=== PATIENT | male | born 1965 | race Caucasian/White ===

== ENCOUNTER 2019-12-24 02:52 | Inpatient (IN) | payer OTHER, SELFPAY ==
[2019-12-24 21:40] VITALS: BMI 33.0
--- NOTE | 2019-12-25 15:29 | HO.PSYADMNOT ---
HPI Chief Complaint: ETOH AND SECTION 12 Sources of Information: patient interviewed, chart reviewed and crisis/core team assessment reviewed HPI Narrative: the patient is a 54-year-old male who last had psychiatric treatments sometime ago in [place]. The patient has a history of alcohol use history of bipolar disorder and history of multiple significant suicide attempts. The patient was transported to the emergency room on a Section 12 issued by the [facility] [employer] after he called 911 reporting suicidal ideation and became agitated when found by the police. He had a BAL of [phone] in the emergency room. The patient reports he has had ongoing intrusive thoughts of self-harm that he had tied new cyst to a tree and that he began drinking alcohol in order to kill himself. Is the anniversary of his mother's and also around his birthday. Patient had been part of a dual diagnosis treatment program in [place]. In [place] he had seen a number of people by overdose and suicide. Patient currently has no psychiatric providers he is not on any psychiatric medication he has been on Seroquel in the past or but or became problematic with his blood sugars. He denied being on lithium Depakote Tegretol Lamictal but stated he had been on mood stabilizers. Past Psychiatric History: The patient is somewhat disorganized historian he states he id had psychiatric treatment in the 1980s in this area perhaps at [facility] history of multiple suicide attempts history of clara and agitation history of depressive episode Medical Evaluation Reviewed: Yes no acute physical issues noted [facility] Medical History Bipolar disorder Depression Diabetes mellitus, type 2 Narrative: on metformin for type 2 diabetes Family History: Family history of suicide in substance abuse Social History: the patient was born and raised in [facility] he has a brother and a sister his parents are . He is not does not have any children. In the past he lived in [place] and in [place]. He moved back to to [facility] from [place] has been living with his sister. He is on security disability. Substance History: drug of choice is alcohol history of multiple past detox admissions. He was in a residential program in the past in [place] Trauma History: NA Diagnostics Vital Signs (24Hr): Body Mass Index 9.6 Meds/Allergies Meds Home Medications Medication Instructions Recorded Confirmed Type metformin 1,500 mg PO BID 12/24/19 12/25/19 History Allergies Allergies Allergy/AdvReac Type Severity Reaction Status Date / Time No Known Allergies* Allergy Uncoded 12/24/19 03:00 Mental Status Exam Mental Status Exam Patient Appearance: Disheveled Patient Orientation: Person, Place and Situation Level of Consciousness: Awake Patient Behavior: Talkative, Cooperative, Restless, Anxious and Impulsive Mood Description: Depressed, Anxious and Labile Affect Description: Constricted, Depressed, Anxious, Blunted and Sad Ability to Follow Directions: Good Speech Pattern: Clear Memory Description: Episodic Impaired Delusions: Not Present Thought Process: Distracted and Goal Oriented Thought Content: Obsessional Thoughts and Circumstantial Depressive Symptoms: Increased Anxiety, Insomnia, Increased Irritability, Hopelessness, Feelings of Guilt and Thoughts of /Suicide Abnormal Motor Activity Signs and Symptoms: Agitation Judgement: Fair Judgement and Insight: IMPAIRED IMPULSE CONTROL AND JUDGMENT STATES SAFE IN THIS SETTING HE IS ACCEPTING HELP Assessment & Plan Assessment & Plan (1) Bipolar disorder: Status: Acute Code(s): F31.9 - Bipolar disorder, unspecified (2) Suicidal ideation: Status: Acute Code(s): R45.851 - Suicidal ideations (3) Alcohol abuse with alcohol-induced mood disorder: Status: Acute Code(s): F10.14 - Alcohol abuse with alcohol-induced mood disorder Assessment and Plan: PATIENT ADMITTED WITH BIPOLAR DISC DISORDER QUESTION OF BIPOLAR TYPE 1 DEPRESSED SUBTYPE ALCOHOL USE DISORDER QUESTION OF ALCOHOL INDUCED MOOD DISORDER CONTRIBUTING TO DEPRESSION AND SUICIDAL PRESENTATION. PATIENT APPEARS SAFE IN THIS SETTING NO OBVIOUS WITHDRAWAL SYMPTOMS WILL START DEPAKOTE AND LATUDA WILL NEED MUCH PSYCHOEDUCATION ADDITIONAL HISTORY FROM FAMILY WILL NEED REFERRALS TO OUTPATIENT PROVIDERS MONITOR SAFETY WHILE INPATIENT Patient educated on: diagnosis and medication risk/benefits Informed Consent: further education needed Reason for continued inpatient stay Substantial Risk for: harm to self, rapid decompensation and med/psych decompensation
[2019-12-25 16:31] VITALS: BP 156/97; PULSE 69; TEMP 36.6
[2019-12-25 20:51] VITALS: BP 140/91; PULSE 71
[2019-12-25] MEDS: Divalproex Sodium ER 500 MG TAB.ER.24H PO (20:58)
[2019-12-25] MEDS: LORazepam 1 MG TABLET PO (20:58)
[2019-12-26 04:30] VITALS: BP 141/85; PULSE 74; RESP 16; TEMP 36.2; O2SAT 96
[2019-12-26 09:00] VITALS: BP 127/78; PULSE 62; RESP 16; TEMP 36.4
[2019-12-26 09:00] LABS: Glucose, Whole Blood 121 mg/dL (60-115)
--- NOTE | 2019-12-26 09:01 | HO.PSYCHPN ---
Assessment & Plan Assessment & Plan (1) Diabetes mellitus, type 2: Status: Acute Code(s): E11.9 - Type 2 diabetes mellitus without complications (2) Alcohol abuse with alcohol-induced mood disorder: Status: Acute Code(s): F10.14 - Alcohol abuse with alcohol-induced mood disorder (3) Suicidal ideation: Status: Acute Code(s): R45.851 - Suicidal ideations (4) Bipolar disorder: Status: Acute Code(s): F31.9 - Bipolar disorder, unspecified Assessment and Plan: continue to assess and clarify bipolar disorder versus recurrent depression. Patient a somewhat problematic historian states multiple head injuries. He is alert poor historian regarding treatment and medication. Started on Depakote Latuda for depression Greater than 50% of the session was spent on counseling and/or coordination of care Subjective Subjective Reason For Visit: ETOH AND SECTION 12 Interim History: patient remains somewhat withdrawn depressed isolated Medication Compliance: Yes Side effects from medications: No Attending Groups: No Mental Status Exam Mental Status Exam Patient Appearance: Disheveled Patient Orientation: Person and Place Level of Consciousness: Awake Patient Behavior: Guarded and Passive Mood Description: Depressed and Nervous Affect Description: Constricted and Depressed Memory Description: Episodic Impaired Hallucinations: None Delusions: Not Present Thought Process: Rumination Thought Content: positive for Slowed Thinking and positive for Suicidal Ideation (passive ) Depressive Symptoms: Sleeping More Than Usual, Feelings of Worthlessness, Hopelessness, Feelings of Guilt, Increased Fatigue, Thoughts of /Suicide and Difficulty Concentrating Judgement: Fair Judgement and Insight: improved impulse control Diagnostics Vital Signs (24Hr): Vital Signs - 24 hr 12/25/19 16:31 12/25/19 20:51 12/26/19 04:30 Temperature 97.9 F 97.1 F Pulse Rate 69 71 74 Respiratory Rate 16 Blood Pressure 156/97 H 140/91 H 141/85 H Pulse Oximetry 96 Body Mass Index 9.6 Medications Medications Current Medications Generic Name Dose Route Start Last Admin Trade Name Freq PRN Reason Stop Dose Admin Acetaminophen 650 mg 12/25/19 12:45 Acetaminophen 325 Mg Tablet PO Q6H PRN Headache/Pain Mild Scale (1-3) Al Hydroxide/Mg Hydroxide 30 ml 12/25/19 12:45 Magnesium Hydrox/Alum Hydrox 30 Ml Oral.Susp PO Q6H PRN Heartburn/Nausea Divalproex Sodium 500 mg 12/25/19 21:00 12/25/19 20:58 Divalproex Sodium Er 500 Mg Tab.Er.24h PO 500 mg BEDTIME ABDULKADIR Administration Hydroxyzine HCl 25 mg 12/25/19 12:45 Hydroxyzine Hcl 25 Mg Tablet PO BEDTIME PRN Anxiety Lorazepam 1 mg 12/25/19 12:49 12/25/19 20:58 Lorazepam 1 Mg Tablet PO 12/29/19 12:48 1 mg Q4H PRN Administration Breakthrough alcohol withdrawa Lurasidone HCl 20 mg 12/26/19 09:00 Lurasidone Hcl 20 Mg Tablet PO DAILY ABDULKADIR Magnesium Hydroxide 30 ml 12/25/19 12:45 Milk Of Magnesia 30 Ml Oral.Susp PO DAILY PRN Constipation Nicotine 21 mg 12/25/19 13:00 12/25/19 15:34 Nicotine 21 Mg Patch.Td24 TRANSDERMA Not Given DAILY ABDULKADIR Nicotine Polacrilex 2 mg 12/25/19 12:45 Nicotine Polacrilex 2 Mg Gum BUCCAL Q2H PRN Nicotine Cravings Trazodone HCl 50 mg 12/25/19 12:45 Trazodone Hcl 50 Mg Tablet PO BEDTIME PRN Insomnia Allergies Allergies Allergy/AdvReac Type Severity Reaction Status Date / Time No Known Allergies* Allergy Uncoded 12/24/19 03:00
[2019-12-26 09:05] LABS: Glucose, Whole Blood 175 mg/dL (60-115)
[2019-12-26] MEDS: Lurasidone HCl 20 MG TABLET PO (10:20)
--- NOTE | 2019-12-26 13:20 | PC.NURSE ---
Pt expressed he wanted a flu shot-MD aware
[2019-12-26 14:00] VITALS: BP 137/89; PULSE 72; TEMP 36.4
[2019-12-26] MEDS: Flu Vacc QS2020-21(6mos up)/PF 0.5 ML SYRINGE IM (14:37)
[2019-12-26 16:00] VITALS: BP 161/90; PULSE 70; TEMP 36.6
[2019-12-26 17:14] LABS: Glucose, Whole Blood 153 mg/dL (60-115)
[2019-12-26 20:00] VITALS: BP 136/88; PULSE 75
[2019-12-26] MEDS: Divalproex Sodium ER 500 MG TAB.ER.24H PO (22:52)
[2019-12-26] MEDS: LORazepam 1 MG TABLET PO (22:52)
[2019-12-26 23:58] VITALS: BP 140/93; PULSE 70; TEMP 36.5
[2019-12-27] MEDS: traZODone HCL 50 MG TABLET PO ×2 (01:53→22:28)
[2019-12-27] MEDS: hydrOXYzine HCL 25 MG TABLET PO ×2 (01:53→22:28)
[2019-12-27 06:20] VITALS: BP 138/87; PULSE 75; RESP 18; TEMP 36.5
[2019-12-27 06:41] LABS: Glucose, Whole Blood 165 mg/dL (60-115)
[2019-12-27] MEDS: Lurasidone HCl 20 MG TABLET PO (08:30)
[2019-12-27 09:12] VITALS: BP 115/57; PULSE 65; O2SAT 97
[2019-12-27] MEDS: Milk of Magnesia 30 ML ORAL.SUSP PO (10:51)
--- NOTE | 2019-12-27 12:07 | HO.PSYCHPN ---
Assessment & Plan Assessment & Plan (1) Bipolar disorder: Status: Acute Code(s): F31.9 - Bipolar disorder, unspecified Assessment and Plan: on trial of depakote, 500mg inc to 750mg qhs tonight also on latuda 20mg inc to 40mg today not pariticpating in mileu or groups much (2) Suicidal ideation: Status: Acute Code(s): R45.851 - Suicidal ideations Assessment and Plan: ongoing hopeless/helplessness (3) Alcohol abuse with alcohol-induced mood disorder: Status: Acute Code(s): F10.14 - Alcohol abuse with alcohol-induced mood disorder Assessment and Plan: denies sys of withdrawl or craving Greater than 50% of the session was spent on counseling and/or coordination of care Subjective Subjective Date of Service: 12/27/19 Reason For Visit: ETOH AND SECTION 12 Subjective Notes: Conditional Voluntary Interim History: Wanted me to review prior med trials list : incuding hx sertrline numerous times, remeron, zolpidem, clonazepam, hx ablify up to 20mg, reports trazodone didn't work, hx keppra and hx of gabapentin Medication Compliance: Yes Side effects from medications: No Attending Groups: Intermittent Review of Systems Acute medical concerns: No Medical Review of Systems: unchanged Review of Systems: not taking metform due to not eating pt reports Mental Status Exam Mental Status Exam Patient Appearance: Disheveled and Unkempt Patient Orientation: Person, Place, Time and Situation Level of Consciousness: Awake and Alert Patient Behavior: Appropriate and Cooperative Mood Description: Constricted and Anxious Affect Description: Appropriate and Flat Patient Cognition Impaired: No Ability to Follow Directions: Fair Speech Pattern: Clear Hallucinations: None Delusions: Not Present Thought Process: Intact and Goal Oriented Thought Content: positive for Racing and positive for Goal Oriented Depressive Symptoms: Increased Anxiety, Muscle Tension, Increased Irritability, Difficulty Sleeping, Hopelessness and Difficulty Concentrating Judgement: Fair Diagnostics Vital Signs (24Hr): Vital Signs - 24 hr 12/26/19 14:00 12/26/19 16:00 12/26/19 20:00 Temperature 97.6 F 97.8 F Pulse Rate 72 70 75 Respiratory Rate Blood Pressure 137/89 161/90 H 136/88 Pulse Oximetry 12/26/19 23:58 12/27/19 06:20 12/27/19 09:12 Temperature 97.7 F 97.7 F Pulse Rate 70 75 65 Respiratory Rate 18 Blood Pressure 140/93 H 138/87 115/57 L Pulse Oximetry 97 Body Mass Index Labs Labs: Laboratory Results - last 48 hr 12/26/19 12/27/19 17:07 06:26 POC Glucose 153 H 165 H Medications Medications Current Medications Generic Name Dose Route Start Last Admin Trade Name Freq PRN Reason Stop Dose Admin Acetaminophen 650 mg 12/25/19 12:45 Acetaminophen 325 Mg Tablet PO Q6H PRN Headache/Pain Mild Scale (1-3) Al Hydroxide/Mg Hydroxide 30 ml 12/25/19 12:45 Magnesium Hydrox/Alum Hydrox 30 Ml Oral.Susp PO Q6H PRN Heartburn/Nausea Divalproex Sodium 500 mg 12/25/19 21:00 12/26/19 22:52 Divalproex Sodium Er 500 Mg Tab.Er.24h PO 500 mg BEDTIME ABDULKADIR Administration Hydroxyzine HCl 25 mg 12/25/19 12:45 12/27/19 01:53 Hydroxyzine Hcl 25 Mg Tablet PO 25 mg BEDTIME PRN Administration Anxiety Lorazepam 1 mg 12/25/19 12:49 12/26/19 22:52 Lorazepam 1 Mg Tablet PO 12/29/19 12:48 1 mg Q4H PRN Administration Breakthrough alcohol withdrawa Lurasidone HCl 20 mg 12/26/19 09:00 12/27/19 08:30 Lurasidone Hcl 20 Mg Tablet PO 20 mg DAILY ABDULKADIR Administration Magnesium Hydroxide 30 ml 12/25/19 12:45 12/27/19 10:51 Milk Of Magnesia 30 Ml Oral.Susp PO 30 ml DAILY PRN Administration Constipation Nicotine 21 mg 12/25/19 13:00 12/27/19 08:32 Nicotine 21 Mg Patch.Td24 TRANSDERMA Not Given DAILY ABDULKADIR Nicotine Polacrilex 2 mg 12/25/19 12:45 Nicotine Polacrilex 2 Mg Gum BUCCAL Q2H PRN Nicotine Cravings Trazodone HCl 50 mg 12/25/19 12:45 12/27/19 01:53 Trazodone Hcl 50 Mg Tablet PO 50 mg BEDTIME PRN Administration Insomnia Allergies Allergies Allergy/AdvReac Type Severity Reaction Status Date / Time No Known Allergies* Allergy Uncoded 12/24/19 03:00
[2019-12-27 16:01] VITALS: BP 139/77; TEMP 36.4
[2019-12-27 17:14] LABS: Glucose, Whole Blood 217 mg/dL (60-115)
[2019-12-27] MEDS: Divalproex Sodium ER 250 MG TAB.ER.24H 750 MG PO (22:24)
[2019-12-28 05:32] VITALS: BP 140/84; PULSE 76; RESP 16; TEMP 36.2
[2019-12-28 06:32] LABS: Glucose, Whole Blood 153 mg/dL (60-115)
[2019-12-28] MEDS: Lurasidone HCl 40 MG TABLET PO (08:27)
--- NOTE | 2019-12-28 10:11 | HO.PSYCHPN ---
Assessment & Plan Assessment & Plan (1) Diabetes mellitus, type 2: Status: Acute Code(s): E11.9 - Type 2 diabetes mellitus without complications Assessment and Plan: contiue to encourage resuming metformin now that eating (2) Alcohol abuse with alcohol-induced mood disorder: Status: Acute Code(s): F10.14 - Alcohol abuse with alcohol-induced mood disorder Assessment and Plan: denies withdrawl or cravings started depakote and latuda for presumed ? bipolar depression increased dose still didn't sleep will inc depakote further- dc trazodone check labs 12/28 (3) Suicidal ideation: Status: Acute Code(s): R45.851 - Suicidal ideations Assessment and Plan: ongoing Greater than 50% of the session was spent on counseling and/or coordination of care Subjective Subjective Date of Service: 12/28/19 Reason For Visit: ETOH AND SECTION 12 Subjective Notes: Conditional Voluntary Interim History: didnt' sleep all night telling nureses you think one medication will help continues to endorse si if dced but safe on unit very negative about any help offered Medication Compliance: Yes Side effects from medications: No Attending Groups: No Review of Systems Acute medical concerns: Yes has diabetes not taking metformin, as he hadn't been eating- bs up today- Medical Review of Systems: unchanged Mental Status Exam Mental Status Exam Narrative: showered and groomed today Patient Appearance: Appropriate Patient Orientation: Person, Place, Time and Situation Level of Consciousness: Awake and Alert Patient Behavior: Passive, Resistive to Care and Isolative Mood Description: Withdrawn and Depressed Affect Description: Angry (irritable) Hallucinations: None Thought Process: Intact and Goal Oriented Thought Content: positive for Intact, positive for Goal Oriented and positive for Suicidal Ideation (if dced, ) Depressive Symptoms: Difficulty Sleeping, Significant Weight Loss, Hopelessness and Thoughts of /Suicide Judgement: Fair Diagnostics Vital Signs (24Hr): Vital Signs - 24 hr 12/27/19 16:01 12/28/19 05:32 Temperature 97.6 F 97.2 F Pulse Rate 76 Respiratory Rate 16 Blood Pressure 139/77 140/84 H Body Mass Index Labs Labs: Laboratory Results - last 48 hr 12/26/19 12/27/19 12/27/19 17:07 06:26 17:10 POC Glucose 153 H 165 H 217 H 12/28/19 05:22 POC Glucose 153 H Medications Medications Current Medications Generic Name Dose Route Start Last Admin Trade Name Freq PRN Reason Stop Dose Admin Acetaminophen 650 mg 12/25/19 12:45 Acetaminophen 325 Mg Tablet PO Q6H PRN Headache/Pain Mild Scale (1-3) Al Hydroxide/Mg Hydroxide 30 ml 12/25/19 12:45 Magnesium Hydrox/Alum Hydrox 30 Ml Oral.Susp PO Q6H PRN Heartburn/Nausea Divalproex Sodium 750 mg 12/27/19 21:00 12/27/19 22:24 Divalproex Sodium Er 250 Mg Tab.Er.24h PO 750 mg BEDTIME ABDULKADIR Administration Hydroxyzine HCl 25 mg 12/25/19 12:45 12/27/19 22:28 Hydroxyzine Hcl 25 Mg Tablet PO 25 mg BEDTIME PRN Administration Anxiety Lorazepam 1 mg 12/25/19 12:49 12/26/19 22:52 Lorazepam 1 Mg Tablet PO 12/29/19 12:48 1 mg Q4H PRN Administration Breakthrough alcohol withdrawa Lurasidone HCl 40 mg 12/28/19 09:00 12/28/19 08:27 Lurasidone Hcl 40 Mg Tablet PO 40 mg DAILY ABDULKADIR Administration Magnesium Hydroxide 30 ml 12/25/19 12:45 12/27/19 10:51 Milk Of Magnesia 30 Ml Oral.Susp PO 30 ml DAILY PRN Administration Constipation Nicotine 21 mg 12/25/19 13:00 12/28/19 09:04 Nicotine 21 Mg Patch.Td24 TRANSDERMA Not Given DAILY ABDULKADIR Nicotine Polacrilex 2 mg 12/25/19 12:45 Nicotine Polacrilex 2 Mg Gum BUCCAL Q2H PRN Nicotine Cravings Trazodone HCl 50 mg 12/25/19 12:45 12/27/19 22:28 Trazodone Hcl 50 Mg Tablet PO 50 mg BEDTIME PRN Administration Insomnia increasing latuda to 60mg; inc depakote to 1000mg qhs dc trazodone inc hydroxyzine to 50mg mr x1 Allergies Allergies Allergy/AdvReac Type Severity Reaction Status Date / Time No Known Allergies* Allergy Uncoded 12/24/19 03:00
[2019-12-28 17:03] VITALS: BP 148/84; PULSE 72; TEMP 36.4
[2019-12-28 17:23] LABS: Glucose, Whole Blood 205 mg/dL (60-115)
[2019-12-28] MEDS: Divalproex Sodium ER 500 MG TAB.ER.24H 1000 MG PO (22:58)
[2019-12-28] MEDS: hydrOXYzine HCL 25 MG TABLET 50 MG PO (23:00)
[2019-12-29] MEDS: hydrOXYzine HCL 25 MG TABLET 50 MG PO (01:53)
[2019-12-29 05:50] VITALS: BP 138/85; PULSE 69; RESP 16; TEMP 36.1
[2019-12-29 05:52] LABS: Glucose, Whole Blood 179 mg/dL (60-115)
[2019-12-29] MEDS: Lurasidone HCl 20 MG TABLET 60 MG PO (09:17)
[2019-12-29 09:20] LABS: MANUAL DIFF FLAG NO
[2019-12-29 09:26] LABS: Basophils Percent Auto 0.4 % (0-2); Eosinophils Absolute Auto 0.1 X10*3/uL (0.0-0.4); Eosinophils Percent Auto 2.1 % (0-4); Hematocrit 46.5 % (42-52); Imm Gran Abs Auto 0.01 X10*3/uL (0.00-0.03); Imm Gran Pct Auto 0.2 % (0.0-0.4); Lymphocytes Percent Auto 37.8 % (20-40); Mean Corpuscular HGB Conc 34.4 g/dl (31.0-36.0); Mean Corpuscular Hemoglobin 30.7 pg (27.0-33.0); Mean Corpuscular Volume 89.3 fL (80-98); Monocytes Absolute Auto 0.6 X10*3/uL (0.1-1.2); Monocytes Percent Auto 12.2 % (2-11); Neutrophils Absolute Auto 2.5 X10*3/uL (2.0-8.3); Neutrophils Percent Auto 47.3 % (45-73); Platelet Count 153 X10*3/uL (160-400); Red Blood Count 5.21 X10*6/uL (4.60-5.80); Red Cell Distribution Width 13.3 % (11.0-16.0); White Blood Count 5.2 X10*3/uL (4.8-10.8)
[2019-12-29 09:49] LABS: Estimated Average Glucose 128 mg/dL; Hemoglobin A1c % 6.1 %
[2019-12-29 09:55] LABS: Alanine Aminotransferase 44 U/L (0-40); Aspartate Amino Transferase 31 U/L (5-37); Cholesterol 159 mg/dL; HDL Cholesterol 52 mg/dL; LDL Cholesterol Calculated 58 mg/dl
[2019-12-29 09:59] LABS: Valproate 32.1 mcg/mL (50.0-100.0)
[2019-12-29 10:26] LABS: Triglycerides 249 mg/dL
--- NOTE | 2019-12-29 16:46 | HO.PSYCHPN ---
Assessment & Plan Assessment & Plan (1) Suicidal ideation: Status: Acute Code(s): R45.851 - Suicidal ideations (2) Bipolar disorder: Status: Acute Code(s): F31.9 - Bipolar disorder, unspecified Assessment and Plan: continue Latuda Depakote patient has some records from [place] to review Greater than 50% of the session was spent on counseling and/or coordination of care Subjective Subjective Reason For Visit: ETOH AND SECTION 12 depression si Interim History: Pt more related isolative for past 6 months pt was severely depressed was helping fix up the house things did nt go well with his sister Patient has been depressed withdrawn has started leaving his room Medication Compliance: Yes Attending Groups: Intermittent Mental Status Exam Mental Status Exam Narrative: showered and groomed today Patient Appearance: Appropriate Patient Orientation: Person, Place, Time and Situation Level of Consciousness: Awake and Alert Patient Behavior: Passive, Resistive to Care and Isolative Mood Description: Withdrawn and Depressed Affect Description: Angry (irritable) Hallucinations: None Thought Process: Intact and Goal Oriented Thought Content: positive for Intact, positive for Goal Oriented and positive for Suicidal Ideation (if dced, ) Depressive Symptoms: Difficulty Sleeping, Significant Weight Loss, Hopelessness and Thoughts of /Suicide Judgement: Fair Diagnostics Vital Signs (24Hr): Vital Signs - 24 hr 12/28/19 17:03 12/29/19 05:50 Temperature 97.6 F 96.9 F Pulse Rate 72 69 Respiratory Rate 16 Blood Pressure 148/84 H 138/85 Body Mass Index 9.6 Labs Results: 12/29/19 08:51 Labs: Laboratory Results - last 48 hr 12/25/19 12/26/19 12/27/19 17:46 04:20 17:10 WBC RBC Hgb Hct MCV MCH MCHC RDW Plt Count MPV Immature Gran % (Auto) Neut % (Auto) Lymph % (Auto) [place] % (Auto) Eos % (Auto) Baso % (Auto) Neut # (Auto) Lymph # (Auto) [place] # (Auto) Eos # (Auto) Baso # (Auto) Abs Immat Gran (auto) Absolute Nucleated RBC Nucleated RBC % (auto) POC Glucose 175 H 121 H 217 H Estimat Average Glucose Hemoglobin A1c % AST ALT Triglycerides Cholesterol LDL Cholesterol, Calc HDL Cholesterol Valproic Acid 12/28/19 12/28/19 12/29/19 05:22 16:59 05:48 WBC RBC Hgb Hct MCV MCH MCHC RDW Plt Count MPV Immature Gran % (Auto) Neut % (Auto) Lymph % (Auto) [place] % (Auto) Eos % (Auto) Baso % (Auto) Neut # (Auto) Lymph # (Auto) [place] # (Auto) Eos # (Auto) Baso # (Auto) Abs Immat Gran (auto) Absolute Nucleated RBC Nucleated RBC % (auto) POC Glucose 153 H 205 H 179 H Estimat Average Glucose Hemoglobin A1c % AST ALT Triglycerides Cholesterol LDL Cholesterol, Calc HDL Cholesterol Valproic Acid 12/29/19 12/29/19 12/29/19 08:51 08:51 08:51 WBC 5.2 RBC 5.21 Hgb 16.0 Hct 46.5 MCV 89.3 MCH 30.7 MCHC 34.4 RDW 13.3 Plt Count 153 L MPV 11.0 Immature Gran % (Auto) 0.2 Neut % (Auto) 47.3 Lymph % (Auto) 37.8 [place] % (Auto) 12.2 H Eos % (Auto) 2.1 Baso % (Auto) 0.4 Neut # (Auto) 2.5 Lymph # (Auto) 2.0 [place] # (Auto) 0.6 Eos # (Auto) 0.1 Baso # (Auto) 0.0 Abs Immat Gran (auto) 0.01 Absolute Nucleated RBC 0.000 Nucleated RBC % (auto) 0.0 POC Glucose Estimat Average Glucose 128 Hemoglobin A1c % 6.1 AST 31 ALT 44 H Triglycerides 249 Cholesterol 159 LDL Cholesterol, Calc 58 HDL Cholesterol 52 Valproic Acid 32.1 L Medications Medications Current Medications Generic Name Dose Route Start Last Admin Trade Name Freq PRN Reason Stop Dose Admin Acetaminophen 650 mg 12/25/19 12:45 Acetaminophen 325 Mg Tablet PO Q6H PRN Headache/Pain Mild Scale (1-3) Al Hydroxide/Mg Hydroxide 30 ml 12/25/19 12:45 Magnesium Hydrox/Alum Hydrox 30 Ml Oral.Susp PO Q6H PRN Heartburn/Nausea Divalproex Sodium 1,000 mg 12/28/19 21:00 12/28/19 22:58 Divalproex Sodium Er 500 Mg Tab.Er.24h PO 1,000 mg BEDTIME ABDULKADIR Administration Hydroxyzine HCl 50 mg 12/28/19 19:11 12/29/19 01:53 Hydroxyzine Hcl 25 Mg Tablet PO 50 mg BEDTIME MRX1 PRN Administration Insomnia Lurasidone HCl 60 mg 12/29/19 09:00 12/29/19 09:17 Lurasidone Hcl 20 Mg Tablet PO 60 mg DAILY ABDULKADIR Administration Magnesium Hydroxide 30 ml 12/25/19 12:45 12/27/19 10:51 Milk Of Magnesia 30 Ml Oral.Susp PO 30 ml DAILY PRN Administration Constipation Nicotine 21 mg 12/25/19 13:00 12/29/19 09:17 Nicotine 21 Mg Patch.Td24 TRANSDERMA Not Given DAILY ABDULKADIR Nicotine Polacrilex 2 mg 12/25/19 12:45 Nicotine Polacrilex 2 Mg Gum BUCCAL Q2H PRN Nicotine Cravings Allergies Allergies Allergy/AdvReac Type Severity Reaction Status Date / Time No Known Allergies* Allergy Uncoded 12/24/19 03:00
[2019-12-29 17:10] LABS: Glucose, Whole Blood 230 mg/dL (60-115)
[2019-12-29 18:00] VITALS: BP 148/64; PULSE 77; TEMP 36.2
[2019-12-29] MEDS: Divalproex Sodium ER 500 MG TAB.ER.24H 1000 MG PO (22:30)
[2019-12-29] MEDS: hydrOXYzine HCL 25 MG TABLET 100 MG PO (22:31)
[2019-12-29] MEDS: clonazePAM 0.5 MG TABLET PO (22:33)
[2019-12-30 04:52] LABS: Glucose, Whole Blood 260 mg/dL (60-115)
[2019-12-30 05:20] VITALS: BP 129/69; PULSE 72; RESP 18; TEMP 36.3
[2019-12-30 08:06] LABS: Glucose, Whole Blood 260 mg/dL (60-115)
[2019-12-30] MEDS: Lurasidone HCl 20 MG TABLET 60 MG PO (09:29)
[2019-12-30] MEDS: Thiamine HCL 100 MG TABLET PO (10:37)
[2019-12-30] MEDS: DULoxetine HCl 30 MG CAPSULE.DR PO (10:37)
[2019-12-30 12:34] LABS: Alanine Aminotransferase 63 U/L (0-40); Albumin Level 3.8 g/dL (3.5-5.0); Alkaline Phosphatase 70 U/L (39-117); Anion Gap 15 (12-20); Aspartate Amino Transferase 43 U/L (5-37); Bilirubin Total 0.3 mg/dL (0.0-1.0); Blood Urea Nitrogen 17 mg/dL (9-16); Carbon Dioxide 24 mmol/L (22-29); Chloride 103 mmol/L (96-108); Creatinine Clr Calc Pharmacy 41.8; Estimated Glomerular Filt Rate > 60; Glucose Random 267 mg/dL (60-115); Potassium 4.5 mmol/l (3.3-5.1); Sodium 137 mmol/L (135-145); Total Protein 6.7 g/dL (6.5-8.0)
[2019-12-30 12:56] LABS: Thyroid Stimulating Hormone 1.05 mIU/mL (0.32-4.0)
[2019-12-30] MEDS: Nicotine 21 MG PATCH.TD24 TRANSDERMA (13:04)
[2019-12-30 13:49] LABS: Folate 8.6 ng/mL (> or = 4.0); Vitamin B12 264 pg/mL (200-900)
[2019-12-30 17:24] LABS: Glucose, Whole Blood 245 mg/dL (60-115)
--- NOTE | 2019-12-30 21:05 | P.PNPSI_ITS ---
Assessment & Plan Assessment & Plan (1) Diabetes mellitus, type 2: Status: Acute Code(s): E11.9 - Type 2 diabetes mellitus without complications (2) Alcohol abuse with alcohol-induced mood disorder: Status: Acute Code(s): F10.14 - Alcohol abuse with alcohol-induced mood disorder (3) Suicidal ideation: Status: Acute Code(s): R45.851 - Suicidal ideations (4) Bipolar disorder: Status: Acute Code(s): F31.9 - Bipolar disorder, unspecified Assessment and Plan: continue Latuda start sertraline continue Depakote clonazepam at bedtime with patient more stable consider partial hospital Greater than 50% of the session was spent on counseling and/or coordination of care Subjective Subjective Reason For Visit: ETOH AND SECTION 12 depression si Interim History: patient remains severely depressed withdrawn room intermittent thoughts he might be better off . Started on sertraline Medication Compliance: Yes Side effects from medications: No Attending Groups: Intermittent Mental Status Exam Mental Status Exam Patient Appearance: Disheveled Patient Orientation: Person, Place and Situation Level of Consciousness: Awake Mood Description: Withdrawn Thought Content: positive for Goal Oriented Depressive Symptoms: Increased Anxiety, Diff. Making Decisions, Increased Irritability, Difficulty Sleeping, Feelings of Worthlessness, Feelings of Guilt and Difficulty Concentrating Judgement and Insight: improving improved impulse control Diagnostics Vital Signs (24Hr): Vital Signs - 24 hr 12/30/19 05:20 Temperature 97.3 F Pulse Rate 72 Respiratory Rate 18 Blood Pressure 129/69 Body Mass Index 9.6 Labs Results: 12/29/19 08:51 12/30/19 11:42 Labs: Laboratory Results - last 48 hr 12/25/19 12/26/19 12/29/19 17:46 04:20 05:48 WBC RBC Hgb Hct MCV MCH MCHC RDW Plt Count MPV Immature Gran % (Auto) Neut % (Auto) Lymph % (Auto) [place] % (Auto) Eos % (Auto) Baso % (Auto) Neut # (Auto) Lymph # (Auto) [place] # (Auto) Eos # (Auto) Baso # (Auto) Abs Immat Gran (auto) Absolute Nucleated RBC Nucleated RBC % (auto) Sodium Potassium Chloride Carbon Dioxide Anion Gap BUN Creatinine Estim Creat Clear Calc Estimated GFR POC Glucose 175 H 121 H 179 H Random Glucose Estimat Average Glucose Hemoglobin A1c % Calcium Total Bilirubin AST ALT Alkaline Phosphatase Total Protein Albumin Triglycerides Cholesterol LDL Cholesterol, Calc HDL Cholesterol Vitamin B12 Folate TSH Valproic Acid 12/29/19 12/29/19 12/29/19 08:51 08:51 08:51 WBC 5.2 RBC 5.21 Hgb 16.0 Hct 46.5 MCV 89.3 MCH 30.7 MCHC 34.4 RDW 13.3 Plt Count 153 L MPV 11.0 Immature Gran % (Auto) 0.2 Neut % (Auto) 47.3 Lymph % (Auto) 37.8 [place] % (Auto) 12.2 H Eos % (Auto) 2.1 Baso % (Auto) 0.4 Neut # (Auto) 2.5 Lymph # (Auto) 2.0 [place] # (Auto) 0.6 Eos # (Auto) 0.1 Baso # (Auto) 0.0 Abs Immat Gran (auto) 0.01 Absolute Nucleated RBC 0.000 Nucleated RBC % (auto) 0.0 Sodium Potassium Chloride Carbon Dioxide Anion Gap BUN Creatinine Estim Creat Clear Calc Estimated GFR POC Glucose Random Glucose Estimat Average Glucose 128 Hemoglobin A1c % 6.1 Calcium Total Bilirubin AST 31 ALT 44 H Alkaline Phosphatase Total Protein Albumin Triglycerides 249 Cholesterol 159 LDL Cholesterol, Calc 58 HDL Cholesterol 52 Vitamin B12 Folate TSH Valproic Acid 32.1 L 12/29/19 12/30/19 12/30/19 17:06 04:47 04:47 WBC RBC Hgb Hct MCV MCH MCHC RDW Plt Count MPV Immature Gran % (Auto) Neut % (Auto) Lymph % (Auto) [place] % (Auto) Eos % (Auto) Baso % (Auto) Neut # (Auto) Lymph # (Auto) [place] # (Auto) Eos # (Auto) Baso # (Auto) Abs Immat Gran (auto) Absolute Nucleated RBC Nucleated RBC % (auto) Sodium Potassium Chloride Carbon Dioxide Anion Gap BUN Creatinine Estim Creat Clear Calc Estimated GFR POC Glucose 230 H 260 H 260 H Random Glucose Estimat Average Glucose Hemoglobin A1c % Calcium Total Bilirubin AST ALT Alkaline Phosphatase Total Protein Albumin Triglycerides Cholesterol LDL Cholesterol, Calc HDL Cholesterol Vitamin B12 Folate TSH Valproic Acid 12/30/19 12/30/19 12/30/19 11:42 11:42 17:19 WBC RBC Hgb Hct MCV MCH MCHC RDW Plt Count MPV Immature Gran % (Auto) Neut % (Auto) Lymph % (Auto) [place] % (Auto) Eos % (Auto) Baso % (Auto) Neut # (Auto) Lymph # (Auto) [place] # (Auto) Eos # (Auto) Baso # (Auto) Abs Immat Gran (auto) Absolute Nucleated RBC Nucleated RBC % (auto) Sodium 137 Potassium 4.5 Chloride 103 Carbon Dioxide 24 Anion Gap 15 BUN 17 H Creatinine 0.92 Estim Creat Clear Calc 41.8 Estimated GFR > 60 POC Glucose 245 H Random Glucose 267 H Estimat Average Glucose Hemoglobin A1c % Calcium 9.0 Total Bilirubin 0.3 AST 43 H ALT 63 H Alkaline Phosphatase 70 Total Protein 6.7 Albumin 3.8 Triglycerides Cholesterol LDL Cholesterol, Calc HDL Cholesterol Vitamin B12 264 Folate 8.6 TSH 1.05 Valproic Acid Medications Medications Current Medications Generic Name Dose Route Start Last Admin Trade Name Freq PRN Reason Stop Dose Admin Acetaminophen 650 mg 12/25/19 12:45 Acetaminophen 325 Mg Tablet PO Q6H PRN Headache/Pain Mild Scale (1-3) Al Hydroxide/Mg Hydroxide 30 ml 12/25/19 12:45 Magnesium Hydrox/Alum Hydrox 30 Ml Oral.Susp PO Q6H PRN Heartburn/Nausea Clonazepam 0.5 mg 12/29/19 21:00 12/29/19 22:33 Clonazepam 0.5 Mg Tablet PO 0.5 mg BEDTIME ABDULKADIR Administration Divalproex Sodium 1,000 mg 12/28/19 21:00 12/29/19 22:30 Divalproex Sodium Er 500 Mg Tab.Er.24h PO 1,000 mg BEDTIME ABDULKADIR Administration Duloxetine HCl 30 mg 12/30/19 10:05 12/30/19 10:37 Duloxetine Hcl 30 Mg Capsule.Dr PO 30 mg DAILY ABDULKADIR Administration Hydroxyzine HCl 100 mg 12/29/19 21:00 12/29/19 22:31 Hydroxyzine Hcl 25 Mg Tablet PO 100 mg BEDTIME ABDULKADIR Administration Lurasidone HCl 60 mg 12/29/19 09:00 12/30/19 09:29 Lurasidone Hcl 20 Mg Tablet PO 60 mg DAILY ABDULKADIR Administration Magnesium Hydroxide 30 ml 12/25/19 12:45 12/27/19 10:51 Milk Of Magnesia 30 Ml Oral.Susp PO 30 ml DAILY PRN Administration Constipation Nicotine 21 mg 12/25/19 13:00 12/30/19 13:04 Nicotine 21 Mg Patch.Td24 TRANSDERMA 21 mg DAILY ABDULKADIR Administration Nicotine Polacrilex 2 mg 12/25/19 12:45 Nicotine Polacrilex 2 Mg Gum BUCCAL Q2H PRN Nicotine Cravings Thiamine HCl 100 mg 12/30/19 10:00 12/30/19 10:37 Thiamine Hcl 100 Mg Tablet PO 100 mg DAILY ABDULKADIR Administration Allergies Allergies Allergy/AdvReac Type Severity Reaction Status Date / Time No Known Allergies* Allergy Uncoded 12/24/19 03:00
[2019-12-30] MEDS: Divalproex Sodium ER 500 MG TAB.ER.24H 1000 MG PO (22:50)
[2019-12-30] MEDS: clonazePAM 0.5 MG TABLET PO (22:50)
[2019-12-30] MEDS: hydrOXYzine HCL 25 MG TABLET 100 MG PO (22:51)
[2019-12-31 05:06] LABS: Glucose, Whole Blood 192 mg/dL (60-115)
[2019-12-31 05:35] VITALS: BP 139/81; PULSE 75; RESP 18; TEMP 36.4
[2019-12-31] MEDS: DULoxetine HCl 30 MG CAPSULE.DR PO (10:10)
[2019-12-31] MEDS: Lurasidone HCl 20 MG TABLET 60 MG PO (10:10)
[2019-12-31] MEDS: Thiamine HCL 100 MG TABLET PO (10:10)
[2019-12-31 18:00] VITALS: BP 132/75; PULSE 77; TEMP 36.4
[2019-12-31] MEDS: hydrOXYzine HCL 25 MG TABLET 100 MG PO (22:20)
[2019-12-31] MEDS: clonazePAM 0.5 MG TABLET PO (22:23)
[2019-12-31] MEDS: Divalproex Sodium ER 500 MG TAB.ER.24H 1000 MG PO (22:23)
--- NOTE | 2019-12-31 22:45 | HO.PSYCHPN ---
Assessment & Plan Assessment & Plan (1) Diabetes mellitus, type 2: Status: Acute Code(s): E11.9 - Type 2 diabetes mellitus without complications (2) Alcohol abuse with alcohol-induced mood disorder: Status: Acute Code(s): F10.14 - Alcohol abuse with alcohol-induced mood disorder (3) Suicidal ideation: Status: Acute Code(s): R45.851 - Suicidal ideations (4) Bipolar disorder: Status: Acute Code(s): F31.9 - Bipolar disorder, unspecified Assessment and Plan: continue Latuda cymbalta continue Depakote clonazepam at bedtime with patient more stable consider partial hospital Greater than 50% of the session was spent on counseling and/or coordination of care Subjective Subjective Reason For Visit: ETOH AND SECTION 12 depression si Interim History: patient remains depressed withdrawn room intermittent thoughts he might be better off . tolerating addition of Cymbalta 30 mg daily Mental Status Exam Mental Status Exam Narrative: improved range of affect Patient Appearance: Appropriate Patient Orientation: Person, Place and Situation Level of Consciousness: Awake Patient Behavior: Appropriate, Cooperative and Isolative Behavior Comments: avoids crowds becomes nervous Mood Description: Withdrawn Affect Description: Depressed Patient Cognition Impaired: No Ability to Follow Directions: Good Speech Pattern: Clear Memory Description: Episodic Impaired Diagnostics Vital Signs (24Hr): Vital Signs - 24 hr 12/31/19 05:35 12/31/19 18:00 Temperature 97.6 F 97.5 F Pulse Rate 75 77 Respiratory Rate 18 Blood Pressure 139/81 132/75 Body Mass Index 9.6 Labs Results: 12/29/19 08:51 12/30/19 11:42 Labs: Laboratory Results - last 48 hr 12/30/19 12/30/19 12/30/19 04:47 04:47 11:42 Sodium 137 Potassium 4.5 Chloride 103 Carbon Dioxide 24 Anion Gap 15 BUN 17 H Creatinine 0.92 Estim Creat Clear Calc 41.8 Estimated GFR > 60 POC Glucose 260 H 260 H Random Glucose 267 H Calcium 9.0 Total Bilirubin 0.3 AST 43 H ALT 63 H Alkaline Phosphatase 70 Total Protein 6.7 Albumin 3.8 Vitamin B12 Folate TSH 1.05 12/30/19 12/30/19 12/31/19 11:42 17:19 05:02 Sodium Potassium Chloride Carbon Dioxide Anion Gap BUN Creatinine Estim Creat Clear Calc Estimated GFR POC Glucose 245 H 192 H Random Glucose Calcium Total Bilirubin AST ALT Alkaline Phosphatase Total Protein Albumin Vitamin B12 264 Folate 8.6 TSH Medications Medications Current Medications Generic Name Dose Route Start Last Admin Trade Name Freq PRN Reason Stop Dose Admin Acetaminophen 650 mg 12/25/19 12:45 Acetaminophen 325 Mg Tablet PO Q6H PRN Headache/Pain Mild Scale (1-3) Al Hydroxide/Mg Hydroxide 30 ml 12/25/19 12:45 Magnesium Hydrox/Alum Hydrox 30 Ml Oral.Susp PO Q6H PRN Heartburn/Nausea Clonazepam 0.5 mg 12/29/19 21:00 12/31/19 22:23 Clonazepam 0.5 Mg Tablet PO 0.5 mg BEDTIME ABDULKADIR Administration Divalproex Sodium 1,000 mg 12/28/19 21:00 12/31/19 22:23 Divalproex Sodium Er 500 Mg Tab.Er.24h PO 1,000 mg BEDTIME ABDULKADIR Administration Duloxetine HCl 30 mg 12/30/19 10:05 12/31/19 10:10 Duloxetine Hcl 30 Mg Capsule.Dr PO 30 mg DAILY ABDULKADIR Administration Hydroxyzine HCl 100 mg 12/29/19 21:00 12/31/19 22:20 Hydroxyzine Hcl 25 Mg Tablet PO 100 mg BEDTIME ABDULKADIR Administration Lurasidone HCl 60 mg 12/29/19 09:00 12/31/19 10:10 Lurasidone Hcl 20 Mg Tablet PO 60 mg DAILY ABDULKADIR Administration Magnesium Hydroxide 30 ml 12/25/19 12:45 12/27/19 10:51 Milk Of Magnesia 30 Ml Oral.Susp PO 30 ml DAILY PRN Administration Constipation Nicotine 21 mg 12/25/19 13:00 12/31/19 10:10 Nicotine 21 Mg Patch.Td24 TRANSDERMA Not Given DAILY ABDULKADIR Nicotine Polacrilex 2 mg 12/25/19 12:45 Nicotine Polacrilex 2 Mg Gum BUCCAL Q2H PRN Nicotine Cravings Thiamine HCl 100 mg 12/30/19 10:00 12/31/19 10:10 Thiamine Hcl 100 Mg Tablet PO 100 mg DAILY ABDULKADIR Administration Allergies Allergies Allergy/AdvReac Type Severity Reaction Status Date / Time No Known Allergies* Allergy Uncoded 12/24/19 03:00
[2020-01-01 05:15] VITALS: BP 120/66; PULSE 90; RESP 16; TEMP 36.3; O2SAT 95
[2020-01-01 07:00] VITALS: BMI 35.1
[2020-01-01] MEDS: Lurasidone HCl 20 MG TABLET 60 MG PO (09:15)
[2020-01-01] MEDS: DULoxetine HCl 30 MG CAPSULE.DR PO (09:16)
[2020-01-01] MEDS: Thiamine HCL 100 MG TABLET PO (09:16)
[2020-01-01] MEDS: Nicotine 21 MG PATCH.TD24 TRANSDERMA (09:16)
--- NOTE | 2020-01-01 10:51 | HO.PSYCHPN ---
Subjective Subjective Reason For Visit: ETOH AND SECTION 12 depression si Interim History: patient shows some biswas range of affect complains of insomnia agreeable to sobriety regarding alcohol tolerating Gideon Huntley Mental Status Exam Mental Status Exam Narrative: improved range of affect less hopeless and despondent still feels quite fragile Patient Appearance: Appropriate Patient Orientation: Person, Place and Situation Level of Consciousness: Awake Patient Behavior: Appropriate, Cooperative and Isolative Behavior Comments: avoids crowds becomes nervous Mood Description: Withdrawn Affect Description: Depressed Patient Cognition Impaired: No Ability to Follow Directions: Good Speech Pattern: Clear Memory Description: Episodic Impaired Diagnostics Vital Signs (24Hr): Vital Signs - 24 hr 12/31/19 18:00 01/01/20 05:15 Temperature 97.5 F 97.3 F Pulse Rate 77 90 Respiratory Rate 16 Blood Pressure 132/75 120/66 Pulse Oximetry 95 Body Mass Index 35.1 Labs Results: 12/29/19 08:51 12/30/19 11:42 Labs: Laboratory Results - last 48 hr 12/30/19 12/30/19 12/30/19 11:42 11:42 17:19 Sodium 137 Potassium 4.5 Chloride 103 Carbon Dioxide 24 Anion Gap 15 BUN 17 H Creatinine 0.92 Estim Creat Clear Calc 41.8 Estimated GFR > 60 POC Glucose 245 H Random Glucose 267 H Calcium 9.0 Total Bilirubin 0.3 AST 43 H ALT 63 H Alkaline Phosphatase 70 Total Protein 6.7 Albumin 3.8 Vitamin B12 264 Folate 8.6 TSH 1.05 12/31/19 05:02 Sodium Potassium Chloride Carbon Dioxide Anion Gap BUN Creatinine Estim Creat Clear Calc Estimated GFR POC Glucose 192 H Random Glucose Calcium Total Bilirubin AST ALT Alkaline Phosphatase Total Protein Albumin Vitamin B12 Folate TSH Medications Medications Current Medications Generic Name Dose Route Start Last Admin Trade Name Freq PRN Reason Stop Dose Admin Acetaminophen 650 mg 12/25/19 12:45 Acetaminophen 325 Mg Tablet PO Q6H PRN Headache/Pain Mild Scale (1-3) Al Hydroxide/Mg Hydroxide 30 ml 12/25/19 12:45 Magnesium Hydrox/Alum Hydrox 30 Ml Oral.Susp PO Q6H PRN Heartburn/Nausea Clonazepam 0.5 mg 12/29/19 21:00 12/31/19 22:23 Clonazepam 0.5 Mg Tablet PO 0.5 mg BEDTIME ABDULKADIR Administration Divalproex Sodium 1,000 mg 12/28/19 21:00 12/31/19 22:23 Divalproex Sodium Er 500 Mg Tab.Er.24h PO 1,000 mg BEDTIME ABDULKADIR Administration Duloxetine HCl 30 mg 12/30/19 10:05 01/01/20 09:16 Duloxetine Hcl 30 Mg Capsule.Dr PO 30 mg DAILY ABDULKADIR Administration Hydroxyzine HCl 100 mg 12/29/19 21:00 12/31/19 22:20 Hydroxyzine Hcl 25 Mg Tablet PO 100 mg BEDTIME ABDULKADIR Administration Lurasidone HCl 60 mg 12/29/19 09:00 01/01/20 09:15 Lurasidone Hcl 20 Mg Tablet PO 60 mg DAILY ABDULKADIR Administration Magnesium Hydroxide 30 ml 12/25/19 12:45 12/27/19 10:51 Milk Of Magnesia 30 Ml Oral.Susp PO 30 ml DAILY PRN Administration Constipation Nicotine 21 mg 12/25/19 13:00 01/01/20 09:16 Nicotine 21 Mg Patch.Td24 TRANSDERMA 21 mg DAILY ABDULKADIR Administration Nicotine Polacrilex 2 mg 12/25/19 12:45 Nicotine Polacrilex 2 Mg Gum BUCCAL Q2H PRN Nicotine Cravings Thiamine HCl 100 mg 12/30/19 10:00 01/01/20 09:16 Thiamine Hcl 100 Mg Tablet PO 100 mg DAILY ABDULKADIR Administration Allergies Allergies Allergy/AdvReac Type Severity Reaction Status Date / Time No Known Allergies* Allergy Uncoded 12/24/19 03:00 Assessment & Plan Assessment & Plan (1) Diabetes mellitus, type 2: Status: Acute Code(s): E11.9 - Type 2 diabetes mellitus without complications (2) Alcohol abuse with alcohol-induced mood disorder: Status: Acute Code(s): F10.14 - Alcohol abuse with alcohol-induced mood disorder (3) Suicidal ideation: Status: Acute Code(s): R45.851 - Suicidal ideations (4) Bipolar disorder: Status: Acute Code(s): F31.9 - Bipolar disorder, unspecified Assessment and Plan: continue Latuda cymbalta increase continue Depakote clonazepam at bedtime Ambien when patient more stable consider partial hospital increase Cymbalta to 40 mg restart metformin Greater than 50% of the session was spent on counseling and/or coordination of care
[2020-01-01 16:51] LABS: Glucose, Whole Blood 230 mg/dL (60-115)
[2020-01-01] MEDS: metFORMIN HCl 500 MG TABLET PO (17:07)
[2020-01-01 18:00] VITALS: BP 137/80; PULSE 72; RESP 18; TEMP 36.7
[2020-01-01] MEDS: clonazePAM 0.5 MG TABLET PO (21:01)
[2020-01-01] MEDS: hydrOXYzine HCL 25 MG TABLET 100 MG PO (21:01)
[2020-01-01] MEDS: Docusate Sodium 100 MG CAPSULE PO (21:01)
[2020-01-01] MEDS: Zolpidem Tartrate 5 MG TABLET PO (21:02)
[2020-01-01] MEDS: Divalproex Sodium ER 500 MG TAB.ER.24H 1000 MG PO (21:02)
[2020-01-02] MEDS: Zolpidem Tartrate 5 MG TABLET PO ×2 (00:11→22:29)
[2020-01-02 05:20] VITALS: BP 136/87; PULSE 76; RESP 16; TEMP 36.7; O2SAT 96
[2020-01-02 05:21] LABS: Glucose, Whole Blood 234 mg/dL (60-115)
[2020-01-02] MEDS: Docusate Sodium 100 MG CAPSULE PO ×2 (09:04→22:29)
[2020-01-02] MEDS: Thiamine HCL 100 MG TABLET PO (09:05)
[2020-01-02] MEDS: metFORMIN HCl 500 MG TABLET PO ×2 (09:05→16:52)
[2020-01-02] MEDS: Lurasidone HCl 20 MG TABLET 60 MG PO (09:05)
[2020-01-02] MEDS: DULoxetine HCl 30 MG CAPSULE.DR PO (09:06)
[2020-01-02] MEDS: Nicotine 21 MG PATCH.TD24 TRANSDERMA (09:07)
--- NOTE | 2020-01-02 14:23 | HO.PSYCHPN ---
Subjective Subjective Reason For Visit: ETOH AND SECTION 12 depression si Interim History: Patient shows some biswas range of affect. He slept better last night with the higher dose of ambien. His mood was better and he felt more comfortable with a DC next week. Mental Status Exam Mental Status Exam Narrative: improved range of affect less hopeless and despondent still feels quite fragile Patient Appearance: Appropriate Patient Orientation: Person, Place and Situation Level of Consciousness: Awake Patient Behavior: Appropriate, Cooperative and Isolative Behavior Comments: avoids crowds becomes nervous Mood Description: Withdrawn, Depressed and Blunted Affect Description: Depressed Patient Cognition Impaired: No Ability to Follow Directions: Good Speech Pattern: Clear Memory Description: Episodic Impaired Diagnostics Vital Signs (24Hr): Vital Signs - 24 hr 01/01/20 18:00 01/02/20 05:20 Temperature 98.1 F 98.1 F Pulse Rate 72 76 Respiratory Rate 18 16 Blood Pressure 137/80 136/87 Pulse Oximetry 96 Body Mass Index 35.1 Labs Results: 12/29/19 08:51 12/30/19 11:42 Labs: Laboratory Results - last 48 hr 01/01/20 01/02/20 16:42 05:15 POC Glucose 230 H 234 H Medications Medications Current Medications Generic Name Dose Route Start Last Admin Trade Name Freq PRN Reason Stop Dose Admin Acetaminophen 650 mg 12/25/19 12:45 Acetaminophen 325 Mg Tablet PO Q6H PRN Headache/Pain Mild Scale (1-3) Al Hydroxide/Mg Hydroxide 30 ml 12/25/19 12:45 Magnesium Hydrox/Alum Hydrox 30 Ml Oral.Susp PO Q6H PRN Heartburn/Nausea Clonazepam 0.5 mg 12/29/19 21:00 01/01/20 21:01 Clonazepam 0.5 Mg Tablet PO 0.5 mg BEDTIME ABDULKADIR Administration Divalproex Sodium 1,000 mg 12/28/19 21:00 01/01/20 21:02 Divalproex Sodium Er 500 Mg Tab.Er.24h PO 1,000 mg BEDTIME ABDULKADIR Administration Docusate Sodium 100 mg 01/01/20 21:00 01/02/20 09:04 Docusate Sodium 100 Mg Capsule PO 100 mg BID ABDULKADIR Administration Duloxetine HCl 30 mg 12/30/19 10:05 01/02/20 09:06 Duloxetine Hcl 30 Mg Capsule.Dr PO 30 mg DAILY ABDULKADIR Administration Hydroxyzine HCl 100 mg 12/29/19 21:00 01/01/20 21:01 Hydroxyzine Hcl 25 Mg Tablet PO 100 mg BEDTIME ABDULKADIR Administration Lurasidone HCl 60 mg 12/29/19 09:00 01/02/20 09:05 Lurasidone Hcl 20 Mg Tablet PO 60 mg DAILY ABDULKADIR Administration Magnesium Hydroxide 30 ml 12/25/19 12:45 12/27/19 10:51 Milk Of Magnesia 30 Ml Oral.Susp PO 30 ml DAILY PRN Administration Constipation Metformin HCl 500 mg 01/01/20 17:00 01/02/20 09:05 Metformin Hcl 500 Mg Tablet PO 500 mg BIDWM ABDULKADIR Administration Nicotine 21 mg 12/25/19 13:00 01/02/20 09:07 Nicotine 21 Mg Patch.Td24 TRANSDERMA 21 mg DAILY ABDULKADIR Administration Nicotine Polacrilex 2 mg 12/25/19 12:45 Nicotine Polacrilex 2 Mg Gum BUCCAL Q2H PRN Nicotine Cravings Thiamine HCl 100 mg 12/30/19 10:00 01/02/20 09:05 Thiamine Hcl 100 Mg Tablet PO 100 mg DAILY ABDULKADIR Administration Zolpidem Tartrate 5 mg 01/01/20 21:00 01/02/20 00:11 Zolpidem Tartrate 5 Mg Tablet PO 5 mg BEDTIME MRX1 ABDULKADIR Administration Allergies Allergies Allergy/AdvReac Type Severity Reaction Status Date / Time No Known Allergies* Allergy Uncoded 12/24/19 03:00 Assessment & Plan Assessment & Plan (1) Alcohol abuse with alcohol-induced mood disorder: Status: Acute Code(s): F10.14 - Alcohol abuse with alcohol-induced mood disorder Assessment and Plan: Remains committed to sobriety (2) Bipolar disorder: Status: Acute Code(s): F31.9 - Bipolar disorder, unspecified Assessment and Plan: CT medications without change Greater than 50% of the session was spent on counseling and/or coordination of care
[2020-01-02 16:49] LABS: Glucose, Whole Blood 303 mg/dL (60-115)
[2020-01-02 18:00] VITALS: BP 119/72; PULSE 73; TEMP 36.7
[2020-01-02] MEDS: hydrOXYzine HCL 25 MG TABLET 100 MG PO (22:29)
[2020-01-02] MEDS: Divalproex Sodium ER 500 MG TAB.ER.24H 1000 MG PO (22:29)
[2020-01-02] MEDS: clonazePAM 0.5 MG TABLET PO (22:29)
[2020-01-03] MEDS: Zolpidem Tartrate 5 MG TABLET PO (01:08)
--- NOTE | 2020-01-03 01:10 | PC.NURSE ---
Repeat dose of Ambien 5 mg administered to pt, ok'ed by Dr. Donovan due to time of morning (after 2300).
[2020-01-03 06:00] VITALS: BP 135/75; PULSE 72; TEMP 36.4
[2020-01-03 06:12] LABS: Glucose, Whole Blood 268 mg/dL (60-115)
[2020-01-03] MEDS: Docusate Sodium 100 MG CAPSULE PO ×2 (08:53→22:10)
[2020-01-03] MEDS: metFORMIN HCl 500 MG TABLET PO ×2 (08:53→16:53)
[2020-01-03] MEDS: Nicotine 21 MG PATCH.TD24 TRANSDERMA (08:53)
[2020-01-03] MEDS: DULoxetine HCl 30 MG CAPSULE.DR PO (08:54)
[2020-01-03] MEDS: Lurasidone HCl 20 MG TABLET 60 MG PO (08:54)
[2020-01-03] MEDS: Thiamine HCL 100 MG TABLET PO (08:54)
[2020-01-03 16:49] LABS: Glucose, Whole Blood 235 mg/dL (60-115)
[2020-01-03 18:00] VITALS: BP 135/65; PULSE 69; TEMP 36.7
--- NOTE | 2020-01-03 18:47 | P.PNPSI_ITS ---
Subjective Subjective Reason For Visit: ETOH AND SECTION 12 depression si Interim History: Patient shows some biswas range of affect. His main complaint is of insomnia. He does not find that ambien 5mg works and as ks for an increase. He is anxious that if he is not able to get sleep he wonn't be able to leave on 01/06/20 as is planned. He continues to agree to sobriety regarding alcohol Review of Systems Acute medical concerns: No Medical Review of Systems: unchanged Review of Systems Review of Systems Yes all other systems are reviewed and are negative Mental Status Exam Mental Status Exam Narrative: improved range of affect less hopeless and despondent still feels quite fragile Patient Appearance: Appropriate Patient Orientation: Person, Place and Situation Level of Consciousness: Awake Patient Behavior: Appropriate, Cooperative and Isolative Behavior Comments: avoids crowds becomes nervous Mood Description: Withdrawn Affect Description: Depressed Patient Cognition Impaired: No Ability to Follow Directions: Good Speech Pattern: Clear Memory Description: Episodic Impaired Thought Content: positive for Circumstantial, negative for Suicidal Ideation and negative for Homicidal Ideation Depressive Symptoms: Increased Anxiety and Insomnia Judgement: Fair Diagnostics Vital Signs (24Hr): Vital Signs - 24 hr 01/03/20 06:00 Temperature 97.5 F Pulse Rate 72 Blood Pressure 135/75 Body Mass Index 35.1 Labs Results: 12/29/19 08:51 12/30/19 11:42 Labs: Laboratory Results - last 48 hr 01/02/20 01/02/20 01/03/20 05:15 16:45 06:07 POC Glucose 234 H 303 H 268 H 01/03/20 16:46 POC Glucose 235 H Medications Medications Current Medications Generic Name Dose Route Start Last Admin Trade Name Maximino PRN Reason Stop Dose Admin Acetaminophen 650 mg 12/25/19 12:45 Acetaminophen 325 Mg Tablet PO Q6H PRN Headache/Pain Mild Scale (1-3) Al Hydroxide/Mg Hydroxide 30 ml 12/25/19 12:45 Magnesium Hydrox/Alum Hydrox 30 Ml Oral.Susp PO Q6H PRN Heartburn/Nausea Clonazepam 0.5 mg 12/29/19 21:00 01/02/20 22:29 Clonazepam 0.5 Mg Tablet PO 0.5 mg BEDTIME ABDULKADIR Administration Divalproex Sodium 1,000 mg 12/28/19 21:00 01/02/20 22:29 Divalproex Sodium Er 500 Mg Tab.Er.24h PO 1,000 mg BEDTIME ABDULKADIR Administration Docusate Sodium 100 mg 01/01/20 21:00 01/03/20 08:53 Docusate Sodium 100 Mg Capsule PO 100 mg BID ABDULKADIR Administration Duloxetine HCl 30 mg 12/30/19 10:05 01/03/20 08:54 Duloxetine Hcl 30 Mg Capsule.Dr PO 30 mg DAILY ABDULKADIR Administration Hydroxyzine HCl 100 mg 12/29/19 21:00 01/02/20 22:29 Hydroxyzine Hcl 25 Mg Tablet PO 100 mg BEDTIME ABDULKADIR Administration Lurasidone HCl 60 mg 12/29/19 09:00 01/03/20 08:54 Lurasidone Hcl 20 Mg Tablet PO 60 mg DAILY ABDULKADIR Administration Magnesium Hydroxide 30 ml 12/25/19 12:45 12/27/19 10:51 Milk Of Magnesia 30 Ml Oral.Susp PO 30 ml DAILY PRN Administration Constipation Metformin HCl 500 mg 01/01/20 17:00 01/03/20 16:53 Metformin Hcl 500 Mg Tablet PO 500 mg BIDWM ABDULKADIR Administration Nicotine 21 mg 12/25/19 13:00 01/03/20 08:53 Nicotine 21 Mg Patch.Td24 TRANSDERMA 21 mg DAILY ABDULKADIR Administration Nicotine Polacrilex 2 mg 12/25/19 12:45 Nicotine Polacrilex 2 Mg Gum BUCCAL Q2H PRN Nicotine Cravings Thiamine HCl 100 mg 12/30/19 10:00 01/03/20 08:54 Thiamine Hcl 100 Mg Tablet PO 100 mg DAILY ABDULKADIR Administration Zolpidem Tartrate 10 mg 01/03/20 21:00 Zolpidem Tartrate 5 Mg Tablet PO BEDTIME MRX1 ABDULKADIR Allergies Allergies Allergy/AdvReac Type Severity Reaction Status Date / Time No Known Allergies* Allergy Uncoded 12/24/19 03:00 Assessment & Plan Assessment & Plan (1) Bipolar disorder: Status: Acute Code(s): F31.9 - Bipolar disorder, unspecified Assessment and Plan: Increase ambien CT other medications without change Greater than 50% of the session was spent on counseling and/or coordination of care Patient educated on: diagnosis and medication risk/benefits Informed Consent: further education needed Reason for contiued inpatient stay Substantial Risk for: rapid decompensation
[2020-01-03] MEDS: Zolpidem Tartrate 5 MG TABLET 10 MG PO (22:09)
[2020-01-03] MEDS: clonazePAM 0.5 MG TABLET PO (22:09)
[2020-01-03] MEDS: hydrOXYzine HCL 25 MG TABLET 100 MG PO (22:10)
[2020-01-03] MEDS: Divalproex Sodium ER 500 MG TAB.ER.24H 1000 MG PO (22:10)
[2020-01-04 05:07] LABS: Glucose, Whole Blood 208 mg/dL (60-115)
[2020-01-04 07:13] VITALS: BP 121/75; PULSE 68; TEMP 36.2
[2020-01-04] MEDS: Thiamine HCL 100 MG TABLET PO (08:38)
[2020-01-04] MEDS: DULoxetine HCl 30 MG CAPSULE.DR PO (08:38)
[2020-01-04] MEDS: Nicotine 21 MG PATCH.TD24 TRANSDERMA (08:38)
[2020-01-04] MEDS: Docusate Sodium 100 MG CAPSULE PO ×2 (08:38→21:33)
[2020-01-04] MEDS: metFORMIN HCl 500 MG TABLET PO ×2 (08:38→17:15)
[2020-01-04] MEDS: Lurasidone HCl 20 MG TABLET 60 MG PO (08:38)
[2020-01-04 17:07] LABS: Glucose, Whole Blood 219 mg/dL (60-115)
[2020-01-04 18:00] VITALS: BP 123/60; PULSE 64; TEMP 36.6
--- NOTE | 2020-01-04 18:40 | HO.PSYCHPN ---
Subjective Subjective Date of Service: 01/04/20 Reason For Visit: ETOH AND SECTION 12 depression si Subjective Notes: Conditional Voluntary Interim History: Patient shows some biswas range of affect. He slept better last night with the higher dose of ambien. His mood was better and he felt more comfortable with a DC next week. Medication Compliance: Yes Side effects from medications: No Attending Groups: Yes Review of Systems Acute medical concerns: No Medical Review of Systems: unchanged Review of Systems Review of Systems Yes all other systems are reviewed and are negative Mental Status Exam Mental Status Exam Narrative: improved range of affect less hopeless and despondent still feels quite fragile Patient Appearance: Appropriate Patient Orientation: Person, Place and Situation Level of Consciousness: Awake Patient Behavior: Appropriate, Cooperative and Isolative Behavior Comments: avoids crowds becomes nervous Mood Description: Withdrawn Affect Description: Depressed Patient Cognition Impaired: No Ability to Follow Directions: Good Speech Pattern: Clear Memory Description: Episodic Impaired Thought Content: positive for Circumstantial, negative for Suicidal Ideation and negative for Homicidal Ideation Depressive Symptoms: Increased Anxiety and Insomnia Judgement: Fair Diagnostics Vital Signs (24Hr): Vital Signs - 24 hr 01/04/20 07:13 Temperature 97.2 F Pulse Rate 68 Blood Pressure 121/75 Body Mass Index 35.1 Labs Results: 12/29/19 08:51 12/30/19 11:42 Labs: Laboratory Results - last 48 hr 01/03/20 01/03/20 01/04/20 06:07 16:46 05:02 POC Glucose 268 H 235 H 208 H 01/04/20 17:02 POC Glucose 219 H Medications Medications Current Medications Generic Name Dose Route Start Last Admin Trade Name Maximino PRN Reason Stop Dose Admin Acetaminophen 650 mg 12/25/19 12:45 Acetaminophen 325 Mg Tablet PO Q6H PRN Headache/Pain Mild Scale (1-3) Al Hydroxide/Mg Hydroxide 30 ml 12/25/19 12:45 Magnesium Hydrox/Alum Hydrox 30 Ml Oral.Susp PO Q6H PRN Heartburn/Nausea Clonazepam 0.5 mg 12/29/19 21:00 01/03/20 22:09 Clonazepam 0.5 Mg Tablet PO 0.5 mg BEDTIME ABDULKADIR Administration Divalproex Sodium 1,000 mg 12/28/19 21:00 01/03/20 22:10 Divalproex Sodium Er 500 Mg Tab.Er.24h PO 1,000 mg BEDTIME ABDULKADIR Administration Docusate Sodium 100 mg 01/01/20 21:00 01/04/20 08:38 Docusate Sodium 100 Mg Capsule PO 100 mg BID ABDULKADIR Administration Duloxetine HCl 30 mg 12/30/19 10:05 01/04/20 08:38 Duloxetine Hcl 30 Mg Capsule.Dr PO 30 mg DAILY ABDULKADIR Administration Hydroxyzine HCl 100 mg 12/29/19 21:00 01/03/20 22:10 Hydroxyzine Hcl 25 Mg Tablet PO 100 mg BEDTIME ABDULKADIR Administration Lurasidone HCl 60 mg 12/29/19 09:00 01/04/20 08:38 Lurasidone Hcl 20 Mg Tablet PO 60 mg DAILY ABDULKADIR Administration Magnesium Hydroxide 30 ml 12/25/19 12:45 12/27/19 10:51 Milk Of Magnesia 30 Ml Oral.Susp PO 30 ml DAILY PRN Administration Constipation Metformin HCl 500 mg 01/01/20 17:00 01/04/20 17:15 Metformin Hcl 500 Mg Tablet PO 500 mg BIDWM ABDULKADIR Administration Nicotine 21 mg 12/25/19 13:00 01/04/20 08:38 Nicotine 21 Mg Patch.Td24 TRANSDERMA 21 mg DAILY ABDULKADIR Administration Nicotine Polacrilex 2 mg 12/25/19 12:45 Nicotine Polacrilex 2 Mg Gum BUCCAL Q2H PRN Nicotine Cravings Thiamine HCl 100 mg 12/30/19 10:00 01/04/20 08:38 Thiamine Hcl 100 Mg Tablet PO 100 mg DAILY ABDULKADIR Administration Zolpidem Tartrate 10 mg 01/03/20 21:00 01/04/20 01:27 Zolpidem Tartrate 5 Mg Tablet PO Not Given BEDTIME MRX1 ABDULKADIR Allergies Allergies Allergy/AdvReac Type Severity Reaction Status Date / Time No Known Allergies* Allergy Uncoded 12/24/19 03:00 Assessment & Plan Assessment & Plan (1) Alcohol abuse with alcohol-induced mood disorder: Status: Acute Code(s): F10.14 - Alcohol abuse with alcohol-induced mood disorder Assessment and Plan: Remains committed to sobriety (2) Bipolar disorder: Status: Acute Code(s): F31.9 - Bipolar disorder, unspecified Assessment and Plan: CT medications without change Greater than 50% of the session was spent on counseling and/or coordination of care
[2020-01-04] MEDS: clonazePAM 0.5 MG TABLET PO (21:32)
[2020-01-04] MEDS: Zolpidem Tartrate 5 MG TABLET 10 MG PO ×2 (21:32→22:30)
[2020-01-04] MEDS: Divalproex Sodium ER 500 MG TAB.ER.24H 1000 MG PO (21:32)
[2020-01-04] MEDS: hydrOXYzine HCL 25 MG TABLET 100 MG PO (21:33)
[2020-01-05 05:25] VITALS: BP 120/76; PULSE 75; RESP 16; TEMP 36.6
[2020-01-05 05:35] LABS: Glucose, Whole Blood 291 mg/dL (60-115)
[2020-01-05] MEDS: Lurasidone HCl 20 MG TABLET 60 MG PO (08:51)
[2020-01-05] MEDS: DULoxetine HCl 30 MG CAPSULE.DR PO (08:52)
[2020-01-05] MEDS: metFORMIN HCl 500 MG TABLET PO ×2 (08:52→10:23)
[2020-01-05] MEDS: Thiamine HCL 100 MG TABLET PO (08:52)
[2020-01-05] MEDS: Docusate Sodium 100 MG CAPSULE PO ×2 (08:52→22:04)
--- NOTE | 2020-01-05 10:02 | P.PNPSI_ITS ---
Subjective Subjective Reason For Visit: ETOH AND SECTION 12 depression si Subjective Notes: Legal Status Interim History: patient has been more withdrawn lethargic more a motivational unclear if depression or sedation no longer looking to go to [facility] Medication Compliance: Yes Side effects from medications: Yes ( question sedation) Attending Groups: No Mental Status Exam Mental Status Exam Narrative: improved range of affect less hopeless and despondent still feels quite fragile Patient Appearance: Appropriate Patient Orientation: Person, Place and Situation Level of Consciousness: Awake Patient Behavior: Appropriate, Cooperative and Isolative Behavior Comments: avoids crowds becomes nervous Mood Description: Withdrawn Affect Description: Depressed Patient Cognition Impaired: No Ability to Follow Directions: Good Speech Pattern: Clear Memory Description: Episodic Impaired Thought Content: positive for Circumstantial, negative for Suicidal Ideation and negative for Homicidal Ideation Depressive Symptoms: Increased Anxiety and Insomnia Judgement: Fair Diagnostics Vital Signs (24Hr): Vital Signs - 24 hr 01/04/20 18:00 01/05/20 05:25 Temperature 97.8 F 97.8 F Pulse Rate 64 75 Respiratory Rate 16 Blood Pressure 123/60 120/76 Body Mass Index 35.1 Labs Results: 12/29/19 08:51 12/30/19 11:42 Labs: Laboratory Results - last 48 hr 01/03/20 01/04/20 01/04/20 16:46 05:02 17:02 POC Glucose 235 H 208 H 219 H 01/05/20 05:31 POC Glucose 291 H Medications Medications Current Medications Generic Name Dose Route Start Last Admin Trade Name Freq PRN Reason Stop Dose Admin Acetaminophen 650 mg 12/25/19 12:45 Acetaminophen 325 Mg Tablet PO Q6H PRN Headache/Pain Mild Scale (1-3) Al Hydroxide/Mg Hydroxide 30 ml 12/25/19 12:45 Magnesium Hydrox/Alum Hydrox 30 Ml Oral.Susp PO Q6H PRN Heartburn/Nausea Clonazepam 0.5 mg 12/29/19 21:00 01/04/20 21:32 Clonazepam 0.5 Mg Tablet PO 0.5 mg BEDTIME ABDULKADIR Administration Divalproex Sodium 1,000 mg 12/28/19 21:00 01/04/20 21:32 Divalproex Sodium Er 500 Mg Tab.Er.24h PO 1,000 mg BEDTIME ABDULKADIR Administration Docusate Sodium 100 mg 01/01/20 21:00 01/05/20 08:52 Docusate Sodium 100 Mg Capsule PO 100 mg BID ABDULKADIR Administration Duloxetine HCl 30 mg 12/30/19 10:05 01/05/20 08:52 Duloxetine Hcl 30 Mg Capsule.Dr PO 30 mg DAILY ABDULKADIR Administration Hydroxyzine HCl 100 mg 12/29/19 21:00 01/04/20 21:33 Hydroxyzine Hcl 25 Mg Tablet PO 100 mg BEDTIME ABDULKADIR Administration Lurasidone HCl 60 mg 12/29/19 09:00 01/05/20 08:51 Lurasidone Hcl 20 Mg Tablet PO 60 mg DAILY ABDULKADIR Administration Magnesium Hydroxide 30 ml 12/25/19 12:45 12/27/19 10:51 Milk Of Magnesia 30 Ml Oral.Susp PO 30 ml DAILY PRN Administration Constipation Metformin HCl 1,000 mg 01/05/20 17:00 Metformin Hcl 1,000 Mg Tablet PO BIDWM ABDULKADIR Nicotine 21 mg 12/25/19 13:00 01/04/20 08:38 Nicotine 21 Mg Patch.Td24 TRANSDERMA 21 mg DAILY ABDULKADIR Administration Nicotine Polacrilex 2 mg 12/25/19 12:45 Nicotine Polacrilex 2 Mg Gum BUCCAL Q2H PRN Nicotine Cravings Thiamine HCl 100 mg 12/30/19 10:00 01/05/20 08:52 Thiamine Hcl 100 Mg Tablet PO 100 mg DAILY ABDULKADIR Administration Zolpidem Tartrate 10 mg 01/03/20 21:00 01/04/20 22:30 Zolpidem Tartrate 5 Mg Tablet PO 10 mg BEDTIME MRX1 ABDULKADIR Administration Allergies Allergies Allergy/AdvReac Type Severity Reaction Status Date / Time No Known Allergies* Allergy Uncoded 12/24/19 03:00 Assessment & Plan Assessment & Plan (1) Alcohol abuse with alcohol-induced mood disorder: Status: Acute Code(s): F10.14 - Alcohol abuse with alcohol-induced mood disorder (2) Bipolar disorder: Qualifiers: Active/Remission status: currently active Current bipolar episode type: depressed Current episode severity: severe Psychotic features: without psychotic features Qualified Code(s): F31.4 - Bipolar disorder, current episode depressed, severe, without psychotic features Status: Acute Code(s): F31.9 - Bipolar disorder, unspecified Assessment and Plan: Remains committed to sobriety more withdrawn question depression no longer looking to go partial hospital re- evaluate discharge for tomorrow naltrexone started for alcohol cravings change Cymbalta to evening lowered Latuda 40 mg Greater than 50% of the session was spent on counseling and/or coordination of care Patient educated on: diagnosis and medication risk/benefits Informed Consent: further education needed Reason for contiued inpatient stay Substantial Risk for: rapid decompensation
[2020-01-05] MEDS: Nicotine 21 MG PATCH.TD24 TRANSDERMA (10:32)
[2020-01-05 16:05] VITALS: BP 116/57; PULSE 59; TEMP 36.4
[2020-01-05 17:05] LABS: Glucose, Whole Blood 201 mg/dL (60-115)
[2020-01-05] MEDS: metFORMIN HCl 1,000 MG TABLET 1000 MG PO (17:40)
[2020-01-05] MEDS: Zolpidem Tartrate 5 MG TABLET 10 MG PO ×2 (22:04→23:02)
[2020-01-05] MEDS: clonazePAM 0.5 MG TABLET PO (22:04)
[2020-01-05] MEDS: Divalproex Sodium ER 500 MG TAB.ER.24H 1000 MG PO (22:04)
[2020-01-05] MEDS: hydrOXYzine HCL 25 MG TABLET 100 MG PO (22:04)
[2020-01-06 06:11] LABS: Glucose, Whole Blood 242 mg/dL (60-115)
[2020-01-06 06:30] VITALS: BP 106/57; PULSE 59; RESP 16; TEMP 36.4; O2SAT 98
[2020-01-06] MEDS: metFORMIN HCl 1,000 MG TABLET 1000 MG PO ×2 (08:37→17:09)
[2020-01-06] MEDS: Nicotine 21 MG PATCH.TD24 TRANSDERMA (08:37)
[2020-01-06] MEDS: Docusate Sodium 100 MG CAPSULE PO ×2 (08:37→21:17)
[2020-01-06] MEDS: Thiamine HCL 100 MG TABLET PO (08:37)
[2020-01-06] MEDS: Lurasidone HCl 40 MG TABLET PO (08:37)
[2020-01-06 11:21] LABS: Anion Gap 12 (12-20); Blood Urea Nitrogen 13 mg/dL (9-16); Calcium 8.4 mg/dL (8.4-10.2); Carbon Dioxide 27 mmol/L (22-29); Chloride 101 mmol/L (96-108); Creatinine Clr Calc Pharmacy 116.9; Estimated Glomerular Filt Rate > 60; Glucose Random 343 mg/dL (60-115); Potassium 4.4 mmol/l (3.3-5.1); Sodium 136 mmol/L (135-145)
--- NOTE | 2020-01-06 12:22 | HO.PSYCHPN ---
Subjective Subjective Reason For Visit: ETOH AND SECTION 12 depression si Interim History: pt remains depressed pos si hopeless helpless ruminating Medication Compliance: Yes Side effects from medications: Yes Attending Groups: Intermittent Mental Status Exam Mental Status Exam Narrative: improved range of affect less hopeless and despondent still feels quite fragile Patient Appearance: Appropriate Patient Orientation: Person, Place and Situation Level of Consciousness: Awake Patient Behavior: Appropriate, Guarded, Cooperative, Passive, Avoidant and Isolative Behavior Comments: avoids crowds becomes nervous Mood Description: Withdrawn Affect Description: Depressed and Anxious Patient Cognition Impaired: No Ability to Follow Directions: Good Speech Pattern: Clear Memory Description: Episodic Impaired Thought Content: positive for Circumstantial, positive for Suicidal Ideation (intermittant denies active ) and negative for Homicidal Ideation Depressive Symptoms: Increased Anxiety, Insomnia, Feelings of Guilt, Increased Fatigue, Thoughts of /Suicide, Loss of Energy and Difficulty Concentrating Judgement: Fair Diagnostics Vital Signs (24Hr): Vital Signs - 24 hr 01/05/20 16:05 01/06/20 06:30 Temperature 97.5 F 97.6 F Pulse Rate 59 59 Respiratory Rate 16 Blood Pressure 116/57 L 106/57 L Pulse Oximetry 98 Body Mass Index 35.1 Labs Results: 12/29/19 08:51 01/06/20 10:20 Labs: Laboratory Results - last 48 hr 01/04/20 01/05/20 01/05/20 17:02 05:31 17:00 Sodium Potassium Chloride Carbon Dioxide Anion Gap BUN Creatinine Estim Creat Clear Calc Estimated GFR POC Glucose 219 H 291 H 201 H Random Glucose Calcium 01/06/20 01/06/20 04:54 10:20 Sodium 136 Potassium 4.4 Chloride 101 Carbon Dioxide 27 Anion Gap 12 BUN 13 Creatinine 0.96 Estim Creat Clear Calc 116.9 Estimated GFR > 60 POC Glucose 242 H Random Glucose 343 H Calcium 8.4 Medications Medications Current Medications Generic Name Dose Route Start Last Admin Trade Name Freq PRN Reason Stop Dose Admin Acetaminophen 650 mg 12/25/19 12:45 Acetaminophen 325 Mg Tablet PO Q6H PRN Headache/Pain Mild Scale (1-3) Al Hydroxide/Mg Hydroxide 30 ml 12/25/19 12:45 Magnesium Hydrox/Alum Hydrox 30 Ml Oral.Susp PO Q6H PRN Heartburn/Nausea Clonazepam 0.5 mg 12/29/19 21:00 01/05/20 22:04 Clonazepam 0.5 Mg Tablet PO 0.5 mg BEDTIME ABDULKADIR Administration Divalproex Sodium 1,000 mg 01/06/20 17:00 Divalproex Sodium 500 Mg Tablet. PO DAILY@1700 ABDULKADIR Docusate Sodium 100 mg 01/01/20 21:00 01/06/20 08:37 Docusate Sodium 100 Mg Capsule PO 100 mg BID ABDULKADIR Administration Duloxetine HCl 60 mg 01/06/20 21:00 Duloxetine Hcl 30 Mg Capsule. PO BEDTIME ABDULKADIR Hydroxyzine HCl 100 mg 12/29/19 21:00 01/05/20 22:04 Hydroxyzine Hcl 25 Mg Tablet PO 100 mg BEDTIME ABDULKADIR Administration Lurasidone HCl 40 mg 01/06/20 09:00 01/06/20 08:37 Lurasidone Hcl 40 Mg Tablet PO 40 mg DAILY ABDULKADIR Administration Magnesium Hydroxide 30 ml 12/25/19 12:45 12/27/19 10:51 Milk Of Magnesia 30 Ml Oral.Susp PO 30 ml DAILY PRN Administration Constipation Metformin HCl 1,000 mg 01/05/20 17:00 01/06/20 08:37 Metformin Hcl 1,000 Mg Tablet PO 1,000 mg BIDWM ABDULKADIR Administration Nicotine 21 mg 12/25/19 13:00 01/06/20 08:37 Nicotine 21 Mg Patch.Td24 TRANSDERMA 21 mg DAILY ABDULKADIR Administration Nicotine Polacrilex 2 mg 12/25/19 12:45 Nicotine Polacrilex 2 Mg Gum BUCCAL Q2H PRN Nicotine Cravings Thiamine HCl 100 mg 12/30/19 10:00 01/06/20 08:37 Thiamine Hcl 100 Mg Tablet PO 100 mg DAILY ABDULKADIR Administration Zolpidem Tartrate 10 mg 01/03/20 21:00 01/05/20 23:02 Zolpidem Tartrate 5 Mg Tablet PO 10 mg BEDTIME MRX1 ABDULKADIR Administration Allergies Allergies Allergy/AdvReac Type Severity Reaction Status Date / Time No Known Allergies* Allergy Uncoded 12/24/19 03:00 Assessment & Plan Assessment & Plan (1) Diabetes mellitus, type 2: Status: Acute Code(s): E11.9 - Type 2 diabetes mellitus without complications (2) Alcohol abuse with alcohol-induced mood disorder: Status: Acute Code(s): F10.14 - Alcohol abuse with alcohol-induced mood disorder (3) Bipolar disorder: Qualifiers: Active/Remission status: currently active Current bipolar episode type: depressed Current episode severity: severe Psychotic features: without psychotic features Qualified Code(s): F31.4 - Bipolar disorder, current episode depressed, severe, without psychotic features Status: Acute Code(s): F31.9 - Bipolar disorder, unspecified Assessment and Plan: depressed withdrawn passive lethargic Greater than 50% of the session was spent on counseling and/or coordination of care
[2020-01-06 16:53] LABS: Glucose, Whole Blood 184 mg/dL (60-115)
[2020-01-06] MEDS: Divalproex Sodium 500 MG TABLET.DR 1000 MG PO (17:09)
[2020-01-06] MEDS: hydrOXYzine HCL 25 MG TABLET 100 MG PO (21:15)
[2020-01-06] MEDS: Zolpidem Tartrate 5 MG TABLET 10 MG PO ×2 (21:16→22:33)
[2020-01-06] MEDS: clonazePAM 0.5 MG TABLET PO (21:16)
[2020-01-06] MEDS: DULoxetine HCl 30 MG CAPSULE.DR 60 MG PO (21:17)
[2020-01-07 05:00] VITALS: BP 124/80; PULSE 74; RESP 16; TEMP 36.3; O2SAT 96
[2020-01-07 05:08] LABS: Glucose, Whole Blood 322 mg/dL (60-115)
[2020-01-07] MEDS: Docusate Sodium 100 MG CAPSULE PO ×2 (08:13→20:47)
[2020-01-07] MEDS: Thiamine HCL 100 MG TABLET PO (08:13)
[2020-01-07] MEDS: metFORMIN HCl 1,000 MG TABLET 1000 MG PO ×2 (08:13→17:27)
[2020-01-07] MEDS: Lurasidone HCl 40 MG TABLET PO (08:13)
[2020-01-07] MEDS: Nicotine 21 MG PATCH.TD24 TRANSDERMA (08:14)
[2020-01-07 17:23] LABS: Glucose, Whole Blood 263 mg/dL (60-115)
[2020-01-07] MEDS: Divalproex Sodium 500 MG TABLET.DR 1000 MG PO (17:26)
[2020-01-07 18:00] VITALS: BP 140/77; PULSE 80; TEMP 36.5
[2020-01-07] MEDS: DULoxetine HCl 30 MG CAPSULE.DR 60 MG PO (20:47)
[2020-01-07] MEDS: clonazePAM 0.5 MG TABLET PO (20:48)
[2020-01-07] MEDS: Zolpidem Tartrate 5 MG TABLET 10 MG PO ×2 (20:48→22:20)
[2020-01-07] MEDS: hydrOXYzine HCL 25 MG TABLET 100 MG PO (20:48)
--- NOTE | 2020-01-07 22:15 | P.PNPSI_ITS ---
Subjective Subjective Reason For Visit: ETOH AND SECTION 12 depression si Subjective Notes: Conditional Voluntary Interim History: pt with depressed mood denies active si OOB more Medication Compliance: Yes Side effects from medications: Yes Attending Groups: Intermittent Mental Status Exam Mental Status Exam Narrative: improved range of affect less hopeless and despondent still feels quite fragile denies active si Patient Appearance: Appropriate Patient Orientation: Person, Place and Situation Level of Consciousness: Awake Patient Behavior: Appropriate, Guarded, Cooperative, Passive, Avoidant and Is olative Behavior Comments: avoids crowds becomes nervous Mood Description: Withdrawn and Flat Affect Description: Depressed and Anxious Patient Cognition Impaired: No Ability to Follow Directions: Good Speech Pattern: Clear Memory Description: Episodic Impaired Thought Content: positive for Circumstantial, positive for Suicidal Ideation (denies ) and negative for Homicidal Ideation Depressive Symptoms: Increased Anxiety, Insomnia, Feelings of Guilt, Increased Fatigue, Thoughts of /Suicide, Loss of Energy and Difficulty Concentrating Judgement: Fair Diagnostics Vital Signs (24Hr): Vital Signs - 24 hr 01/07/20 05:00 01/07/20 18:00 Temperature 97.4 F 97.7 F Pulse Rate 74 80 Respiratory Rate 16 Blood Pressure 124/80 140/77 H Pulse Oximetry 96 Body Mass Index 35.1 Labs Results: 12/29/19 08:51 01/06/20 10:20 Labs: Laboratory Results - last 48 hr 01/06/20 01/06/20 01/06/20 04:54 10:20 16:43 Sodium 136 Potassium 4.4 Chloride 101 Carbon Dioxide 27 Anion Gap 12 BUN 13 Creatinine 0.96 Estim Creat Clear Calc 116.9 Estimated GFR > 60 POC Glucose 242 H 184 H Random Glucose 343 H Calcium 8.4 01/07/20 01/07/20 05:05 17:05 Sodium Potassium Chloride Carbon Dioxide Anion Gap BUN Creatinine Estim Creat Clear Calc Estimated GFR POC Glucose 322 H 263 H Random Glucose Calcium Medications Medications Current Medications Generic Name Dose Route Start Last Admin Trade Name Freq PRN Reason Stop Dose Admin Acetaminophen 650 mg 12/25/19 12:45 Acetaminophen 325 Mg Tablet PO Q6H PRN Headache/Pain Mild Scale (1-3) Al Hydroxide/Mg Hydroxide 30 ml 12/25/19 12:45 Magnesium Hydrox/Alum Hydrox 30 Ml Oral.Susp PO Q6H PRN Heartburn/Nausea Clonazepam 0.5 mg 12/29/19 21:00 01/07/20 20:48 Clonazepam 0.5 Mg Tablet PO 0.5 mg BEDTIME ABDULKADIR Administration Divalproex Sodium 1,000 mg 01/06/20 17:00 01/07/20 17:26 Divalproex Sodium 500 Mg Tablet. PO 1,000 mg DAILY@1700 ABDULKADIR Administration Docusate Sodium 100 mg 01/01/20 21:00 01/07/20 20:47 Docusate Sodium 100 Mg Capsule PO 100 mg BID ABDULKADIR Administration Duloxetine HCl 60 mg 01/06/20 21:00 01/07/20 20:47 Duloxetine Hcl 30 Mg Capsule. PO 60 mg BEDTIME ABDULKADIR Administration Hydroxyzine HCl 100 mg 12/29/19 21:00 01/07/20 20:48 Hydroxyzine Hcl 25 Mg Tablet PO 100 mg BEDTIME ABDULKADIR Administration Lurasidone HCl 40 mg 01/08/20 17:00 Lurasidone Hcl 40 Mg Tablet PO DAILY@1700 ABDULKADIR Magnesium Hydroxide 30 ml 12/25/19 12:45 12/27/19 10:51 Milk Of Magnesia 30 Ml Oral.Susp PO 30 ml DAILY PRN Administration Constipation Metformin HCl 1,000 mg 01/05/20 17:00 01/07/20 17:27 Metformin Hcl 1,000 Mg Tablet PO 1,000 mg BIDWM ABDULKADIR Administration Nicotine 21 mg 12/25/19 13:00 01/07/20 08:14 Nicotine 21 Mg Patch.Td24 TRANSDERMA 21 mg DAILY ABDULKADIR Administration Nicotine Polacrilex 2 mg 12/25/19 12:45 Nicotine Polacrilex 2 Mg Gum BUCCAL Q2H PRN Nicotine Cravings Thiamine HCl 100 mg 12/30/19 10:00 01/07/20 08:13 Thiamine Hcl 100 Mg Tablet PO 100 mg DAILY ABDULKADIR Administration Zolpidem Tartrate 10 mg 01/03/20 21:00 01/07/20 20:48 Zolpidem Tartrate 5 Mg Tablet PO 10 mg BEDTIME MRX1 ABDULKADIR Administration Allergies Allergies Allergy/AdvReac Type Severity Reaction Status Date / Time No Known Allergies* Allergy Uncoded 12/24/19 03:00 Assessment & Plan Assessment & Plan (1) Diabetes mellitus, type 2: Status: Acute Code(s): E11.9 - Type 2 diabetes mellitus without complications (2) Alcohol abuse with alcohol-induced mood disorder: Status: Acute Code(s): F10.14 - Alcohol abuse with alcohol-induced mood disorder (3) Suicidal ideation: Status: Acute Code(s): R45.851 - Suicidal ideations (4) Bipolar disorder: Qualifiers: Active/Remission status: currently active Current bipolar episode type: depressed Current episode severity: severe Psychotic features: without psychotic features Qualified Code(s): F31.4 - Bipolar disorder, current episode depressed, severe, without psychotic features Status: Acute Code(s): F31.9 - Bipolar disorder, unspecified Assessment and Plan: cont metformin change psych meds to evening he denies current plan to harm himself on [birth year] Greater than 50% of the session was spent on counseling and/or coordination of care
[2020-01-08 05:18] LABS: Glucose, Whole Blood 415 mg/dL (60-115)
[2020-01-08 06:00] VITALS: BP 124/74; PULSE 71; TEMP 36.2
--- NOTE | 2020-01-08 06:21 | PC.NURSE ---
PT REFUSED INSULIN ORDERED BY DR HARRIS FOR FBS POC OF 415. PT STATED NO NEEDLES .
[2020-01-08 07:00] VITALS: BMI 35.6
[2020-01-08] MEDS: Nicotine 21 MG PATCH.TD24 TRANSDERMA (08:32)
[2020-01-08] MEDS: Docusate Sodium 100 MG CAPSULE PO ×2 (08:33→20:45)
[2020-01-08] MEDS: metFORMIN HCl 1,000 MG TABLET 1000 MG PO ×2 (08:33→16:43)
[2020-01-08] MEDS: Thiamine HCL 100 MG TABLET PO (08:33)
[2020-01-08 11:22] VITALS: BMI 23.5
[2020-01-08 11:23] VITALS: BMI 35.6
[2020-01-08 12:05] LABS: Glucose, Whole Blood 307 mg/dL (60-115)
[2020-01-08] MEDS: Divalproex Sodium 500 MG TABLET.DR 1000 MG PO (16:43)
[2020-01-08] MEDS: Lurasidone HCl 40 MG TABLET PO (16:43)
[2020-01-08 18:00] VITALS: BP 106/53; PULSE 67; TEMP 36.6
[2020-01-08] MEDS: DULoxetine HCl 30 MG CAPSULE.DR 60 MG PO (20:44)
[2020-01-08] MEDS: Zolpidem Tartrate 5 MG TABLET 10 MG PO ×2 (20:44→22:10)
[2020-01-08] MEDS: hydrOXYzine HCL 25 MG TABLET 100 MG PO (20:45)
--- NOTE | 2020-01-08 21:32 | HO.PSYCHPN ---
Subjective Subjective Reason For Visit: ETOH AND SECTION 12 depression si Subjective Notes: Conditional Voluntary Interim History: pt more alert using light box future oriented denies si Medication Compliance: Yes Side effects from medications: Yes Attending Groups: Intermittent Mental Status Exam Mental Status Exam Narrative: improved range of affect less hopeless and despondent still feels quite fragile denies active si Patient Appearance: Appropriate Patient Orientation: Person, Place and Situation Level of Consciousness: Awake Patient Behavior: Appropriate, Cooperative, Isolative and Good Eye Contact Behavior Comments: avoids crowds becomes nervous Mood Description: Calm and Apprehensive Patient Cognition Impaired: No Ability to Follow Directions: Good Speech Pattern: Clear Memory Description: Intact Thought Content: positive for Goal Oriented, positive for Suicidal Ideation (denies ) and negative for Homicidal Ideation Depressive Symptoms: Increased Fatigue and Loss of Energy Judgement: Good Judgement and Insight: improved mood biswas affect better judgement Diagnostics Vital Signs (24Hr): Vital Signs - 24 hr 01/08/20 06:00 01/08/20 18:00 Temperature 97.2 F 97.9 F Pulse Rate 71 67 Blood Pressure 124/74 106/53 L Body Mass Index 35.6 Labs Results: 12/29/19 08:51 01/06/20 10:20 Labs: Laboratory Results - last 48 hr 01/07/20 01/07/20 01/08/20 05:05 17:05 05:11 POC Glucose 322 H 263 H 415 H* 01/08/20 12:00 POC Glucose 307 H Medications Medications Current Medications Generic Name Dose Route Start Last Admin Trade Name Freq PRN Reason Stop Dose Admin Acetaminophen 650 mg 12/25/19 12:45 Acetaminophen 325 Mg Tablet PO Q6H PRN Headache/Pain Mild Scale (1-3) Al Hydroxide/Mg Hydroxide 30 ml 12/25/19 12:45 Magnesium Hydrox/Alum Hydrox 30 Ml Oral.Susp PO Q6H PRN Heartburn/Nausea Divalproex Sodium 1,000 mg 01/06/20 17:00 01/08/20 16:43 Divalproex Sodium 500 Mg Tablet.Dr PO 1,000 mg DAILY@1700 ABDULKADIR Administration Docusate Sodium 100 mg 01/01/20 21:00 01/08/20 20:45 Docusate Sodium 100 Mg Capsule PO 100 mg BID ABDULKADIR Administration Duloxetine HCl 60 mg 01/06/20 21:00 01/08/20 20:44 Duloxetine Hcl 30 Mg Capsule.Dr PO 60 mg BEDTIME ABDULKADIR Administration Hydroxyzine HCl 100 mg 12/29/19 21:00 01/08/20 20:45 Hydroxyzine Hcl 25 Mg Tablet PO 100 mg BEDTIME ABDULKADIR Administration Insulin Human Lispro 0 unit 01/08/20 07:30 01/08/20 20:41 Insulin Lispro 100 Unit/Ml 3 Ml Vial SUBCUT Not Given QIDACHS [facility] Protocol Lurasidone HCl 40 mg 01/08/20 17:00 01/08/20 16:43 Lurasidone Hcl 40 Mg Tablet PO 40 mg DAILY@1700 ABDULKADIR Administration Magnesium Hydroxide 30 ml 12/25/19 12:45 12/27/19 10:51 Milk Of Magnesia 30 Ml Oral.Susp PO 30 ml DAILY PRN Administration Constipation Metformin HCl 1,000 mg 01/05/20 17:00 01/08/20 16:43 Metformin Hcl 1,000 Mg Tablet PO 1,000 mg BIDWM ABDULKADIR Administration Nicotine 21 mg 12/25/19 13:00 01/08/20 08:32 Nicotine 21 Mg Patch.Td24 TRANSDERMA 21 mg DAILY ABDULKADIR Administration Nicotine Polacrilex 2 mg 12/25/19 12:45 Nicotine Polacrilex 2 Mg Gum BUCCAL Q2H PRN Nicotine Cravings Thiamine HCl 100 mg 12/30/19 10:00 01/08/20 08:33 Thiamine Hcl 100 Mg Tablet PO 100 mg DAILY ABDULKADIR Administration Zolpidem Tartrate 10 mg 01/03/20 21:00 01/08/20 20:44 Zolpidem Tartrate 5 Mg Tablet PO 10 mg BEDTIME MRX1 ABDULKADIR Administration Allergies Allergies Allergy/AdvReac Type Severity Reaction Status Date / Time No Known Allergies* Allergy Uncoded 12/24/19 03:00 Assessment & Plan Assessment & Plan (1) Alcohol abuse with alcohol-induced mood disorder: Status: Acute Code(s): F10.14 - Alcohol abuse with alcohol-induced mood disorder (2) Bipolar disorder: Qualifiers: Active/Remission status: currently active Current bipolar episode type: depressed Current episode severity: severe Psychotic features: without psychotic features Qualified Code(s): F31.4 - Bipolar disorder, current episode depressed, severe, without psychotic features Status: Acute Code(s): F31.9 - Bipolar disorder, unspecified (3) Diabetes mellitus, type 2: Status: Acute Code(s): E11.9 - Type 2 diabetes mellitus without complications Assessment and Plan: cont metformin pt refuses insulin discussed exercise diet cont cymbalta depakote latuda Greater than 50% of the session was spent on counseling and/or coordination of care
[2020-01-09 00:52] LABS: Glucose, Whole Blood 219 mg/dL (60-115)
[2020-01-09 06:00] VITALS: BP 120/67; PULSE 78; RESP 16; TEMP 36.4; O2SAT 96
--- NOTE | 2020-01-09 06:21 | PC.NURSE ---
FBS POC = 397. PT ADMITS TO SNACKING DURING THE NIGHT.
[2020-01-09 06:24] LABS: Glucose, Whole Blood 397 mg/dL (60-115)
[2020-01-09] MEDS: Docusate Sodium 100 MG CAPSULE PO (08:16)
[2020-01-09] MEDS: metFORMIN HCl 1,000 MG TABLET 1000 MG PO (08:16)
[2020-01-09] MEDS: Nicotine 21 MG PATCH.TD24 TRANSDERMA (08:16)
[2020-01-09] MEDS: Thiamine HCL 100 MG TABLET PO (08:16)
[2020-01-09 13:35] LABS: Alanine Aminotransferase 28 U/L (0-40); Albumin Level 4.1 g/dL (3.5-5.0); Alkaline Phosphatase 97 U/L (39-117); Anion Gap 14 (12-20); Aspartate Amino Transferase 12 U/L (5-37); Bilirubin Total 0.5 mg/dL (0.0-1.0); Blood Urea Nitrogen 16 mg/dL (9-16); Calcium 9.3 mg/dL (8.4-10.2); Carbon Dioxide 27 mmol/L (22-29); Chloride 100 mmol/L (96-108); Cholesterol 205 mg/dL; Creatinine Clr Calc Pharmacy 114.2; Estimated Glomerular Filt Rate > 60; Glucose Fasting 356 mg/dL (60-99); HDL Cholesterol 47 mg/dL; LDL Cholesterol Calculated 97 mg/dl; Potassium 4.5 mmol/l (3.3-5.1); Sodium 136 mmol/L (135-145); Total Protein 7.3 g/dL (6.5-8.0); Triglycerides 307 mg/dL
--- NOTE | 2020-01-09 14:13 | P.DS_ITS ---
DS: Providers Provider Date of admission: 12/25/19 15:24 date of discharge 01/09/2020 Primary care physician: Tim Erazo MD Admitting clinician: Jeb Rai Attending physician on admission: Jeb Rai Attending physician on discharge: Jeb Rai Anticipated date of discharge: 01/09/20 DS: Diagnosis Discharge Diagnosis (1) Alcohol abuse with alcohol-induced mood disorder: Status: Resolved (2) Bipolar disorder: Status: Acute (3) Diabetes mellitus, type 2: Status: Acute Discharge Plan Discharge Patient Disposition: Home, Self-Care Referrals: [facility] [Other] - 02/02/20 8:00 am ([facility]) Kevin Bai Psychiatry [Other] - 03/01/20 8:00 am Nano Forde (therapist) [Other] - 01/17/20 11:00 am (Telehealth appointment) Tim Erazo MD [Primary Care Provider] - 01/13/20 2:30 pm (TELEPHONE VISIT) Discharge Medications: New nicotine (polacrilex) 2 mg Gum 2 mg buccal Q2H PRN (Reason: Nicotine Cravings) Qty: 90 RF: 0 nicotine 21 mg/24 hr Patch 24 Hour 21 mg transdermal DAILY 15 Days RF: 0 divalproex 500 mg Tablet,Delayed Release (Dr/Ec) 1,000 mg PO DAILY@1700 30 Days Qty: 60 RF: 0 hydroxyzine HCl 25 mg Tablet 50 mg PO BEDTIME PRN (Reason: Insomnia) 30 Days Qty: 60 RF: 0 duloxetine 30 mg Capsule,Delayed Release(Dr/Ec) 60 mg PO BEDTIME 30 Days Qty: 60 RF: 0 Latuda 40 mg Tablet 40 mg PO DAILY@1700 Qty: 30 RF: 0 docusate sodium 100 mg Capsule 100 mg PO BID 30 Days Qty: 60 RF: 0 thiamine HCl (vitamin B1) 100 mg Tablet 100 mg PO DAILY Qty: 30 RF: 0 naltrexone 50 mg tablet 50 mg PO DAILY Qty: 30 RF: 0 zolpidem [Ambien] 10 mg tablet 10 mg PO BEDTIME PRN (Reason: insomnia) 30 Days Qty: 30 RF: 0 Continued metformin 1,000 mg tablet 1,500 mg PO BID RF: 0 Discharge Orders: Discharge Order (Routine); Ordered 01/09/20 Ordered By: Jeb Rai Diet: diabetic diet Activity on Discharge: As tolerated Patient Instructions: Naltrexone (By mouth), Divalproex (By mouth), Duloxetine (By mouth), Lurasidone (By mouth), Diabetic Peripheral Neuropathy (DC), Abuse of Alcohol (DC), Alcohol Dependence (DC), Alcohol Use Disorder (DC), Diabetes and Nutrition (DC), Diabetes and Exercise (DC) Stand Alone Forms: Community Support Discharge Date/Time: 01/09/20 13:35 Activity Restrictions/Additional Instructions: suggest AA Visit Report Forms: Patient Portal Discharge page Care Plan Goals: stabilize mood no self-harming thoughts stabilize blood sugar sobriety from use of alcohol Health Concerns: bipolar 2 with severe depression alcohol use disorder diabetes mellitus type 2 Plan of Treatment: therapy medication C Depakote and Latuda for bipolar depression cymbalta for depression and neuropathy naltrexone for alcohol cravings you will be going to [facility] please follow-up with your primary care physician for treatment of your diabetes we discussed diabetic diet you might benefit from referral to a dietitian the sides metformin there are other oral agents that might be helpful for you Mental Status Exam Mental Status Exam Patient Appearance: Well Grooomed Patient Orientation: Person, Place, Time and Situation Level of Consciousness: Awake Patient Behavior: Appropriate and Passive Mood Description: Calm, Appropriate and Flat Affect Description: Calm and Flat Memory Description: Episodic Impaired Hallucinations: None Delusions: Not Present Thought Process: Intact and Rumination Thought Content: positive for Intact and positive for Goal Oriented Depressive Symptoms: Increased Anxiety, Diff. Making Decisions and Low Self Esteem Judgement and Insight: much improved impulse control and judgment at the time of discharge patient accepted his diagnosis need for treatment and for sobriety DS: Summary Hospital Course Hospital Course: HPI Chief Complaint: ETOH AND SECTION 12 Sources of Information: patient interviewed, chart reviewed and crisis/core team assessment reviewed HPI Narrative: the patient is a 54-year-old male who last had psychiatric treatments sometime ago in [place]. The patient has a history of alcohol use history of bipolar disorder and history of multiple significant suicide attempts. The patient was transported to the emergency room on a Section 12 issued by the [facility] after he called 911 reporting suicidal ideation and became agitated when found by the police. He had a BAL of 306 in the emergency room. The patient reports he has had ongoing intrusive thoughts of self-harm that he had tied new cyst to a tree and that he began drinking alcohol in order to kill himself. Is the anniversary of his mother's and also around his birthday. Patient had been part of a dual diagnosis treatment program in [place]. In [place] he had seen a number of people by overdose and suicide. Patient currently has no psychiatric providers he is not on any psychiatric medication he has been on Seroquel in the past or but or became problematic with his blood sugars. He denied being on lithium Depakote Tegretol Lamictal but stated he had been on mood stabilizers. Past Psychiatric History: The patient is somewhat disorganized historian he states he id had psychiatric treatment in the in this area perhaps at [facility] history of multiple suicide attempts history of clara and agitation history of depressive episode Hospital course [facility]. He was severely depressed despondent with thoughts of self-harm. In the past he had had a diagnosis of bipolar disorder but had not been in treatment for an extended period of time. The patient had relapsed with significant alcohol use for an extended period of time. His last treatment had been in [place] including in an outpatient addiction and Integrative Medicine program and while there he had been on thiamine 100 mg Abilify 15 mg metformin a 1000 b.i.d. gabapentin 400 t.i.d. for neuropathy. The patient had a difficult time clarifying his manic symptoms from the past he did tend toward negative thinking patterns catastrophic thinking. The patient was supposed to follow up with the psychiatrist and therapist when he moved back to [place] but this did not happen. He had had past trials of sertraline mirtazapine and Keppra. The patient did accept treatment for alcohol dependence and bipolar disorder. because the patient had done well in the past on hand with the addition of antidepressants he was started on Cymbalta. 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 The patient had a full affect at [facility] was future oriented at time of discharge he was going to return to live with his sister he adamantly denied that he had any plan to kill himself. He was hoping to move to [place] in the spring. He did accept referrals for outpatient treatment but did refuse consideration of the dual diagnosis partial hospital program which I did strongly recommend. The patient was also given naltrexone to help with alcohol related cravings and would recommend consideration of Vivitrol. Patient has followup with Kevin Bai APRN at [facility] and with his primary care physician strongly urged consideration of additional agents to metformin such as true [place] and recommended he see a dietitian Medical Evaluation Reviewed: Yes [facility] Medical History Bipolar disorder Depression Diabetes mellitus, type 2 Narrative: on metformin for type 2 diabetes Family History: Family history of suicide in substance abuse Social History: the patient was born and raised in [place] he has a brother and a sister his parents are . He is not does not have any children. In the past he lived in [place] and in [place]. He moved back to to [facility] from [place] has been living with his sister. He is on security disability. Substance History: drug of choice is alcohol history of multiple past detox admissions. He was in a residential program in the past in [place] Trauma History: NA Time Spent with Patient Time attestation: Total time spent providing and/or coordinating discharge services:
[2020-01-09 14:24] LABS: Reflex LDLD? No
[2020-01-09 14:29] LABS: Estimated Average Glucose 157 mg/dL; Hemoglobin A1c % 7.1 %
[2020-01-09 15:39] LABS: Glucose, Whole Blood 305 mg/dL (60-115)
== END 2020-01-09 13:35 | disposition home or self-care (01) | DRG 753 ==
LOC: HO.ED 22:34 → HO.PM5 12-25 15:27
PROVIDERS: Psychiatry & Neurology Psychiatry; Admitting Provider Psychiatry & Neurology Psychiatry; Emergency Provider Emergency Medicine; PCP Internal Medicine; Visit Provider Psychiatry & Neurology Psychiatry
DX: F31.9 Bipolar disorder, unspecified (principal); R45.851 Suicidal ideations; F10.14 Alcohol abuse with alcohol-induced mood disorder; E11.9 Type 2 diabetes mellitus without complications; Z91.5 Personal history of self-harm; Z23 Encounter for immunization; Z79.84 Long term (current) use of oral hypoglycemic drugs; Z79.899 Other long term (current) drug therapy
CPT/HCPCS: 36415; 80048; 80051; 80053; 80061; 80076; 80164; 80320; 82565; 82607; 82746; 82947; 83036; 84443; 84450; 84460; 84520; 85025; 85027; 90686; 99222; 99232; 99239; 99285; U0003

== ENCOUNTER 2020-03-10 18:05 | Inpatient (IN) | payer OTHER, SELFPAY ==
--- NOTE | 2020-03-10 18:18 | ECG_ITS ---
Test Reason : OVERDOSE Blood Pressure : / mmHG Vent. Rate : 092 BPM Atrial Rate : 092 BPM P-R Int : 156 ms QRS Dur : 088 ms QT Int : 366 ms P-R-T Axes : 044 -66 040 degrees QTc Int : 452 ms Normal sinus rhythm Left axis deviation Low voltage QRS Cannot rule out Anteroseptal infarct , age undetermined Abnormal ECG When compared with ECG of 24-DEC-2019 23:13, Minimal criteria for Anteroseptal infarct are now Present Referred By: Sharan Tejeda Electronically Signed By:Raza Waggoner
[2020-03-10 18:19] VITALS: BP 146/92; PULSE 92; RESP 18; TEMP 37; O2SAT 94; BMI 35.2
[2020-03-10 19:18] LABS: MANUAL DIFF FLAG NO
[2020-03-10 19:22] LABS: Basophils Percent Auto 0.4 % (0-2); Eosinophils Percent Auto 0.4 % (0-4); Hematocrit 48.7 % (42-52); Hemoglobin 16.9 g/dl (14.0-18.0); Imm Gran Abs Auto 0.01 X10*3/uL (0.00-0.03); Imm Gran Pct Auto 0.1 % (0.0-0.4); Lymphocytes Absolute Auto 3.6 X10*3/uL (1.2-4.9); Lymphocytes Percent Auto 38.6 % (20-40); Mean Corpuscular HGB Conc 34.7 g/dl (31.0-36.0); Mean Corpuscular Hemoglobin 30.5 pg (27.0-33.0); Mean Corpuscular Volume 87.7 fL (80-98); Mean Platelet Volume 9.7 fL (9.4-12.4); Monocytes Absolute Auto 0.8 X10*3/uL (0.1-1.2); Neutrophils Absolute Auto 4.8 X10*3/uL (2.0-8.3); Neutrophils Percent Auto 51.5 % (45-73); Platelet Count 246 X10*3/uL (160-400); Red Blood Count 5.55 X10*6/uL (4.60-5.80); Red Cell Distribution Width 13.7 % (11.0-16.0); White Blood Count 9.3 X10*3/uL (4.8-10.8)
[2020-03-10 19:23] LABS: INTERNATIONAL NORM RATIO 1.1 (0.9-1.1); Prothrombin Time 12.6 SEC (10.8-13.0)
[2020-03-10] MEDS: LORazepam 2 MG/ML VIAL IM (19:27)
[2020-03-10 19:37] LABS: Ethanol 204 mg/dL
--- NOTE | 2020-03-10 19:37 | PC.NURSE ---
Patient quite agitated and only wants 1 person in the room . Patient pacing and will not sit down. Patient refusing to have ekg or xray done. Patient medicated with 2 mg of ativan for agitation. Poison control contacted because patient stated that he has taken handful of metformin, Baclofen and Ambien. Per poison control patient should have EKG. Metformin will cause acute kidney injury as well as metabolic acidosis. Ambien will make patient drowsy. Baclofen causes agitation and can cause hypotension. Patient if he took enough could go into a coma and look clinically as it affects the brain stem but in fact patient is not and body has to process the medication. Labs should be repeated in 4 hours. Sharan, SUCCESS COACH informed of information from poison control
[2020-03-10 19:41] LABS: Acetaminophen LAB < 1 mcg/mL (<30); Alanine Aminotransferase 42 U/L (0-40); Albumin Level 4.4 g/dL (3.5-5.0); Alkaline Phosphatase 73 U/L (39-117); Anion Gap 17 (12-20); Aspartate Amino Transferase 35 U/L (5-37); Bilirubin Total 0.6 mg/dL (0.0-1.0); Blood Urea Nitrogen 11 mg/dL (9-16); Calcium 8.8 mg/dL (8.4-10.2); Carbon Dioxide 24 mmol/L (22-29); Chloride 104 mmol/L (96-108); Creatinine Clr Calc Pharmacy 91.5; Estimated Glomerular Filt Rate > 60; Glucose Random 128 mg/dL (60-115); Potassium 4.4 mmol/l (3.3-5.1); Salicylate < 5.0 mg/dL (15-30); Sodium 141 mmol/L (135-145); Total Protein 7.7 g/dL (6.5-8.0)
[2020-03-10 20:00] VITALS: BP 142/86; PULSE 101; RESP 15; O2SAT 98
--- NOTE | 2020-03-10 20:42 | ED.OVERDOSE ---
HPI - Overdose General Chief Complaint: Overdose Stated Complaint: SI,SECTION 12, ?OVERDOSE Time Seen by Provider: 03/10/20 18:15 Source: EMS Mode of arrival: ambulatory Limitations: no limitations History of Present Illness HPI Narrative: This is a 55-year-old male with past medical history according to the HPI done on 12/25/[address] Rai he has a history of alcohol abuse bipolar disorder with multiple suicidal attempts in the past who presents via EMS from home with complaint of alcohol intoxication and intentional overdose with thoughts of suicidal ideations. States he has a hard time around this time of the year and has been having increased depression and thoughts of wanting to harm himself so this evening while he was drinking alcohol he took about 10 tablets of metformin 500 mg tablets and several? baclofen tablets with plan to harm himself. This occurred several hours prior to arrival. He according to the EMR has had multiple significant suicide attempts in the past and he is being brought in today by EMS with Section 12 by the Skip BERRY MD complaint: intentional overdose Intent: suicide attempt How Overdose Was Discovered: called 911 Context: Intentional Overdose: drug/ETOH problems Associated symptoms: depression Treatments Prior to Arrival: none Related Data Home Medications Medication Instructions Recorded Confirmed metformin 1,500 mg PO BID 12/24/19 03/10/20 diclofenac potassium 1 tab PO TID 03/10/20 03/10/20 Previous Rx's Medication Instructions Recorded divalproex 1,000 mg PO DAILY@1700 30 Days #60 01/09/20 tab duloxetine 60 mg PO BEDTIME 30 Days #60 cap 01/09/20 hydroxyzine HCl 50 mg PO BEDTIME PRN 30 Days #60 01/09/20 tab naltrexone 50 mg PO DAILY #30 tab 01/09/20 nicotine (polacrilex) 2 mg BUCCAL Q2H PRN #90 ea 01/09/20 zolpidem [Ambien] 10 mg PO BEDTIME PRN 30 Days #30 01/09/20 tab Allergies Allergy/AdvReac Type Severity Reaction Status Date / Time No Known Allergies Allergy Verified 03/10/20 19:00 Review of Systems Review of Systems: Constitutional: No Weight loss, No Fever, No Chills, No Night Sweats, No Fatigue, No Malaise ENT/Mouth: No Hearing loss, No Ear Pain, No Nasal Congestion, No Sinus Pain, No Hoarseness, No sore throat, No Rhinorrhea, No Swallowing Difficulty Eyes: No Eye Pain, No Swelling, No Redness, No Foreign Body, No Discharge, No Vision Changes Cardiovascular: No Chest Pain, No SOB, No Dyspnea on Exertion, No Orthopnea, No Edema, No Palpitations Respiratory: No Cough, No Sputum, No Wheezing, No Smoke Exposure, No Dyspnea Gastrointestinal: No Nausea, No Vomiting, No Diarrhea, No Constipation, No abdominal Pain, No Hematochezia, No Melena Musculoskeletal: No joint pain, No Myalgias, No Joint Swelling Skin: No Skin Lesions, No rash Neuro: No Weakness, No Numbness, No Paresthesias, No Loss of Consciousness, No Dizziness, No Headache Psych: No Anxiety/Panic, No Depression, No SI/HI/AH/VH, No Social Issues Heme/Lymph: No Bruising, No Bleeding,No Lymphadenopathy Endocrine: No Polyuria, No Polydipsia, No Temperature Intolerance Yes all other systems are reviewed and are negative [facility] Past Medical History Attestation statement: The following information was validated with the patient. Medical History Bipolar disorder Depression Diabetes mellitus, type 2 Suicidal ideation Social History Social History Household Members: Other Housing: House Alcohol intake: current Alcohol intake frequency: 3 or more drinks per day Smoking Status: Unknown if ever smoked Tobacco Type: Smokeless Tobacco Years Smoked: 25 Second Hand Smoke Exposure: No Use of substances other than those prescribed or required for medical reasons: Yes Substance Use Type: Marijuana Substance Use Frequency: Chronic Longstanding Advance Directives: No Advance Directives Information Provided: Yes service: No Sexual orientation: Straight/Heterosexual Physical Exam Vital Signs: Vital Signs: Last Vital Signs Temp 98.6 F 03/10/20 18:19 Pulse 101 H 03/10/20 20:00 Resp 15 03/10/20 20:00 BP 142/86 H 03/10/20 20:00 Pulse Ox 98 03/10/20 20:00 Body Mass Index 35.2 Reviewed Const: Other: Tearful General: comfortable and intoxicated appearing; No acute distress Nutritional Appearance: average body habitus Orientation/consciousness: patient oriented x3 HENMT: Head: Yes normal to inspection Ears: hearing grossly normal bilaterally Eyes: General: appearance normal, both eyes and all related structures Visual Varela: normal visual varela by confrontation Neck: Neck: Yes normal visual inspection and No tender Thyroid: Thyroid normal Chest: Chest palpation & inspection: normal inspection of the chest Breast/axilla inspection: normal inspection of the breasts Resp: Effort & Inspection: normal respiratory effort Auscultation: clear to auscultation bilaterally Cardio: Jugular venous distension: no JVD Rhythm: regular rhythm GI: Inspection: Yes normal to inspection Percussion: Yes normal to percussion Auscultation: normal bowel sounds : General: Yes no CVA tenderness Back/Spine/Pelvis: Back: no CVA tenderness Skin: General skin exam: no rashes or lesions noted Neuro: General: patient oriented x3 Extrem: General: Yes normal to inspection Course Course Course Narrative: Interview 55-year-old male with psychiatric history in the setting of chronic alcohol abuse presenting with intentional overdose on baclofen and metformin. Prior psychiatric admissions most recently beginning of December for similar type presentation. Will check labs including toxicology screen, public relations counselor POC acute 30 minutes for 4 hours and consult poison Control. Reevaluation(s) Reevaluation #1: Initial lab works overall stable. Tylenol/salicylate level within normal limits. POC 128. Renal function intact. Patient has been actually quite restless has been walking on the room requiring multiple redirections able to redirect. Appear intoxicated and tearful at times. Did require medication to help his agitation per his request. 204. Plan for repeat labs at 22:00 If repeat labs are stable and p.o. sees remained stable patient can be medically cleared at that time. Poison control recommendation as noted in nursing notes with metformin renal function, metabolic acidosis, hypoglycemia and baclofen can cause agitation/hypertension. Reevaluation #2: 2100 Sign-out to Rony SPRINGER pending repeat labs at 22:00/re-evaluation/crisis evaluation. MDM - Overdose Differential Diagnosis Differential diagnosis: Likely suicide attempt by multiple drug overdose and drug overdose Medical Records Attestation: I reviewed the patient's medical records. Medical records narrative: 12/25/2019 psychiatric admission note reviewed Lab Data Attestation: I reviewed the patient's lab results. Result diagrams: 03/10/20 19:11 03/10/20 19:11 Labs: Lab Results 03/10/20 03/10/20 03/10/20 Range/Units 19:11 19:11 19:11 WBC 9.3 (4.8-10.8) X10*3/uL RBC 5.55 (4.60-5.80) X10*6/uL Hgb 16.9 (14.0-18.0) g/dl Hct 48.7 (42-52) % MCV 87.7 (80-98) fL MCH 30.5 (27.0-33.0) pg MCHC 34.7 (31.0-36.0) g/dl RDW 13.7 (11.0-16.0) % Plt Count 246 D (160-400) X10*3/uL MPV 9.7 (9.4-12.4) fL Immature Gran % (Auto) 0.1 (0.0-0.4) % Neut % (Auto) 51.5 (45-73) % Lymph % (Auto) 38.6 (20-40) % [place] % (Auto) 9.0 (2-11) % Eos % (Auto) 0.4 (0-4) % Baso % (Auto) 0.4 (0-2) % Lymph # (Auto) 3.6 (1.2-4.9) X10*3/uL [place] # (Auto) 0.8 (0.1-1.2) X10*3/uL Eos # (Auto) 0.0 (0.0-0.4) X10*3/uL Baso # (Auto) 0.0 (0.0-0.2) X10*3/uL Abs Immat Gran (auto) 0.01 (0.00-0.03) X10*3/uL Absolute Neuts (auto) 4.8 (2.0-8.3) X10*3/uL Absolute Nucleated RBC 0.000 (0.0-0.012) X10*3/uL Nucleated RBC % (auto) 0.0 (0.0-0.2) /100WBC PT 12.6 (10.8-13.0) SEC INR 1.1 (0.9-1.1) APTT 33.0 (24.1-38.0) SEC Sodium 141 (135-145) mmol/L Potassium 4.4 (3.3-5.1) mmol/l Chloride 104 (96-108) mmol/L Carbon Dioxide 24 (22-29) mmol/L Anion Gap 17 (12-20) BUN 11 (9-16) mg/dL Creatinine 1.18 (0.5-1.4) mg/dL Estim Creat Clear Calc 91.5 Estimated GFR > 60 Random Glucose 128 H D (60-115) mg/dL Calcium 8.8 (8.4-10.2) mg/dL Total Bilirubin 0.6 (0.0-1.0) mg/dL AST 35 D (5-37) U/L ALT 42 H (0-40) U/L Alkaline Phosphatase 73 D (39-117) U/L Total Protein 7.7 (6.5-8.0) g/dL Albumin 4.4 (3.5-5.0) g/dL Salicylates < 5.0 L (15-30) mg/dL Acetaminophen < 1 (<30) mcg/mL Ethyl Alcohol mg/dL 12/16/20 Range/Units 19:11 WBC (4.8-10.8) X10*3/uL RBC (4.60-5.80) X10*6/uL Hgb (14.0-18.0) g/dl Hct (42-52) % MCV (80-98) fL MCH (27.0-33.0) pg MCHC (31.0-36.0) g/dl RDW (11.0-16.0) % Plt Count (160-400) X10*3/uL MPV (9.4-12.4) fL Immature Gran % (Auto) (0.0-0.4) % Neut % (Auto) (45-73) % Lymph % (Auto) (20-40) % [place] % (Auto) (2-11) % Eos % (Auto) (0-4) % Baso % (Auto) (0-2) % Lymph # (Auto) (1.2-4.9) X10*3/uL [place] # (Auto) (0.1-1.2) X10*3/uL Eos # (Auto) (0.0-0.4) X10*3/uL Baso # (Auto) (0.0-0.2) X10*3/uL Abs Immat Gran (auto) (0.00-0.03) X10*3/uL Absolute Neuts (auto) (2.0-8.3) X10*3/uL Absolute Nucleated RBC (0.0-0.012) X10*3/uL Nucleated RBC % (auto) (0.0-0.2) /100WBC PT (10.8-13.0) SEC INR (0.9-1.1) APTT (24.1-38.0) SEC Sodium (135-145) mmol/L Potassium (3.3-5.1) mmol/l Chloride (96-108) mmol/L Carbon Dioxide (22-29) mmol/L Anion Gap (12-20) BUN (9-16) mg/dL Creatinine (0.5-1.4) mg/dL Estim Creat Clear Calc Estimated GFR Random Glucose (60-115) mg/dL Calcium (8.4-10.2) mg/dL Total Bilirubin (0.0-1.0) mg/dL AST (5-37) U/L ALT (0-40) U/L Alkaline Phosphatase (39-117) U/L Total Protein (6.5-8.0) g/dL Albumin (3.5-5.0) g/dL Salicylates (15-30) mg/dL Acetaminophen (<30) mcg/mL Ethyl Alcohol 204 mg/dL ECG Data Interpretation: Normal sinus rhythm Heart rate [address] segment changes Discharge Plan Discharge Clinical Impression: Bipolar disorder, Suicide attempt by multiple drug overdose, Drug overdose Patient Disposition: Admitted As Inpatient
--- NOTE | 2020-03-10 21:46 | PC.NURSE ---
fOLLOW UP CALL FROM POISON CONTROL TO CHECK LABS. lAB RESULTS READ OFF TO MARIUM AT POISON CONTROL WHO SEEMED SATISFIED WITH LAB RESULTS THUS FAR. HE WILL CALL BACK WHEN NEXT SET OF LABS DRAWN.
[2020-03-10 22:13] VITALS: BP 107/66; PULSE 85; RESP 18; TEMP 36.8; O2SAT 93
[2020-03-10 22:15] LABS: Lipase 34 U/L (8-78)
[2020-03-10 22:16] LABS: Acetaminophen LAB < 1 mcg/mL (<30); Alanine Aminotransferase 38 U/L (0-40); Albumin Level 4.1 g/dL (3.5-5.0); Alkaline Phosphatase 67 U/L (39-117); Anion Gap 21 (12-20); Aspartate Amino Transferase 34 U/L (5-37); Bilirubin Total 0.6 mg/dL (0.0-1.0); Blood Urea Nitrogen 12 mg/dL (9-16); Calcium 8.3 mg/dL (8.4-10.2); Carbon Dioxide 18 mmol/L (22-29); Chloride 103 mmol/L (96-108); Creatinine Clr Calc Pharmacy 70.6; Estimated Glomerular Filt Rate 47; Glucose Random 123 mg/dL (60-115); Potassium 4.3 mmol/l (3.3-5.1); Salicylate < 5.0 mg/dL (15-30); Sodium 138 mmol/L (135-145); Total Protein 7.1 g/dL (6.5-8.0)
[2020-03-10 22:19] LABS: Lactic Acid 5.2 mmol/L (0.5-2.0)
[2020-03-10] MEDS: 0.9 % Sodium Chloride 1,000 ML 999 ML IVCONT (23:00)
[2020-03-10 23:47] LABS: Reflex Lactate? Lactic Acid Added
[2020-03-11] VITALS (9 sets, daily range): BP systolic 98–132; BP diastolic 40–78; PULSE 63–74; RESP 15–20; TEMP 36.4–36.6; O2SAT 94–99
[2020-03-11] MEDS: 0.9 % Sodium Chloride 1,000 ML 999 ML IVCONT (00:01)
[2020-03-11 00:57] LABS: Lactic Acid 6.1 mmol/L (0.5-2.0)
[2020-03-11 01:11] LABS: Alanine Aminotransferase 32 U/L (0-40); Albumin Level 3.5 g/dL (3.5-5.0); Alkaline Phosphatase 62 U/L (39-117); Anion Gap 22 (12-20); Aspartate Amino Transferase 28 U/L (5-37); Bilirubin Total 0.6 mg/dL (0.0-1.0); Blood Urea Nitrogen 14 mg/dL (9-16); Calcium 7.6 mg/dL (8.4-10.2); Carbon Dioxide 16 mmol/L (22-29); Chloride 108 mmol/L (96-108); Creatinine Clr Calc Pharmacy 62.8; Estimated Glomerular Filt Rate 41; Glucose Random 129 mg/dL (60-115); Potassium 4.8 mmol/l (3.3-5.1); Sodium 141 mmol/L (135-145); Total Protein 6.2 g/dL (6.5-8.0)
[2020-03-11 02:36] LABS: Reflex Lactate? Lactic Acid Added
[2020-03-11] MEDS: ondansetron HCL 4 MG/2 ML VIAL IVPUSH (03:03)
[2020-03-11 03:29] LABS: ~Lactic Acid-LAB USE ONLY 6.4 mmol/L (0.5-2.0)
--- NOTE | 2020-03-11 03:31 | PC.NURSE ---
PATIENT HAS CALMED DOWN AND HAS BEEN COOPERATIVE ALL EVENING WITH LAB DRAWS, ETC. HE HAS NOT PROVIDED A URINE SAMPLE. PATIENT RECENTLY COMPLAINED ON NAUSEA AND WAS MEDICATED PER EMAR NOTED.
[2020-03-11 04:05] LABS: Base Excess VBG -7.6 mmol/L; HCO3 VBG 18 mmol/L; Oxygen Saturation VBG 98.9 %; PCO2 VBG 36 mmhg; PO2 VBG 147 mmhg; pH VBG 7.31 (7.32-7.43)
--- NOTE | 2020-03-11 04:12 | PC.NURSE ---
Lactic acid continue to rise and is now 6.4
[2020-03-11 04:17] LABS: COVID-19 Test Negative (Negative); IDNOW Serial# 9DD0AD1C
[2020-03-11] MEDS: 0.9 % Sodium Chloride 1,000 ML 125 ML IVCONT ×4 (04:50→22:56)
[2020-03-11 04:58] LABS: Lactic Acid 4.5 mmol/L (0.5-2.0)
[2020-03-11 05:18] LABS: Anion Gap 19 (12-20); Blood Urea Nitrogen 15 mg/dL (9-16); Calcium 7.8 mg/dL (8.4-10.2); Carbon Dioxide 19 mmol/L (22-29); Chloride 106 mmol/L (96-108); Creatinine Clr Calc Pharmacy 69.7; Estimated Glomerular Filt Rate 46; Glucose Random 141 mg/dL (60-115); Sodium 139 mmol/L (135-145)
[2020-03-11 06:41] LABS: Reflex Lactate? Lactic Acid Added
[2020-03-11 07:40] LABS: ~Lactic Acid-LAB USE ONLY 2.1 mmol/L (0.5-2.0)
[2020-03-11 09:15] LABS: Reflex Lactate? 2 Y
--- NOTE | 2020-03-11 09:28 | PC.NURSE ---
hosp [facility]) at bedside, pt aware of plan of care fore admission to hosp.
[2020-03-11 09:48] LABS: Glucose, Whole Blood 99 mg/dL (60-115)
--- NOTE | 2020-03-11 09:57 | PM.IMHP ---
History of Present Illness Date of Service: 03/11/20 <RACHEAL Campbell - Last Filed: 03/11/20 10:18> Chief Complaint: Drug overdose <RACHEAL Campbell - Last Filed: 03/11/20 10:18> This is a 55-year-old male with a history of bipolar disorder and suicide attempts in the past was brought in on [address] after intentional drug overdose. Patient reports taking metformin 6 or 7 tablets as well as a sleep medication for which he cannot remember the name. The emergency room documentation indicates they took baclofen. Poison control and Nephrology were involved and recommended following renal function and lactic acid. His creatinine increased from 1.18 to 1.72 and is now trending down to 1.55. His lactic acid peaked at 6.4 and is now down to 2.1. His alcohol level was elevated on arrival at 204. <RACHEAL Campbell - Last Filed: 03/11/20 10:18> Review of Systems Review of Systems: Yes all other systems are reviewed and are negative <RACHEAL Campbell - Last Filed: 03/11/20 10:18> Constitutional: Constitutional: Denies chills and Denies fever(s) <RACHEAL Campbell - Last Filed: 03/11/20 10:18> Cardiovascular: Cardiovascular: Denies chest pain <RACHEAL Campbell - Last Filed: 03/11/20 10:18> Respiratory: Respiratory: Denies cough <RACHEAL Campbell - Last Filed: 03/11/20 10:18> Gastrointestinal: Gastrointestinal: Denies abdominal pain <RACHEAL Campbell Last Filed: 03/11/20 10:18> [facility] Medical History: Medical History Bipolar disorder Depression Diabetes mellitus, type 2 Suicidal ideation <RACHEAL Campbell Last Filed: 03/11/20 10:18> Pertinent family history: Substance abuse <RACHEAL Campbell Last Filed: 03/11/20 10:18> Social History: Social History (Updated 03/11/20 @ 10:03 by RACHEAL Campbell) Household Members: Other Housing: House Alcohol intake: current Alcohol intake frequency: a few times a week Alcohol type: hard liquor Smoking Status: Unknown if ever smoked Tobacco Type: Smokeless Tobacco Years Smoked: 25 Second Hand Smoke Exposure: No Use of substances other than those prescribed or required for medical reasons: Yes Substance Use Type: Marijuana Substance Use Frequency: Chronic Longstanding Advance Directives: No Advance Directives Information Provided: Yes service: No Sexual orientation: Straight/Heterosexual <RACHEAL Campbell - Last Filed: 03/11/20 10:18> Meds Allergies/Adverse reactions: Allergies Allergy/AdvReac Type Severity Reaction Status Date / Time No Known Allergies Allergy Verified 03/10/20 19:00 <RACHEAL Campbell - Last Filed: 03/11/20 10:18> Home medications: Home Medications Medication Instructions Recorded Confirmed Type metformin 1,000 mg PO BID 12/24/19 03/11/20 History diclofenac potassium 1 tab PO TID 03/10/20 03/10/20 History cyclobenzaprine 10 mg PO BID PRN 03/11/20 03/11/20 History divalproex 1,000 mg PO DAILY@1700 03/11/20 03/11/20 History docusate sodium 100 mg PO BID 03/11/20 03/11/20 History naltrexone 50 mg PO BEDTIME 03/11/20 03/11/20 History zolpidem 5 mg PO BEDTIME 03/11/20 03/11/20 History <RACHEAL Campbell - Last Filed: 03/11/20 10:18> Physical Exam Vital Signs and Narrative: Vital Signs: Last Vital Signs Temp 97.7 F 03/11/20 07:26 Pulse 70 03/11/20 07:26 Resp 15 03/11/20 07:26 BP 100/40 L 03/11/20 07:26 Pulse Ox 96 03/11/20 07:26 Body Mass Index 35.2 <RACHEAL Campbell - Last Filed: 03/11/20 10:18> Const: Nutritional Appearance: well nourished <RACHEAL Campbell - Last Filed: 03/11/20 10:18> Orientation/consciousness: patient oriented x3 <RACHEAL Campbell - Last Filed: 03/11/20 10:18> HENMT: Head: Yes normocephalic and Yes atraumatic <RACHEAL Campbell - Last Filed: 03/11/20 10:18> Eyes: Sclerae: sclerae normal <RACHEAL Campbell - Last Filed: 03/11/20 10:18> Chest: Chest palpation & inspection: normal inspection of the chest <RACHEAL Campbell - Last Filed: 03/11/20 10:18> Resp: Effort & Inspection: normal respiratory effort and no respiratory distress <RACHEAL Campbell - Last Filed: 03/11/20 10:18> Auscultation: clear to auscultation bilaterally <RACHEAL Campbell - Last Filed: 03/11/20 10:18> Cardio: Rate: regular rate <RACHEAL Campbell - Last Filed: 03/11/20 10:18> Rhythm: regular rhythm <RACHEAL Campbell - Last Filed: 03/11/20 10:18> GI: Palpation (GI): Soft to palpation and nontender <RACHEAL Campbell - Last Filed: 03/11/20 10:18> Skin: General skin exam: no rashes or lesions noted <RACHEAL Campbell - Last Filed: 03/11/20 10:18> Neuro: General: patient oriented x3 <RACHEAL Campbell - Last Filed: 03/11/20 10:18> Cranial nerves: Yes CN's II-XII intact bilaterally and Yes Bilaterally intact EOM present <RACHEAL Campbell - Last Filed: 03/11/20 10:18> Extrem: General: Yes normal to inspection <RACHEAL Campbell - Last Filed: 03/11/20 10:18> Results Labs CBC and Chem 7: : 03/10/20 19:11 03/11/20 04:28 <RACHEAL Campbell - Last Filed: 03/11/20 10:18> Labs: Laboratory Results - last 24 hr 03/10/20 03/10/20 03/10/20 19:11 19:11 19:11 MCV 87.7 MCH 30.5 MCHC 34.7 RDW 13.7 Plt Count 246 D MPV 9.7 Immature Gran % (Auto) 0.1 Neut % (Auto) 51.5 Lymph % (Auto) 38.6 [place] % (Auto) 9.0 Eos % (Auto) 0.4 Baso % (Auto) 0.4 Lymph # (Auto) 3.6 [place] # (Auto) 0.8 Eos # (Auto) 0.0 Baso # (Auto) 0.0 Abs Immat Gran (auto) 0.01 Absolute Neuts (auto) 4.8 Absolute Nucleated RBC 0.000 Nucleated RBC % (auto) 0.0 PT 12.6 INR 1.1 APTT 33.0 VBG pH VBG pCO2 VBG pO2 VBG HCO3 VBG O2 Saturation VBG Base Excess Anion Gap 17 Estim Creat Clear Calc 91.5 Estimated GFR > 60 POC Glucose Random Glucose 128 H D Lactic Acid Lactic Acid Fup @ 2Hr Calcium 8.8 Total Bilirubin 0.6 AST 35 D ALT 42 H Alkaline Phosphatase 73 D Total Protein 7.7 Albumin 4.4 Lipase Salicylates < 5.0 L Acetaminophen < 1 Ethyl Alcohol COVID-19 ([facility]) COVID-[employer] 03/10/20 03/10/20 03/10/20 19:11 21:43 21:43 MCV MCH MCHC RDW Plt Count MPV Immature Gran % (Auto) Neut % (Auto) Lymph % (Auto) [place] % (Auto) Eos % (Auto) Baso % (Auto) Lymph # (Auto) [place] # (Auto) Eos # (Auto) Baso # (Auto) Abs Immat Gran (auto) Absolute Neuts (auto) Absolute Nucleated RBC Nucleated RBC % (auto) PT INR APTT VBG pH VBG pCO2 VBG pO2 VBG HCO3 VBG O2 Saturation VBG Base Excess Anion Gap 21 H Estim Creat Clear Calc 70.6 Estimated GFR 47 POC Glucose Random Glucose 123 H Lactic Acid 5.2 H* Lactic Acid Fup @ 2Hr Calcium 8.3 L Total Bilirubin 0.6 AST 34 ALT 38 Alkaline Phosphatase 67 Total Protein 7.1 Albumin 4.1 Lipase Salicylates < 5.0 L Acetaminophen < 1 Ethyl Alcohol 204 COVID-19 ([facility]) COVID-19 [employer] 12/16/20 12/17/20 12/17/20 21:43 00:24 00:24 MCV MCH MCHC RDW Plt Count MPV Immature Gran % (Auto) Neut % (Auto) Lymph % (Auto) [place] % (Auto) Eos % (Auto) Baso % (Auto) Lymph # (Auto) [place] # (Auto) Eos # (Auto) Baso # (Auto) Abs Immat Gran (auto) Absolute Neuts (auto) Absolute Nucleated RBC Nucleated RBC % (auto) PT INR APTT VBG pH VBG pCO2 VBG pO2 VBG HCO3 VBG O2 Saturation VBG Base Excess Anion Gap 22 H Estim Creat Clear Calc 62.8 Estimated GFR 41 POC Glucose Random Glucose 129 H Lactic Acid 6.1 H* Lactic Acid Fup @ 2Hr Calcium 7.6 L D Total Bilirubin 0.6 AST 28 ALT 32 Alkaline Phosphatase 62 Total Protein 6.2 L Albumin 3.5 Lipase 34 Salicylates Acetaminophen Ethyl Alcohol COVID-19 ([facility]) COVID-[employer] 03/11/20 03/11/20 03/11/20 02:53 03:56 03:56 MCV MCH MCHC RDW Plt Count MPV Immature Gran % (Auto) Neut % (Auto) Lymph % (Auto) [place] % (Auto) Eos % (Auto) Baso % (Auto) Lymph # (Auto) [place] # (Auto) Eos # (Auto) Baso # (Auto) Abs Immat Gran (auto) Absolute Neuts (auto) Absolute Nucleated RBC Nucleated RBC % (auto) PT INR APTT VBG pH 7.31 L VBG pCO2 36 VBG pO2 147 VBG HCO3 18 VBG O2 Saturation 98.9 VBG Base Excess -7.6 Anion Gap Estim Creat Clear Calc Estimated GFR POC Glucose Random Glucose Lactic Acid Lactic Acid Fup @ 2Hr 6.4 H* Calcium Total Bilirubin AST ALT Alkaline Phosphatase Total Protein Albumin Lipase Salicylates Acetaminophen Ethyl Alcohol COVID-19 ([facility]) Negative COVID-[employer] See Note 03/11/20 03/11/20 03/11/20 04:28 04:28 07:12 MCV MCH MCHC RDW Plt Count MPV Immature Gran % (Auto) Neut % (Auto) Lymph % (Auto) [place] % (Auto) Eos % (Auto) Baso % (Auto) Lymph # (Auto) [place] # (Auto) Eos # (Auto) Baso # (Auto) Abs Immat Gran (auto) Absolute Neuts (auto) Absolute Nucleated RBC Nucleated RBC % (auto) PT INR APTT VBG pH VBG pCO2 VBG pO2 VBG HCO3 VBG O2 Saturation VBG Base Excess Anion Gap 19 Estim Creat Clear Calc 69.7 Estimated GFR 46 POC Glucose Random Glucose 141 H Lactic Acid 4.5 H* Lactic Acid Fup @ 2Hr 2.1 H* Calcium 7.8 L Total Bilirubin AST ALT Alkaline Phosphatase Total Protein Albumin Lipase Salicylates Acetaminophen Ethyl Alcohol COVID-19 ([facility]) COVID-19 Clin Com 03/11/20 09:39 MCV MCH MCHC RDW Plt Count MPV Immature Gran % (Auto) Neut % (Auto) Lymph % (Auto) [place] % (Auto) Eos % (Auto) Baso % (Auto) Lymph # (Auto) [place] # (Auto) Eos # (Auto) Baso # (Auto) Abs Immat Gran (auto) Absolute Neuts (auto) Absolute Nucleated RBC Nucleated RBC % (auto) PT INR APTT VBG pH VBG pCO2 VBG pO2 VBG HCO3 VBG O2 Saturation VBG Base Excess Anion Gap Estim Creat Clear Calc Estimated GFR POC Glucose 99 Random Glucose Lactic Acid Lactic Acid Fup @ 2Hr Calcium Total Bilirubin AST ALT Alkaline Phosphatase Total Protein Albumin Lipase Salicylates Acetaminophen Ethyl Alcohol COVID-19 ([facility]) COVID-19 [employer] [facility] <RACHEAL Campbell - Last Filed: 03/11/20 10:18> Assessment and Plan (1) Suicide attempt by multiple drug overdose: Status: Acute <RACHEAL Campbell - Last Filed: 03/11/20 10:18> (2) Diabetes mellitus, type 2: Status: Acute <RACHEAL Campbell - Last Filed: 03/11/20 10:18> This is a 55-year-old male with a history of bipolar disorder who presents to the emergency department after intentional drug overdose with metformin and baclofen versus sleep medicine Intentional drug overdose Renal function and lactic acid improving -IV fluid -nephrology consult -follow-up basic metabolic profile Suicide attempt -will Need sitter -on [address] -BHN evaluation when medically cleared KO in setting of overdose. Scr peaked at 1.72,now 1.55 -IVF -Nephro consult pending DM -hold metformin -follow POCs, can add sliding scale coverage if elevated Tobacco dependence Uses chewing tobacco Cessation advised -NRT Alcohol abuse Denies daily alcohol intake Does not appear to be withdrawing at this time -CIWA Mood -continue Depakote, duloxetine -hydroxyzine on hold Chronic back pain -cyclobenzaprine, diclofenac on hold DVT prophylaxis-Lovenox Code status-full code This case was discussed with <RACHEAL Campbell - Last Filed: 03/11/20 10:18>
--- NOTE | 2020-03-11 11:15 | MHC.CARE ---
From chart review CARE Team recommends Behavioral Health Intervention when medically stable
--- NOTE | 2020-03-11 11:20 | PC.NURSE ---
raquel (poison control) called [facility] and an updated status was given on pt. pt is sleeping resp even and unlabored.
[2020-03-11 11:45] LABS: ~Lactic Acid-LAB USE ONLY 1.7 mmol/L (0.5-2.0)
[2020-03-11] MEDS: Nicotine 14 MG PATCH.TD24 TRANSDERMA (12:12)
--- NOTE | 2020-03-11 13:10 | PC.NURSE ---
nurse to nurse give to maggie (rn), pt aware of plan of care for admission to hosp.
[2020-03-11 15:18] LABS: Anion Gap 12 (12-20); Blood Urea Nitrogen 19 mg/dL (9-16); Calcium 7.5 mg/dL (8.4-10.2); Carbon Dioxide 25 mmol/L (22-29); Chloride 106 mmol/L (96-108); Estimated Glomerular Filt Rate 49; Glucose Random 99 mg/dL (60-115); Potassium 4.6 mmol/l (3.3-5.1); Sodium 138 mmol/L (135-145)
[2020-03-11] MEDS: Divalproex Sodium ER 500 MG TAB.ER.24H 1000 MG PO (17:10)
[2020-03-11 17:26] LABS: Glucose, Whole Blood 96 mg/dL (60-115)
[2020-03-11 18:25] LABS: Glucose Urine UA 100 MG/DL (NEG); Leukocyte Esterase Urine NEG (NEG); Nitrite Urine NEG (NEG); PH 5.5 (5.0-8.0); Specific Gravity - Urine >= 1.030 (1.005-1.025); Urine Blood NEG (NEG); Urine Ketones 5 MG/DL (NEG); Urine Protein 2+ MG/DL (NEG-TRACE)
[2020-03-11 18:26] LABS: Appearance Urine HAZY; Color Urine YELLOW
[2020-03-11 18:48] LABS: RBC Urine 0 /HPF (0); WBC Urine 0-2 /HPF (0-4)
--- NOTE | 2020-03-11 21:00 | CONS_ITS ---
DATE OF SERVICE: REASON FOR CONSULTATION: I was called to see this patient to assist in the management of acute renal failure. HISTORY OF PRESENT ILLNESS: To summarize, Jey is a 55-year-old man with a history of bipolar disorder, diabetes mellitus, normal renal function. He tried to overdose on medications. He took about 6 to 7 tablets of metformin along with medications. When he came to the ER last night, he had a serum creatinine of 1.72, which is elevated from his baseline of 1.18. His lactic acid was also elevated at 6.4. He had mild acidosis. He has vomited since his admission. He has been resume IV fluids and the serum creatinine is trending down to 1.55. The lactic acid has also trended down to 2.1. He is nonoliguric. PAST MEDICAL HISTORY: Ongoing medical problems include history of bipolar disorder, diabetes mellitus. SOCIAL HISTORY: History of alcohol intake. He also smokes smokeless tobacco. He has been using marijuana on and off. MEDICATIONS: At time of admission include metformin 1 g b.i.d., diclofenac 1 tablet t.i.d., cyclobenzaprine, divalproex, naltrexone, zolpidem. ALLERGIES: NO KNOWN DRUG ALLERGIES. REVIEW OF SYSTEMS: He had nausea and vomiting, which has improved. No shortness of breath. No diarrhea or constipation. No polyuria or polydipsia. No edema. No rash. All other systems were reviewed. PHYSICAL EXAMINATION: GENERAL: Jey is a 55-year-old man, who is comfortable, not in any distress. NECK: Supple. No JVD. He is sleepy, but arousable. LUNGS: Air entry equal. No rales. HEART: S1, S2 heard. No gallop or rub. ABDOMEN: Soft, nontender. EXTREMITIES: No edema. No rash. No clubbing. VITAL SIGNS: Blood pressure today was 125/72, pulse 60, temperature 98.0. LABORATORY DATA: All the lab results were reviewed. IMPRESSION: A 55-year-old man with history of diabetes mellitus, bipolar disorder with over dosage with metformin, who currently has acute kidney injury and mild acidosis. The acute kidney injury is most likely due to hypoperfusion from the NSAIDs, which he has been taking. He also has a component of volume depletion. Jey has lactic acidosis due to metformin. The acidosis is resolving. At this point, our recommendation will be to continue to hydrate him and follow the renal function and the bicarb levels. There is no absolute indication for dialysis. Renal function should return to baseline. We will watch his urine output closely as well. Cory Alvarado MD BPA/MODL / [phone]
[2020-03-11 21:10] LABS: Glucose, Whole Blood 99 mg/dL (60-115)
[2020-03-11] MEDS: DULoxetine HCl 30 MG CAPSULE.DR 60 MG PO (21:19)
[2020-03-11] MEDS: Docusate Sodium 100 MG CAPSULE PO (21:19)
[2020-03-11] MEDS: diphenhydrAMINE HCL 50 MG/ML VIAL 25 MG IVPUSH (22:56)
[2020-03-12] VITALS (11 sets, daily range): BP systolic 117–157; BP diastolic 61–90; PULSE 51–71; RESP 17–20; TEMP 36–36.9; O2SAT 95–98; BMI 35.2
[2020-03-12] MEDS: 0.9 % Sodium Chloride 1,000 ML 125 ML IVCONT ×3 (06:14→23:17)
[2020-03-12 06:20] LABS: MANUAL DIFF FLAG NO
[2020-03-12 06:27] LABS: Basophils Percent Auto 0.2 % (0-2); Eosinophils Absolute Auto 0.1 X10*3/uL (0.0-0.4); Eosinophils Percent Auto 1.9 % (0-4); Hemoglobin 13.8 g/dl (14.0-18.0); Lymphocytes Absolute Auto 2.4 X10*3/uL (1.2-4.9); Lymphocytes Percent Auto 45.3 % (20-40); Mean Corpuscular HGB Conc 33.7 g/dl (31.0-36.0); Mean Corpuscular Hemoglobin 30.1 pg (27.0-33.0); Mean Corpuscular Volume 89.3 fL (80-98); Mean Platelet Volume 10.5 fL (9.4-12.4); Monocytes Absolute Auto 0.5 X10*3/uL (0.1-1.2); Monocytes Percent Auto 9.3 % (2-11); Neutrophils Absolute Auto 2.3 X10*3/uL (2.0-8.3); Neutrophils Percent Auto 43.3 % (45-73); Platelet Count 131 X10*3/uL (160-400); Red Blood Count 4.59 X10*6/uL (4.60-5.80); Red Cell Distribution Width 13.2 % (11.0-16.0); White Blood Count 5.4 X10*3/uL (4.8-10.8)
[2020-03-12 06:55] LABS: Anion Gap 13 (12-20); Blood Urea Nitrogen 17 mg/dL (9-16); Calcium 7.5 mg/dL (8.4-10.2); Carbon Dioxide 24 mmol/L (22-29); Chloride 104 mmol/L (96-108); Creatinine Clr Calc Pharmacy 102.9; Estimated Glomerular Filt Rate > 60; Glucose Random 93 mg/dL (60-115); Potassium 4.1 mmol/l (3.3-5.1); Sodium 137 mmol/L (135-145)
[2020-03-12 08:19] LABS: Glucose, Whole Blood 98 mg/dL (60-115)
[2020-03-12] MEDS: Docusate Sodium 100 MG CAPSULE PO ×2 (09:40→21:45)
[2020-03-12] MEDS: Nicotine 14 MG PATCH.TD24 TRANSDERMA (09:40)
--- NOTE | 2020-03-12 10:14 | MHC.CM.PN ---
CM met with patient who reports he is independent and lives with his sister, patient refusing to give sister's info for emergency contact. Patient does not have a HCP and declines filling one out today after education. Discussed discharge plan, patient would like to return home and sister can provide transport. D/C plan is pending [facility] when medically stable. CM will continue to follow patient for discharge needs.
--- NOTE | 2020-03-12 10:16 | PM.PNNEP ---
Subjective Subjective Date of Service: 03/26/20 Interval history: Events noted Feeling better Physical Exam Vital Signs: Vital Signs: Last Vital Signs Temp 97.8 F 03/12/20 08:00 Pulse 51 03/12/20 08:00 Resp 18 03/12/20 08:00 BP 126/79 03/12/20 08:00 Pulse Ox 97 03/12/20 08:00 Body Mass Index 35.2 Const: General: cooperative Orientation/consciousness: oriented to person Neck: Neck: Yes supple Cardio: Heart sounds: no murmurs and no rubs GI: Palpation (GI): Soft to palpation Auscultation: normal bowel sounds Neuro: General: oriented to person Motor exam (neuro): No Asterixis during motor activity present Objective Data Labs CBC & Chem 7: 03/12/20 05:13 03/13/20 11:06 Labs: Laboratory Results - last 24 hr 03/11/20 03/11/20 03/11/20 11:17 14:10 17:17 WBC RBC Hgb Hct MCV MCH MCHC RDW Plt Count MPV Immature Gran % (Auto) Neut % (Auto) Lymph % (Auto) [place] % (Auto) Eos % (Auto) Baso % (Auto) Lymph # (Auto) [place] # (Auto) Eos # (Auto) Baso # (Auto) Abs Immat Gran (auto) Absolute Neuts (auto) Absolute Nucleated RBC Nucleated RBC % (auto) Sodium 138 Potassium 4.6 Chloride 106 Carbon Dioxide 25 Anion Gap 12 BUN 19 H Creatinine 1.48 H Estim Creat Clear Calc 73.0 Estimated GFR 49 POC Glucose 96 Random Glucose 99 Lactic Acid Fup @ 4Hr 1.7 Calcium 7.5 L Urine Color Urine Appearance Urine pH Ur Specific [place] Urine Protein Urine Glucose (UA) Urine Ketones Urine Blood Urine Nitrite Ur Leukocyte Esterase Urine RBC Urine WBC Ur Squamous Epith Cells Urine Bacteria 03/11/20 03/11/20 03/12/20 18:18 20:39 05:13 WBC 5.4 RBC 4.59 L Hgb 13.8 L Hct 41.0 L MCV 89.3 MCH 30.1 MCHC 33.7 RDW 13.2 Plt Count 131 L D MPV 10.5 Immature Gran % (Auto) 0.0 Neut % (Auto) 43.3 L Lymph % (Auto) 45.3 H [place] % (Auto) 9.3 Eos % (Auto) 1.9 Baso % (Auto) 0.2 Lymph # (Auto) 2.4 [place] # (Auto) 0.5 Eos # (Auto) 0.1 Baso # (Auto) 0.0 Abs Immat Gran (auto) 0.00 Absolute Neuts (auto) 2.3 Absolute Nucleated RBC 0.000 Nucleated RBC % (auto) 0.0 Sodium Potassium Chloride Carbon Dioxide Anion Gap BUN Creatinine Estim Creat Clear Calc Estimated GFR POC Glucose 99 Random Glucose Lactic Acid Fup @ 4Hr Calcium Urine Color YELLOW Urine Appearance HAZY Urine pH 5.5 Ur Specific [place] >= 1.030 H Urine Protein 2+ H Urine Glucose (UA) 100 H Urine Ketones 5 Urine Blood NEG Urine Nitrite NEG Ur Leukocyte Esterase NEG Urine RBC 0 Urine WBC 0-2 Ur Squamous Epith Cells NONE Urine Bacteria NONE 03/12/20 03/12/20 05:13 08:09 WBC RBC Hgb Hct MCV MCH MCHC RDW Plt Count MPV Immature Gran % (Auto) Neut % (Auto) Lymph % (Auto) [place] % (Auto) Eos % (Auto) Baso % (Auto) Lymph # (Auto) [place] # (Auto) Eos # (Auto) Baso # (Auto) Abs Immat Gran (auto) Absolute Neuts (auto) Absolute Nucleated RBC Nucleated RBC % (auto) Sodium 137 Potassium 4.1 Chloride 104 Carbon Dioxide 24 Anion Gap 13 BUN 17 H Creatinine 1.05 Estim Creat Clear Calc 102.9 Estimated GFR > 60 POC Glucose 98 Random Glucose 93 Lactic Acid Fup @ 4Hr Calcium 7.5 L Urine Color Urine Appearance Urine pH Ur Specific [place] Urine Protein Urine Glucose (UA) Urine Ketones Urine Blood Urine Nitrite Ur Leukocyte Esterase Urine RBC Urine WBC Ur Squamous Epith Cells Urine Bacteria Assessment & Plan Assessment and plan (1) KO (acute kidney injury): Status: Resolved Time Spent With Patient Time: Total time spent is greater than 50% in coordination of care (as documented) at patient's floor/unit and/or counseling patient:
[2020-03-12 11:08] LABS: Glucose, Whole Blood 124 mg/dL (60-115)
--- NOTE | 2020-03-12 11:31 | HO.PM.IMPN ---
Subjective Subjective Date of Service: 03/12/20 Interval History: Seen in f/u from suicide attempt with metformin overdose and KO Review of Systems No SI no fever. no chest pain Physical Exam Vital Signs: Vital Signs: Last Vital Signs Temp 97.8 F 03/12/20 08:00 Pulse 51 03/12/20 08:00 Resp 18 03/12/20 08:00 BP 126/79 03/12/20 08:00 Pulse Ox 97 03/12/20 08:00 Body Mass Index 35.2 General: AO X 3, no acute distress Resp: CTA bilateral CVS: S1,S2,RRR GI: +BS, NT, no distention Skin: No rash Neuro: motor grossly intact Psych: appropriate affect, no si Objective Data Current Medications Generic Name Dose Route Start Last Admin Trade Name Freq PRN Reason Stop Dose Admin Acetaminophen 650 mg 03/11/20 13:52 Acetaminophen 325 Mg Tablet PO Q6H PRN Pain, Mild (Pain Scale 1-3) Divalproex Sodium 1,000 mg 03/11/20 17:00 03/11/20 17:10 Divalproex Sodium Er 500 Mg Tab.Er.24h PO 1,000 mg DAILY@1700 ABDULKADIR Administration Docusate Sodium 100 mg 03/11/20 21:00 03/12/20 09:40 Docusate Sodium 100 Mg Capsule PO 100 mg BID ABDULKADIR Administration Duloxetine HCl 60 mg 03/11/20 21:00 03/11/20 21:19 Duloxetine Hcl 30 Mg Capsule.Dr PO 60 mg BEDTIME ABDULKADIR Administration Enoxaparin Sodium 40 mg 03/11/20 14:00 03/11/20 16:36 Enoxaparin Sodium 40 Mg/0.4 Ml Syringe SUBCUT Not Given Q24H ABDULKADIR Sodium Chloride 1,000 mls @ 125 mls/hr 03/11/20 13:52 03/12/20 06:14 Ns IVCONT 125 mls/hr .Q8H ABDULKADIR Administration Nicotine 14 mg 03/11/20 10:10 03/12/20 09:40 Nicotine 14 Mg Patch.Td24 TRANSDERMA 14 mg DAILY ABDULKADIR Administration Nicotine Polacrilex 2 mg 03/11/20 09:53 Nicotine Polacrilex 2 Mg Gum BUCCAL Q2H PRN Nicotine Cravings Sodium Chloride 3 ml 03/11/20 16:00 03/12/20 09:40 0.9 % Sodium Chloride Flush 3 Ml Syringe IVFLUSH Not Given QSHIFT ABDULKADIR Labs CBC & Chem 7: 03/12/20 05:13 03/12/20 05:13 Assessment and Plan (1) KO (acute kidney injury): Problem details: KO in a setting of MEtformin iverdose Probably had hypoperfusion from NSAIDS Status: Acute Assessment and Plan: 55-year-old male with a history of bipolar disorder who presents to the emergency department after intentional drug overdose with metformin and baclofen versus sleep medicine Intentional drug overdose with Metfomin Suicide attempt -Continue sitter -N consult for inpatient Psych palcement KO--pre renal and NSAID, resolved. DC IVF DM -Resume Metformin tomorrow -follow POCs, can add sliding scale coverage if elevated Tobacco dependence Uses chewing tobacco Cessation advised -NRT Alcohol abuse Denies daily alcohol intake Does not appear to be withdrawing at this time -CIWA Mood -continue Depakote, duloxetine -hydroxyzine on hold Chronic back pain -cyclobenzaprine, diclofenac on hold DVT prophylaxis-Lovenox Code status-full code
[2020-03-12 15:55] LABS: Glucose, Whole Blood 108 mg/dL (60-115)
[2020-03-12] MEDS: Divalproex Sodium ER 500 MG TAB.ER.24H 1000 MG PO (16:19)
[2020-03-12 21:26] LABS: Glucose, Whole Blood 104 mg/dL (60-115)
[2020-03-12] MEDS: DULoxetine HCl 30 MG CAPSULE.DR 60 MG PO (21:44)
[2020-03-12] MEDS: 0.9 % Sodium Chloride Flush 3 ML SYRINGE IVFLUSH (21:45)
[2020-03-12] MEDS: Zolpidem Tartrate 5 MG TABLET PO (23:16)
[2020-03-13 03:54] VITALS: BP 146/78; PULSE 54; RESP 18; TEMP 36.6; O2SAT 97
[2020-03-13 07:04] VITALS: BP 142/70; PULSE 58; RESP 20; TEMP 36.6; O2SAT 96
[2020-03-13 07:26] LABS: Glucose, Whole Blood 118 mg/dL (60-115)
[2020-03-13] MEDS: Nicotine 14 MG PATCH.TD24 TRANSDERMA (07:43)
[2020-03-13] MEDS: Docusate Sodium 100 MG CAPSULE PO ×2 (07:43→21:24)
[2020-03-13] MEDS: 0.9 % Sodium Chloride 1,000 ML 125 ML IVCONT (07:43)
--- NOTE | 2020-03-13 10:36 | HO.PM.IMPN ---
Subjective Subjective Date of Service: 03/13/20 Interval History: Seen in f/u from suicide attempt with metformin overdose and KO. No new issues, awaiting crisis eval Review of Systems No SI no fever. no chest pain Physical Exam Vital Signs: Vital Signs: Last Vital Signs Temp 98 F 03/13/20 07:04 Pulse 58 03/13/20 07:04 Resp 20 03/13/20 07:04 BP 142/70 H 03/13/20 07:04 Pulse Ox 96 03/13/20 07:04 Body Mass Index 35.2 General: AO X 3, no acute distress Resp: CTA bilateral CVS: S1,S2,RRR GI: +BS, NT, no distention Skin: No rash Neuro: motor grossly intact Psych: appropriate affect, no SI at this time Objective Data Current Medications Generic Name Dose Route Start Last Admin Trade Name Freq PRN Reason Stop Dose Admin Acetaminophen 650 mg 03/11/20 13:52 Acetaminophen 325 Mg Tablet PO Q6H PRN Pain, Mild (Pain Scale 1-3) Divalproex Sodium 1,000 mg 03/11/20 17:00 03/12/20 16:19 Divalproex Sodium Er 500 Mg Tab.Er.24h PO 1,000 mg DAILY@1700 ABDULKADIR Administration Docusate Sodium 100 mg 03/11/20 21:00 03/13/20 07:43 Docusate Sodium 100 Mg Capsule PO 100 mg BID ABDULKADIR Administration Duloxetine HCl 60 mg 03/11/20 21:00 03/12/20 21:44 Duloxetine Hcl 30 Mg Capsule.Dr PO 60 mg BEDTIME ABDULKADIR Administration Enoxaparin Sodium 40 mg 03/11/20 14:00 03/12/20 13:45 Enoxaparin Sodium 40 Mg/0.4 Ml Syringe SUBCUT Not Given Q24H ABDULKADIR Sodium Chloride 1,000 mls @ 125 mls/hr 03/11/20 13:52 03/13/20 07:43 Ns IVCONT 125 mls/hr .Q8H ABDULKADIR Administration Nicotine 14 mg 03/11/20 10:10 03/13/20 07:43 Nicotine 14 Mg Patch.Td24 TRANSDERMA 14 mg DAILY ABDULKADIR Administration Nicotine Polacrilex 2 mg 03/11/20 09:53 Nicotine Polacrilex 2 Mg Gum BUCCAL Q2H PRN Nicotine Cravings Sodium Chloride 3 ml 03/11/20 16:00 03/13/20 07:43 0.9 % Sodium Chloride Flush 3 Ml Syringe IVFLUSH Not Given QSHIFT ABDULKADIR Labs CBC & Chem 7: 03/12/20 05:13 03/12/20 05:13 Assessment and Plan (1) KO (acute kidney injury): Status: Acute Assessment and Plan: 55-year-old male with a history of bipolar disorder who presents to the emergency department after intentional drug overdose with metformin and baclofen versus sleep medicine Intentional drug overdose with Metfomin Suicide attempt -Continue sitter -Crisis consult for inpatient Psych palcement KO--pre renal and NSAID, resolved. DC IVF DM -Resume Metformin nilo -follow POCs, can add sliding scale coverage if elevated Tobacco dependence Uses chewing tobacco Cessation advised -NRT Alcohol abuse Denies daily alcohol intake Does not appear to be withdrawing at this time -CIWA Mood -continue Depakote, duloxetine -hydroxyzine on hold Chronic back pain -cyclobenzaprine, diclofenac on hold DVT prophylaxis-Lovenox Code status-full code
[2020-03-13 11:01] VITALS: BP 138/74; PULSE 60; RESP 18; TEMP 36.6; O2SAT 98
[2020-03-13 11:50] LABS: Lactic Acid 0.8 mmol/L (0.5-2.0)
[2020-03-13 12:00] LABS: Anion Gap 10 (12-20); Blood Urea Nitrogen 7 mg/dL (9-16); Carbon Dioxide 26 mmol/L (22-29); Chloride 105 mmol/L (96-108); Creatinine Clr Calc Pharmacy 142.1; Estimated Glomerular Filt Rate > 60; Glucose Random 116 mg/dL (60-115); Potassium 4.2 mmol/l (3.3-5.1); Sodium 137 mmol/L (135-145)
[2020-03-13 12:32] LABS: Glucose, Whole Blood 114 mg/dL (60-115)
[2020-03-13] MEDS: Enoxaparin Sodium 40 MG/0.4 ML SYRINGE SUBCUT (13:37)
--- NOTE | 2020-03-13 15:10 | MHC.CARE ---
CARE team rec call to see pt for crisis assessment due to N consult placed and not completed. T/w met w pt who was pleasant and cooperative. Pt was willing to seek admission. T/w attempted to verify pts insurance as listed and this was not accurate and therefore caused t/w to seek out prior insurance info. T/w inquired with pt who thought he had [employer] as he is unemployed and on disability. Pt also recalls speaking to some man earlier . T/w called [facility] to inquire and it was determined that [facility] had in fact already evaluated pt the day prior as requested but the dispo/plan was not relayed which prompted t/w to see. T/w had left a VM on afcter hours number for [email or web address] [place] in an effort to establish insurance certification which is now not needed as pt does not carry this insurance. Per [facility] pt is a IPLOC bedsearch and t/w asked for this eval to be faxed. T/w gave this eval to charge nurse for review. T/w alerted relevant parties of this info as suggested that pt be referred to for admission. An auth from [facility] will be needed.
[2020-03-13] MEDS: 0.9 % Sodium Chloride Flush 3 ML SYRINGE IVFLUSH ×2 (15:21→21:24)
[2020-03-13 15:45] VITALS: BP 135/83; PULSE 55; RESP 18; TEMP 36.6; O2SAT 96
[2020-03-13] MEDS: Divalproex Sodium ER 500 MG TAB.ER.24H 1000 MG PO (15:54)
[2020-03-13] MEDS: metFORMIN HCl 1,000 MG TABLET 1000 MG PO (15:54)
[2020-03-13 16:45] LABS: Glucose, Whole Blood 108 mg/dL (60-115)
[2020-03-13 20:00] VITALS: BP 145/83; PULSE 62; RESP 18; TEMP 36.9; O2SAT 97
[2020-03-13 20:21] LABS: Glucose, Whole Blood 101 mg/dL (60-115)
[2020-03-13] MEDS: DULoxetine HCl 30 MG CAPSULE.DR 60 MG PO (21:24)
--- NOTE | 2020-03-13 22:08 | PM.PNNEP ---
Subjective Subjective Date of Service: 03/13/20 Interval history: Seen in f/u from suicide attempt with metformin overdose and KO. No new issues, awaiting crisis eval Physical Exam Vital Signs: Vital Signs: Last Vital Signs Temp 98.5 F 03/13/20 20:00 Pulse 62 03/13/20 20:00 Resp 18 03/13/20 20:00 BP 145/83 H 03/13/20 20:00 Pulse Ox 97 03/13/20 20:00 Body Mass Index 35.2 Const: Other: Tearful General: cooperative, comfortable and intoxicated appearing; No acute distress Nutritional Appearance: average body habitus and well nourished Orientation/consciousness: oriented to person and patient oriented x3 HENMT: Head: Yes normal to inspection, Yes normocephalic and Yes atraumatic Ears: hearing grossly normal bilaterally Eyes: General: appearance normal, both eyes and all related structures Visual Gaffney: normal visual gaffney by confrontation Sclerae: sclerae normal Neck: Neck: Yes normal visual inspection, Yes supple and No tender Thyroid: Thyroid normal Chest: Chest palpation & inspection: normal inspection of the chest Breast/axilla inspection: normal inspection of the breasts Resp: Effort & Inspection: normal respiratory effort and no respiratory distress Auscultation: clear to auscultation bilaterally Cardio: Other: Tearful Jugular venous distension: no JVD Rate: regular rate Rhythm: regular rhythm Heart sounds: no murmurs and no rubs GI: Inspection: Yes normal to inspection Palpation (GI): Soft to palpation and nontender Percussion: Yes normal to percussion Auscultation: normal bowel sounds : General: Yes no CVA tenderness Back/Spine/Pelvis: Back: no CVA tenderness Skin: General skin exam: no rashes or lesions noted Neuro: General: oriented to person and patient oriented x3 Cranial nerves: Yes CN's II-XII intact bilaterally and Yes Bilaterally intact EOM present Motor exam (neuro): No Asterixis during motor activity present Extrem: General: Yes normal to inspection Objective Data Labs CBC & Chem 7: 03/12/20 05:13 03/13/20 11:06 Labs: Laboratory Results - last 24 hr 03/13/20 03/13/20 03/13/20 07:22 11:06 11:06 Sodium 137 Potassium 4.2 Chloride 105 Carbon Dioxide 26 Anion Gap 10 L BUN 7 L D Creatinine 0.76 Estim Creat Clear Calc 142.1 Estimated GFR > 60 POC Glucose 118 H Random Glucose 116 H Lactic Acid 0.8 Calcium 8.0 L D 03/13/20 03/13/20 03/13/20 12:28 16:41 20:18 Sodium Potassium Chloride Carbon Dioxide Anion Gap BUN Creatinine Estim Creat Clear Calc Estimated GFR POC Glucose 114 108 101 Random Glucose Lactic Acid Calcium Assessment & Plan Assessment and plan (1) KO (acute kidney injury): Status: Acute Assessment and Plan: 55-year-old male with a history of bipolar disorder who presents to the emergency department after intentional drug overdose with metformin and baclofen versus sleep medicine Intentional drug overdose with Metfomin Suicide attempt -Continue sitter -Crisis consult for inpatient Psych palcement KO--pre renal and NSAID, resolved. DC IVF DM -Resume Metformin nilo -follow POCs, can add sliding scale coverage if elevated Tobacco dependence Uses chewing tobacco Cessation advised -NRT Alcohol abuse Denies daily alcohol intake Does not appear to be withdrawing at this time -CIWA Mood -continue Depakote, duloxetine -hydroxyzine on hold Chronic back pain -cyclobenzaprine, diclofenac on hold DVT prophylaxis-Lovenox Code status-full code 12-19 stable labs creat normal Time Spent With Patient Time: Total time spent is greater than 50% in coordination of care (as documented) at patient's floor/unit and/or counseling patient:
[2020-03-13] MEDS: Zolpidem Tartrate 5 MG TABLET PO (22:17)
[2020-03-14] VITALS: BP 140/76; PULSE 54; RESP 18; TEMP 36.2; O2SAT 96
[2020-03-14 07:08] LABS: Glucose, Whole Blood 99 mg/dL (60-115)
[2020-03-14 07:24] VITALS: BP 125/68; PULSE 51; RESP 18; TEMP 36.6; O2SAT 96
[2020-03-14] MEDS: Docusate Sodium 100 MG CAPSULE PO (08:58)
[2020-03-14] MEDS: 0.9 % Sodium Chloride Flush 3 ML SYRINGE IVFLUSH (08:58)
[2020-03-14] MEDS: metFORMIN HCl 1,000 MG TABLET 1000 MG PO (08:58)
[2020-03-14] MEDS: Nicotine 14 MG PATCH.TD24 TRANSDERMA (08:58)
--- NOTE | 2020-03-14 09:09 | HO.PM.IMPN ---
Subjective Subjective Date of Service: 03/14/20 Interval History: Seen in f/u from suicide attempt with metformin overdose and KO. No new issues, awaiting inpatient Psych placement Review of Systems No SI no fever. no chest pain Physical Exam Vital Signs: Vital Signs: Last Vital Signs Temp 97.9 F 03/14/20 07:24 Pulse 51 03/14/20 07:24 Resp 18 03/14/20 07:24 BP 125/68 03/14/20 07:24 Pulse Ox 96 03/14/20 07:24 Body Mass Index 35.2 General: AO X 3, no acute distress Resp: CTA bilateral CVS: S1,S2,RRR GI: +BS, NT, no distention Skin: No rash Neuro: motor grossly intact Psych: appropriate affect, no SI at this time Objective Data Current Medications Generic Name Dose Route Start Last Admin Trade Name Freq PRN Reason Stop Dose Admin Acetaminophen 650 mg 03/11/20 13:52 Acetaminophen 325 Mg Tablet PO Q6H PRN Pain, Mild (Pain Scale 1-3) Divalproex Sodium 1,000 mg 03/11/20 17:00 03/13/20 15:54 Divalproex Sodium Er 500 Mg Tab.Er.24h PO 1,000 mg DAILY@1700 ABDULKADIR Administration Docusate Sodium 100 mg 03/11/20 21:00 03/14/20 08:58 Docusate Sodium 100 Mg Capsule PO 100 mg BID ABDULKADIR Administration Duloxetine HCl 60 mg 03/11/20 21:00 03/13/20 21:24 Duloxetine Hcl 30 Mg Capsule.Dr PO 60 mg BEDTIME ABDULKADIR Administration Enoxaparin Sodium 40 mg 03/11/20 14:00 03/13/20 13:37 Enoxaparin Sodium 40 Mg/0.4 Ml Syringe SUBCUT 40 mg Q24H ABDULKADIR Administration Sodium Chloride 1,000 mls @ 125 mls/hr 03/11/20 13:52 03/13/20 22:37 Ns IVCONT Not Given .Q8H ABDULKADIR Metformin HCl 1,000 mg 03/13/20 17:00 03/14/20 08:58 Metformin Hcl 1,000 Mg Tablet PO 1,000 mg BIDWM ABDULKADIR Administration Nicotine 14 mg 03/11/20 10:10 03/14/20 08:58 Nicotine 14 Mg Patch.Td24 TRANSDERMA 14 mg DAILY ABDULKADIR Administration Nicotine Polacrilex 2 mg 03/11/20 09:53 Nicotine Polacrilex 2 Mg Gum BUCCAL Q2H PRN Nicotine Cravings Sodium Chloride 3 ml 03/11/20 16:00 03/14/20 08:58 0.9 % Sodium Chloride Flush 3 Ml Syringe IVFLUSH 3 ml QSHIFT ABDULKADIR Administration Zolpidem Tartrate 5 mg 03/13/20 21:40 03/13/20 22:17 Zolpidem Tartrate 5 Mg Tablet PO 5 mg BEDTIME PRN Administration Insomnia Labs CBC & Chem 7: 03/12/20 05:13 03/13/20 11:06 Assessment and Plan (1) KO (acute kidney injury): Status: Acute Assessment and Plan: 55-year-old male with a history of bipolar disorder who presents to the emergency department after intentional drug overdose with metformin and baclofen versus sleep medicine Intentional drug overdose with Metfomin Suicide attempt -Continue sitter -Inpatient Psych treatment at discharge KO--pre renal and NSAID, resolved. DC IVF DM -continue metformin -follow POCs, can add sliding scale coverage if elevated Tobacco dependence Uses chewing tobacco Cessation advised -NRT Alcohol abuse Denies daily alcohol intake Does not appear to be withdrawing at this time -CIWA Mood -continue Depakote, duloxetine -hydroxyzine on hold Chronic back pain -cyclobenzaprine, diclofenac on hold Lactic acidosis from metformin--resolved Lovenox for DVT prophylaxis
[2020-03-14 11:03] LABS: Glucose, Whole Blood 115 mg/dL (60-115)
--- NOTE | 2020-03-14 11:09 | P.DS_ITS ---
DS: Providers Provider Date of admission: 03/11/20 09:53 Date of service and Date of discharge 03/14/2020 Primary care physician: Unknown Physician Consults: 03/11/20 03:58 Consult to Crisis Stat Reason for consultation: Suicidal ideation, intentional overdose 03/11/20 09:53 Consult to Nephrology Routine Consulting Provider: Cory Alvarado Reason for consultation: metformin overdose Has provider been notified: No 03/12/20 11:30 Consult to Crisis Stat Reason for consultation: Medically cleared to go to Psych DS: Diagnosis Discharge Diagnosis (1) KO (acute kidney injury): Status: Acute DS: Medications Discharge Medications Home Medications: Home Medications Medication Instructions Recorded Confirmed metformin 1,000 mg PO BID 12/24/19 03/11/20 diclofenac potassium 1 tab PO TID 03/10/20 03/10/20 cyclobenzaprine 10 mg PO BID PRN 03/11/20 03/11/20 divalproex 1,000 mg PO DAILY@1700 03/11/20 03/11/20 docusate sodium 100 mg PO BID 03/11/20 03/11/20 naltrexone 50 mg PO BEDTIME 03/11/20 03/11/20 zolpidem 5 mg PO BEDTIME 03/11/20 03/11/20 Previous Rx's Medication Instructions Recorded duloxetine 60 mg PO BEDTIME 30 Days #60 cap 01/09/20 hydroxyzine HCl 50 mg PO BEDTIME PRN 30 Days #60 01/09/20 tab nicotine (polacrilex) 2 mg BUCCAL Q2H PRN #90 ea 01/09/20 DS: Summary Hospital Course Hospital Course: 55-year-old male with a history of bipolar disorder and suicide attempts in the past was brought in on [address] after intentional drug overdose. Patient reports taking metformin 6 or 7 tablets as well as a sleep medication for which he cannot remember the name. The emergency room documentation indicates they took baclofen. Poison control and Nephrology were involved and recommended following renal function and lactic acid. His creatinine increased from 1.18 to 1.72 and is now trending down to 1.55. His lactic acid peaked at 6.4 and is now down to 2.1. His alcohol level was elevated on arrival at 204. Hospital course: 1. Suicide attempt--Crisis recommend inpatient Psych 2. KO--pre renal and NSAID use--has resolved with IVF 3. Metformin overdose--No sequela of Hypoglycemia 4. Diabetes--restart Metformin 5. Lactic acidosis--from metformin, resolved. Plan: Transfer to for inpatient Psych care Time Spent with Patient Time attestation: Total time spent providing and/or coordinating discharge services: Physical Exam Vital Signs: Vital Signs: Last Vital Signs See progress note of today DS: Data Data Completed and Pending Labs on day of discharge: 03/10/20 18:18 ECG 12 lead EKG Stat EKG Documentation DIRECTED 03/10/20 19:11 Acetaminophen LAB Stat Complete Blood Count Auto Diff Stat Comprehensive Met. Panel Stat Ethanol Stat Partial Thromboplastin Time Stat Prothrombin Time INR Stat Salicylate Stat 03/10/20 19:18 LORazepam [Ativan] 2 mg IM ONCE ONE 03/10/20 21:43 Acetaminophen LAB Routine Comprehensive Met. Panel Routine Lactic Acid Stat Lipase Stat Salicylate Routine 03/10/20 22:42 0.9 % Sodium Chloride [Ns] 1,000 ml IVCONT 999 mls/hr 0.9 % Sodium Chloride [Ns] 1,000 ml IVCONT 999 mls/hr 03/11/20 00:24 Comprehensive Met. Panel Stat Lactic Acid Stat 03/11/20 02:12 ondansetron HCL [Zofran] 4 mg IVPUSH ONCE STA 03/11/20 02:42 Consult Rx Perform Med Rec 1 each MISCELLANE ONCE STA 03/11/20 02:53 ~Lactic Acid-LAB USE ONLY Stat 03/11/20 03:56 COVID-19 ID NOW ([place]) Stat Venous Blood Gas Stat 03/11/20 04:28 Basic Metabolic Panel Stat Lactic Acid Routine 03/11/20 04:30 0.9 % Sodium Chloride [Ns] 1,000 ml IVCONT 125 mls/hr 03/11/20 07:12 ~Lactic Acid-LAB USE ONLY Stat 03/11/20 09:39 Glucose, Whole Blood Routine 03/11/20 09:44 Transfer Order Routine 03/11/20 11:17 ~Lactic Acid-LAB USE ONLY Stat 03/11/20 13:52 Vital Signs Q4HR 03/11/20 14:10 Basic Metabolic Panel Routine 03/11/20 17:17 Glucose, Whole Blood Routine 03/11/20 20:39 Glucose, Whole Blood Routine 03/11/20 22:48 diphenhydrAMINE HCL [Benadryl] 25 mg IVPUSH ONCE ONE 03/12/20 05:13 Basic Metabolic Panel DAILY@0600 Complete Blood Count Auto Diff DAILY@0600 03/12/20 08:09 Glucose, Whole Blood Routine 03/12/20 11:05 Glucose, Whole Blood Routine 03/12/20 15:45 Glucose, Whole Blood Routine 03/12/20 21:06 Glucose, Whole Blood Routine 03/12/20 22:02 Zolpidem Tartrate [Ambien] 5 mg PO ONCE ONE 03/13/20 07:22 Glucose, Whole Blood Routine Laboratory Last Values WBC 5.4 X10*3/uL (4.8-10.8) 03/12/20 05:13 RBC 4.59 X10*6/uL (4.60-5.80) L 03/12/20 05:13 Hgb 13.8 g/dl (14.0-18.0) L 03/12/20 05:13 Hct 41.0 % (42-52) L 03/12/20 05:13 MCV 89.3 fL (80-98) 03/12/20 05:13 MCH 30.1 pg (27.0-33.0) 03/12/20 05:13 MCHC 33.7 g/dl (31.0-36.0) 03/12/20 05:13 RDW 13.2 % (11.0-16.0) 03/12/20 05:13 Plt Count 131 X10*3/uL (160-400) L D 03/12/20 05:13 MPV 10.5 fL (9.4-12.4) 03/12/20 05:13 Immature Gran % (Auto) 0.0 % (0.0-0.4) 03/12/20 05:13 Neut % (Auto) 43.3 % (45-73) L 03/12/20 05:13 Lymph % (Auto) 45.3 % (20-40) H 03/12/20 05:13 Beckham % (Auto) 9.3 % (2-11) 03/12/20 05:13 Eos % (Auto) 1.9 % (0-4) 03/12/20 05:13 Baso % (Auto) 0.2 % (0-2) 03/12/20 05:13 Lymph # (Auto) 2.4 X10*3/uL (1.2-4.9) 03/12/20 05:13 Beckham # (Auto) 0.5 X10*3/uL (0.1-1.2) 03/12/20 05:13 Eos # (Auto) 0.1 X10*3/uL (0.0-0.4) 03/12/20 05:13 Baso # (Auto) 0.0 X10*3/uL (0.0-0.2) 03/12/20 05:13 Abs Immat Gran (auto) 0.00 X10*3/uL (0.00-0.03) 03/12/20 05:13 Absolute Neuts (auto) 2.3 X10*3/uL (2.0-8.3) 03/12/20 05:13 Absolute Nucleated RBC 0.000 X10*3/uL (0.0-0.012) 03/12/20 05:13 Nucleated RBC % (auto) 0.0 /100WBC (0.0-0.2) 03/12/20 05:13 PT 12.6 SEC (10.8-13.0) 03/10/20 19:11 INR 1.1 (0.9-1.1) 03/10/20 19:11 APTT 33.0 SEC (24.1-38.0) 03/10/20 19:11 VBG pH 7.31 (7.32-7.43) L 03/11/20 03:56 VBG pCO2 36 mmhg 03/11/20 03:56 VBG pO2 147 mmhg 03/11/20 03:56 VBG HCO3 18 mmol/L 03/11/20 03:56 VBG O2 Saturation 98.9 % 03/11/20 03:56 VBG Base Excess -7.6 mmol/L 03/11/20 03:56 Sodium 137 mmol/L (135-145) 03/12/20 05:13 Potassium 4.1 mmol/l (3.3-5.1) 03/12/20 05:13 Chloride 104 mmol/L (96-108) 03/12/20 05:13 Carbon Dioxide 24 mmol/L (22-29) 03/12/20 05:13 Anion Gap 13 (12-20) 03/12/20 05:13 BUN 17 mg/dL (9-16) H 03/12/20 05:13 Creatinine 1.05 mg/dL (0.5-1.4) 03/12/20 05:13 Estim Creat Clear Calc 102.9 03/12/20 05:13 Estimated GFR > 60 03/12/20 05:13 POC Glucose 118 mg/dL (60-115) H 03/13/20 07:22 Random Glucose 93 mg/dL (60-115) 03/12/20 05:13 Lactic Acid 4.5 mmol/L (0.5-2.0) H* 03/11/20 04:28 Lactic Acid Fup @ 2Hr 2.1 mmol/L (0.5-2.0) H* 03/11/20 07:12 Lactic Acid Fup @ 4Hr 1.7 mmol/L (0.5-2.0) 03/11/20 11:17 Calcium 7.5 mg/dL (8.4-10.2) L 03/12/20 05:13 Total Bilirubin 0.6 mg/dL (0.0-1.0) 03/11/20 00:24 AST 28 U/L (5-37) 03/11/20 00:24 ALT 32 U/L (0-40) 03/11/20 00:24 Alkaline Phosphatase 62 U/L (39-117) 03/11/20 00:24 Total Protein 6.2 g/dL (6.5-8.0) L 03/11/20 00:24 Albumin 3.5 g/dL (3.5-5.0) 03/11/20 00:24 Lipase 34 U/L (8-78) 03/10/20 21:43 Urine Color YELLOW 03/11/20 18:18 Urine Appearance HAZY 03/11/20 18:18 Urine pH 5.5 (5.0-8.0) 03/11/20 18:18 Ur Specific [place] >= 1.030 (1.005-1.025) H 03/11/20 18:18 Urine Protein 2+ MG/DL (NEG-TRACE) H 03/11/20 18:18 Urine Glucose (UA) 100 MG/DL (NEG) H 03/11/20 18:18 Urine Ketones 5 MG/DL (NEG) 03/11/20 18:18 Urine Blood NEG (NEG) 03/11/20 18:18 Urine Nitrite NEG (NEG) 03/11/20 18:18 Ur Leukocyte Esterase NEG (NEG) 03/11/20 18:18 Urine RBC 0 /HPF (0) 03/11/20 18:18 Urine WBC 0-2 /HPF (0-4) 03/11/20 18:18 Ur Squamous Epith Cells NONE /LPF 03/11/20 18:18 Urine Bacteria NONE /LPF 03/11/20 18:18 Salicylates < 5.0 mg/dL (15-30) L 03/10/20 21:43 Acetaminophen < 1 mcg/mL (<30) 03/10/20 21:43 Ethyl Alcohol 204 mg/dL 03/10/20 19:11 COVID-19 ([facility]) Negative (Negative) 03/11/20 03:56 COVID-19 Clin Com See Note 03/11/20 03:56 Discharge Plan Discharge Anticipated Discharge Date/Time: 03/14/20 11:01 Disposition: Xfer Psychiatric Hosp Referrals: Physician,Unknown [Primary Care Provider] - Discharge Medications: Continued metformin 1,000 mg tablet 1,000 mg PO BID RF: 0 nicotine (polacrilex) 2 mg Gum 2 mg buccal Q2H PRN (Reason: Nicotine Cravings) Qty: 90 RF: 0 hydroxyzine HCl 25 mg Tablet 50 mg PO BEDTIME PRN (Reason: Insomnia) 30 Days Qty: 60 RF: 0 duloxetine 30 mg Capsule,Delayed Release(Dr/Ec) 60 mg PO BEDTIME 30 Days Qty: 60 RF: 0 diclofenac potassium 50 mg tablet 1 tab PO TID RF: 0 cyclobenzaprine 10 mg Tablet 10 mg PO BID PRN (Reason: Spasms) RF: 0 divalproex 500 mg Tablet Extended Release 24 Hr 1,000 mg PO DAILY@1700 RF: 0 docusate sodium 100 mg Capsule 100 mg PO BID RF: 0 zolpidem 5 mg Tablet 5 mg PO BEDTIME RF: 0 naltrexone 50 mg tablet 50 mg PO BEDTIME RF: 0 Discharge Orders: Discharge Order (Routine); Ordered 03/14/20 Ordered By: Micha [facility] Visit Report Forms: Patient Portal Discharge page Care Plan Goals: prevent sucide Health Concerns: depression with sucide attempt Plan of Treatment: Inpatient Psych treatment
[2020-03-14 11:10] LABS: COVID-19 Test Negative (Negative)
[2020-03-14 11:36] VITALS: BP 138/78; PULSE 60; RESP 18; TEMP 37.1; O2SAT 95
== END 2020-03-14 12:03 | DRG 817 ==
LOC: HO.ED 03-11 03:08 → HO.IMC 03-11 12:23
PROVIDERS: Nurse Practitioner Primary Care; Physician Assistant; Physician Assistant Medical; Student in an Organized Health Care Education/Training Program; Admitting Provider Internal Medicine; Emergency Provider Emergency Medicine; Visit Provider Internal Medicine
DX: T38.3X2A Poisoning by insulin and oral hypoglycemic [antidiabetic] drugs, intentional self-harm, initial encounter (principal); E87.2 Acidosis; N17.9 Acute kidney failure, unspecified; R45.851 Suicidal ideations; T42.8X2A Poisoning by antiparkinsonism drugs and other central muscle-tone depressants, intentional self-harm, initial encounter; E11.9 Type 2 diabetes mellitus without complications; F10.129 Alcohol abuse with intoxication, unspecified; F17.220 Nicotine dependence, chewing tobacco, uncomplicated; Y92.9 Unspecified place or not applicable; G89.29 Other chronic pain; Z91.5 Personal history of self-harm; Z20.828 Contact with and (suspected) exposure to other viral communicable diseases; Z79.84 Long term (current) use of oral hypoglycemic drugs; Z79.899 Other long term (current) drug therapy
CPT/HCPCS: 36415; 80048; 80053; 80320; 81001; 82803; 82947; 83605; 83690; 85025; 85610; 85730; 87635; 93005; 96361; 96372; 96374; 99231; 99285; G0480; J1200; J1650; J2060; J2405

== ENCOUNTER 2020-03-14 12:03 | Inpatient (IN) | payer OTHER, SELFPAY ==
--- NOTE | 2020-03-14 12:58 | HO.PSYADMNOT ---
HPI Chief Complaint: intentional overdose Sources of Information: patient interviewed, chart reviewed and crisis/core team assessment reviewed Additional Sources of Information: doc to doc completed prior to transfer HPI Narrative: pt admitted to M5 on CV from [facility] medical unit where he was treated due to intentional overdose on 01/08 on metformin and alcohol. He had acute kidney injury post OD which has resolved; He reports he has been very depressed and isolating at home; He has been feeling lonely and impulsively took a handful of meds while intoxicated; He called 911 because he knew he needed help Past Psychiatric History: Patient was treated on M5 in December 2019. He is in outpt treatment with [facility]. He has histroy of inpatient detoxes and treatments although he was vague about when. He is somewhat disorganized and vague historian he states he had psychiatric treatment in the 1980s in this area perhaps at [facility] history of multiple suicide attempts history of clara and agitation history of depressive episode. Per record his sister reported several weeks of paranoid ideas and bizarre behaviors prior to admit. Medical Evaluation Reviewed: Yes also doc to doc completed verbally with Dr Soliman [facility] course: 1. Suicide attempt--Crisis recommend inpatient Psych 2. KO--pre renal and NSAID use--has resolved with IVF 3. Metformin overdose--No sequela of Hypoglycemia 4. Diabetes--restart Metformin 5. Lactic acidosis--from metformin, resolved. [facility] Medical History Bipolar disorder Depression Diabetes mellitus, type 2 Suicidal ideation Narrative: acute kidney injury s/p overdose-resolved BAL in ED 03/10 240 Family History: Family history of suicide and substance abuse Social History: the patient was born and raised in [facility] [facility] he has a brother and a sister his parents are . He is not does not have any children. In the past he lived in [place] and in [place]. He moved back to to [facility] from [place] has been living with his sister. He is on security disability. Substance History: long history of ETOH use, vague about opiate use Trauma History: NA Diagnostics Vital Signs (24Hr): BP 145/01 P 73 R 16 Temp 97.2 O2 sats 95 Labs Labs: Laboratory Last Values WBC 5.4 X10*3/uL (4.8-10.8) 03/12/20 05:13 RBC 4.59 X10*6/uL (4.60-5.80) L 03/12/20 05:13 Hgb 13.8 g/dl (14.0-18.0) L 03/12/20 05:13 Hct 41.0 % (42-52) L 03/12/20 05:13 MCV 89.3 fL (80-98) 03/12/20 05:13 MCH 30.1 pg (27.0-33.0) 03/12/20 05:13 MCHC 33.7 g/dl (31.0-36.0) 03/12/20 05:13 RDW 13.2 % (11.0-16.0) 03/12/20 05:13 Plt Count 131 X10*3/uL (160-400) L D 03/12/20 05:13 MPV 10.5 fL (9.4-12.4) 03/12/20 05:13 Immature Gran % (Auto) 0.0 % (0.0-0.4) 03/12/20 05:13 Neut % (Auto) 43.3 % (45-73) L 03/12/20 05:13 Lymph % (Auto) 45.3 % (20-40) H 03/12/20 05:13 [place] % (Auto) 9.3 % (2-11) 03/12/20 05:13 Eos % (Auto) 1.9 % (0-4) 03/12/20 05:13 Baso % (Auto) 0.2 % (0-2) 03/12/20 05:13 Lymph # (Auto) 2.4 X10*3/uL (1.2-4.9) 03/12/20 05:13 [place] # (Auto) 0.5 X10*3/uL (0.1-1.2) 03/12/20 05:13 Eos # (Auto) 0.1 X10*3/uL (0.0-0.4) 03/12/20 05:13 Baso # (Auto) 0.0 X10*3/uL (0.0-0.2) 03/12/20 05:13 Abs Immat Gran (auto) 0.00 X10*3/uL (0.00-0.03) 03/12/20 05:13 Absolute Neuts (auto) 2.3 X10*3/uL (2.0-8.3) 03/12/20 05:13 Absolute Nucleated RBC 0.000 X10*3/uL (0.0-0.012) 03/12/20 05:13 Nucleated RBC % (auto) 0.0 /100WBC (0.0-0.2) 03/12/20 05:13 PT 12.6 SEC (10.8-13.0) 03/10/20 19:11 INR 1.1 (0.9-1.1) 03/10/20 19:11 APTT 33.0 SEC (24.1-38.0) 03/10/20 19:11 VBG pH 7.31 (7.32-7.43) L 03/11/20 03:56 VBG pCO2 36 mmhg 03/11/20 03:56 VBG pO2 147 mmhg 03/11/20 03:56 VBG HCO3 18 mmol/L 03/11/20 03:56 VBG O2 Saturation 98.9 % 03/11/20 03:56 VBG Base Excess -7.6 mmol/L 03/11/20 03:56 Sodium 137 mmol/L (135-145) 03/12/20 05:13 Potassium 4.1 mmol/l (3.3-5.1) 03/12/20 05:13 Chloride 104 mmol/L (96-108) 03/12/20 05:13 Carbon Dioxide 24 mmol/L (22-29) 03/12/20 05:13 Anion Gap 13 (-20) 03/12/20 05:13 BUN 17 mg/dL (9-16) H 03/12/20 05:13 Creatinine 1.05 mg/dL (0.5-1.4) 03/12/20 05:13 Estim Creat Clear Calc 102.9 03/12/20 05:13 Estimated GFR > 60 03/12/20 05:13 POC Glucose 118 mg/dL (60-115) H 03/13/20 07:22 Random Glucose 93 mg/dL (60-115) 03/12/20 05:13 Lactic Acid 4.5 mmol/L (0.5-2.0) H* 03/11/20 04:28 Lactic Acid Fup @ 2Hr 2.1 mmol/L (0.5-2.0) H* 03/11/20 07:12 Lactic Acid Fup @ 4Hr 1.7 mmol/L (0.5-2.0) 03/11/20 11:17 Calcium 7.5 mg/dL (8.4-10.2) L 03/12/20 05:13 Total Bilirubin 0.6 mg/dL (0.0-1.0) 03/11/20 00:24 AST 28 U/L (5-37) 03/11/20 00:24 ALT 32 U/L (0-40) 03/11/20 00:24 Alkaline Phosphatase 62 U/L (39-117) 03/11/20 00:24 Total Protein 6.2 g/dL (6.5-8.0) L 03/11/20 00:24 Albumin 3.5 g/dL (3.5-5.0) 03/11/20 00:24 Lipase 34 U/L (8-78) 03/10/20 21:43 Urine Color YELLOW 03/11/20 18:18 Urine Appearance HAZY 03/11/20 18:18 Urine pH 5.5 (5.0-8.0) 03/11/20 18:18 Ur Specific [place] >= 1.030 (1.005-1.025) H 03/11/20 18:18 Urine Protein 2+ MG/DL (NEG-TRACE) H 03/11/20 18:18 Urine Glucose (UA) 100 MG/DL (NEG) H 03/11/20 18:18 Urine Ketones 5 MG/DL (NEG) 03/11/20 18:18 Urine Blood NEG (NEG) 03/11/20 18:18 Urine Nitrite NEG (NEG) 03/11/20 18:18 Ur Leukocyte Esterase NEG (NEG) 03/11/20 18:18 Urine RBC 0 /HPF (0) 03/11/20 18:18 Urine WBC 0-2 /HPF (0-4) 03/11/20 18:18 Ur Squamous Epith Cells NONE /LPF 03/11/20 18:18 Urine Bacteria NONE /LPF 03/11/20 18:18 Salicylates < 5.0 mg/dL (15-30) L 12/16/20 21:43 Acetaminophen < 1 mcg/mL (<30) 03/10/20 21:43 Ethyl Alcohol 204 mg/dL 03/10/20 19:11 COVID-19 ([facility]) Negative (Negative) 03/11/20 03:56 COVID-19 Clin Com See Note 03/11/20 03:56 EKG EKG: reviewed Meds/Allergies Meds Home Medications Acetaminophen (Acetaminophen 325 Mg Tablet) 650 mg PO Q6H PRN PRN Reason: Pain, Mild (Pain Scale 1-3) Al Hydroxide/Mg Hydroxide (Magnesium Hydrox/Alum Hydrox 30 Ml Oral.Susp) 30 ml PO Q6H PRN PRN Reason: Heartburn/Nausea Cyclobenzaprine HCl (Cyclobenzaprine Hcl 10 Mg Tablet) 10 mg PO BID PRN PRN Reason: Spasms Divalproex Sodium (Divalproex Sodium Er 500 Mg Tab.Er.24h) 1,000 mg PO DAILY@1700 [facility] Docusate Sodium (Docusate Sodium 100 Mg Capsule) 100 mg PO BID ABDULKADIR Duloxetine HCl (Duloxetine Hcl 30 Mg Capsule.Dr) 60 mg PO BEDTIME ABDULKADIR Hydroxyzine HCl (Hydroxyzine Hcl 25 Mg Tablet) 25 mg PO BEDTIME PRN PRN Reason: Anxiety Hydroxyzine HCl (Hydroxyzine Hcl 25 Mg Tablet) 50 mg PO BEDTIME PRN PRN Reason: Insomnia Lorazepam (Lorazepam 1 Mg Tablet) 1 mg PO Q4H PRN PRN Reason: anxiety/restlessness Last Admin: 03/14/20 15:59 Dose: 1 mg Documented by: Magnesium Hydroxide (Milk Of Magnesia 30 Ml Oral.Susp) 30 ml PO DAILY PRN PRN Reason: Constipation Metformin HCl (Metformin Hcl 1,000 Mg Tablet) 1,000 mg PO BIDWM ABDULKADIR Naltrexone HCl (Naltrexone Hcl 50 Mg Tablet) 50 mg PO BEDTIME [facility] Nicotine (Nicotine 14 Mg Patch.Td24) 21 mg TRANSDERMA DAILY [facility] Last Admin: 03/14/20 14:23 Dose: Not Given Documented by: Nicotine Polacrilex (Nicotine Polacrilex 2 Mg Gum) 2 mg BUCCAL Q2H PRN PRN Reason: Nicotine Cravings Non-Formulary Medication (Diclofenac Potassium) 1 tab PO TID [facility] Trazodone HCl (Trazodone Hcl 50 Mg Tablet) 50 mg PO BEDTIME PRN PRN Reason: Insomnia Zolpidem Tartrate (Zolpidem Tartrate 5 Mg Tablet) 5 mg PO BEDTIME ABDULKADIR Allergies Allergies Allergy/AdvReac Type Severity Reaction Status Date / Time No Known Allergies Allergy Verified 03/10/20 19:00 Mental Status Exam Mental Status Exam Patient Appearance: Disheveled and Unkempt Patient Orientation: Person, Place, Time and Situation Level of Consciousness: Awake Patient Behavior: Appropriate and Anxious Mood Description: Anxious and Sad Affect Description: Appropriate and Anxious Patient Cognition Impaired: No Ability to Follow Directions: Good Speech Pattern: Impoverished and Difficulty Finding Words Memory Description: Episodic Impaired Delusions: Paranoid Ideation Thought Process: Incoherent and Evasive Thought Content: positive for [place] and positive for Poverty of Content Depressive Symptoms: Increased Anxiety, Diff. Making Decisions, Difficulty Sleeping, Thoughts of /Suicide and Difficulty Concentrating Abnormal Motor Activity Signs and Symptoms: Restlessness Judgement: Fair Assessment & Plan Assessment & Plan (1) Bipolar disorder: Status: Acute Code(s): F31.9 - Bipolar disorder, unspecified (2) Suicide attempt by multiple drug overdose: Status: Acute Code(s): T50.912A - Poisoning by multiple unspecified drugs, medicaments and biological substances, intentional self-harm, initial encounter (3) Drug overdose: Status: Acute Code(s): T50.901A - Poisoning by unspecified drugs, medicaments and biological substances, accidental (unintentional), initial encounter (4) Diabetes mellitus, type 2: Status: Acute Code(s): E11.9 - Type 2 diabetes mellitus without complications (5) KO (acute kidney injury): Status: Acute Code(s): N17.9 - Acute kidney failure, unspecified Assessment and Plan: Continue cymbalta and Depakote ativan 1 mg q 4 hours prn anxiety/etoh withdrawal plan to taper ativan prior to d/c discharge planning Patient educated on: diagnosis, medication risk/benefits and substance abuse Informed Consent: further education needed Reason for continued inpatient stay Substantial Risk for: harm to self, inability to function, rapid decompensation and med/psych decompensation
[2020-03-14 13:20] VITALS: BP 145/91; PULSE 73; RESP 16; TEMP 36.2; O2SAT 95
[2020-03-14 13:38] VITALS: BMI 36.1
--- NOTE | 2020-03-14 14:33 | PC.ADMIT ---
PT. IS A 55 YEAR OLD WHITE [place] SPEAKING MALE WHO PRESENTS TO FROM THE [facility] ED AT APPROX. 1155 ON A CV STATUS. PT. IS COVID NEG.PT. REPORTS TO BE A DAILY [employer] USER. UTOX SCREEN UNKNOWN FOR SUBSTANCES. PT. HAS A HX OF MENTAL HEALTH ADMISSIONS, HE WAS ADMITTED TO IN DECEMBER. PT. WAS ASSESSED BY JONNY SOSA ON 03/12 20 AT [facility] ICU WHERE HE WAS TREATED FOR POST INTENTIONAL OVERDOSE. PT. WAS BROUGHT TO [facility] BY POLICE ON 03/12/20. PT. TOOK GABAPENTIN AND BACHOFEN AND WHILE HE DENIED SI DURING ASSESSMENT, HE DID REPORT HAVING RECURRING FLEETING SI THOUGHTS. PT. STATED A SWITCH WENT OFF . PT. REPORTS IMPULSIVELY, DURING ASSESSMENT HE APPEARED DISORGANIZED, ANXIOUS WITH FLAT AFFECT, HE REPORTED POOR APPETITE AND CONSEQUENTLY LOOSING ABOUT 12 LBS. WITHIN A WEEK. PT. DENIED CURRENT SI THOUGHTS, HE STATED HE WILL SEEK STAFF IF FEELING UNSAFE. JYOTI MCCABE [employer]ORATORY ASSISTANT. MET WITH PT AND PUT IN MEDICATION ORDERS. PT. IS ON 15 MIN SAFETY CHECKS, VS ARE BID. PT. HAS RECEIVED THE FLU VACCINE AT HIS LAST [facility] ADMISSION, HE WAS PUT ON NICOTINE REPLACEMENT HE REQUESTED. PT. CHEWS TOBACCO. PT. DID NOT NEED UNIT ORIENTATION, HE WAS SHOWN HIS ROOM AND HE FILLED OUT THE DINNER MENU. HE STATED TO FEEL SAFE.
[2020-03-14] MEDS: LORazepam 1 MG TABLET PO (15:59)
[2020-03-14 17:29] VITALS: BP 116/70; PULSE 63; TEMP 36.3
[2020-03-14] MEDS: Divalproex Sodium ER 500 MG TAB.ER.24H 1000 MG PO (17:36)
[2020-03-14] MEDS: metFORMIN HCl 1,000 MG TABLET 1000 MG PO (17:36)
[2020-03-14 17:44] LABS: Glucose, Whole Blood 91 mg/dL (60-115)
[2020-03-14] MEDS: DULoxetine HCl 30 MG CAPSULE.DR 60 MG PO (21:39)
[2020-03-14] MEDS: Docusate Sodium 100 MG CAPSULE PO (21:39)
[2020-03-14] MEDS: Naltrexone HCl 50 MG TABLET PO (21:40)
[2020-03-14] MEDS: Zolpidem Tartrate 5 MG TABLET PO (21:40)
[2020-03-14] MEDS: Milk of Magnesia 30 ML ORAL.SUSP PO (21:45)
[2020-03-14 22:37] LABS: Glucose, Whole Blood 152 mg/dL (60-115)
[2020-03-15 06:20] VITALS: BP 139/82; PULSE 58; RESP 16; TEMP 36.2; O2SAT 97
[2020-03-15 06:42] LABS: Glucose, Whole Blood 117 mg/dL (60-115)
[2020-03-15] MEDS: metFORMIN HCl 1,000 MG TABLET 1000 MG PO ×2 (08:50→17:28)
[2020-03-15] MEDS: Docusate Sodium 100 MG CAPSULE PO ×2 (08:50→21:48)
[2020-03-15] MEDS: LORazepam 1 MG TABLET PO ×4 (09:39→23:39)
[2020-03-15] MEDS: Nicotine 21 MG PATCH.TD24 TRANSDERMA (09:39)
[2020-03-15] MEDS: Diclofenac Sodium Delayed Rel 50 MG TABLET.DR PO ×2 (14:18→21:49)
[2020-03-15 16:58] LABS: Glucose, Whole Blood 115 mg/dL (60-115)
[2020-03-15] MEDS: Divalproex Sodium ER 500 MG TAB.ER.24H 1000 MG PO (17:27)
[2020-03-15 18:50] VITALS: BP 123/72; PULSE 71; TEMP 36.4
[2020-03-15] MEDS: Naltrexone HCl 50 MG TABLET PO (21:48)
[2020-03-15] MEDS: DULoxetine HCl 30 MG CAPSULE.DR 60 MG PO (21:48)
[2020-03-15] MEDS: Zolpidem Tartrate 5 MG TABLET PO (21:48)
[2020-03-15] MEDS: traZODone HCL 50 MG TABLET PO (21:53)
[2020-03-15] MEDS: hydrOXYzine HCL 25 MG TABLET 50 MG PO (21:54)
[2020-03-15] MEDS: hydrOXYzine HCL 25 MG TABLET PO (23:15)
--- NOTE | 2020-03-15 23:21 | HO.PSYCHPN ---
Subjective Subjective Date of Service: 03/15/20 Reason For Visit: intentional overdose Subjective Notes: Conditional Voluntary Interim History: the patient had a recent impulsive suicide attempt. Describes mood lability periods of elevated mood states irritability may be worsened by Cymbalta. has not stabilized on Depakote alone Medication Compliance: Yes Attending Groups: No Mental Status Exam Mental Status Exam Patient Appearance: Well Grooomed Patient Orientation: Person, Place, Time and Situation Level of Consciousness: Awake Patient Behavior: Appropriate and Anxious Mood Description: Anxious, Labile, Angry, Sad and Expansive Affect Description: Appropriate, Anxious, Labile and Angry Patient Cognition Impaired: No Ability to Follow Directions: Good Speech Pattern: Impoverished and Difficulty Finding Words Memory Description: Episodic Impaired Delusions: Paranoid Ideation Thought Process: Incoherent and Evasive Thought Content: positive for [place] and positive for Poverty of Content Depressive Symptoms: Increased Anxiety, Diff. Making Decisions, Difficulty Sleeping, Thoughts of /Suicide and Difficulty Concentrating Abnormal Motor Activity Signs and Symptoms: Restlessness Judgement: Fair Diagnostics Vital Signs (24Hr): Vital Signs - 24 hr 03/15/20 06:20 03/15/20 18:50 Temperature 97.1 F 97.6 F Pulse Rate 58 71 Respiratory Rate 16 Blood Pressure 139/82 123/72 Pulse Oximetry 97 Body Mass Index 36.1 Labs Labs: Laboratory Results - last 48 hr 03/14/20 03/14/20 03/15/20 17:32 22:32 06:37 POC Glucose 91 152 H 117 H 03/15/20 16:43 POC Glucose 115 Medications Medications Current Medications Generic Name Dose Route Start Last Admin Trade Name Freq PRN Reason Stop Dose Admin Acetaminophen 650 mg 03/14/20 12:48 Acetaminophen 325 Mg Tablet PO Q6H PRN Pain, Mild (Pain Scale 1-3) Al Hydroxide/Mg Hydroxide 30 ml 03/14/20 12:48 Magnesium Hydrox/Alum Hydrox 30 Ml Oral.Susp PO Q6H PRN Heartburn/Nausea Cyclobenzaprine HCl 10 mg 03/14/20 12:48 Cyclobenzaprine Hcl 10 Mg Tablet PO BID PRN Spasms Diclofenac Sodium 50 mg 03/15/20 15:00 03/15/20 21:49 Diclofenac Sodium Delayed Rel 50 Mg Tablet.Dr PO 50 mg BID ABDULKADIR Administration Divalproex Sodium 1,000 mg 03/14/20 17:00 03/15/20 17:27 Divalproex Sodium Er 500 Mg Tab.Er.24h PO 1,000 mg DAILY@1700 ABDULKADIR Administration Docusate Sodium 100 mg 03/14/20 21:00 03/15/20 21:48 Docusate Sodium 100 Mg Capsule PO 100 mg BID ABDULKADIR Administration Duloxetine HCl 60 mg 03/14/20 21:00 03/15/20 21:48 Duloxetine Hcl 30 Mg Capsule.Dr PO 60 mg BEDTIME ABDULKADIR Administration Hydroxyzine HCl 25 mg 03/14/20 12:48 03/15/20 23:15 Hydroxyzine Hcl 25 Mg Tablet PO 25 mg BEDTIME PRN Administration Anxiety Hydroxyzine HCl 50 mg 03/14/20 12:48 03/15/20 21:54 Hydroxyzine Hcl 25 Mg Tablet PO 50 mg BEDTIME PRN Administration Insomnia Lorazepam 1 mg 03/14/20 15:29 03/15/20 23:15 Lorazepam 1 Mg Tablet PO 1 mg Q4H PRN Administration anxiety/restlessness Magnesium Hydroxide 30 ml 03/14/20 12:48 03/14/20 21:45 Milk Of Magnesia 30 Ml Oral.Susp PO 30 ml DAILY PRN Administration Constipation Metformin HCl 1,000 mg 03/14/20 17:00 03/15/20 17:28 Metformin Hcl 1,000 Mg Tablet PO 1,000 mg BIDWM ABDULKADIR Administration Naltrexone HCl 50 mg 03/14/20 21:00 03/15/20 21:48 Naltrexone Hcl 50 Mg Tablet PO 50 mg BEDTIME ABDULKADIR Administration Nicotine 21 mg 03/15/20 09:00 03/15/20 09:39 Nicotine 21 Mg Patch.Td24 TRANSDERMA 21 mg DAILY ABDULKADIR Administration Nicotine Polacrilex 2 mg 03/14/20 12:48 Nicotine Polacrilex 2 Mg Gum BUCCAL Q2H PRN Nicotine Cravings Trazodone HCl 50 mg 03/14/20 12:48 03/15/20 21:53 Trazodone Hcl 50 Mg Tablet PO 50 mg BEDTIME PRN Administration Insomnia Zolpidem Tartrate 5 mg 03/14/20 21:00 03/15/20 21:48 Zolpidem Tartrate 5 Mg Tablet PO 5 mg BEDTIME ABDULKADIR Administration Allergies Allergies Allergy/AdvReac Type Severity Reaction Status Date / Time No Known Allergies Allergy Verified 03/10/20 19:00 Assessment & Plan Assessment & Plan (1) Suicide attempt by multiple drug overdose: Status: Acute Code(s): T50.912A - Poisoning by multiple unspecified drugs, medicaments and biological substances, intentional self-harm, initial encounter (2) Diabetes mellitus, type 2: Status: Acute Code(s): E11.9 - Type 2 diabetes mellitus without complications (3) Bipolar disorder: Status: Acute Code(s): F31.9 - Bipolar disorder, unspecified Assessment and Plan: patient appears to have rapid cycling history of head injuries recent suicide attempt impulsive not planned continued irritability agitation Seroquel ordered taper Cymbalta increase Depakote as tolerated Greater than 50% of the session was spent on counseling and/or coordination of care
[2020-03-15] MEDS: QUEtiapine Fumarate 100 MG TABLET PO (23:39)
[2020-03-16] MEDS: QUEtiapine Fumarate 50 MG TABLET PO ×2 (00:25→21:52)
[2020-03-16] MEDS: traZODone HCL 50 MG TABLET PO (00:25)
[2020-03-16 06:45] VITALS: BP 99/56; PULSE 69; RESP 16; TEMP 36.4; O2SAT 95
[2020-03-16 06:52] LABS: Glucose, Whole Blood 155 mg/dL (60-115)
[2020-03-16] MEDS: Diclofenac Sodium Delayed Rel 50 MG TABLET.DR PO ×2 (08:22→21:48)
[2020-03-16] MEDS: Nicotine 21 MG PATCH.TD24 TRANSDERMA (08:22)
[2020-03-16] MEDS: Docusate Sodium 100 MG CAPSULE PO ×2 (08:23→21:47)
[2020-03-16] MEDS: metFORMIN HCl 1,000 MG TABLET 1000 MG PO ×2 (08:23→17:04)
[2020-03-16] MEDS: DULoxetine HCl 30 MG CAPSULE.DR PO (08:23)
[2020-03-16 08:44] LABS: Alanine Aminotransferase 20 U/L (0-40); Albumin Level 3.5 g/dL (3.5-5.0); Alkaline Phosphatase 61 U/L (39-117); Anion Gap 13 (12-20); Aspartate Amino Transferase 14 U/L (5-37); Bilirubin Total 0.6 mg/dL (0.0-1.0); Blood Urea Nitrogen 18 mg/dL (9-16); Calcium 8.7 mg/dL (8.4-10.2); Carbon Dioxide 27 mmol/L (22-29); Chloride 103 mmol/L (96-108); Cholesterol 161 mg/dL; Creatinine Clr Calc Pharmacy 121.5; Estimated Glomerular Filt Rate > 60; Glucose Fasting 139 mg/dL (60-99); HDL Cholesterol 34 mg/dL; LDL Cholesterol Calculated 92 mg/dl; Sodium 139 mmol/L (135-145); Triglycerides 175 mg/dL
[2020-03-16 08:56] LABS: Valproate 45.6 mcg/mL (50.0-100.0)
[2020-03-16 09:05] LABS: TSH reflex Free T4 1.62 mIU/mL (0.32-4.0)
[2020-03-16 09:25] LABS: Folate 5.8 ng/mL (> or = 4.0); Vitamin B12 210 pg/mL (200-900)
[2020-03-16 10:34] LABS: Reflex LDLD? No
[2020-03-16] MEDS: Divalproex Sodium ER 500 MG TAB.ER.24H 1500 MG PO (17:04)
[2020-03-16 17:16] LABS: Glucose, Whole Blood 138 mg/dL (60-115)
[2020-03-16 18:40] VITALS: BP 123/74; PULSE 65; TEMP 36.7
--- NOTE | 2020-03-16 21:27 | HO.PSYCHPN ---
Subjective Subjective Date of Service: 03/16/20 Reason For Visit: intentional overdose Subjective Notes: Conditional Voluntary Interim History: patient with mood lability periods of irritability he cannot really explain his behavior has periods of impulsive suicidality discussed options of lithium Latuda patient has been on Seroquel in the past but did not like the weight gain Mental Status Exam Mental Status Exam Narrative: has difficult time remembering he details regarding the past particularly regarding medication Patient Appearance: Well Grooomed Patient Orientation: Person, Place, Time and Situation Level of Consciousness: Awake Patient Behavior: Appropriate and Anxious Mood Description: Anxious, Labile, Angry, Sad and Expansive Affect Description: Appropriate, Anxious, Labile and Angry Patient Cognition Impaired: No Ability to Follow Directions: Good Speech Pattern: Impoverished and Difficulty Finding Words Memory Description: Episodic Impaired Delusions: Paranoid Ideation Thought Process: Incoherent and Evasive Thought Content: positive for [place] and positive for Poverty of Content Depressive Symptoms: Increased Anxiety, Diff. Making Decisions, Difficulty Sleeping, Thoughts of /Suicide and Difficulty Concentrating Abnormal Motor Activity Signs and Symptoms: Restlessness Judgement: Fair Diagnostics Vital Signs (24Hr): Vital Signs - 24 hr 03/16/20 06:45 Temperature 97.6 F Pulse Rate 69 Respiratory Rate 16 Blood Pressure 99/56 L Pulse Oximetry 95 Body Mass Index 36.1 Labs Results: 03/16/20 07:49 03/16/20 07:49 Labs: Laboratory Results - last 48 hr 03/14/20 03/15/20 03/15/20 22:32 06:37 16:43 Sodium Potassium Chloride Carbon Dioxide Anion Gap BUN Creatinine Estim Creat Clear Calc Estimated GFR POC Glucose 152 H 117 H 115 Fasting Glucose Calcium Total Bilirubin AST ALT Alkaline Phosphatase Total Protein Albumin Triglycerides Cholesterol LDL Cholesterol, Calc HDL Cholesterol Vitamin B12 Folate TSH Valproic Acid 03/16/20 03/16/20 03/16/20 06:48 07:49 07:49 Sodium 139 Potassium 4.0 Chloride 103 Carbon Dioxide 27 Anion Gap 13 BUN 18 H D Creatinine 0.90 Estim Creat Clear Calc 121.5 Estimated GFR > 60 POC Glucose 155 H Fasting Glucose 139 H D Calcium 8.7 D Total Bilirubin 0.6 AST 14 D ALT 20 Alkaline Phosphatase 61 Total Protein 6.0 L Albumin 3.5 Triglycerides 175 Cholesterol 161 D LDL Cholesterol, Calc 92 HDL Cholesterol 34 D Vitamin B12 210 Folate 5.8 TSH 1.62 Valproic Acid 45.6 L 03/16/20 16:49 Sodium Potassium Chloride Carbon Dioxide Anion Gap BUN Creatinine Estim Creat Clear Calc Estimated GFR POC Glucose 138 H Fasting Glucose Calcium Total Bilirubin AST ALT Alkaline Phosphatase Total Protein Albumin Triglycerides Cholesterol LDL Cholesterol, Calc HDL Cholesterol Vitamin B12 Folate TSH Valproic Acid Medications Medications Current Medications Generic Name Dose Route Start Last Admin Trade Name Freq PRN Reason Stop Dose Admin Acetaminophen 650 mg 03/14/20 12:48 Acetaminophen 325 Mg Tablet PO Q6H PRN Pain, Mild (Pain Scale 1-3) Al Hydroxide/Mg Hydroxide 30 ml 03/14/20 12:48 Magnesium Hydrox/Alum Hydrox 30 Ml Oral.Susp PO Q6H PRN Heartburn/Nausea Cyclobenzaprine HCl 10 mg 03/14/20 12:48 Cyclobenzaprine Hcl 10 Mg Tablet PO BID PRN Spasms Diclofenac Sodium 50 mg 03/15/20 15:00 03/16/20 08:22 Diclofenac Sodium Delayed Rel 50 Mg Tablet. PO 50 mg BID ABDULKADIR Administration Divalproex Sodium 1,500 mg 03/16/20 17:00 03/16/20 17:04 Divalproex Sodium Er 500 Mg Tab.Er.24h PO 1,500 mg DAILY@1700 BADULKADIR Administration Docusate Sodium 100 mg 03/14/20 21:00 03/16/20 08:23 Docusate Sodium 100 Mg Capsule PO 100 mg BID ABDULKADIR Administration Duloxetine HCl 30 mg 03/16/20 09:00 03/16/20 08:23 Duloxetine Hcl 30 Mg Capsule. PO 30 mg DAILY ABDULKADIR Administration Hydroxyzine HCl 25 mg 03/14/20 12:48 03/15/20 23:15 Hydroxyzine Hcl 25 Mg Tablet PO 25 mg BEDTIME PRN Administration Anxiety Hydroxyzine HCl 50 mg 03/14/20 12:48 03/15/20 21:54 Hydroxyzine Hcl 25 Mg Tablet PO 50 mg BEDTIME PRN Administration Insomnia Lorazepam 1 mg 03/14/20 15:29 03/15/20 23:15 Lorazepam 1 Mg Tablet PO 1 mg Q4H PRN Administration anxiety/restlessness Magnesium Hydroxide 30 ml 03/14/20 12:48 03/14/20 21:45 Milk Of Magnesia 30 Ml Oral.Susp PO 30 ml DAILY PRN Administration Constipation Metformin HCl 1,000 mg 03/14/20 17:00 03/16/20 17:04 Metformin Hcl 1,000 Mg Tablet PO 1,000 mg BIDWM ABDULKADIR Administration Naltrexone HCl 50 mg 03/14/20 21:00 03/15/20 21:48 Naltrexone Hcl 50 Mg Tablet PO 50 mg BEDTIME ABDULKADIR Administration Nicotine 21 mg 03/15/20 09:00 03/16/20 08:22 Nicotine 21 Mg Patch.Td24 TRANSDERMA 21 mg DAILY ABDULKADIR Administration Nicotine Polacrilex 2 mg 03/14/20 12:48 Nicotine Polacrilex 2 Mg Gum BUCCAL Q2H PRN Nicotine Cravings Quetiapine Fumarate 50 mg 03/15/20 23:25 03/16/20 00:25 Quetiapine Fumarate 50 Mg Tablet PO 50 mg Q2H PRN Administration anxiety/restlessness Trazodone HCl 50 mg 03/14/20 12:48 03/16/20 00:25 Trazodone Hcl 50 Mg Tablet PO 50 mg BEDTIME PRN Administration Insomnia Zolpidem Tartrate 5 mg 03/14/20 21:00 03/15/20 21:48 Zolpidem Tartrate 5 Mg Tablet PO 5 mg BEDTIME ABDULKADIR Administration Allergies Allergies Allergy/AdvReac Type Severity Reaction Status Date / Time No Known Allergies Allergy Verified 03/10/20 19:00 Assessment & Plan Assessment & Plan (1) Suicide attempt by multiple drug overdose: Status: Acute Code(s): T50.912A - Poisoning by multiple unspecified drugs, medicaments and biological substances, intentional self-harm, initial encounter (2) Bipolar disorder: Status: Acute Code(s): F31.9 - Bipolar disorder, unspecified (3) Diabetes mellitus, type 2: Status: Acute Code(s): E11.9 - Type 2 diabetes mellitus without complications Assessment and Plan: increase Depakote to 1500 mg recheck level consider lithium consider Latuda Greater than 50% of the session was spent on counseling and/or coordination of care
[2020-03-16] MEDS: Naltrexone HCl 50 MG TABLET PO (21:47)
[2020-03-16] MEDS: Zolpidem Tartrate 5 MG TABLET PO (21:47)
[2020-03-16] MEDS: LORazepam 1 MG TABLET PO (21:51)
[2020-03-16] MEDS: hydrOXYzine HCL 25 MG TABLET 50 MG PO (21:52)
[2020-03-17 06:35] VITALS: BP 118/79; PULSE 71; RESP 18; TEMP 36.4; O2SAT 96
[2020-03-17 06:38] LABS: Glucose, Whole Blood 106 mg/dL (60-115)
[2020-03-17] MEDS: Lithium Carbonate ER 300 MG TABLET.ER PO ×2 (08:26→20:45)
[2020-03-17] MEDS: Diclofenac Sodium Delayed Rel 50 MG TABLET.DR PO ×2 (08:26→20:44)
[2020-03-17] MEDS: Docusate Sodium 100 MG CAPSULE PO ×2 (08:26→20:45)
[2020-03-17] MEDS: DULoxetine HCl 30 MG CAPSULE.DR PO (08:26)
[2020-03-17] MEDS: metFORMIN HCl 1,000 MG TABLET 1000 MG PO ×2 (08:26→16:27)
[2020-03-17] MEDS: Nicotine 21 MG PATCH.TD24 TRANSDERMA (08:27)
--- NOTE | 2020-03-17 10:26 | HO.PSYCHPN ---
Subjective Subjective Date of Service: 03/17/20 Reason For Visit: intentional overdose Subjective Notes: Conditional Voluntary Interim History: patient isolated and withdrawn Medication Compliance: Yes Attending Groups: No Mental Status Exam Mental Status Exam Narrative: has difficult time remembering he details regarding the past particularly regarding medication Patient Appearance: Well Grooomed Patient Orientation: Person, Place, Time and Situation Level of Consciousness: Awake Patient Behavior: Appropriate and Anxious Mood Description: Anxious, Labile, Angry, Sad and Expansive Affect Description: Appropriate, Anxious, Labile and Angry Patient Cognition Impaired: No Ability to Follow Directions: Good Speech Pattern: Impoverished and Difficulty Finding Words Memory Description: Episodic Impaired Delusions: Paranoid Ideation Thought Process: Incoherent and Evasive Thought Content: positive for [place] and positive for Poverty of Content Depressive Symptoms: Increased Anxiety, Diff. Making Decisions, Difficulty Sleeping, Thoughts of /Suicide and Difficulty Concentrating Abnormal Motor Activity Signs and Symptoms: Restlessness Judgement: Fair Diagnostics Vital Signs (24Hr): Vital Signs - 24 hr 03/16/20 18:40 03/17/20 06:35 Temperature 98.0 F 97.5 F Pulse Rate 65 71 Respiratory Rate 18 Blood Pressure 123/74 118/79 Pulse Oximetry 96 Body Mass Index 36.1 Labs Results: 03/16/20 07:49 03/16/20 07:49 Labs: Laboratory Results - last 48 hr 03/15/20 03/16/20 03/16/20 16:43 06:48 07:49 Sodium 139 Potassium 4.0 Chloride 103 Carbon Dioxide 27 Anion Gap 13 BUN 18 H D Creatinine 0.90 Estim Creat Clear Calc 121.5 Estimated GFR > 60 POC Glucose 115 155 H Fasting Glucose 139 H D Calcium 8.7 D Total Bilirubin 0.6 AST 14 D ALT 20 Alkaline Phosphatase 61 Total Protein 6.0 L Albumin 3.5 Triglycerides 175 Cholesterol 161 D LDL Cholesterol, Calc 92 HDL Cholesterol 34 D Vitamin B12 Folate TSH 1.62 Valproic Acid 45.6 L 03/16/20 03/16/20 03/17/20 07:49 16:49 06:34 Sodium Potassium Chloride Carbon Dioxide Anion Gap BUN Creatinine Estim Creat Clear Calc Estimated GFR POC Glucose 138 H 106 Fasting Glucose Calcium Total Bilirubin AST ALT Alkaline Phosphatase Total Protein Albumin Triglycerides Cholesterol LDL Cholesterol, Calc HDL Cholesterol Vitamin B12 210 Folate 5.8 TSH Valproic Acid Medications Medications Current Medications Generic Name Dose Route Start Last Admin Trade Name Freq PRN Reason Stop Dose Admin Acetaminophen 650 mg 03/14/20 12:48 Acetaminophen 325 Mg Tablet PO Q6H PRN Pain, Mild (Pain Scale 1-3) Al Hydroxide/Mg Hydroxide 30 ml 03/14/20 12:48 Magnesium Hydrox/Alum Hydrox 30 Ml Oral.Susp PO Q6H PRN Heartburn/Nausea Cyclobenzaprine HCl 10 mg 03/14/20 12:48 Cyclobenzaprine Hcl 10 Mg Tablet PO BID PRN Spasms Diclofenac Sodium 50 mg 03/15/20 15:00 03/17/20 08:26 Diclofenac Sodium Delayed Rel 50 Mg Tablet.Dr PO 50 mg BID ABDULKADIR Administration Divalproex Sodium 1,500 mg 03/16/20 17:00 03/16/20 17:04 Divalproex Sodium Er 500 Mg Tab.Er.24h PO 1,500 mg DAILY@1700 ABDULKADIR Administration Docusate Sodium 100 mg 03/14/20 21:00 03/17/20 08:26 Docusate Sodium 100 Mg Capsule PO 100 mg BID ABDULKADIR Administration Duloxetine HCl 30 mg 03/16/20 09:00 03/17/20 08:26 Duloxetine Hcl 30 Mg Capsule.Dr PO 30 mg DAILY ABDULKADIR Administration Hydroxyzine HCl 25 mg 03/14/20 12:48 03/15/20 23:15 Hydroxyzine Hcl 25 Mg Tablet PO 25 mg BEDTIME PRN Administration Anxiety Hydroxyzine HCl 50 mg 03/14/20 12:48 03/16/20 21:52 Hydroxyzine Hcl 25 Mg Tablet PO 50 mg BEDTIME PRN Administration Insomnia [place] Carbonate 300 mg 03/17/20 09:00 03/17/20 08:26 [place] Carbonate Er 300 Mg Tablet.Er PO 300 mg BID ABDUKLADIR Administration Lorazepam 1 mg 03/14/20 15:29 03/16/20 21:51 Lorazepam 1 Mg Tablet PO 1 mg Q4H PRN Administration anxiety/restlessness Magnesium Hydroxide 30 ml 03/14/20 12:48 03/14/20 21:45 Milk Of Magnesia 30 Ml Oral.Susp PO 30 ml DAILY PRN Administration Constipation Metformin HCl 1,000 mg 03/14/20 17:00 03/17/20 08:26 Metformin Hcl 1,000 Mg Tablet PO 1,000 mg BIDWM ABDULKADIR Administration Naltrexone HCl 50 mg 03/14/20 21:00 12/22/20 21:47 Naltrexone Hcl 50 Mg Tablet PO 50 mg BEDTIME ABDULKADIR Administration Nicotine 21 mg 03/15/20 09:00 03/17/20 08:27 Nicotine 21 Mg Patch.Td24 TRANSDERMA 21 mg DAILY ABDULKADIR Administration Nicotine Polacrilex 2 mg 03/14/20 12:48 Nicotine Polacrilex 2 Mg Gum BUCCAL Q2H PRN Nicotine Cravings Quetiapine Fumarate 50 mg 03/15/20 23:25 03/16/20 21:52 Quetiapine Fumarate 50 Mg Tablet PO 50 mg Q2H PRN Administration anxiety/restlessness Trazodone HCl 50 mg 03/14/20 12:48 03/16/20 00:25 Trazodone Hcl 50 Mg Tablet PO 50 mg BEDTIME PRN Administration Insomnia Zolpidem Tartrate 5 mg 03/14/20 21:00 03/16/20 21:47 Zolpidem Tartrate 5 Mg Tablet PO 5 mg BEDTIME ABDULKADIR Administration Allergies Allergies Allergy/AdvReac Type Severity Reaction Status Date / Time No Known Allergies Allergy Verified 03/10/20 19:00 Assessment & Plan Assessment & Plan (1) Suicide attempt by multiple drug overdose: Status: Acute Code(s): T50.912A - Poisoning by multiple unspecified drugs, medicaments and biological substances, intentional self-harm, initial encounter (2) Bipolar disorder: Status: Acute Code(s): F31.9 - Bipolar disorder, unspecified Assessment and Plan: lithium Depakote (3) Diabetes mellitus, type 2: Status: Acute Code(s): E11.9 - Type 2 diabetes mellitus without complications Greater than 50% of the session was spent on counseling and/or coordination of care
[2020-03-17] MEDS: Divalproex Sodium ER 500 MG TAB.ER.24H 1500 MG PO (16:27)
[2020-03-17 16:37] LABS: Glucose, Whole Blood 96 mg/dL (60-115)
[2020-03-17 18:00] VITALS: BP 137/68; PULSE 63; TEMP 37.1
[2020-03-17] MEDS: Naltrexone HCl 50 MG TABLET PO (20:45)
[2020-03-17] MEDS: Zolpidem Tartrate 5 MG TABLET PO ×2 (20:45→21:58)
[2020-03-17] MEDS: hydrOXYzine HCL 25 MG TABLET PO ×2 (20:45→21:58)
[2020-03-17] MEDS: QUEtiapine Fumarate 50 MG TABLET PO (21:59)
[2020-03-18 06:19] LABS: Glucose, Whole Blood 128 mg/dL (60-115)
[2020-03-18 06:26] VITALS: BP 130/82; PULSE 66; RESP 16; TEMP 37.2; O2SAT 98
[2020-03-18] MEDS: Nicotine 21 MG PATCH.TD24 TRANSDERMA (09:35)
[2020-03-18] MEDS: Diclofenac Sodium Delayed Rel 50 MG TABLET.DR PO ×2 (09:35→21:20)
[2020-03-18] MEDS: DULoxetine HCl 30 MG CAPSULE.DR PO (09:36)
[2020-03-18] MEDS: metFORMIN HCl 1,000 MG TABLET 1000 MG PO ×2 (09:36→17:01)
[2020-03-18] MEDS: Docusate Sodium 100 MG CAPSULE PO ×2 (09:36→21:20)
[2020-03-18] MEDS: Lithium Carbonate ER 300 MG TABLET.ER PO ×2 (09:36→21:20)
[2020-03-18] MEDS: Cyanocobalamin (Vitamin B-12) 1,000 MCG/ML VIAL 1000 MCG IM (10:02)
[2020-03-18 16:10] VITALS: BP 149/75; PULSE 59; TEMP 36.8
[2020-03-18 17:00] LABS: Glucose, Whole Blood 98 mg/dL (60-115)
[2020-03-18] MEDS: Divalproex Sodium ER 500 MG TAB.ER.24H 1500 MG PO (17:01)
[2020-03-18] MEDS: Zolpidem Tartrate 5 MG TABLET PO ×2 (21:20→22:45)
[2020-03-18] MEDS: Milk of Magnesia 30 ML ORAL.SUSP PO (21:21)
[2020-03-18] MEDS: Naltrexone HCl 50 MG TABLET PO (21:21)
[2020-03-18] MEDS: LORazepam 1 MG TABLET PO (22:50)
[2020-03-18] MEDS: Cyclobenzaprine HCl 10 MG TABLET PO (22:50)
--- NOTE | 2020-03-18 22:55 | HO.PSYCHPN ---
Subjective Subjective Date of Service: 03/18/20 Reason For Visit: intentional overdose Subjective Notes: Conditional Voluntary Interim History: patient withdrawn and flat agreeable to lithium Depakote Medication Compliance: Yes Mental Status Exam Mental Status Exam Narrative: patient come cooperative flat somewhat isolative. Mood flat dysphoric denies active SI and no hallucinations or delusional material patient cooperative with treatment isolative Patient Appearance: Fatigued and Disheveled Level of Consciousness: Awake Thought Content: positive for Intact Depressive Symptoms: Increased Anxiety, Insomnia, Diff. Making Decisions, Increased Irritability, Isolating-Friends/Family and Loss of Energy Diagnostics Vital Signs (24Hr): Vital Signs - 24 hr 03/18/20 06:26 03/18/20 16:10 Temperature 98.9 F 98.2 F Pulse Rate 66 59 Respiratory Rate 16 Blood Pressure 130/82 149/75 H Pulse Oximetry 98 Body Mass Index 0.1 Labs Results: 03/16/20 07:49 03/16/20 07:49 Labs: Laboratory Results - last 48 hr 03/17/20 03/17/20 03/18/20 06:34 16:25 06:08 POC Glucose 106 96 128 H 03/18/20 16:56 POC Glucose 98 Medications Medications Current Medications Generic Name Dose Route Start Last Admin Trade Name Freq PRN Reason Stop Dose Admin Acetaminophen 650 mg 03/14/20 12:48 Acetaminophen 325 Mg Tablet PO Q6H PRN Pain, Mild (Pain Scale 1-3) Al Hydroxide/Mg Hydroxide 30 ml 03/14/20 12:48 Magnesium Hydrox/Alum Hydrox 30 Ml Oral.Susp PO Q6H PRN Heartburn/Nausea Cyanocobalamin 1,000 mcg 03/18/20 09:00 03/18/20 10:02 Cyanocobalamin (Vitamin B-12) 1,000 Mcg/Ml Vial IM 04/08/20 09:01 1,000 mcg Q7D ABDULKADIR Administration Cyclobenzaprine HCl 10 mg 03/14/20 12:48 03/18/20 22:50 Cyclobenzaprine Hcl 10 Mg Tablet PO 10 mg BID PRN Administration Spasms Diclofenac Sodium 50 mg 03/15/20 15:00 03/18/20 21:20 Diclofenac Sodium Delayed Rel 50 Mg Tablet.Dr PO 50 mg BID ABDULKADIR Administration Divalproex Sodium 1,500 mg 03/16/20 17:00 03/18/20 17:01 Divalproex Sodium Er 500 Mg Tab.Er.24h PO 1,500 mg DAILY@1700 ABDULKADIR Administration Docusate Sodium 100 mg 03/14/20 21:00 03/18/20 21:20 Docusate Sodium 100 Mg Capsule PO 100 mg BID ABDULKADIR Administration Duloxetine HCl 30 mg 03/16/20 09:00 03/18/20 09:36 Duloxetine Hcl 30 Mg Capsule.Dr PO 30 mg DAILY ABDULKADIR Administration Hydroxyzine HCl 25 mg 03/14/20 12:48 03/17/20 21:58 Hydroxyzine Hcl 25 Mg Tablet PO 25 mg BEDTIME PRN Administration Anxiety Hydroxyzine HCl 50 mg 03/14/20 12:48 03/16/20 21:52 Hydroxyzine Hcl 25 Mg Tablet PO 50 mg BEDTIME PRN Administration Insomnia [place] Carbonate 300 mg 03/17/20 09:00 03/18/20 21:20 [place] Carbonate Er 300 Mg Tablet.Er PO 300 mg BID ABDULKADIR Administration Lorazepam 1 mg 03/14/20 15:29 03/18/20 22:50 Lorazepam 1 Mg Tablet PO 1 mg Q4H PRN Administration anxiety/restlessness Magnesium Hydroxide 30 ml 03/14/20 12:48 03/18/20 21:21 Milk Of Magnesia 30 Ml Oral.Susp PO 30 ml DAILY PRN Administration Constipation Metformin HCl 1,000 mg 03/14/20 17:00 03/18/20 17:01 Metformin Hcl 1,000 Mg Tablet PO 1,000 mg BIDWM ABDULKADIR Administration Naltrexone HCl 50 mg 03/14/20 21:00 03/18/20 21:21 Naltrexone Hcl 50 Mg Tablet PO 50 mg BEDTIME ABDULKADIR Administration Nicotine 21 mg 03/15/20 09:00 03/18/20 09:35 Nicotine 21 Mg Patch.Td24 TRANSDERMA 21 mg DAILY ABDULKADIR Administration Nicotine Polacrilex 2 mg 03/14/20 12:48 Nicotine Polacrilex 2 Mg Gum BUCCAL Q2H PRN Nicotine Cravings Quetiapine Fumarate 50 mg 03/15/20 23:25 03/17/20 21:59 Quetiapine Fumarate 50 Mg Tablet PO 50 mg Q2H PRN Administration anxiety/restlessness Trazodone HCl 50 mg 03/14/20 12:48 03/16/20 00:25 Trazodone Hcl 50 Mg Tablet PO 50 mg BEDTIME PRN Administration Insomnia Zolpidem Tartrate 5 mg 03/14/20 21:00 03/18/20 22:45 Zolpidem Tartrate 5 Mg Tablet PO 5 mg BEDTIME ABDULKADIR Administration Allergies Allergies Allergy/AdvReac Type Severity Reaction Status Date / Time No Known Allergies Allergy Verified 03/10/20 19:00 Assessment & Plan Assessment & Plan (1) Suicide attempt by multiple drug overdose: Status: Acute Code(s): T50.912A - Poisoning by multiple unspecified drugs, medicaments and biological substances, intentional self-harm, initial encounter (2) Bipolar disorder: Status: Acute Code(s): F31.9 - Bipolar disorder, unspecified (3) Diabetes mellitus, type 2: Status: Acute Code(s): E11.9 - Type 2 diabetes mellitus without complications Assessment and Plan: continue Depakote lithium started will hold off on antidepressant secondary to bipolar question mixed states denies active self-harm Greater than 50% of the session was spent on counseling and/or coordination of care
[2020-03-19 06:04] LABS: Glucose, Whole Blood 112 mg/dL (60-115)
[2020-03-19 06:29] VITALS: BP 121/67; PULSE 57; RESP 16; TEMP 36.8; O2SAT 96
[2020-03-19] MEDS: metFORMIN HCl 1,000 MG TABLET 1000 MG PO ×2 (08:24→21:01)
[2020-03-19] MEDS: Lithium Carbonate ER 300 MG TABLET.ER PO ×2 (10:44→21:02)
[2020-03-19] MEDS: Docusate Sodium 100 MG CAPSULE PO (10:44)
[2020-03-19] MEDS: DULoxetine HCl 30 MG CAPSULE.DR PO (10:44)
[2020-03-19] MEDS: Nicotine 21 MG PATCH.TD24 TRANSDERMA (10:45)
[2020-03-19] MEDS: Diclofenac Sodium Delayed Rel 50 MG TABLET.DR PO ×2 (10:45→21:02)
[2020-03-19 18:00] VITALS: BP 118/07; PULSE 61; TEMP 36.7
[2020-03-19] MEDS: Divalproex Sodium ER 500 MG TAB.ER.24H 1500 MG PO (21:01)
[2020-03-19] MEDS: Docusate Sodium 100 MG CAPSULE 200 MG PO (21:01)
[2020-03-19] MEDS: Naltrexone HCl 50 MG TABLET PO (21:02)
[2020-03-19] MEDS: Zolpidem Tartrate 5 MG TABLET PO ×2 (21:02→22:53)
--- NOTE | 2020-03-19 22:40 | P.PNPSI_ITS ---
Subjective Subjective Date of Service: 03/19/20 Reason For Visit: intentional overdose Subjective Notes: Conditional Voluntary Interim History: patient flat dysphoric feels somewhat better on lithium or Depakote Seroquel. Tends to be isolated/ Mental Status Exam Mental Status Exam Narrative: patient come cooperative flat somewhat isolative. Mood flat dysphoric denies active SI and no hallucinations or delusional material patient cooperative with treatment isolative Patient Appearance: Fatigued and Disheveled Level of Consciousness: Awake Thought Content: positive for Intact Depressive Symptoms: Increased Anxiety, Insomnia, Diff. Making Decisions, Increased Irritability, Isolating-Friends/Family and Loss of Energy Diagnostics Vital Signs (24Hr): Vital Signs - 24 hr 03/19/20 06:29 03/19/20 18:00 Temperature 98.2 F 98.1 F Pulse Rate 57 61 Respiratory Rate 16 Blood Pressure 121/67 118/07 L Pulse Oximetry 96 Body Mass Index 0.1 Labs Results: 03/16/20 07:49 03/16/20 07:49 Labs: Laboratory Results - last 48 hr 03/18/20 03/18/20 03/19/20 06:08 16:56 05:58 POC Glucose 128 H 98 112 Medications Medications Current Medications Generic Name Dose Route Start Last Admin Trade Name Freq PRN Reason Stop Dose Admin Acetaminophen 650 mg 03/14/20 12:48 Acetaminophen 325 Mg Tablet PO Q6H PRN Pain, Mild (Pain Scale 1-3) Al Hydroxide/Mg Hydroxide 30 ml 03/14/20 12:48 Magnesium Hydrox/Alum Hydrox 30 Ml Oral.Susp PO Q6H PRN Heartburn/Nausea Cyanocobalamin 1,000 mcg 03/18/20 09:00 03/18/20 10:02 Cyanocobalamin (Vitamin B-12) 1,000 Mcg/Ml Vial IM 04/08/20 09:01 1,000 mcg Q7D ABDULKADIR Administration Cyclobenzaprine HCl 10 mg 03/14/20 12:48 03/18/20 22:50 Cyclobenzaprine Hcl 10 Mg Tablet PO 10 mg BID PRN Administration Spasms Diclofenac Sodium 50 mg 03/15/20 15:00 03/19/20 21:02 Diclofenac Sodium Delayed Rel 50 Mg Tablet.Dr PO 50 mg BID ABDULKADIR Administration Divalproex Sodium 1,500 mg 03/16/20 17:00 03/19/20 21:01 Divalproex Sodium Er 500 Mg Tab.Er.24h PO 1,500 mg DAILY@1700 ABDULKADIR Administration Docusate Sodium 200 mg 03/19/20 21:00 03/19/20 21:01 Docusate Sodium 100 Mg Capsule PO 200 mg BID ABDULKADIR Administration Duloxetine HCl 30 mg 03/16/20 09:00 03/19/20 10:44 Duloxetine Hcl 30 Mg Capsule.Dr PO 30 mg DAILY ABDULKADIR Administration Hydroxyzine HCl 25 mg 03/14/20 12:48 03/17/20 21:58 Hydroxyzine Hcl 25 Mg Tablet PO 25 mg BEDTIME PRN Administration Anxiety Hydroxyzine HCl 50 mg 03/14/20 12:48 03/16/20 21:52 Hydroxyzine Hcl 25 Mg Tablet PO 50 mg BEDTIME PRN Administration Insomnia [place] Carbonate 300 mg 03/17/20 09:00 03/19/20 21:02 [place] Carbonate Er 300 Mg Tablet.Er PO 300 mg BID ABDULKADIR Administration Magnesium Hydroxide 30 ml 03/14/20 12:48 03/18/20 21:21 Milk Of Magnesia 30 Ml Oral.Susp PO 30 ml DAILY PRN Administration Constipation Metformin HCl 1,000 mg 03/14/20 17:00 03/19/20 21:01 Metformin Hcl 1,000 Mg Tablet PO 1,000 mg BIDWM ABDULKADIR Administration Naltrexone HCl 50 mg 03/14/20 21:00 03/19/20 21:02 Naltrexone Hcl 50 Mg Tablet PO 50 mg BEDTIME ABDLUKADIR Administration Nicotine 21 mg 03/15/20 09:00 03/19/20 10:45 Nicotine 21 Mg Patch.Td24 TRANSDERMA 21 mg DAILY ABDULKADIR Administration Nicotine Polacrilex 2 mg 03/14/20 12:48 Nicotine Polacrilex 2 Mg Gum BUCCAL Q2H PRN Nicotine Cravings Quetiapine Fumarate 50 mg 03/15/20 23:25 03/17/20 21:59 Quetiapine Fumarate 50 Mg Tablet PO 50 mg Q2H PRN Administration anxiety/restlessness Trazodone HCl 50 mg 03/14/20 12:48 03/16/20 00:25 Trazodone Hcl 50 Mg Tablet PO 50 mg BEDTIME PRN Administration Insomnia Zolpidem Tartrate 5 mg 03/19/20 22:30 Zolpidem Tartrate 5 Mg Tablet PO 03/19/20 22:31 ONCE ONE Allergies Allergies Allergy/AdvReac Type Severity Reaction Status Date / Time No Known Allergies Allergy Verified 03/10/20 19:00 Assessment & Plan Assessment & Plan (1) Bipolar disorder: Status: Acute Code(s): F31.9 - Bipolar disorder, unspecified Assessment and Plan: continue plan of care check lithium level continue Seroquel Greater than 50% of the session was spent on counseling and/or coordination of care
--- NOTE | 2020-03-20 07:03 | PC.NURSE ---
Patient signed a three day notice to leave on 03/20/20 and will be in effect on 03/24/20.
[2020-03-20] MEDS: Nicotine 21 MG PATCH.TD24 TRANSDERMA (08:36)
[2020-03-20] MEDS: Divalproex Sodium ER 500 MG TAB.ER.24H 1500 MG PO (17:19)
[2020-03-20] MEDS: metFORMIN HCl 1,000 MG TABLET 1000 MG PO (17:19)
[2020-03-20] MEDS: Zolpidem Tartrate 5 MG TABLET PO (21:05)
[2020-03-20] MEDS: Naltrexone HCl 50 MG TABLET PO (21:05)
[2020-03-20] MEDS: Docusate Sodium 100 MG CAPSULE 200 MG PO (21:06)
[2020-03-20] MEDS: Diclofenac Sodium Delayed Rel 50 MG TABLET.DR PO (21:07)
[2020-03-20] MEDS: Lithium Carbonate ER 300 MG TABLET.ER PO (21:07)
[2020-03-20] MEDS: QUEtiapine Fumarate 100 MG TABLET PO (21:08)
[2020-03-20] MEDS: LORazepam 1 MG TABLET PO (21:09)
[2020-03-20] MEDS: hydrOXYzine HCL 25 MG TABLET PO (21:10)
--- NOTE | 2020-03-20 22:35 | HO.PSYCHPN ---
Subjective Subjective Date of Service: 03/21/20 Reason For Visit: intentional overdose Interim History: patient having a difficult time with insomnia and irritability Medication Compliance: Yes Mental Status Exam Mental Status Exam Narrative: patient come cooperative flat somewhat isolative. Mood flat dysphoric denies active SI and no hallucinations or delusional material patient cooperative with treatment isolative Patient Appearance: Fatigued and Disheveled Level of Consciousness: Awake Thought Content: positive for Intact Depressive Symptoms: Increased Anxiety, Insomnia, Diff. Making Decisions, Increased Irritability, Isolating-Friends/Family and Loss of Energy Diagnostics Vital Signs (24Hr): Body Mass Index 0.1 Labs Results: 03/16/20 07:49 03/16/20 07:49 Labs: Laboratory Results - last 48 hr 03/19/20 05:58 POC Glucose 112 Medications Medications Current Medications Generic Name Dose Route Start Last Admin Trade Name Freq PRN Reason Stop Dose Admin Acetaminophen 650 mg 03/14/20 12:48 Acetaminophen 325 Mg Tablet PO Q6H PRN Pain, Mild (Pain Scale 1-3) Al Hydroxide/Mg Hydroxide 30 ml 03/14/20 12:48 Magnesium Hydrox/Alum Hydrox 30 Ml Oral.Susp PO Q6H PRN Heartburn/Nausea Cyanocobalamin 1,000 mcg 03/18/20 09:00 03/18/20 10:02 Cyanocobalamin (Vitamin B-12) 1,000 Mcg/Ml Vial IM 04/08/20 09:01 1,000 mcg Q7D ABDULKADIR Administration Cyclobenzaprine HCl 10 mg 03/14/20 12:48 03/18/20 22:50 Cyclobenzaprine Hcl 10 Mg Tablet PO 10 mg BID PRN Administration Spasms Diclofenac Sodium 50 mg 03/15/20 15:00 03/20/20 21:07 Diclofenac Sodium Delayed Rel 50 Mg Tablet.Dr PO 50 mg BID ABDULKADIR Administration Divalproex Sodium 1,500 mg 03/16/20 17:00 03/20/20 17:19 Divalproex Sodium Er 500 Mg Tab.Er.24h PO 1,500 mg DAILY@1700 ABDULKADIR Administration Docusate Sodium 200 mg 03/19/20 21:00 03/20/20 21:06 Docusate Sodium 100 Mg Capsule PO 200 mg BID ABDULKADIR Administration Hydroxyzine HCl 50 mg 03/14/20 12:48 03/16/20 21:52 Hydroxyzine Hcl 25 Mg Tablet PO 50 mg BEDTIME PRN Administration Insomnia Hydroxyzine HCl 25 mg 03/20/20 21:00 03/20/20 21:10 Hydroxyzine Hcl 25 Mg Tablet PO 25 mg BEDTIME ABDULKADIR Administration [place] Carbonate 300 mg 03/17/20 09:00 03/20/20 21:07 [place] Carbonate Er 300 Mg Tablet.Er PO 300 mg BID ABDULKADIR Administration Lorazepam 1 mg 03/20/20 21:00 03/20/20 21:09 Lorazepam 1 Mg Tablet PO 1 mg BEDTIME ABDULKADIR Administration Magnesium Hydroxide 30 ml 03/14/20 12:48 03/18/20 21:21 Milk Of Magnesia 30 Ml Oral.Susp PO 30 ml DAILY PRN Administration Constipation Metformin HCl 1,000 mg 03/14/20 17:00 03/20/20 17:19 Metformin Hcl 1,000 Mg Tablet PO 1,000 mg BIDWM ABDULKADIR Administration Naltrexone HCl 50 mg 03/14/20 21:00 03/20/20 21:05 Naltrexone Hcl 50 Mg Tablet PO 50 mg BEDTIME ABDULKADIR Administration Nicotine 21 mg 03/15/20 09:00 03/20/20 08:36 Nicotine 21 Mg Patch.Td24 TRANSDERMA 21 mg DAILY ABDULKADIR Administration Nicotine Polacrilex 2 mg 03/14/20 12:48 Nicotine Polacrilex 2 Mg Gum BUCCAL Q2H PRN Nicotine Cravings Quetiapine Fumarate 50 mg 03/15/20 23:25 03/17/20 21:59 Quetiapine Fumarate 50 Mg Tablet PO 50 mg Q2H PRN Administration anxiety/restlessness Quetiapine Fumarate 100 mg 03/20/20 21:00 03/20/20 21:08 Quetiapine Fumarate 100 Mg Tablet PO 100 mg BEDTIME ABDULKADIR Administration Zolpidem Tartrate 5 mg 03/20/20 21:00 03/20/20 21:05 Zolpidem Tartrate 5 Mg Tablet PO 5 mg BEDTIME ABDULKADIR Administration Allergies Allergies Allergy/AdvReac Type Severity Reaction Status Date / Time No Known Allergies Allergy Verified 03/10/20 19:00 Assessment & Plan Assessment & Plan (1) Bipolar disorder: Status: Acute Code(s): F31.9 - Bipolar disorder, unspecified Assessment and Plan: continue plan of care Greater than 50% of the session was spent on counseling and/or coordination of care
[2020-03-21] MEDS: QUEtiapine Fumarate 50 MG TABLET PO (02:52)
[2020-03-21 06:48] LABS: Glucose, Whole Blood 149 mg/dL (60-115)
[2020-03-21] MEDS: metFORMIN HCl 1,000 MG TABLET 1000 MG PO ×2 (08:28→16:35)
[2020-03-21] MEDS: Lithium Carbonate ER 300 MG TABLET.ER PO ×2 (08:29→21:51)
[2020-03-21] MEDS: Diclofenac Sodium Delayed Rel 50 MG TABLET.DR PO ×2 (08:29→21:51)
[2020-03-21] MEDS: Nicotine 21 MG PATCH.TD24 TRANSDERMA (08:29)
[2020-03-21] MEDS: Docusate Sodium 100 MG CAPSULE 200 MG PO ×2 (08:29→21:51)
[2020-03-21 08:35] LABS: Lithium 0.38 mmol/L (0.60-1.20)
[2020-03-21 08:43] VITALS: BP 96/53; PULSE 74; RESP 16; TEMP 36.4; O2SAT 95
[2020-03-21 08:47] LABS: Valproate 71.5 mcg/mL (50.0-100.0)
[2020-03-21 09:02] LABS: TSH reflex Free T4 4.62 mIU/mL (0.32-4.0)
[2020-03-21 09:44] LABS: Free T4 (Free Thyroxine) 0.82 ng/dL (0.71-1.85)
[2020-03-21] MEDS: Divalproex Sodium ER 500 MG TAB.ER.24H 1500 MG PO (16:35)
[2020-03-21 18:00] VITALS: RESP 16
[2020-03-21] MEDS: hydrOXYzine HCL 25 MG TABLET PO (21:51)
[2020-03-21] MEDS: Zolpidem Tartrate 5 MG TABLET PO (21:51)
[2020-03-21] MEDS: Naltrexone HCl 50 MG TABLET PO (21:51)
[2020-03-21] MEDS: LORazepam 1 MG TABLET PO (21:51)
[2020-03-21] MEDS: QUEtiapine Fumarate 100 MG TABLET PO (21:52)
--- NOTE | 2020-03-21 22:58 | P.PNPSI_ITS ---
Subjective Subjective Date of Service: 03/21/20 Reason For Visit: intentional overdose Diagnostics Vital Signs (24Hr): Vital Signs - 24 hr 03/21/20 08:43 03/21/20 18:00 Temperature 97.5 F Pulse Rate 74 Respiratory Rate 16 16 Blood Pressure 96/53 L Pulse Oximetry 95 Body Mass Index 0.1 Labs Results: 03/16/20 07:49 03/16/20 07:49 Labs: Laboratory Results - last 48 hr 03/21/20 03/21/20 03/21/20 06:45 07:49 07:50 POC Glucose 149 H TSH 4.62 H Free T4 0.82 Valproic Acid 71.5 [place] 0.38 L Medications Medications Current Medications Generic Name Dose Route Start Last Admin Trade Name Freq PRN Reason Stop Dose Admin Acetaminophen 650 mg 03/14/20 12:48 Acetaminophen 325 Mg Tablet PO Q6H PRN Pain, Mild (Pain Scale 1-3) Al Hydroxide/Mg Hydroxide 30 ml 03/14/20 12:48 Magnesium Hydrox/Alum Hydrox 30 Ml Oral.Susp PO Q6H PRN Heartburn/Nausea Cyanocobalamin 1,000 mcg 03/18/20 09:00 03/18/20 10:02 Cyanocobalamin (Vitamin B-12) 1,000 Mcg/Ml Vial IM 04/08/20 09:01 1,000 mcg Q7D ABDULKADIR Administration Cyclobenzaprine HCl 10 mg 03/14/20 12:48 03/18/20 22:50 Cyclobenzaprine Hcl 10 Mg Tablet PO 10 mg BID PRN Administration Spasms Diclofenac Sodium 50 mg 03/15/20 15:00 03/21/20 21:51 Diclofenac Sodium Delayed Rel 50 Mg Tablet.Dr PO 50 mg BID ABDULKADIR Administration Divalproex Sodium 1,500 mg 03/16/20 17:00 03/21/20 16:35 Divalproex Sodium Er 500 Mg Tab.Er.24h PO 1,500 mg DAILY@1700 ABDULKADIR Administration Docusate Sodium 200 mg 03/19/20 21:00 03/21/20 21:51 Docusate Sodium 100 Mg Capsule PO 200 mg BID ABDULKADIR Administration Hydroxyzine HCl 50 mg 03/14/20 12:48 03/16/20 21:52 Hydroxyzine Hcl 25 Mg Tablet PO 50 mg BEDTIME PRN Administration Insomnia Hydroxyzine HCl 25 mg 03/20/20 21:00 03/21/20 21:51 Hydroxyzine Hcl 25 Mg Tablet PO 25 mg BEDTIME ABDULKADIR Administration [place] Carbonate 300 mg 03/17/20 09:00 03/21/20 21:51 [place] Carbonate Er 300 Mg Tablet.Er PO 300 mg BID ABDULKADIR Administration Lorazepam 1 mg 03/20/20 21:00 03/21/20 21:51 Lorazepam 1 Mg Tablet PO 1 mg BEDTIME ABDULKADIR Administration Magnesium Hydroxide 30 ml 03/14/20 12:48 03/18/20 21:21 Milk Of Magnesia 30 Ml Oral.Susp PO 30 ml DAILY PRN Administration Constipation Metformin HCl 1,000 mg 03/14/20 17:00 03/21/20 16:35 Metformin Hcl 1,000 Mg Tablet PO 1,000 mg BIDWM ABDULKADIR Administration Naltrexone HCl 50 mg 03/14/20 21:00 03/21/20 21:51 Naltrexone Hcl 50 Mg Tablet PO 50 mg BEDTIME ABDULKADIR Administration Nicotine 21 mg 03/15/20 09:00 03/21/20 08:29 Nicotine 21 Mg Patch.Td24 TRANSDERMA 21 mg DAILY ABDULKADIR Administration Nicotine Polacrilex 2 mg 03/14/20 12:48 Nicotine Polacrilex 2 Mg Gum BUCCAL Q2H PRN Nicotine Cravings Quetiapine Fumarate 50 mg 03/15/20 23:25 03/21/20 02:52 Quetiapine Fumarate 50 Mg Tablet PO 50 mg Q2H PRN Administration anxiety/restlessness Quetiapine Fumarate 100 mg 03/20/20 21:00 03/21/20 21:52 Quetiapine Fumarate 100 Mg Tablet PO 100 mg BEDTIME ABDULKADIR Administration Zolpidem Tartrate 5 mg 03/20/20 21:00 03/21/20 21:51 Zolpidem Tartrate 5 Mg Tablet PO 5 mg BEDTIME ABDULKADIR Administration Allergies Allergies Allergy/AdvReac Type Severity Reaction Status Date / Time No Known Allergies Allergy Verified 03/10/20 19:00 Assessment & Plan Assessment & Plan (1) Bipolar disorder: Status: Acute Code(s): F31.9 - Bipolar disorder, unspecified Assessment and Plan: continue Seroquel and Depakote and lithium (2) Diabetes mellitus, type 2: Status: Acute Code(s): E11.9 - Type 2 diabetes mellitus without complications (3) Suicide attempt by multiple drug overdose: Status: Acute Code(s): T50.912A - Poisoning by multiple unspecified drugs, medicaments and biological substances, intentional self-harm, initial encounter Greater than 50% of the session was spent on counseling and/or coordination of care
[2020-03-21] MEDS: QUEtiapine Fumarate 50 MG TABLET 100 MG PO (23:01)
[2020-03-22] MEDS: hydrOXYzine HCL 25 MG TABLET 50 MG PO (02:30)
[2020-03-22] MEDS: QUEtiapine Fumarate 50 MG TABLET PO ×4 (02:30→22:37)
[2020-03-22 06:15] VITALS: BP 127/59; PULSE 67; RESP 16; TEMP 36.4; O2SAT 97
[2020-03-22 06:46] LABS: Glucose, Whole Blood 198 mg/dL (60-115)
[2020-03-22] MEDS: Diclofenac Sodium Delayed Rel 50 MG TABLET.DR PO ×2 (09:08→21:07)
[2020-03-22] MEDS: Docusate Sodium 100 MG CAPSULE 200 MG PO ×2 (09:08→21:06)
[2020-03-22] MEDS: metFORMIN HCl 1,000 MG TABLET 1000 MG PO ×2 (09:08→17:00)
[2020-03-22] MEDS: Lithium Carbonate ER 300 MG TABLET.ER PO ×2 (09:08→21:06)
[2020-03-22] MEDS: Nicotine 21 MG PATCH.TD24 TRANSDERMA (09:10)
--- NOTE | 2020-03-22 12:56 | HO.PSYCHPN ---
Subjective Subjective Date of Service: 03/23/20 Reason For Visit: intentional overdose Subjective Notes: Conditional Voluntary Interim History: Pt feeling somewhat better slept better more stable denies si Medication Compliance: Yes Side effects from medications: No Attending Groups: No Review of Systems Comments: dry mouth Cardiovascular: Reports no additional cardiovascular complaints Respiratory: Reports no additional respiratory complaints Musculoskeletal: Reports arthralgias, Reports limited range of motion, Reports muscle cramps and Reports stiffness Mental Status Exam Mental Status Exam Narrative: patient has chronic intermittent thoughts of self-harm he is at present future oriented feels safe for discharge tomorrow encourage lockbox Patient Orientation: Person, Place, Time and Situation Level of Consciousness: Awake Patient Behavior: Appropriate Mood Description: Anxious Affect Description: Anxious, Labile and Expansive Ability to Follow Directions: Good Thought Content: positive for Intact Depressive Symptoms: Increased Anxiety, Insomnia and Increased Irritability Diagnostics Vital Signs (24Hr): Vital Signs - 24 hr 03/21/20 18:00 03/22/20 06:15 Temperature 97.6 F Pulse Rate 67 Respiratory Rate 16 16 Blood Pressure 127/59 L Pulse Oximetry 97 Body Mass Index 0.1 Labs Results: 03/23/20 07:58 Labs: Laboratory Results - last 48 hr 03/21/20 03/21/20 03/21/20 06:45 07:49 07:50 POC Glucose 149 H TSH 4.62 H Free T4 0.82 Valproic Acid 71.5 [place] 0.38 L 03/22/20 06:34 POC Glucose 198 H TSH Free T4 Valproic Acid Noroton Medications Medications Current Medications Generic Name Dose Route Start Last Admin Trade Name Freq PRN Reason Stop Dose Admin Acetaminophen 650 mg 03/14/20 12:48 Acetaminophen 325 Mg Tablet PO Q6H PRN Pain, Mild (Pain Scale 1-3) Al Hydroxide/Mg Hydroxide 30 ml 03/14/20 12:48 Magnesium Hydrox/Alum Hydrox 30 Ml Oral.Susp PO Q6H PRN Heartburn/Nausea Cyanocobalamin 1,000 mcg 03/18/20 09:00 03/18/20 10:02 Cyanocobalamin (Vitamin B-12) 1,000 Mcg/Ml Vial IM 04/08/20 09:01 1,000 mcg Q7D ABDULKADIR Administration Cyclobenzaprine HCl 10 mg 03/14/20 12:48 03/18/20 22:50 Cyclobenzaprine Hcl 10 Mg Tablet PO 10 mg BID PRN Administration Spasms Diclofenac Sodium 50 mg 03/15/20 15:00 03/22/20 09:08 Diclofenac Sodium Delayed Rel 50 Mg Tablet.Dr PO 50 mg BID ABDULKADIR Administration Divalproex Sodium 1,500 mg 03/16/20 17:00 03/21/20 16:35 Divalproex Sodium Er 500 Mg Tab.Er.24h PO 1,500 mg DAILY@1700 ABDULKADIR Administration Docusate Sodium 200 mg 03/19/20 21:00 03/22/20 09:08 Docusate Sodium 100 Mg Capsule PO 200 mg BID ABDULKADIR Administration Hydroxyzine HCl 50 mg 03/14/20 12:48 03/22/20 02:30 Hydroxyzine Hcl 25 Mg Tablet PO 50 mg BEDTIME PRN Administration Insomnia Hydroxyzine HCl 25 mg 03/20/20 21:00 03/21/20 21:51 Hydroxyzine Hcl 25 Mg Tablet PO 25 mg BEDTIME ABDULKADIR Administration Noroton Carbonate 300 mg 03/17/20 09:00 03/22/20 09:08 Noroton Carbonate Er 300 Mg Tablet.Er PO 300 mg BID ABDULKADIR Administration Lorazepam 1 mg 03/20/20 21:00 03/21/20 21:51 Lorazepam 1 Mg Tablet PO 1 mg BEDTIME ABDULKADIR Administration Magnesium Hydroxide 30 ml 03/14/20 12:48 03/18/20 21:21 Milk Of Magnesia 30 Ml Oral.Susp PO 30 ml DAILY PRN Administration Constipation Metformin HCl 1,000 mg 03/14/20 17:00 03/22/20 09:08 Metformin Hcl 1,000 Mg Tablet PO 1,000 mg BIDWM ABDULKADIR Administration Naltrexone HCl 50 mg 03/14/20 21:00 03/21/20 21:51 Naltrexone Hcl 50 Mg Tablet PO 50 mg BEDTIME ABDULKADIR Administration Nicotine 21 mg 03/15/20 09:00 03/22/20 09:10 Nicotine 21 Mg Patch.Td24 TRANSDERMA 21 mg DAILY ABDULKADIR Administration Nicotine Polacrilex 2 mg 03/14/20 12:48 Nicotine Polacrilex 2 Mg Gum BUCCAL Q2H PRN Nicotine Cravings Quetiapine Fumarate 50 mg 03/15/20 23:25 03/22/20 10:00 Quetiapine Fumarate 50 Mg Tablet PO 50 mg Q2H PRN Administration anxiety/restlessness Quetiapine Fumarate 100 mg 03/20/20 21:00 03/21/20 21:52 Quetiapine Fumarate 100 Mg Tablet PO 100 mg BEDTIME ABDULKADIR Administration Zolpidem Tartrate 5 mg 03/20/20 21:00 03/21/20 21:51 Zolpidem Tartrate 5 Mg Tablet PO 5 mg BEDTIME ABDULKADIR Administration Allergies Allergies Allergy/AdvReac Type Severity Reaction Status Date / Time No Known Allergies Allergy Verified 03/10/20 19:00 Assessment & Plan Assessment & Plan (1) Suicide attempt by multiple drug overdose: Status: Acute Code(s): T50.912A - Poisoning by multiple unspecified drugs, medicaments and biological substances, intentional self-harm, initial encounter (2) Bipolar 2 disorder, major depressive episode: Status: Acute Code(s): F31.81 - Bipolar II disorder Assessment and Plan: patient state safe for discharge tomorrow feeling better on lithium Depakote Seroquel at bedtime antidepressants may have induced cycling Greater than 50% of the session was spent on counseling and/or coordination of care
[2020-03-22] MEDS: Divalproex Sodium ER 500 MG TAB.ER.24H 1500 MG PO (17:00)
[2020-03-22 18:00] VITALS: RESP 18
[2020-03-22] MEDS: Naltrexone HCl 50 MG TABLET PO (21:06)
[2020-03-22] MEDS: Zolpidem Tartrate 5 MG TABLET PO ×3 (21:06→22:37)
[2020-03-22] MEDS: QUEtiapine Fumarate 50 MG TABLET 200 MG PO (21:06)
[2020-03-22] MEDS: hydrOXYzine HCL 25 MG TABLET PO (21:06)
[2020-03-22] MEDS: LORazepam 1 MG TABLET PO (21:07)
[2020-03-23] MEDS: QUEtiapine Fumarate 50 MG TABLET PO (01:39)
[2020-03-23] MEDS: hydrOXYzine HCL 25 MG TABLET 50 MG PO (01:39)
[2020-03-23 05:35] VITALS: BP 113/67; PULSE 81; RESP 18; TEMP 36.3; O2SAT 96
[2020-03-23 05:37] LABS: Glucose, Whole Blood 194 mg/dL (60-115)
[2020-03-23 08:51] LABS: Creatinine Clr Calc Pharmacy 139.9; Estimated Glomerular Filt Rate > 60
[2020-03-23] MEDS: Diclofenac Sodium Delayed Rel 50 MG TABLET.DR PO (09:03)
[2020-03-23] MEDS: Nicotine 21 MG PATCH.TD24 TRANSDERMA (09:03)
[2020-03-23] MEDS: metFORMIN HCl 1,000 MG TABLET 1000 MG PO (09:03)
[2020-03-23] MEDS: Lithium Carbonate ER 300 MG TABLET.ER PO (09:03)
[2020-03-23] MEDS: Docusate Sodium 100 MG CAPSULE 200 MG PO (09:03)
--- NOTE | 2020-03-23 16:35 | PM.PSYDC ---
DS: Providers Provider Date of admission: 03/14/20 12:03 Primary care physician: Unknown Physician DS: Diagnosis Discharge Diagnosis (1) Suicide attempt by multiple drug overdose: Status: Acute (2) Bipolar 2 disorder, major depressive episode: Status: Acute DS: Medications Discharge Medications Home Medications: Home Medications Medication Instructions Recorded Confirmed metformin 1,000 mg PO BID 12/24/19 03/11/20 diclofenac potassium 1 tab PO TID 03/10/20 03/10/20 cyclobenzaprine 10 mg PO BID PRN 03/11/20 03/11/20 Previous Rx's Medication Instructions Recorded nicotine (polacrilex) 2 mg BUCCAL Q2H PRN #90 ea 01/09/20 divalproex 1,500 mg PO DAILY@1700 #0 tab 03/23/20 docusate sodium 200 mg PO BID #0 cap 03/23/20 hydroxyzine HCl 50 mg PO BEDTIME PRN 10 Days #20 03/23/20 tab lithium carbonate 300 mg PO BID #30 tab 03/23/20 lorazepam 1 mg PO BEDTIME #10 tab 03/23/20 naltrexone 50 mg PO DAILY #30 tab 03/23/20 quetiapine 200 mg PO BEDTIME #15 tab 03/23/20 zolpidem 12.5 mg PO BEDTIME #10 tab 03/23/20 Discharge Plan Discharge Patient Disposition: Home, Self-Care Referrals: KEVIN SINGH [Other] - 06/02/20 8:00 am (OFFICE VISIT) NERISSA DRIVER [Other] - 03/29/20 9:45 am (TELEHEALTH) Merline Roper MD [Physician] - 03/31/20 10:45 am (via tele-ealth via deneen) Kevin Singh APRN [Advanced Practice Nurse] - 03/30/20 9:45 am (telehealth) Discharge Medications: New lithium carbonate 300 mg Tablet Extended Release 300 mg PO BID Qty: 30 RF: 0 lorazepam 1 mg Tablet 1 mg PO BEDTIME Qty: 10 RF: 0 quetiapine 200 mg tablet 200 mg PO BEDTIME Qty: 15 RF: 0 zolpidem 12.5 mg tablet,ext release multiphase 12.5 mg PO BEDTIME Qty: 10 RF: 0 Continued metformin 1,000 mg tablet 1,000 mg PO BID RF: 0 nicotine (polacrilex) 2 mg Gum 2 mg buccal Q2H PRN (Reason: Nicotine Cravings) Qty: 90 RF: 0 hydroxyzine HCl 25 mg Tablet 50 mg PO BEDTIME PRN (Reason: Insomnia) 10 Days Qty: 20 RF: 0 diclofenac potassium 50 mg tablet 1 tab PO TID RF: 0 cyclobenzaprine 10 mg Tablet 10 mg PO BID PRN (Reason: Spasms) RF: 0 Changed naltrexone 50 mg tablet 50 mg PO DAILY Qty: 30 RF: 0 divalproex 500 mg Tablet Extended Release 24 Hr 1,500 mg PO DAILY@1700 Qty: 0 RF: 0 docusate sodium 100 mg Capsule 200 mg PO BID Qty: 0 RF: 0 Discontinued duloxetine 30 mg Capsule,Delayed Release(Dr/Ec) 60 mg PO BEDTIME 30 Days Qty: 60 RF: 0 zolpidem 5 mg Tablet 5 mg PO BEDTIME RF: 0 Discharge Orders: Discharge Order (Routine); Ordered 03/23/20 Ordered By: Jeb Rai Diet: diabetic diet Activity on Discharge: As tolerated Patient Instructions: [place] (By mouth), Quetiapine (By mouth), Bipolar Disorder (DC), Depression (DC), Help Prevent Suicide (DC) Stand Alone Forms: Community Support Discharge Date/Time: 03/23/20 14:27 Other Ambulatory Orders: MR head/brain wo con (Routine) Timeframe: 1 Week Facility: [facility] - Location: MRI Ordered By: Jeb Rai Comprehensive Scalf. Panel Fast (Routine) Timeframe: 1 Week Facility: [facility] - Location: Laboratory Ordered By: Jeb Rai Quinhagak (Routine) Timeframe: 1 Week Facility: [facility] - Location: Laboratory Ordered By: Jeb Rai Valproate (Routine) Timeframe: 1 Week Facility: [facility] - Location: Laboratory Ordered By: Jeb Rai Visit Report Forms: Patient Portal Discharge page Care Plan Goals: stable mood no self-harm improved coping strategies to deal with stress compliance with medication and therapy Health Concerns: bipolar 2 disorder marked by periods of elevated mood states impulsivity and periods of depression [id number] diabetes status post drug overdose chronic back pain history of head injury Plan of Treatment: please continue lithium Depakote Seroquel I have ordered blood levels to be done in 1 week when you get the blood levels do not take the lithium that morning until you get the blood work please be seen in therapy regularly you would benefit from learning and practicing coping strategies relaxation strategies. [place] has a strong affect on impulsivity and suicidality ple regularly a can affect the thyroid and kidney nonsteroidal anti-inflammatories can raise lithium levels this needs to be monitored. Mental Status Exam Mental Status Exam Narrative: the patient was come future oriented cooperative time of discharge. He was adamant about not having his sister manage his medication as thing that she have the over controlling. He stated he felt safe had been able to take in information regarding medication group including the use of lithium and naltrexone which was new. No psychotic symptoms mood mildly reactive generally come future oriented good one-to-one somewhat of with above is improved agreeable to aftercare. Also discussed possibility of aa patient with future oriented felt foolish about what he had done prior to hospitalization with she be noted that he was being taken to the hospital saying time that he make impulsive overdose Patient Appearance: Appropriate Patient Orientation: Person, Place, Time and Situation Level of Consciousness: Awake and Appropriate Patient Behavior: Appropriate Data Data Completed and Pending Completed studies during hospitalization [Text1]: 03/21/20 03/21/20 03/21/20 06:45 07:49 07:50 Creatinine Estim Creat Clear Calc Estimated GFR POC Glucose 149 H TSH 4.62 H Free T4 0.82 Valproic Acid 71.5 [place] 0.38 L 03/22/20 03/23/20 03/23/20 06:34 05:33 07:58 Creatinine 1.03 Estim Creat Clear Calc 139.9 Estimated GFR > 60 POC Glucose 198 H 194 H TSH Free T4 Valproic Acid [place] DS: Summary Hospital Course Hospital Course: Chief Complaint: intentional overdose Sources of Information: patient interviewed, chart reviewed and crisis/core team assessment reviewed Additional Sources of Information: doc to doc completed prior to transfer HPI Narrative: pt admitted to [facility] on CV from [facility] medical unit where he was treated due to intentional overdose on 01/08 on metformin and alcohol. He had acute kidney injury post OD which has resolved; He reports he has been very depressed and isolating at home; He has been feeling lonely and impulsively took a handful of meds while intoxicated; He called 911 because he knew he needed help Past Psychiatric History: Patient was treated on M5 in December 2019. He is in outpt treatment with [facility]. He has histroy of inpatient detoxes and treatments although he was vague about when. He is somewhat disorganized and vague historian he states he had psychiatric treatment in the 1980s in this area perhaps at [facility] history of multiple suicide attempts history of clara and agitation history of depressive episode. Per record his sister reported several weeks of paranoid ideas and bizarre behaviors prior to admit. Medical Evaluation Reviewed: Yes also doc to doc completed verbally with Dr Soliman [facility] course: 1. Suicide attempt--Crisis recommend inpatient Psych 2. KO--pre renal and NSAID use--has resolved with IVF 3. Metformin overdose--No sequela of Hypoglycemia 4. Diabetes--restart Metformin 5. Lactic acidosis--from metformin, resolved. [facility] Medical History Bipolar disorder Depression Diabetes mellitus, type 2 Suicidal ideation Narrative: acute kidney injury s/p overdose-resolved BAL in ED 03/10 240 Family History: Family history of suicide and substance abuse Social History: the patient was born and raised in [facility] he has a brother and a sister his parents are . He is not does not have any children. In the past he lived in [place] and in [place]. He moved back to to [facility] from [place] has been living with his sister. He is on security disability. Substance History: long history of ETOH use, vague about opiate use Trauma History: NA hospital course the patient was transferred from the medical floor the patient adamantly denied that he was feeling suicidal but described a low frustration tolerance and intermittent thoughts of impulsive suicide although contrary to his 1st admission a couple of months ago he denies feeling depressed an ongoing way prior to admission. Reportedly he had not been seeing his therapist or psychiatrist on a regular basis. The patient denies that he had been drinking. Described periods of agitation irritability racing thoughts and impulsivity. He does describe periods of hypomania with racing thoughts decreased need for sleep and impulsivity. It was unclear to him if he felt worse on antidepressants and his longer-term memory was impaired regarding this. The patient was taper down on Cymbalta and because this may have contributed to cycling and impulsivity was discontinued. The patient's kidney function normalized and he was started on lithium for bipolar disorder trying to target a lower dose of and targeting impulsivity and impulsive suicidality. Literature was reviewed with the patient. He was continued on Depakote. Had some periods of irritability but he did not seem depressed in ongoing way he did have a low frustration tolerance and was discussed with him that some of this could relate to prior head injuries that he had had when he was younger and also the patient does describe a history when he was younger consistent with ADD and perhaps ADD related impulsivity anxiety and reactivity. The patient was eventually stabilized on a combination Seroquel Depakote and lithium. We also agreed to naltrexone in relation to he his alcohol use the patient did limited contact with his sister which I did strongly urged him to allow to get collateral information. Also recommended he more intense outpatient treatment such as that [facility] she patient also refused consideration of saying he had had extensive treatment [place] but was agreeable to a therapist and psychiatrist. Strongly urged to focus on coping strategies to deal with his impulsivity reactivity. Current consideration could be given to [facility] as a outpatient. The patient was sleeping well mood generally stable he oriented no psychotic symptoms at the time of discharge March 23 it appointment scheduled for therapy and psychiatric follow-up with Kevin Singh nurse practitioner the patient tends not to reach out seek help and would strongly urge regular therapy and psychiatric follow-up he was stable future oriented not psychotic time discharge no self-harming thoughts Time Spent with Patient Time attestation: Total time spent providing and/or coordinating discharge services:
== END 2020-03-23 14:27 | disposition home or self-care (01) | DRG 753 ==
PROVIDERS: Admitting Provider Psychiatry & Neurology Psychiatry; Visit Provider Psychiatry & Neurology Psychiatry
DX: F31.81 Bipolar II disorder (principal); R45.851 Suicidal ideations; E11.9 Type 2 diabetes mellitus without complications; Z91.5 Personal history of self-harm; Z79.84 Long term (current) use of oral hypoglycemic drugs; Z87.891 Personal history of nicotine dependence; Z79.899 Other long term (current) drug therapy
CPT/HCPCS: 80053; 80061; 80164; 80178; 82565; 82607; 82746; 82947; 84439; 84443; 90792; 99232; 99239

== ENCOUNTER 2020-04-17 17:58 | Inpatient (IN) | payer OTHER, SELFPAY ==
[2020-04-17 18:41] VITALS: BP 134/79; PULSE 82; RESP 15; TEMP 36.8; O2SAT 94; BMI 35.6
--- NOTE | 2020-04-17 18:47 | ED.PSYCH ---
HPI - Psych General Chief Complaint: Psychiatric Symptoms Stated Complaint: PSYCH EVAL Source: patient Mode of arrival: ambulatory Limitations: no limitations History of Present Illness HPI Narrative: 55-year-old male past medical history of TBI, diabetes type 2, bipolar 2 disorder with major depressive disorder presents to the emergency department for clara, visual hallucinations, and anxiety. Has been living with his sister, he states that he has been moving furniture around and carrying around forks. He states that he got into an argument with his sister about his odd behavior. Patient does not report suicidal or homicidal ideations at this time. He denies chest pain or pressure, palpitations, shortness abdominal pain, abdominal distention, dysuria, hematuria, and edema. MD complaint: anxiety and hallucinations Onset (ago): unknown Duration: constant History of same: Yes Associated psychiatric symptoms: depression and visual hallucinations Associated symptoms: denies other symptoms Treatments prior to arrival: none Related Data Home Medications Medication Instructions Recorded Confirmed metformin 1,000 mg PO BID 12/24/19 03/11/20 diclofenac potassium 1 tab PO TID 03/10/20 03/10/20 cyclobenzaprine 10 mg PO BID PRN 03/11/20 03/11/20 Previous Rx's Medication Instructions Recorded nicotine (polacrilex) 2 mg BUCCAL Q2H PRN #90 ea 01/09/20 divalproex 1,500 mg PO DAILY@1700 #0 tab 03/23/20 docusate sodium 200 mg PO BID #0 cap 03/23/20 hydroxyzine HCl 50 mg PO BEDTIME PRN 10 Days #20 03/23/20 tab lithium carbonate 300 mg PO BID #30 tab 03/23/20 lorazepam 1 mg PO BEDTIME #10 tab 03/23/20 naltrexone 50 mg PO DAILY #30 tab 03/23/20 quetiapine 200 mg PO BEDTIME #15 tab 03/23/20 zolpidem 12.5 mg PO BEDTIME #10 tab 03/23/20 Allergies Allergy/AdvReac Type Severity Reaction Status Date / Time No Known Allergies Allergy Verified 03/10/20 19:00 Review of Systems Review of Systems: Constitutional: No Fever, No Chills ENT/Mouth: No Ear Pain, No Nasal Congestion, No sore throat Eyes: No Eye Pain, No Swelling, No Redness Cardiovascular: No Chest Pain, No SOB Respiratory: No Cough, No Sputum, No Dyspnea Gastrointestinal: No Nausea, No Vomiting, No Diarrhea, No Hematochezia, No Melena Genitourinary: No Dysuria, No Urinary Frequency, No Hematuria Musculoskeletal: No Myalgias Skin: No Skin Lesions, No rash Neuro: No Weakness, No Numbness, No Paresthesias, No Dizziness, No Headache Psych: positive Anxiety, positive Depression, positive manic behavior, positive visual hallucinations, no SI/HI Heme/Lymph: No Lymphadenopathy Endocrine: No Polyuria, No Polydipsia Yes all other systems are reviewed and are negative [facility], [facility] Past Medical History Attestation statement: The following information was validated with the patient. Medical History Bipolar 2 disorder, major depressive episode Bipolar disorder Depression Diabetes mellitus, type 2 Suicidal ideation Social History Social History Household Members: Other Housing: House Alcohol intake: unknown Smoking Status: Former smoker Tobacco Type: Cigarette Years Smoked: 25 Second Hand Smoke Exposure: No Use of substances other than those prescribed or required for medical reasons: Unknown Substance Use Type: Marijuana Advance Directives: No Advance Directives Information Provided: Yes service: No Current occupational status: unemployed Sexual orientation: Straight/Heterosexual Physical Exam Vital Signs: Vital Signs: Last Vital Signs Temp 97.9 F 04/18/20 00:00 Pulse 74 04/18/20 00:00 Resp 18 04/18/20 00:00 BP 158/89 H 04/18/20 00:00 Pulse Ox 97 04/18/20 00:00 Body Mass Index 35.6 Appearance: Alert. Oriented X3. No acute physical distress. Eyes: Pupils equal, round and reactive to light. ENT: Pharynx normal. Neck: Normal inspection. Neck supple. CVS: Normal heart rate and rhythm. Pulses normal. Respiratory: No respiratory distress. Breath sounds normal. Abdomen: Soft, obese and nontender to palpation. Skin: Skin warm and dry. Normal skin color. Normal skin turgor. Extremities: No lower extremity edema. Neuro: No motor deficit. No sensory deficit. Course Course Course Narrative: 55-year-old male presents to the emergency department for psychiatric evaluation. He has been living with his sister, sister packed his bags and told him that they were going away for the weekend and she presented him to the emergency department. He reports that he has been moving furniture around, has been walking around with multiple forks, and has been having visual hallucinations. At this time he is declining lab and urinalysis. States that he likes ?being an asshole?. Section [address], N consult pending. Care team assessment completed at 10:30 p.m.. Plan of care is to Section 12 and bed search. Patient agrees to lab values, order CBC, Chem 7, valproic acid and lithium level. Patient does not know if he takes lithium on a daily basis, pharmacy is able to complete med reconciliation until 1:30 a.m. due to system shutdown. RN will call however at this time we will replete with 1500 mg of Depakote, which is his daily dosage. He does not recall taking his medications today. Sign-out to Dr. Linn. MDM - Psych Differential Diagnosis Differential diagnosis: Likely acute psychosis, bipolar disorder, acute anxiety and mood disorder Restraints Face to Face Assessment: Face to Face Assessment: Current Situation: After assessment of the patient, a review of the pertinent medical record and a discussion with nursing staff, I feel the patient requires a restrain intervention. Reaction To: [] Medical Condition: [] Behavioral State: [] Continued Need: [] Medical Records Attestation: I reviewed the patient's medical records. Lab Data Attestation: I reviewed the patient's lab results. Result diagrams: 04/18/20 00:10 04/18/20 00:10 Labs: Lab Results 04/17/20 04/17/20 04/17/20 Range/Units 22:15 22:15 22:18 WBC (4.8-10.8) X10*3/uL RBC (4.60-5.80) X10*6/uL Hgb (14.0-18.0) g/dl Hct (42-52) % MCV (80-98) fL MCH (27.0-33.0) pg MCHC (31.0-36.0) g/dl RDW (11.0-16.0) % Plt Count (160-400) X10*3/uL MPV (9.4-12.4) fL Immature Gran % (Auto) (0.0-0.4) % Neut % (Auto) (45-73) % Lymph % (Auto) (20-40) % Tyrrell % (Auto) (2-11) % Eos % (Auto) (0-4) % Baso % (Auto) (0-2) % Lymph # (Auto) (1.2-4.9) X10*3/uL Tyrrell # (Auto) (0.1-1.2) X10*3/uL Eos # (Auto) (0.0-0.4) X10*3/uL Baso # (Auto) (0.0-0.2) X10*3/uL Abs Immat Gran (auto) (0.00-0.03) X10*3/uL Absolute Neuts (auto) (2.0-8.3) X10*3/uL Absolute Nucleated RBC (0.0-0.012) X10*3/uL Nucleated RBC % (auto) (0.0-0.2) /100WBC Smear Tech's Comments Sodium (135-145) mmol/L Potassium (3.3-5.1) mmol/l Chloride (96-108) mmol/L Carbon Dioxide (22-29) mmol/L Anion Gap (12-20) BUN (9-16) mg/dL Creatinine (0.5-1.4) mg/dL Estim Creat Clear Calc Estimated GFR Random Glucose (60-115) mg/dL Calcium (8.4-10.2) mg/dL Urine Color YELLOW Urine Appearance CLEAR Urine pH 5.5 (5.0-8.0) Ur Specific Sullivan >= 1.030 H (1.005-1.025) Urine Protein NEG (NEG-TRACE) MG/DL Urine Glucose (UA) >=1000 H (NEG) MG/DL Urine Ketones NEG (NEG) MG/DL Urine Blood NEG (NEG) Urine Nitrite NEG (NEG) Ur Leukocyte Esterase NEG (NEG) Urine RBC 0-2 (0) /HPF Urine WBC 0-2 (0-4) /HPF Ur Squamous Epith Cells TRACE /LPF Urine Bacteria TRACE /LPF Urine Opiates Screen Not Detected (Not Detect) Ur Barbiturates Screen Not Detected (Not Detect) Valproic Acid (50.0-100.0) mcg/mL Ur Phencyclidine Scrn Not Detected (Not Detect) Ur Amphetamines Screen Not Detected (Not Detect) U Benzodiazepines Scrn POSITIVE H (Not Detect) Jeffers (0.60-1.20) mmol/L Urine Cocaine Screen Not Detected (Not Detect) U Marijuana (THC) Screen Not Detected (Not Detect) COVID-19 (GIBSON) Negative (Negative) COVID-19 Clin Com See Note 04/18/20 04/18/20 04/18/20 Range/Units 00:10 00:10 00:11 WBC 5.0 (4.8-10.8) X10*3/uL RBC 4.33 L (4.60-5.80) X10*6/uL Hgb 13.3 L (14.0-18.0) g/dl Hct 37.8 L (42-52) % MCV 87.3 (80-98) fL MCH 30.7 (27.0-33.0) pg MCHC 35.2 (31.0-36.0) g/dl RDW 13.2 (11.0-16.0) % Plt Count 94 L D (160-400) X10*3/uL MPV 10.2 (9.4-12.4) fL Immature Gran % (Auto) 0.4 (0.0-0.4) % Neut % (Auto) 45.7 (45-73) % Lymph % (Auto) 39.2 (20-40) % Tyrrell % (Auto) 12.7 H (2-11) % Eos % (Auto) 1.6 (0-4) % Baso % (Auto) 0.4 (0-2) % Lymph # (Auto) 2.0 (1.2-4.9) X10*3/uL Tyrrell # (Auto) 0.6 (0.1-1.2) X10*3/uL Eos # (Auto) 0.1 (0.0-0.4) X10*3/uL Baso # (Auto) 0.0 (0.0-0.2) X10*3/uL Abs Immat Gran (auto) 0.02 (0.00-0.03) X10*3/uL Absolute Neuts (auto) 2.3 (2.0-8.3) X10*3/uL Absolute Nucleated RBC 0.000 (0.0-0.012) X10*3/uL Nucleated RBC % (auto) 0.0 (0.0-0.2) /100WBC Smear Tech's Comments VERIFIED Sodium 138 (135-145) mmol/L Potassium 3.9 (3.3-5.1) mmol/l Chloride 100 (96-108) mmol/L Carbon Dioxide 26 (22-29) mmol/L Anion Gap 16 (12-20) BUN 16 (9-16) mg/dL Creatinine 1.00 (0.5-1.4) mg/dL Estim Creat Clear Calc 111.7 Estimated GFR > 60 Random Glucose 259 H D (60-115) mg/dL Calcium 8.4 (8.4-10.2) mg/dL Urine Color Urine Appearance Urine pH (5.0-8.0) Ur Specific Sullivan (1.005-1.025) Urine Protein (NEG-TRACE) MG/DL Urine Glucose (UA) (NEG) MG/DL Urine Ketones (NEG) MG/DL Urine Blood (NEG) Urine Nitrite (NEG) Ur Leukocyte Esterase (NEG) Urine RBC (0) /HPF Urine WBC (0-4) /HPF Ur Squamous Epith Cells /LPF Urine Bacteria /LPF Urine Opiates Screen (Not Detect) Ur Barbiturates Screen (Not Detect) Valproic Acid 34.7 L (50.0-100.0) mcg/mL Ur Phencyclidine Scrn (Not Detect) Ur Amphetamines Screen (Not Detect) U Benzodiazepines Scrn (Not Detect) Jeffers < 0.10 L (0.60-1.20) mmol/L Urine Cocaine Screen (Not Detect) U Marijuana (THC) Screen (Not Detect) COVID-19 ([facility]ON) (Negative) COVID-19 Clin Com Discharge Plan Discharge Clinical Impression: Bipolar 2 disorder, major depressive episode, Acute psychosis Prescriptions: No Action metformin 1,000 mg tablet 1,000 mg PO BID RF: 0 nicotine (polacrilex) 2 mg Gum 2 mg buccal Q2H PRN (Reason: Nicotine Cravings) Qty: 90 RF: 0 lithium carbonate 300 mg Tablet Extended Release 300 mg PO BID Qty: 30 RF: 0 lorazepam 1 mg Tablet 1 mg PO BEDTIME Qty: 10 RF: 0 quetiapine 200 mg tablet 200 mg PO BEDTIME Qty: 15 RF: 0 zolpidem 12.5 mg tablet,ext release multiphase 12.5 mg PO BEDTIME Qty: 10 RF: 0 naltrexone 50 mg tablet 50 mg PO DAILY Qty: 30 RF: 0 divalproex 500 mg Tablet Extended Release 24 Hr 1,500 mg PO DAILY@1700 Qty: 0 RF: 0 docusate sodium 100 mg Capsule 200 mg PO BID Qty: 0 RF: 0 hydroxyzine HCl 25 mg Tablet 50 mg PO BEDTIME PRN (Reason: Insomnia) 10 Days Qty: 20 RF: 0 diclofenac potassium 50 mg tablet 1 tab PO TID RF: 0 cyclobenzaprine 10 mg Tablet 10 mg PO BID PRN (Reason: Spasms) RF: 0
[2020-04-17 18:50] VITALS: BP 134/79; PULSE 82; RESP 15; TEMP 36.8; O2SAT 94
--- NOTE | 2020-04-17 19:15 | PC.NURSE ---
Report received. PT is eating his dinner in his room. Calm and cooperative. PT stated that he is angry with his sister for bringing him here without telling him.
--- NOTE | 2020-04-17 19:19 | PC.NURSE ---
[facility] faxed and called. [facility] did not indicate when the PT would be seen.
--- NOTE | 2020-04-17 19:51 | PC.NURSE ---
[facility] called to inform that this PT has private insurance. CARE team informed.
[2020-04-17 22:30] LABS: Glucose Urine UA >=1000 MG/DL (NEG); Leukocyte Esterase Urine NEG (NEG); Nitrite Urine NEG (NEG); PH 5.5 (5.0-8.0); Specific Gravity - Urine >= 1.030 (1.005-1.025); Urine Blood NEG (NEG); Urine Ketones NEG (NEG); Urine Protein NEG (NEG-TRACE)
[2020-04-17 22:34] LABS: Appearance Urine CLEAR; Color Urine YELLOW
--- NOTE | 2020-04-17 22:35 | MHC.CARE ---
Pt evaluated by CARE team with disposition for inpt psych placement.
[2020-04-17 22:36] LABS: Bacteria Urine TRACE /LPF; RBC Urine 0-2 /HPF (0); Squamous Epithelial Cell Urine TRACE /LPF; WBC Urine 0-2 /HPF (0-4)
[2020-04-17 22:41] LABS: IDNOW Serial# 9DD0AD1C
[2020-04-17 22:42] LABS: COVID-19 Test Negative (Negative)
--- NOTE | 2020-04-17 22:46 | PC.NURSE ---
Addendum entered by Jm Solano 04/17/20 22:50: This nurse called PT's pharmacy for med rec. [facility]'s pharmacy stated that their centralized system is down until 01:30 and could not access the PT's med list. Original Note: This nurse called PT's pharmacy for med rec. [facility]'s pharmacy stated that their centralized system is down until 01:30 and could not access the PT's med list.
[2020-04-17 22:53] LABS: Amphetamine Screen Urine Not Detected (Not Detect); Barbiturates, Urine Not Detected (Not Detect); Benzodiazepines Screen Urine POSITIVE (Not Detect); Cannabinoid Screen Urine Not Detected (Not Detect); Cocaine Screen Urine Not Detected (Not Detect); Opiate Screen Urine Not Detected (Not Detect); Phencyclidine Screen Urine Not Detected (Not Detect)
[2020-04-18] VITALS: BP 158/89; PULSE 74; RESP 17; RESP 18; TEMP 36.6; O2SAT 97
[2020-04-18 00:17] LABS: Basophils Percent Auto 0.4 % (0-2); Hemoglobin 13.3 g/dl (14.0-18.0); MANUAL DIFF FLAG SCAN; Mean Corpuscular Hemoglobin 30.7 pg (27.0-33.0); Monocytes Percent Auto 12.7 % (2-11); PLT CLUMP 1; Red Blood Count 4.33 X10*6/uL (4.60-5.80); SCAN SMEAR FLAG 1
[2020-04-18 00:18] LABS: Eosinophils Absolute Auto 0.1 X10*3/uL (0.0-0.4); Eosinophils Percent Auto 1.6 % (0-4); Hematocrit 37.8 % (42-52); Imm Gran Abs Auto 0.02 X10*3/uL (0.00-0.03); Imm Gran Pct Auto 0.4 % (0.0-0.4); Lymphocytes Percent Auto 39.2 % (20-40); Mean Corpuscular HGB Conc 35.2 g/dl (31.0-36.0); Mean Corpuscular Volume 87.3 fL (80-98); Mean Platelet Volume 10.2 fL (9.4-12.4); Monocytes Absolute Auto 0.6 X10*3/uL (0.1-1.2); Neutrophils Absolute Auto 2.3 X10*3/uL (2.0-8.3); Neutrophils Percent Auto 45.7 % (45-73); Red Cell Distribution Width 13.2 % (11.0-16.0)
[2020-04-18 00:23] LABS: Platelet Count 94 X10*3/uL (160-400)
[2020-04-18 00:37] LABS: Lithium < 0.10 mmol/L (0.60-1.20)
[2020-04-18 00:43] LABS: Anion Gap 16 (12-20); Blood Urea Nitrogen 16 mg/dL (9-16); Calcium 8.4 mg/dL (8.4-10.2); Carbon Dioxide 26 mmol/L (22-29); Chloride 100 mmol/L (96-108); Creatinine Clr Calc Pharmacy 111.7; Estimated Glomerular Filt Rate > 60; Glucose Random 259 mg/dL (60-115); Potassium 3.9 mmol/l (3.3-5.1); Sodium 138 mmol/L (135-145)
[2020-04-18 00:46] LABS: SLIDE REVIEW VERIFIED
[2020-04-18 00:48] LABS: Valproate 34.7 mcg/mL (50.0-100.0)
[2020-04-18] MEDS: Divalproex Sodium 500 MG TABLET.DR 1500 MG PO (01:19)
--- NOTE | 2020-04-18 02:30 | PC.NURSE ---
Called [facility] to complete med rec. Pharmacist informed that the system is still down and to call back after 03:30.
--- NOTE | 2020-04-18 05:02 | PC.NURSE ---
PT's med rec was completed with pharmacist at [facility]. Discrepancies exist between [facility] med list, PT report, and hospital medical record. Discussion with provider concluded with the decision for pharmacy consult later today.
[2020-04-18 06:00] VITALS: BP 140/84; PULSE 66; RESP 16; O2SAT 93
--- NOTE | 2020-04-18 07:14 | PC.NURSE ---
Report received. Pt currently sleeping, respirations even and unlabored, in no apparent distress. Pt is inpatient bedsearch.
[2020-04-18 09:24] VITALS: BP 134/67; PULSE 99; RESP 16; TEMP 36.9; O2SAT 95
[2020-04-18 15:59] VITALS: RESP 16; TEMP 37.2
--- NOTE | 2020-04-18 17:49 | PC.NURSE ---
PT currently eating dinner, calm and cooperative, denies complaints at this time.
--- NOTE | 2020-04-18 19:04 | PC.NURSE ---
Report received. PT is sleeping in his room. Breathing is even and unlabored. PT is inpatient bed search.
--- NOTE | 2020-04-19 06:19 | PC.NURSE ---
Pt refused a full set a vitals this set morning.
[2020-04-19 06:21] VITALS: RESP 16
--- NOTE | 2020-04-19 07:08 | PC.NURSE ---
Report received from SHAR Crow. Pt resting, resp unlabored.
[2020-04-19 08:00] VITALS: RESP 18
--- NOTE | 2020-04-19 08:28 | PC.NURSE ---
Pharmacy called re: med rec consult.
--- NOTE | 2020-04-19 08:54 | PC.NURSE ---
Addendum entered by Beryl Corral 04/19/20 09:15: K Yulissa aware pt declining vital signs and poc Original Note: Pharmacy in to complete med rec. Pt declining vital signs and poc, stating 'i don't do this at home, why should I do it here?' Pt aware that he will be going to [facility] today, no concerns reported upon hearing the information.
--- NOTE | 2020-04-19 09:35 | PC.NURSE ---
Pt resting, resp unlabored
[2020-04-19 10:00] VITALS: RESP 20
--- NOTE | 2020-04-19 11:22 | PC.NURSE ---
Report given to SHAR Valencia on M5.
--- NOTE | 2020-04-19 11:45 | PC.NURSE ---
Pt awakened for assessment. Pt denies AH or VH at this time. Pt reports he has been using etoh once or twice a week, denies any s/s of withdrawal. Pt alert, oriented x3. No concerns reported at this time.
[2020-04-19 12:00] VITALS: RESP 20
--- NOTE | 2020-04-19 12:31 | PC.NURSE ---
Pt resting, resp unlabored
--- NOTE | 2020-04-19 13:00 | PC.NURSE ---
Pt declining lunch, declines vital signs again.
--- NOTE | 2020-04-19 13:06 | PC.NURSE ---
CARE team in to transfer pt to [facility].
--- NOTE | 2020-04-19 13:29 | MHC.CARE ---
t/w offered pt a CV for admission to which he signed willingly. T/w and security escorted pt to with no issues. T/w faxed [facility] IPLOC form and crisis evaluation for authorization purposes. This was passed along to UR.
--- NOTE | 2020-04-19 16:42 | PC.NURSE ---
Pt signed 3-day notice today, 04/19/20; 3-day is up on 04/22/20.
--- NOTE | 2020-04-20 00:18 | PC.ADMIT ---
A single, white male, aged 55 years was [facility]20 following referral from [facility] and [facility]. Pt was last on M-5 in 12/2019 and 02/2020 following a medical admission. Pt was uncooperative and declined to participate in the admission. Pt denied SI a, but then stated I'm all done talking . Pt refused to allow vital signs to be checked, refused all medications. Pt earlier refused POC BS; pt has a history of diabetes. Pt was brought to [facility] at the recommendation of his outpatient psychiatrist due to reported VH, disorientation and erratic behavior after recent medication changes. Pt said diazepam had recently had been started and he had found it helpful, but they don't want to give you those meds if you have had a problem with alcohol . Pt was not seeking help on his own behalf from staff in ED and expressed irritation to this senior technical writer that his sister had brought him to the ED. Pt had reported seeing all these little fricking bugs pointed to the floor and said the ground was swaying back and forth . Pt insisted to this senior technical writer that the bugs were not a hallucination, adding he had seen them ion the upstairs bathroom in his home.It is reported pt has not been sleeping or managing his medications or testing for diabetes. Pt has a history of Bipolar D/O and history of suicidal thing and gestures. Pt has a history of substance abuse in the context of mental health decompensation. Pt gave vague answers when asked about SI. Pt's sister reports pt is not at baseline and acting strangely at home as evidenced by putting his underwear in the freezer , taking labels off of items in kitchen and carelessness with the oven. Pt was irritable in interactions with staff on m-5 and remained in his room in bed for most of the evening. Pt was unsure of day of month and was unsure if it was March or April at this time. Per telephone intake Pt does use Etoh or substances. GALLEGOS was positive for Benzos which are prescribed; pt denied other substance use. Medical issues include diabetes; NKA. Pt is on 15 minute safety checks at this time and is resting in room. [id number]-Epipo done and admitting orders obtained.
[2020-04-20] MEDS: Acetaminophen 325 MG TABLET 650 MG PO ×2 (04:10→10:18)
[2020-04-20] MEDS: Cyclobenzaprine HCl 10 MG TABLET PO (04:10)
[2020-04-20] MEDS: hydrOXYzine HCL 25 MG TABLET 50 MG PO (04:10)
[2020-04-20] MEDS: Divalproex Sodium ER 500 MG TAB.ER.24H 1000 MG PO (16:16)
[2020-04-20 16:24] LABS: Glucose, Whole Blood 284 mg/dL (60-115)
--- NOTE | 2020-04-20 16:48 | HO.PSYADMNOT ---
HPI Chief Complaint: bipolar disorder Sources of Information: patient interviewed, chart reviewed and crisis/core team assessment reviewed HPI Narrative: 55 yo male, recent discharge from [facility] s/p OD, to ER with his sister due to symptoms of visual perceptual alterations, disorientation, erractic judgment and behaviors in light of addition of Diazepam 10 mg hs. Reported seeing insects, saw the floor moving, placing underwear in the freezer, obsessing with the garbage disposal functioning and re-labeling kitchen items. Hx of bipolar disorder. Upon meeting pt, he reports he will be stopping all meds except for valium and sleep medication as see what they have caused. Pt refused labs this a.m. agrees to redraw on 04/21 and will begin to discuss medications after labs are evaluated. Today, denies symptoms of VH. Alert, oriented, feels irritable he reports with all these medicines you put me on. Past Psychiatric History: Patient was treated on M5 in December 2019/ February 2020. He is in outpt treatment with [facility]. He has histroy of inpatient detoxes and treatments although he was vague about when. He is somewhat disorganized and vague historian he states he had psychiatric treatment in the 1980s in this area perhaps at [facility] history of multiple suicide attempts history of clara and agitation history of depressive episode. Per record his sister reported several weeks of paranoid ideas and bizarre behaviors prior to admit. Medical Evaluation Reviewed: Yes [facility] Medical History Bipolar 2 disorder, major depressive episode Bipolar disorder Depression Diabetes mellitus, type 2 Suicidal ideation Family History: Family history of suicide and substance abuse Social History: the patient was born and raised in [place] [facility] [place] [facility] he has a brother and a sister his parents are . He is not does not have any children. In the past he lived in [place] and in [place]. He moved back to to [facility] from [place] has been living with his sister. He is on security disability. Substance History: Alcohol Trauma History: NA Diagnostics Vital Signs (24Hr): Body Mass Index 35.6 Labs Results: 04/18/20 00:10 04/18/20 00:10 Labs: Laboratory Results - last 48 hr 04/20/20 16:21 POC Glucose 284 H Meds/Allergies Meds Home Medications Acetaminophen (Acetaminophen 325 Mg Tablet) 650 mg PO Q6H PRN PRN Reason: Headache/Pain Mild Scale (1-3) Last Admin: 04/20/20 10:18 Dose: 650 mg Documented by: Al Hydroxide/Mg Hydroxide (Magnesium Hydrox/Alum Hydrox 30 Ml Oral.Susp) 30 ml PO Q6H PRN PRN Reason: Heartburn/Nausea Cyclobenzaprine HCl (Cyclobenzaprine Hcl 10 Mg Tablet) 10 mg PO BID PRN PRN Reason: Spasms Last Admin: 04/20/20 04:10 Dose: 10 mg Documented by: Divalproex Sodium (Divalproex Sodium Er 500 Mg Tab.Er.24h) 1,000 mg PO DAILY@1700 [facility] Last Admin: 04/20/20 16:16 Dose: 1,000 mg Documented by: Docusate Sodium (Docusate Sodium 100 Mg Capsule) 200 mg PO BID [facility] Last Admin: 04/20/20 20:20 Dose: Not Given Documented by: Hydroxyzine HCl (Hydroxyzine Hcl 25 Mg Tablet) 50 mg PO BEDTIME PRN PRN Reason: Insomnia Last Admin: 04/20/20 04:10 Dose: 50 mg Documented by: Hydroxyzine HCl (Hydroxyzine Hcl 25 Mg Tablet) 25 mg PO BEDTIME PRN PRN Reason: Anxiety New [place] Carbonate (New [place] Carbonate Er 300 Mg Tablet.Er) 300 mg PO BID [facility] Last Admin: 04/20/20 20:20 Dose: Not Given Documented by: Lorazepam (Lorazepam 1 Mg Tablet) 1 mg PO BEDTIME [facility] Last Admin: 04/20/20 20:20 Dose: Not Given Documented by: Magnesium Hydroxide (Milk Of Magnesia 30 Ml Oral.Susp) 30 ml PO DAILY PRN PRN Reason: Constipation Naltrexone HCl (Naltrexone Hcl 50 Mg Tablet) 50 mg PO DAILY [facility] Last Admin: 04/20/20 10:15 Dose: Not Given Documented by: Nicotine (Nicotine 21 Mg Patch.Td24) 21 mg TRANSDERMA DAILY [facility] Non-Formulary Medication (Diclofenac Potassium) 1 tab PO TID [facility] Quetiapine Fumarate (Quetiapine Fumarate 200 Mg Tablet) 200 mg PO BEDTIME [facility] Last Admin: 04/20/20 20:20 Dose: Not Given Documented by: Trazodone HCl (Trazodone Hcl 50 Mg Tablet) 50 mg PO BEDTIME PRN PRN Reason: Insomnia Zolpidem Tartrate (Zolpidem Tartrate 5 Mg Tablet) 5 mg PO BEDTIME [facility] Last Admin: 04/20/20 20:20 Dose: Not Given Documented by: Allergies Allergies Allergy/AdvReac Type Severity Reaction Status Date / Time No Known Allergies Allergy Verified 03/10/20 19:00 Mental Status Exam Mental Status Exam Patient Appearance: Appropriate Patient Orientation: Person, Place, Time and Situation Level of Consciousness: Awake, Appropriate and Alert Patient Behavior: Talkative, Cooperative, Resistive to Care and Avoidant (of the need to treat bipolar disorder) Mood Description: Constricted Affect Description: Constricted Patient Cognition Impaired: No Ability to Follow Directions: Good Speech Pattern: Spontaneous Speech Memory Description: Intact Hallucinations: Visual (denies-reports sx to be resolved) Delusions: Not Present Thought Process: Illogical Thought Content: positive for [place] and positive for Circumstantial Depressive Symptoms: Increased Anxiety and Increased Irritability Judgement: Fair Assessment & Plan Patient educated on: diagnosis, medication risk/benefits, substance abuse and therapeutic strategies Informed Consent: does not understand and further education needed Reason for continued inpatient stay Substantial Risk for: harm to self, harm to others, inability to function, rapid decompensation and med/psych decompensation
[2020-04-20 18:00] VITALS: BP 132/68; PULSE 68; TEMP 36.7
--- NOTE | 2020-04-21 | MR_ITS ---
EXAMINATION: MR BRAIN WITHOUT CONTRAST CLINICAL INFORMATION: History of traumatic injury. Mood disorder. COMPARISON: None available. TECHNIQUE: MRI of the brain was obtained using routine sequences without contrast. FINDINGS: No focal restricted diffusion is demonstrated to suggest acute or subacute cerebral ischemia. No evidence of acute or chronic hemorrhagic products on heme-sensitive imaging. Nonspecific minimal periventricular and deep white matter T2 FLAIR hyperintensities most commonly seen with mild underlying migraine angiopathy. No additional parenchymal signal abnormalities. Proportional prominence of the ventricles and sulcal spaces without evidence of obstructive hydrocephalus. No abnormal mass effect. No midline shift. Normal appearance of the pituitary gland. No abnormalities of the posterior fossa with normal appearance of the brainstem and cerebellum. Normal positioning of the cerebellar tonsils. Normal arterial and venous vascular flow voids are present. Normal, homogeneous marrow signal. Mild atelectasis of the left maxillary sinus. Mild mucosal thickening of the paranasal sinuses. No signal abnormalities within the mastoids. MR/MR head/brain wo con IMPRESSION: 1. No acute intracranial abnormalities. 2. Minimal nonspecific white matter change, most commonly seen with mild underlying microangiopathy.
[2020-04-21 05:30] VITALS: BP 131/72; PULSE 69; RESP 18; TEMP 36.1; O2SAT 98
[2020-04-21 05:36] LABS: Glucose, Whole Blood 198 mg/dL (60-115)
[2020-04-21 07:54] LABS: MANUAL DIFF FLAG NO
[2020-04-21 07:58] LABS: Basophils Percent Auto 0.4 % (0-2); Eosinophils Absolute Auto 0.1 X10*3/uL (0.0-0.4); Eosinophils Percent Auto 1.7 % (0-4); Hematocrit 44.6 % (42-52); Hemoglobin 15.3 g/dl (14.0-18.0); Imm Gran Abs Auto 0.02 X10*3/uL (0.00-0.03); Imm Gran Pct Auto 0.4 % (0.0-0.4); Lymphocytes Absolute Auto 2.5 X10*3/uL (1.2-4.9); Lymphocytes Percent Auto 46.8 % (20-40); Mean Corpuscular HGB Conc 34.3 g/dl (31.0-36.0); Mean Corpuscular Hemoglobin 30.7 pg (27.0-33.0); Mean Corpuscular Volume 89.4 fL (80-98); Monocytes Absolute Auto 0.7 X10*3/uL (0.1-1.2); Monocytes Percent Auto 13.3 % (2-11); NRBC Pct Auto 0.6 /100WBC (0.0-0.2); Neutrophils Percent Auto 37.4 % (45-73); Platelet Count 125 X10*3/uL (160-400); Red Blood Count 4.99 X10*6/uL (4.60-5.80); Red Cell Distribution Width 13.5 % (11.0-16.0); White Blood Count 5.3 X10*3/uL (4.8-10.8)
[2020-04-21 08:28] LABS: Cholesterol 207 mg/dL; HDL Cholesterol 45 mg/dL; LDL Cholesterol Calculated 124 mg/dl; Triglycerides 194 mg/dL
[2020-04-21] MEDS: Nicotine 21 MG PATCH.TD24 TRANSDERMA (08:39)
[2020-04-21] MEDS: Docusate Sodium 100 MG CAPSULE 200 MG PO ×2 (08:39→20:48)
[2020-04-21] MEDS: Lithium Carbonate ER 300 MG TABLET.ER PO ×2 (08:39→20:49)
[2020-04-21] MEDS: Naltrexone HCl 50 MG TABLET PO (08:39)
[2020-04-21 08:48] LABS: Thyroid Stimulating Hormone 3.81 uIU/mL (0.32-4.0)
[2020-04-21 09:49] LABS: Vitamin B12 377 pg/mL (200-900)
[2020-04-21 12:33] LABS: Glucose, Whole Blood 229 mg/dL (60-115)
--- NOTE | 2020-04-21 17:02 | P.PNPSI_ITS ---
Subjective Subjective Date of Service: 04/21/20 Reason For Visit: bipolar disorder Subjective Notes: 3 Day (04/22/20) Interim History: Doug agreed to resume Glucophage 500 mg bid, Blood sugar POC testing. Contact with Kevin Bai, pt's OP prescriber who suggests a simplier regime, possibly Risperdal. Discussed with pt and he agreed-will trial 0.5 mg hs beginning this evening. Also discussed that last admission MRI was not completed as ordered-we re-ordered this today along with EEG. Pt has active TDN to 04/22. He will allow a discussion with his sister and that will occur at 11am on 04/22. Talked today about feeling care has been chaotic since being in [place] and it being too painful and stressful for him to have SE, adverse reactions and insomnia-asking for main core of meds to be valium, klonopin, ambien. 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 Pt working with team on understanding interventions recommended. Reports he is eating and will not continue any type of hunger strike. Medication Compliance: Intermittent Side effects from medications: Yes (reported) Attending Groups: No Review of Systems Constitutional: Reports fatigue Reports behavioral changes Psychiatric: Reports abnormal sleep pattern, Reports anxiety, Reports behavioral changes, Reports change in appetite, Reports depression and Reports irritability Endocrine: Reports fatigue Mental Status Exam Mental Status Exam Patient Appearance: Appropriate Patient Orientation: Person, Place, Time and Situation Level of Consciousness: Awake and Alert Patient Behavior: Talkative, Anxious, Fearful, Resistive to Care (decreasing), Fatigued and Good Eye Contact Mood Description: Suspicious, Withdrawn, Fearful and Anxious Affect Description: Blunted Patient Cognition Impaired: No Ability to Follow Directions: Good Speech Pattern: Spontaneous Speech Memory Description: Remote Impaired and Episodic Impaired Hallucinations: None Delusions: Not Present Thought Process: Rumination Thought Content: positive for [place] and positive for Circumstantial Depressive Symptoms: Increased Anxiety, Increased Irritability, Difficulty Sleeping, Hopelessness, Unhappiness, Increased Fatigue and Difficulty Concentrating Judgement: Fair Diagnostics Vital Signs (24Hr): Vital Signs - 24 hr 04/20/20 18:00 04/21/20 05:30 Temperature 98.1 F 96.9 F Pulse Rate 68 69 Respiratory Rate 18 Blood Pressure 132/68 131/72 Pulse Oximetry 98 Body Mass Index 35.6 Labs Results: 04/21/20 07:44 04/18/20 00:10 Labs: Laboratory Results - last 48 hr 04/20/20 04/21/20 04/21/20 16:21 05:29 07:44 WBC 5.3 RBC 4.99 Hgb 15.3 Hct 44.6 MCV 89.4 MCH 30.7 MCHC 34.3 RDW 13.5 Plt Count 125 L D MPV 10.0 Immature Gran % (Auto) 0.4 Neut % (Auto) 37.4 L Lymph % (Auto) 46.8 H [place] % (Auto) 13.3 H Eos % (Auto) 1.7 Baso % (Auto) 0.4 Lymph # (Auto) 2.5 [place] # (Auto) 0.7 Eos # (Auto) 0.1 Baso # (Auto) 0.0 Abs Immat Gran (auto) 0.02 Absolute Neuts (auto) 2.0 Absolute Nucleated RBC 0.030 H Nucleated RBC % (auto) 0.6 H POC Glucose 284 H 198 H Triglycerides Cholesterol LDL Cholesterol, Calc HDL Cholesterol Vitamin B12 Folate TSH 04/21/20 04/21/20 04/21/20 07:44 07:44 12:29 WBC RBC Hgb Hct MCV MCH MCHC RDW Plt Count MPV Immature Gran % (Auto) Neut % (Auto) Lymph % (Auto) [place] % (Auto) Eos % (Auto) Baso % (Auto) Lymph # (Auto) [place] # (Auto) Eos # (Auto) Baso # (Auto) Abs Immat Gran (auto) Absolute Neuts (auto) Absolute Nucleated RBC Nucleated RBC % (auto) POC Glucose 229 H Triglycerides 194 Cholesterol 207 D LDL Cholesterol, Calc 124 HDL Cholesterol 45 D Vitamin B12 377 Folate 8.0 TSH 3.81 Medications Medications Current Medications Generic Name Dose Route Start Last Admin Trade Name Freq PRN Reason Stop Dose Admin Acetaminophen 650 mg 04/19/20 16:25 04/20/20 10:18 Acetaminophen 325 Mg Tablet PO 650 mg Q6H PRN Administration Headache/Pain Mild Scale (1-3) Al Hydroxide/Mg Hydroxide 30 ml 04/19/20 16:25 Magnesium Hydrox/Alum Hydrox 30 Ml Oral.Susp PO Q6H PRN Heartburn/Nausea Cyclobenzaprine HCl 10 mg 04/19/20 12:41 04/20/20 04:10 Cyclobenzaprine Hcl 10 Mg Tablet PO 10 mg BID PRN Administration Spasms Divalproex Sodium 1,000 mg 04/19/20 17:00 04/20/20 16:16 Divalproex Sodium Er 500 Mg Tab.Er.24h PO 1,000 mg DAILY@1700 ABDULKADIR Administration Docusate Sodium 200 mg 04/19/20 21:00 04/21/20 08:39 Docusate Sodium 100 Mg Capsule PO 200 mg BID ABDULKADIR Administration Hydroxyzine HCl 50 mg 04/19/20 12:41 04/20/20 04:10 Hydroxyzine Hcl 25 Mg Tablet PO 50 mg BEDTIME PRN Administration Insomnia Hydroxyzine HCl 25 mg 04/19/20 16:25 Hydroxyzine Hcl 25 Mg Tablet PO BEDTIME PRN Anxiety [place] Carbonate 300 mg 04/19/20 21:00 04/21/20 08:39 [place] Carbonate Er 300 Mg Tablet.Er PO 300 mg BID ABDULKADIR Administration Lorazepam 1 mg 04/19/20 21:00 04/20/20 20:20 Lorazepam 1 Mg Tablet PO Not Given BEDTIME ABDULKADIR Magnesium Hydroxide 30 ml 04/19/20 16:25 Milk Of Magnesia 30 Ml Oral.Susp PO DAILY PRN Constipation Metformin HCl 500 mg 04/21/20 17:00 Metformin Hcl 500 Mg Tablet PO BIDWM ABDULKADIR Naltrexone HCl 50 mg 04/20/20 09:00 04/21/20 08:39 Naltrexone Hcl 50 Mg Tablet PO 50 mg DAILY ABDULKADIR Administration Nicotine 21 mg 04/21/20 09:00 04/21/20 08:39 Nicotine 21 Mg Patch.Td24 TRANSDERMA 21 mg DAILY ABDULKADIR Administration Non-Formulary Medication 1 tab 04/19/20 15:00 Diclofenac Potassium PO TID ABDULKADIR Quetiapine Fumarate 200 mg 04/19/20 21:00 04/20/20 20:20 Quetiapine Fumarate 200 Mg Tablet PO Not Given BEDTIME ABDULKADIR Trazodone HCl 50 mg 04/19/20 16:25 Trazodone Hcl 50 Mg Tablet PO BEDTIME PRN Insomnia Zolpidem Tartrate 5 mg 04/19/20 21:00 04/20/20 20:20 Zolpidem Tartrate 5 Mg Tablet PO Not Given BEDTIME ABDULKADIR Allergies Allergies Allergy/AdvReac Type Severity Reaction Status Date / Time No Known Allergies Allergy Verified 03/10/20 19:00 Assessment & Plan Assessment & Plan (1) Bipolar 2 disorder, major depressive episode: Status: Acute Code(s): F31.81 - Bipolar II disorder Assessment and Plan: Risperdal 0.5 mg hs (2) Diabetes mellitus, type 2: Status: Acute Code(s): E11.9 - Type 2 diabetes mellitus without complications Assessment and Plan: Glucophage 500 mg bid Glucose POC qidachs (3) Acute psychosis: Status: Acute Code(s): F23 - Brief psychotic disorder Assessment and Plan: Possible delirium d/t medications-resolving Will complete EEG and MRI ordered last admission but not completed as OP. Greater than 50% of the session was spent on counseling and/or coordination of care
[2020-04-21] MEDS: Divalproex Sodium ER 500 MG TAB.ER.24H 1000 MG PO (17:20)
[2020-04-21] MEDS: metFORMIN HCl 500 MG TABLET PO (17:20)
[2020-04-21 17:30] LABS: Glucose, Whole Blood 246 mg/dL (60-115)
[2020-04-21 18:00] VITALS: BP 148/67; PULSE 79; TEMP 36.7
[2020-04-21] MEDS: Zolpidem Tartrate 5 MG TABLET PO (20:48)
[2020-04-21] MEDS: risperiDONE 0.5 MG TABLET PO (20:48)
[2020-04-21] MEDS: LORazepam 1 MG TABLET PO (20:49)
[2020-04-21 22:09] LABS: Glucose, Whole Blood 276 mg/dL (60-115)
[2020-04-22 05:15] VITALS: BP 130/80; PULSE 68; RESP 18; TEMP 36.1; O2SAT 18
[2020-04-22 05:19] LABS: Glucose, Whole Blood 231 mg/dL (60-115)
[2020-04-22] MEDS: metFORMIN HCl 500 MG TABLET PO (08:41)
[2020-04-22] MEDS: Docusate Sodium 100 MG CAPSULE 200 MG PO (08:42)
[2020-04-22] MEDS: Lithium Carbonate ER 300 MG TABLET.ER PO (08:42)
[2020-04-22] MEDS: Nicotine 21 MG PATCH.TD24 TRANSDERMA (08:42)
[2020-04-22] MEDS: Naltrexone HCl 50 MG TABLET PO (08:43)
--- NOTE | 2020-04-22 17:07 | P.DS_ITS ---
DS: Providers Provider Date of Service: 05/08/20 Date of admission: 04/19/20 12:41 Date of discharge: 04/22/20 Primary care physician: Dr. Lopez Admitting clinician: Maribel Burden Attending physician on admission: Jeb Rai Discharging clinician: Maribel Burden DS: Diagnosis Discharge Diagnosis (1) Bipolar 2 disorder, major depressive episode: Status: Acute Problem details: 55 yo male, recent M5 discharge s/p OD presented with help of sister with paranoia, disorientation, erratic judgment, visual hallucinations of insects, experiencing the floor moving, confusion-placing underwear in the freezer, being obsessed with the mechanics of the kitchen garbage disposal and attempting to re-label kitchen items. Tox +benzos. Pt reported a recent start of Valium. (2) Diabetes mellitus, type 2: Status: Acute (3) Acute psychosis: Status: Resolved Problem details: R/O Delirium with above symptom presentation. DS: Medications Discharge Medications Home Medications: Home Medications Medication Instructions Recorded Confirmed diclofenac potassium 1 tab PO TID 03/10/20 04/19/20 cyclobenzaprine 10 mg PO BID PRN 03/11/20 04/18/20 diazepam [Valium] 10 mg PO DAILY PRN 04/18/20 04/18/20 zolpidem 10 mg PO BEDTIME 04/19/20 04/19/20 Previous Rx's Medication Instructions Recorded divalproex 1,000 mg PO DAILY@1700 #60 tab 04/22/20 docusate sodium 200 mg PO BID #120 cap 04/22/20 metformin 500 mg PO BIDWM #60 tab 04/22/20 naltrexone 50 mg PO DAILY #30 tab 04/22/20 risperidone [Risperdal] 1 mg PO BEDTIME #30 tab 04/22/20 Discharge Plan Discharge Anticipated Discharge Date/Time: 04/22/20 16:00 Patient Disposition: Home, Self-Care Referrals: Bee Loeps (therapist) [Other] - 04/27/20 9:00 am (Telehealth appointment) Kevin Bai (psychiatrist) [Other] - 06/02/20 8:00 am (Telehealth appointment) Community Support Person at [facility] [Other] (Your insurance company, [employer], will be putting in this referral for you. They will be calling to check in with you post discharge. ) Kevin Bai (psychiatrist) [Other] - 05/05/20 9:45 am (Telehealth appointment) Tim Erazo MD [Physician] - 05/03/20 10:00 am (via phone) Discharge Medications: New metformin 500 mg Tablet 500 mg PO BIDWM Qty: 60 RF: 0 risperidone [Risperdal] 1 mg tablet 1 mg PO BEDTIME Qty: 30 RF: 0 Continued diclofenac potassium 50 mg tablet 1 tab PO TID RF: 0 cyclobenzaprine 10 mg Tablet 10 mg PO BID PRN (Reason: Spasms) RF: 0 diazepam [Valium] 10 mg tablet 10 mg PO DAILY PRN (Reason: Anxiety) RF: 0 zolpidem 10 mg tablet 10 mg PO BEDTIME RF: 0 naltrexone 50 mg tablet 50 mg PO DAILY Qty: 30 RF: 0 docusate sodium 100 mg Capsule 200 mg PO BID Qty: 120 RF: 0 Changed divalproex 500 mg tablet extended release 24 hr 1,000 mg PO DAILY@1700 Qty: 60 RF: 0 Discontinued lithium carbonate 300 mg Tablet Extended Release 300 mg PO BID Qty: 30 RF: 0 lorazepam 1 mg Tablet 1 mg PO BEDTIME Qty: 10 RF: 0 quetiapine 200 mg tablet 200 mg PO BEDTIME Qty: 15 RF: 0 hydroxyzine HCl 25 mg Tablet 50 mg PO BEDTIME PRN (Reason: Insomnia) 10 Days Qty: 20 RF: 0 Discharge Orders: Discharge Order (Routine); Ordered 04/22/20 Ordered By: Maribel Burden Diet: diabetic diet Activity on Discharge: As tolerated Stand Alone Forms: Patient Portal Discharge page, Community Support Visit Report Forms: Patient Portal Discharge page Care Plan Goals: mood stabilization stabilized sleep stabilized medication regime sobriety Health Concerns: diabetes Plan of Treatment: Take medications as directed Follow up with provider appointments Call or return as needed VNA referral to assist with medication managment was suggested, however, your insurance does not authorize this service. Discharge Date/Time: 04/22/20 16:32 Mental Status Exam Mental Status Exam Patient Appearance: Appropriate Patient Orientation: Person, Place, Time and Situation Level of Consciousness: Awake and Alert Patient Behavior: Appropriate Mood Description: Constricted Affect Description: Constricted Patient Cognition Impaired: No Ability to Follow Directions: Good Speech Pattern: Spontaneous Speech Memory Description: Episodic Impaired Hallucinations: None Delusions: Not Present Thought Process: Intact Thought Content: positive for Intact Depressive Symptoms: Increased Anxiety and Increased Irritability Judgement: Good Judgement and Insight: Intact Data Data Completed and Pending Completed studies during hospitalization [Text1]: 04/17/20 04/17/20 04/17/20 22:15 22:15 22:18 WBC RBC Hgb Hct MCV MCH MCHC RDW Plt Count MPV Immature Gran % (Auto) Neut % (Auto) Lymph % (Auto) [place] % (Auto) Eos % (Auto) Baso % (Auto) Lymph # (Auto) [place] # (Auto) Eos # (Auto) Baso # (Auto) Abs Immat Gran (auto) Absolute Neuts (auto) Absolute Nucleated RBC Nucleated RBC % (auto) Smear Tech's Comments Sodium Potassium Chloride Carbon Dioxide Anion Gap BUN Creatinine Estim Creat Clear Calc Estimated GFR POC Glucose Random Glucose Calcium Triglycerides Cholesterol LDL Cholesterol, Calc HDL Cholesterol Vitamin B12 Folate TSH Urine Color YELLOW Urine Appearance CLEAR Urine pH 5.5 Ur Specific [place] >= 1.030 H Urine Protein NEG Urine Glucose (UA) >=1000 H Urine Ketones NEG Urine Blood NEG Urine Nitrite NEG Ur Leukocyte Esterase NEG Urine RBC 0-2 Urine WBC 0-2 Ur Squamous Epith Cells TRACE Urine Bacteria TRACE Urine Opiates Screen Not Detected Ur Barbiturates Screen Not Detected Valproic Acid Ur Phencyclidine Scrn Not Detected Ur Amphetamines Screen Not Detected U Benzodiazepines Scrn POSITIVE H [place] Urine Cocaine Screen Not Detected U Marijuana (THC) Screen Not Detected COVID-19 ([facility]) Negative COVID-19 Clin Com See Note 04/18/20 04/18/20 04/18/20 00:10 00:10 00:11 WBC 5.0 RBC 4.33 L Hgb 13.3 L Hct 37.8 L MCV 87.3 MCH 30.7 MCHC 35.2 RDW 13.2 Plt Count 94 L D MPV 10.2 Immature Gran % (Auto) 0.4 Neut % (Auto) 45.7 Lymph % (Auto) 39.2 [place] % (Auto) 12.7 H Eos % (Auto) 1.6 Baso % (Auto) 0.4 Lymph # (Auto) 2.0 [place] # (Auto) 0.6 Eos # (Auto) 0.1 Baso # (Auto) 0.0 Abs Immat Gran (auto) 0.02 Absolute Neuts (auto) 2.3 Absolute Nucleated RBC 0.000 Nucleated RBC % (auto) 0.0 Smear Tech's Comments VERIFIED Sodium 138 Potassium 3.9 Chloride 100 Carbon Dioxide 26 Anion Gap 16 BUN 16 Creatinine 1.00 Estim Creat Clear Calc 111.7 Estimated GFR > 60 POC Glucose Random Glucose 259 H D Calcium 8.4 Triglycerides Cholesterol LDL Cholesterol, Calc HDL Cholesterol Vitamin B12 Folate TSH Urine Color Urine Appearance Urine pH Ur Specific [place] Urine Protein Urine Glucose (UA) Urine Ketones Urine Blood Urine Nitrite Ur Leukocyte Esterase Urine RBC Urine WBC Ur Squamous Epith Cells Urine Bacteria Urine Opiates Screen Ur Barbiturates Screen Valproic Acid 34.7 L Ur Phencyclidine Scrn Ur Amphetamines Screen U Benzodiazepines Scrn [place] < 0.10 L Urine Cocaine Screen U Marijuana (THC) Screen COVID-19 ([facility]) COVID-19 Clin Com 04/20/20 04/21/20 04/21/20 16:21 05:29 07:44 WBC 5.3 RBC 4.99 Hgb 15.3 Hct 44.6 MCV 89.4 MCH 30.7 MCHC 34.3 RDW 13.5 Plt Count 125 L D MPV 10.0 Immature Gran % (Auto) 0.4 Neut % (Auto) 37.4 L Lymph % (Auto) 46.8 H [place] % (Auto) 13.3 H Eos % (Auto) 1.7 Baso % (Auto) 0.4 Lymph # (Auto) 2.5 [place] # (Auto) 0.7 Eos # (Auto) 0.1 Baso # (Auto) 0.0 Abs Immat Gran (auto) 0.02 Absolute Neuts (auto) 2.0 Absolute Nucleated RBC 0.030 H Nucleated RBC % (auto) 0.6 H Smear Tech's Comments Sodium Potassium Chloride Carbon Dioxide Anion Gap BUN Creatinine Estim Creat Clear Calc Estimated GFR POC Glucose 284 H 198 H Random Glucose Calcium Triglycerides Cholesterol LDL Cholesterol, Calc HDL Cholesterol Vitamin B12 Folate TSH Urine Color Urine Appearance Urine pH Ur Specific [place] Urine Protein Urine Glucose (UA) Urine Ketones Urine Blood Urine Nitrite Ur Leukocyte Esterase Urine RBC Urine WBC Ur Squamous Epith Cells Urine Bacteria Urine Opiates Screen Ur Barbiturates Screen Valproic Acid Ur Phencyclidine Scrn Ur Amphetamines Screen U Benzodiazepines Scrn [place] Urine Cocaine Screen U Marijuana (THC) Screen COVID-19 ([place]) COVID-19 [employer] Com 04/21/20 04/21/20 04/21/20 07:44 07:44 12:29 WBC RBC Hgb Hct MCV MCH MCHC RDW Plt Count MPV Immature Gran % (Auto) Neut % (Auto) Lymph % (Auto) [place] % (Auto) Eos % (Auto) Baso % (Auto) Lymph # (Auto) [place] # (Auto) Eos # (Auto) Baso # (Auto) Abs Immat Gran (auto) Absolute Neuts (auto) Absolute Nucleated RBC Nucleated RBC % (auto) Smear Tech's Comments Sodium Potassium Chloride Carbon Dioxide Anion Gap BUN Creatinine Estim Creat Clear Calc Estimated GFR POC Glucose 229 H Random Glucose Calcium Triglycerides 194 Cholesterol 207 D LDL Cholesterol, Calc 124 HDL Cholesterol 45 D Vitamin B12 377 Folate 8.0 TSH 3.81 Urine Color Urine Appearance Urine pH Ur Specific [place] Urine Protein Urine Glucose (UA) Urine Ketones Urine Blood Urine Nitrite Ur Leukocyte Esterase Urine RBC Urine WBC Ur Squamous Epith Cells Urine Bacteria Urine Opiates Screen Ur Barbiturates Screen Valproic Acid Ur Phencyclidine Scrn Ur Amphetamines Screen U Benzodiazepines Scrn [place] Urine Cocaine Screen U Marijuana (THC) Screen COVID-19 ([place]) COVID-19 [employer] Com 04/21/20 04/21/20 04/22/20 17:17 22:05 05:15 WBC RBC Hgb Hct MCV MCH MCHC RDW Plt Count MPV Immature Gran % (Auto) Neut % (Auto) Lymph % (Auto) [place] % (Auto) Eos % (Auto) Baso % (Auto) Lymph # (Auto) [place] # (Auto) Eos # (Auto) Baso # (Auto) Abs Immat Gran (auto) Absolute Neuts (auto) Absolute Nucleated RBC Nucleated RBC % (auto) Smear Tech's Comments Sodium Potassium Chloride Carbon Dioxide Anion Gap BUN Creatinine Estim Creat Clear Calc Estimated GFR POC Glucose 246 H 276 H 231 H Random Glucose Calcium Triglycerides Cholesterol LDL Cholesterol, Calc HDL Cholesterol Vitamin B12 Folate TSH Urine Color Urine Appearance Urine pH Ur Specific [place] Urine Protein Urine Glucose (UA) Urine Ketones Urine Blood Urine Nitrite Ur Leukocyte Esterase Urine RBC Urine WBC Ur Squamous Epith Cells Urine Bacteria Urine Opiates Screen Ur Barbiturates Screen Valproic Acid Ur Phencyclidine Scrn Ur Amphetamines Screen U Benzodiazepines Scrn [place] Urine Cocaine Screen U Marijuana (THC) Screen COVID-19 ([facility]) COVID-19 Clin Com Imaging Diagnostic Imaging Impressions Brain MRI 04/21/20 00:00 IMPRESSION: 1. No acute intracranial abnormalities. 2. Minimal nonspecific white matter change, most commonly seen with mild underlying microangiopathy. DS: Summary Hospital Course Hospital Course: Pt submitted a three day notice upon admission. Initially he decided to stop all medications due to his symptoms in ER presentation . He spoke of needing to be clear as he has an opportunity to move to [place] in June and begin a new career which he wants to pursue. He was able to review all of the medications he was taking and make proactive choices of what to keep on regime. Pt's out patient prescriber, Kevin Bai APRN was contacted who suggested pt's regime be simplified and suggested the addition of Risperdal which pt agreed to. [place] was discontinued as pt reported he has not been taking it and refuses to take it in the future. Pt, Ирина GREY and ad copy writer talked with pt's sister and house mate, Rach. Risks of pt discharging early were reviewed and education was provided regarding crisis interventions as needed. Rach plans a move to [place] within the next few months and wonders if pt will be able to manage without ass istance. Insurance will not authorize VNA so we discussed pt utilizing OP team to make that ongoing evaluation before she leaves in the spring. Pt was discharged to home with sister. He was encouraged to call/return as needed if symptoms should return. Follow up appointments were scheduled. Status at Discharge Cognitive/behavioral status at discharge: alert, oriented, non psychotic, non suicidal, non homicidal Functional status at discharge: independent ambulation Overall status at discharge: patient is back to baseline Time Spent with Patient Time attestation: Total time spent providing and/or coordinating discharge services: 40 minute Time spent: Greater than 30 minutes
== END 2020-04-22 16:32 | disposition home or self-care (01) | DRG 753 ==
LOC: HO.ED 04-19 02:20 → HO.PM5 04-19 13:01
PROVIDERS: Nurse Practitioner Family; Admitting Provider Psychiatry & Neurology Psychiatry; Emergency Provider Emergency Medicine Emergency Medical Services; Visit Provider Clinical Nurse Specialist Psychiatric/Mental Health, Adult
DX: F31.81 Bipolar II disorder (principal); E11.9 Type 2 diabetes mellitus without complications; Z20.822 Contact with and (suspected) exposure to COVID-19; Z87.820 Personal history of traumatic brain injury; Z87.891 Personal history of nicotine dependence; Z79.899 Other long term (current) drug therapy
CPT/HCPCS: 36415; 70551; 80048; 80061; 80164; 80178; 80307; 81001; 82607; 82746; 82947; 84443; 85025; 87635; 99285

== ENCOUNTER 2020-05-13 16:12 | Inpatient (IN) | payer OTHER, SELFPAY ==
--- NOTE | 2020-05-13 16:42 | ED.PSYCH ---
HPI - Psych General Chief Complaint: Psychiatric Symptoms Stated Complaint: CRISIS Time Seen by Provider: 05/13/20 16:41 Source: patient Mode of arrival: ambulatory Limitations: no limitations History of Present Illness HPI Narrative: This is a 55-year-old male with multiple psych admission was brought in today with depression symptoms and suicidal ideation, patient stated that he has been having kidney issue, and chronic back pain and he is not on the right medication and that is triggered his depression and would like to , patient did not specify any plan for suicide, patient declines any hallucination. Related Data Home Medications Medication Instructions Recorded Confirmed diclofenac potassium 1 tab PO TID 03/10/20 04/19/20 cyclobenzaprine 10 mg PO BID PRN 03/11/20 04/18/20 diazepam [Valium] 10 mg PO DAILY PRN 04/18/20 04/18/20 zolpidem 10 mg PO BEDTIME 04/19/20 04/19/20 Previous Rx's Medication Instructions Recorded divalproex 1,000 mg PO DAILY@1700 #60 tab 04/22/20 docusate sodium 200 mg PO BID #120 cap 04/22/20 metformin 500 mg PO BIDWM #60 tab 04/22/20 naltrexone 50 mg PO DAILY #30 tab 04/22/20 risperidone [Risperdal] 1 mg PO BEDTIME #30 tab 04/22/20 Allergies Allergy/AdvReac Type Severity Reaction Status Date / Time No Known Allergies Allergy Verified 03/10/20 19:00 Review of Systems Review of Systems: All other systems are reviewed and are negative Constitutional: Reports as per HPI and Reports no additional constitutional complaints Eyes: Reports as per HPI and Reports no additional eye complaints Reports system reviewed and no additional complaints, except as documented Cardiovascular: Reports as per HPI and Reports no additional cardiovascular complaints Respiratory: Reports as per HPI and Reports no additional respiratory complaints Gastrointestinal: Reports as per HPI and Reports no additional gastrointestinal complaints Genitourinary: Reports no additional female genitourinary complaints Musculoskeletal: Reports no additional musculoskeletal complaints Skin/Breast: Reports system reviewed and no additional complaints, except as docu Psychiatric: Reports no additional psychiatric complaints Endocrine: Reports no additional endocrine complaints Hematologic/Lymphatic: Reports no additional hematologic/lymphatic complaints Allergic/Immunologic: Reports no additional allergic/immunologic complaints Reports system reviewed and no additional complaints, except as documented and Reports Abnormal speech present [facility] Past Medical History Medical History Bipolar 2 disorder, major depressive episode Bipolar disorder Depression Diabetes mellitus, type 2 Suicidal ideation Social History Social History Household Members: Other Housing: House Alcohol intake: unknown Smoking Status: Former smoker Tobacco Type: Smokeless Tobacco Years Smoked: 25 Second Hand Smoke Exposure: No Substance Use Type: Marijuana Advance Directives: No Advance Directives Information Provided: Yes service: No Current occupational status: unemployed Sexual orientation: Straight/Heterosexual Physical Exam Vital Signs: Vital Signs: Last Vital Signs Temp 97.6 F 05/13/20 16:59 Pulse 95 05/13/20 16:59 Resp 20 05/13/20 18:00 BP 149/95 H 05/13/20 16:59 Pulse Ox 95 05/13/20 16:59 Body Mass Index 38.0 Vital signs have been reviewed as appeared to be correct. Blood pressure normal. Heart rate normal. Respiration rate normal. Temperature normal. Oxygen saturation normal. Appearance: Alert. Oriented X3. No acute distress. Head: Normal external exam. Normocephalic. Atraumatic. No Bazzi signs noted. No raccoon eyes noted Eyes: PERRLA. EOMI. Conjunctiva and sclera normal. Eyelids normal. ENT: TM's Normal. Pharynx normal. Uvula midline. Moist mucous membranes. No trismus noted. No drooling noted. No muffled voice noted. Neck: Normal inspection. Neck supple. FROM. No adenopathy. Thyroid Normal. No meningeal signs. No neck mass noted. CVS: Normal heart rate and rhythm. Heart sound normal. No murmurs noted. Pulses normal throughout. Respiratory: No respiratory distress. Painless inspiration. Breath sounds normal. No wheezes/rales/rhonchi noted. Chest nontender. No accessory muscle usage noted or decreased air movement noted. Abdomen: Soft and nontender. Bowel sounds normal in all 4 quadrants. No distention noted. No organomegaly noted. No visible injury noted. Back: No CVA tenderness. Full range of motion noted. Skin: Skin warm and dry. Normal skin color. Normal skin turgor. No rashes/lesions/lacerations noted. Extremities: No lower extremity edema. Extremities exhibit normal range of motion. Extremities nontender. Neuro: Oriented X 3. No motor deficit. No sensory deficit. Reflexes normal. Patient Appearance: Appropriate Patient Orientation: Person, Place, Time and Situation Level of Consciousness: Awake, Appropriate and Alert Patient Behavior: Talkative, Cooperative, Resistive to Care and Avoidant (of the need to treat bipolar disorder) Mood Description: Constricted Affect Description: Constricted Patient Cognition Impaired: No Ability to Follow Directions: Good Speech Pattern: Spontaneous Speech Memory Description: Intact Hallucinations: Visual (denies-reports sx to be resolved) Delusions: Not Present Thought Process: Illogical Thought Content: positive for Sherrill and positive for Circumstantial Depressive Symptoms: Increased Anxiety and Increased Irritability Judgement: Fair. MDM - Psych Lab Data Attestation: I reviewed the patient's lab results. Result diagrams: 05/13/20 17:26 05/13/20 17:26 Labs: Lab Results 05/13/20 05/13/20 05/13/20 Range/Units 17:15 17:26 17:26 WBC 5.3 (4.8-10.8) X10*3/uL RBC 5.37 (4.60-5.80) X10*6/uL Hgb 16.3 (14.0-18.0) g/dl Hct 47.1 (42-52) % MCV 87.7 (80-98) fL MCH 30.4 (27.0-33.0) pg MCHC 34.6 (31.0-36.0) g/dl RDW 13.2 (11.0-16.0) % Plt Count 189 D (160-400) X10*3/uL MPV 10.2 (9.4-12.4) fL Immature Gran % (Auto) 0.2 (0.0-0.4) % Neut % (Auto) 41.2 L (45-73) % Lymph % (Auto) 48.1 H (20-40) % [place] % (Auto) 9.0 (2-11) % Eos % (Auto) 0.9 (0-4) % Baso % (Auto) 0.6 (0-2) % Lymph # (Auto) 2.6 (1.2-4.9) X10*3/uL [place] # (Auto) 0.5 (0.1-1.2) X10*3/uL Eos # (Auto) 0.1 (0.0-0.4) X10*3/uL Baso # (Auto) 0.0 (0.0-0.2) X10*3/uL Abs Immat Gran (auto) 0.01 (0.00-0.03) X10*3/uL Absolute Neuts (auto) 2.2 (2.0-8.3) X10*3/uL Absolute Nucleated RBC 0.000 (0.0-0.012) X10*3/uL Nucleated RBC % (auto) 0.0 (0.0-0.2) /100WBC Sodium 142 (135-145) mmol/L Potassium 4.0 (3.3-5.1) mmol/L Chloride 103 (96-108) mmol/L Carbon Dioxide 24 (22-29) mmol/L Anion Gap 19 (12-20) BUN 9 (9-16) mg/dL Creatinine 1.03 (0.5-1.4) mg/dL Estim Creat Clear Calc 108.9 Estimated GFR > 60 Random Glucose 296 H (60-115) mg/dL Calcium 8.3 L (8.4-10.2) mg/dL Total Bilirubin 0.4 (0.0-1.0) mg/dL AST 26 D (5-37) U/L ALT 31 (0-40) U/L Alkaline Phosphatase 83 D (39-117) U/L Total Protein 7.3 D (6.5-8.0) g/dL Albumin 4.1 (3.5-5.0) g/dL Salicylates < 5.0 L (15-30) mg/dL Acetaminophen < 1 (<30) mcg/mL Valproic Acid (50.0-100.0) mcg/mL Ethyl Alcohol mg/dL COVID-19 ([facility]) Negative (Negative) COVID-19 Clin Com See Note 05/13/20 05/13/20 Range/Units 17:26 17:26 WBC (4.8-10.8) X10*3/uL RBC (4.60-5.80) X10*6/uL Hgb (14.0-18.0) g/dl Hct (42-52) % MCV (80-98) fL MCH (27.0-33.0) pg MCHC (31.0-36.0) g/dl RDW (11.0-16.0) % Plt Count (160-400) X10*3/uL MPV (9.4-12.4) fL Immature Gran % (Auto) (0.0-0.4) % Neut % (Auto) (45-73) % Lymph % (Auto) (20-40) % [place] % (Auto) (2-11) % Eos % (Auto) (0-4) % Baso % (Auto) (0-2) % Lymph # (Auto) (1.2-4.9) X10*3/uL [place] # (Auto) (0.1-1.2) X10*3/uL Eos # (Auto) (0.0-0.4) X10*3/uL Baso # (Auto) (0.0-0.2) X10*3/uL Abs Immat Gran (auto) (0.00-0.03) X10*3/uL Absolute Neuts (auto) (2.0-8.3) X10*3/uL Absolute Nucleated RBC (0.0-0.012) X10*3/uL Nucleated RBC % (auto) (0.0-0.2) /100WBC Sodium (135-145) mmol/L Potassium (3.3-5.1) mmol/L Chloride (96-108) mmol/L Carbon Dioxide (22-29) mmol/L Anion Gap (12-20) BUN (9-16) mg/dL Creatinine (0.5-1.4) mg/dL Estim Creat Clear Calc Estimated GFR Random Glucose (60-115) mg/dL Calcium (8.4-10.2) mg/dL Total Bilirubin (0.0-1.0) mg/dL AST (5-37) U/L ALT (0-40) U/L Alkaline Phosphatase (39-117) U/L Total Protein (6.5-8.0) g/dL Albumin (3.5-5.0) g/dL Salicylates (15-30) mg/dL Acetaminophen (<30) mcg/mL Valproic Acid 8.1 L (50.0-100.0) mcg/mL Ethyl Alcohol 214 mg/dL COVID-19 ([facility]) (Negative) COVID-19 Clin Com Discharge Plan Discharge Clinical Impression: Bipolar 2 disorder, major depressive episode, Depression with suicidal ideation Prescriptions: No Action diclofenac potassium 50 mg tablet 1 tab PO TID RF: 0 cyclobenzaprine 10 mg Tablet 10 mg PO BID PRN (Reason: Spasms) RF: 0 diazepam [Valium] 10 mg tablet 10 mg PO DAILY PRN (Reason: Anxiety) RF: 0 zolpidem 10 mg tablet 10 mg PO BEDTIME RF: 0 metformin 500 mg Tablet 500 mg PO BIDWM Qty: 60 RF: 0 risperidone [Risperdal] 1 mg tablet 1 mg PO BEDTIME Qty: 30 RF: 0 naltrexone 50 mg tablet 50 mg PO DAILY Qty: 30 RF: 0 divalproex 500 mg tablet extended release 24 hr 1,000 mg PO DAILY@1700 Qty: 60 RF: 0 docusate sodium 100 mg Capsule 200 mg PO BID Qty: 120 RF: 0
[2020-05-13 16:59] VITALS: BP 149/95; PULSE 95; RESP 20; TEMP 36.4; O2SAT 95; BMI 38.0
--- NOTE | 2020-05-13 17:34 | PC.NURSE ---
Labs drawn and sent. Pt resting in room, resp unlabored.
[2020-05-13 17:48] LABS: MANUAL DIFF FLAG NO
[2020-05-13 17:49] LABS: Basophils Percent Auto 0.6 % (0-2); Eosinophils Absolute Auto 0.1 X10*3/uL (0.0-0.4); Eosinophils Percent Auto 0.9 % (0-4); Hematocrit 47.1 % (42-52); Hemoglobin 16.3 g/dl (14.0-18.0); Imm Gran Abs Auto 0.01 X10*3/uL (0.00-0.03); Imm Gran Pct Auto 0.2 % (0.0-0.4); Lymphocytes Absolute Auto 2.6 X10*3/uL (1.2-4.9); Lymphocytes Percent Auto 48.1 % (20-40); Mean Corpuscular HGB Conc 34.6 g/dl (31.0-36.0); Mean Corpuscular Hemoglobin 30.4 pg (27.0-33.0); Mean Corpuscular Volume 87.7 fL (80-98); Mean Platelet Volume 10.2 fL (9.4-12.4); Monocytes Absolute Auto 0.5 X10*3/uL (0.1-1.2); Neutrophils Absolute Auto 2.2 X10*3/uL (2.0-8.3); Neutrophils Percent Auto 41.2 % (45-73); Platelet Count 189 X10*3/uL (160-400); Red Blood Count 5.37 X10*6/uL (4.60-5.80); Red Cell Distribution Width 13.2 % (11.0-16.0); White Blood Count 5.3 X10*3/uL (4.8-10.8)
[2020-05-13 18:00] VITALS: RESP 20
[2020-05-13 18:02] LABS: COVID-19 Test Negative (Negative)
[2020-05-13 18:06] LABS: Ethanol 214 mg/dL
[2020-05-13 18:10] LABS: Alanine Aminotransferase 31 U/L (0-40); Albumin Level 4.1 g/dL (3.5-5.0); Alkaline Phosphatase 83 U/L (39-117); Anion Gap 19 (12-20); Aspartate Amino Transferase 26 U/L (5-37); Bilirubin Total 0.4 mg/dL (0.0-1.0); Blood Urea Nitrogen 9 mg/dL (9-16); Calcium 8.3 mg/dL (8.4-10.2); Carbon Dioxide 24 mmol/L (22-29); Chloride 103 mmol/L (96-108); Creatinine Clr Calc Pharmacy 108.9; Estimated Glomerular Filt Rate > 60; Glucose Random 296 mg/dL (60-115); Sodium 142 mmol/L (135-145); Total Protein 7.3 g/dL (6.5-8.0)
[2020-05-13 18:14] LABS: Acetaminophen LAB < 1 mcg/mL (<30); Salicylate < 5.0 mg/dL (15-30); Valproate 8.1 mcg/mL (50.0-100.0)
--- NOTE | 2020-05-13 18:21 | PC.NURSE ---
pt resting, resp unlabored
[2020-05-13 20:10] LABS: Glucose, Whole Blood 214 mg/dL (60-115)
--- NOTE | 2020-05-13 21:02 | PC.NURSE ---
Care team evaluated the patient, disposition section 12 in-patient bed search, patient & provider aware.
[2020-05-13 21:23] LABS: Glucose Urine UA >=1000 MG/DL (NEG); Leukocyte Esterase Urine NEG (NEG); Nitrite Urine NEG (NEG); PH 5.5 (5.0-8.0); Specific Gravity - Urine >= 1.030 (1.005-1.025); Urine Blood NEG (NEG); Urine Ketones 15 MG/DL (NEG); Urine Protein NEG (NEG-TRACE)
[2020-05-13 21:24] LABS: Appearance Urine CLEAR; Color Urine YELLOW
[2020-05-13 21:32] LABS: RBC Urine 0 /HPF (0); Squamous Epithelial Cell Urine TRACE /LPF; WBC Urine 0-2 /HPF (0-4)
[2020-05-13 21:33] LABS: Granular Casts Urine 0-2 /LPF
[2020-05-13 21:41] VITALS: BP 118/66; PULSE 85; RESP 18; TEMP 36.9; O2SAT 96
[2020-05-13 21:43] LABS: Amphetamine Screen Urine Not Detected (Not Detect); Barbiturates, Urine Not Detected (Not Detect); Benzodiazepines Screen Urine POSITIVE (Not Detect); Cannabinoid Screen Urine POSITIVE (Not Detect); Cocaine Screen Urine Not Detected (Not Detect); Opiate Screen Urine Not Detected (Not Detect); Phencyclidine Screen Urine Not Detected (Not Detect)
[2020-05-14] VITALS (9 sets, daily range): BP systolic 100–143; BP diastolic 52–89; PULSE 61–80; RESP 17–20; TEMP 36.2–36.9; O2SAT 96–98
--- NOTE | 2020-05-14 00:59 | MHC.CARE ---
CARE Team conducts bedsearch. Bed availability is very limited state wide at this time, only one unit to present to. Referral faxed to [facility] @ [phone]. CARE Team will call to follow up on referral tomorrow. Bedsearch will continue tomorrow morning.
--- NOTE | 2020-05-14 07:21 | PC.NURSE ---
Report received from SHAR Gonzalez. Pt awake, affect even, no concerns reported.
[2020-05-14 07:25] LABS: Glucose, Whole Blood 117 mg/dL (60-115)
--- NOTE | 2020-05-14 07:49 | PC.NURSE ---
Pt declining all medications 'until I think of something else.' Pt states that he is 'tired of taking medications.' No other explanation offered, pt not making eye contact, facing the wall.
--- NOTE | 2020-05-14 08:24 | PC.NURSE ---
Candelario Amaral aware pt is declining any medications at this time.
--- NOTE | 2020-05-14 10:25 | PC.NURSE ---
Pt resting, resp unlabored.
[2020-05-14] MEDS: diazePAM 10 MG TABLET PO (11:01)
--- NOTE | 2020-05-14 11:15 | PC.NURSE ---
Pt awake, reports back pain /. Given Valium as ordered for pain. Pt denies any symptoms of withdrawal. Pt reports anger re: back pain, number of medications, and significant anxiety about his insurance and living situations.
[2020-05-14] MEDS: Nicotine 21 MG PATCH.TD24 TRANSDERMA (14:03)
--- NOTE | 2020-05-14 15:18 | PC.NURSE ---
Pt resting, resp unlabored.
--- NOTE | 2020-05-14 17:36 | PC.NURSE ---
Pt alert, out in common area. Conversing with staff at times, continues to be focused on concerns re: future, and hopelessness. Pt declining medications, and declining POC.
--- NOTE | 2020-05-14 19:05 | PC.NURSE ---
Report received. PT is sleeping in bed. Respirations even and unlabored. PT is inpatient bed search.
[2020-05-14 20:18] LABS: Glucose, Whole Blood 191 mg/dL (60-115)
--- NOTE | 2020-05-14 21:09 | PC.NURSE ---
PT refused night time medications, stating that he feels like he is taking too many medications right now and that is part of the problem.
[2020-05-14] MEDS: Cyclobenzaprine HCl 10 MG TABLET PO (22:29)
--- NOTE | 2020-05-15 01:58 | MHC.CARE ---
CARE Team completes statewide bedsearch. Pt is referred to [facility], and per Lena Kearney RN, CARE Team should follow up in the morning, as they have beds but unit acuity is high. Pt is on the waitlist at [facility]. Pt referred to [facility]. CARE Team attempted to follow up x3, VM left for admissions dept. CARE Team will f/u with these units tomorrow and will again conduct bedsearch.
[2020-05-15 07:00] VITALS: BP 132/62; PULSE 56; RESP 16; TEMP 36.6; O2SAT 98
--- NOTE | 2020-05-15 07:16 | PC.NURSE ---
Report received. PT currently sleeping, respirations even and unlabored, in no apparent distress. PT is inpatient bedsearch.
[2020-05-15 09:01] VITALS: TEMP 37.1
--- NOTE | 2020-05-15 09:25 | PC.NURSE ---
PT declined morning medications. PT states I'm being stubborn and refusing . Pt polite in conversation. Denies symptoms of withdrawal.
--- NOTE | 2020-05-15 14:50 | MHC.CARE ---
CARE team conducted 50 ca statewide bedsearch for pt. CARE placed calls back to the following per last night pass along from [facility] team. [facility] ([phone])c/o Lis reported the unit is more acute today and unable to accept. [facility] ([phone])is full. [facility] ([phone]) confirmed that pt was on wait list and stated you can call back later tonight to see if any dcs . [facility] ([phone])stated full at moment but might have a bed if call back at 10p and we could have a opening . CARE placed calls to all facilities and also used the [facility] website for added resources, and availability listings. CARE team can place the two call later tonight. T/w met w pt to update him that the bedsearch is continued and will continued daily on his behalf until placement is secured. Pt was quietly sitting in a common area of the POD. Pt joked and shared stories with t/w. Pt stated he is more than willing to get help and just needs to be on less meds . Pt stated he enjoyed visiting.
[2020-05-15] MEDS: Nicotine 21 MG PATCH.TD24 TRANSDERMA (15:01)
--- NOTE | 2020-05-15 16:06 | PC.NURSE ---
PT calm and cooperative, pleasant in conversation. PT states that he does not want to take medications at this time because he feels that he is on too many medications. Pt states he just wants things to help him sleep at night because he has insomnia. Pt denies complaints, currently watching tv.
[2020-05-15 17:42] VITALS: BP 126/86; PULSE 66; RESP 18; TEMP 36.6; O2SAT 95
--- NOTE | 2020-05-15 19:55 | PC.NURSE ---
Report received. PT is awake and standing at the nurse's station. Calm and cooperative. PT is inpatient bed search.
[2020-05-15 20:05] LABS: Glucose, Whole Blood 169 mg/dL (60-115)
[2020-05-15] MEDS: Zolpidem Tartrate 5 MG TABLET 10 MG PO (22:02)
[2020-05-15] MEDS: diazePAM 10 MG TABLET PO (22:02)
[2020-05-15] MEDS: Cyclobenzaprine HCl 10 MG TABLET PO (22:02)
--- NOTE | 2020-05-16 00:43 | MHC.CARE ---
Bedsearch note: This investigative writer followed up with [facility] re: bed availability for tomorrow. Neither facility has beds available.
[2020-05-16 06:00] VITALS: RESP 18
--- NOTE | 2020-05-16 07:15 | PC.NURSE ---
Report received. PT currently sitting in common area, calm and cooperative, states he is not going to eat today. Pt is inpatient bedsearch.
[2020-05-16 09:39] VITALS: RESP 18
--- NOTE | 2020-05-16 14:08 | PC.NURSE ---
Pt resting, denies complaints. PT continues to decline food and vital sign assessment stating i'm angry and stubborn, I refuse everything Pt otherwise pleasant in conversation.
[2020-05-16 14:46] VITALS: RESP 18
--- NOTE | 2020-05-16 18:17 | PC.NURSE ---
PT has continued to deny symptoms of withdrawal, per provider ok to DC [facility].
[2020-05-16 20:49] VITALS: RESP 20
[2020-05-16] MEDS: Cyclobenzaprine HCl 10 MG TABLET PO (21:21)
[2020-05-16] MEDS: Zolpidem Tartrate 5 MG TABLET 10 MG PO (21:22)
[2020-05-16 22:00] VITALS: RESP 16
[2020-05-16] MEDS: diazePAM 10 MG TABLET PO (22:02)
--- NOTE | 2020-05-17 | PC.NURSE ---
Pt given various puddings through out night, patient continues to refuse eating at this time. patient refuses vs. i dont really care. I suppose i want to . I don't actively want to kill myself .
--- NOTE | 2020-05-17 04:59 | PC.NURSE ---
pt up asking for crackers and pudding. patient given crackers. pt told that breakfast will be in few hours. per patient i'm not going to eat breakfast. . Pt refused vs. i'm not going to do that.
--- NOTE | 2020-05-17 05:06 | PC.NURSE ---
pt given gingerale. patient requesting nicotine patch. md contacted.
[2020-05-17] MEDS: Nicotine 21 MG PATCH.TD24 TRANSDERMA (05:20)
--- NOTE | 2020-05-17 07:43 | PC.NURSE ---
Report received from SHAR Traylor. Pt resting currently, refused POC on night manager, refused breakfast this morning.
--- NOTE | 2020-05-17 08:12 | PC.NURSE ---
Reviewed care w/ RACHEAL Carrillo. Provider aware pt has been declining meals, POC, and care.
[2020-05-17 08:46] VITALS: BP 95/48; PULSE 52; RESP 18; TEMP 36.4; O2SAT 97
[2020-05-17 08:47] LABS: Glucose, Whole Blood 137 mg/dL (60-115)
--- NOTE | 2020-05-17 09:29 | PC.NURSE ---
Pt awakened for medications- states he will continue to decline all except for flexeril, valium, and zolpidem. Pt did allow PB, POC to be completed- pt encouraged to drink fluids- encouraged to get up slowly- no dizziness at this time.
--- NOTE | 2020-05-17 12:17 | PC.NURSE ---
Pt resting, resp unlabored
[2020-05-17 14:00] VITALS: RESP 18
--- NOTE | 2020-05-17 15:00 | PC.NURSE ---
Pt resting in room- declined medications for pain, declined to shower or allow linens to be changed. A Baljinder SPRINGER aware.
[2020-05-17 16:27] VITALS: RESP 18
--- NOTE | 2020-05-17 16:47 | PC.NURSE ---
Pt resting, declined afternoon meds, states he only wants to take medications for pain at bedtime, declined vitals.
--- NOTE | 2020-05-17 18:05 | PC.NURSE ---
Pt declined supper
--- NOTE | 2020-05-17 20:38 | PC.NURSE ---
Patient got reevaluated by care team, disposition unchanged, section 12 inpatient bed search, patient refused some HS PO medication but stated he would take his Ambian, Seroquel, and Valium at 2300. Currently in his bed lying, denied distress, mood irritable/depressed, affect flat, alert and oriented, will continue to monitor.
[2020-05-17] MEDS: QUEtiapine Fumarate 200 MG TABLET PO (22:10)
[2020-05-17] MEDS: diazePAM 10 MG TABLET PO (22:10)
[2020-05-17] MEDS: Zolpidem Tartrate 5 MG TABLET 10 MG PO (22:10)
[2020-05-18 00:52] VITALS: BP 129/83; PULSE 87; RESP 17; TEMP 37.1; O2SAT 99
--- NOTE | 2020-05-18 06:58 | PC.NURSE ---
During overnight shift patient had total 4 pudding, 2 jellos, and crackers. Patient refused his breakfast, denied distress, will continue to monitor.
--- NOTE | 2020-05-18 07:19 | PC.NURSE ---
Report received from Carlos RN- pt awake, eating Jello. Affect even. Declines to shower, or have linens changed.
[2020-05-18 07:44] VITALS: BP 105/51; PULSE 61; RESP 18; TEMP 36.4; O2SAT 95
[2020-05-18 07:44] LABS: Glucose, Whole Blood 179 mg/dL (60-115)
--- NOTE | 2020-05-18 07:47 | PC.NURSE ---
pt continues to decline all medications except those to treat back pain which he only wants to receive at night.
--- NOTE | 2020-05-18 11:11 | PC.NURSE ---
Pt resting, resp unlabored
[2020-05-18] MEDS: Nicotine 21 MG PATCH.TD24 TRANSDERMA (13:45)
--- NOTE | 2020-05-18 13:58 | PC.NURSE ---
Pt awake, alert, pleasant. Declined lunch. Pt aware that he will be going to [facility], no concerns reported, appears in agreement w/ plan.
[2020-05-18 14:00] VITALS: RESP 18
--- NOTE | 2020-05-18 16:09 | PC.NURSE ---
report given to maricruz elizabeth on [facility].
--- NOTE | 2020-05-18 16:18 | ECG_ITS ---
Test Reason : PRE-ADMISSION Blood Pressure : / mmHG Vent. Rate : 056 BPM Atrial Rate : 056 BPM P-R Int : 174 ms QRS Dur : 088 ms QT Int : 418 ms P-R-T Axes : 028 -59 043 degrees QTc Int : 403 ms Sinus bradycardia Left axis deviation Low voltage QRS Nonspecific T wave abnormality Abnormal ECG When compared with ECG of 10-MAR-2020 20:46, Vent. rate has decreased BY 36 BPM Minimal criteria for Anteroseptal infarct are no longer Present Referred By: Generic ED Physician Electronically Signed By:MICHEL AVILA MD
[2020-05-18 16:24] VITALS: BP 109/77; PULSE 62; RESP 20; TEMP 36.3; O2SAT 97
--- NOTE | 2020-05-18 17:44 | PC.NURSE ---
Pt affect brighter, pt conversing w/ staff, visible on unit. Labs drawn as ordered.
[2020-05-18 18:00] VITALS: BP 155/94; PULSE 64; RESP 18; TEMP 36.4; O2SAT 97
[2020-05-18] MEDS: Acetaminophen 325 MG TABLET 650 MG PO (18:17)
[2020-05-18 18:42] LABS: Troponin-I High Sensitivity < 3.5 ng/L (<3.5-35.0)
--- NOTE | 2020-05-18 20:53 | PC.ADMIT ---
PT. IS A 55 YEAR OLD WHITE NAMIBIAN SPEAKING MALE WHO PRESENTS TO [facility] FROM [facility] AT [facility]PROX. 19:05 ON A CV STATUS. PT. IS COVID NEG. UTOX POSITIVE FOR MARIJUANA AND BENZO'S, HE WAS ESCORTED BY HIS SISTER UPON ARRIVAL TO [facility]/ED, PT. WAS ETOH INTOXICATED. PT. IS KNOWN TO [facility] FROM PREVIOUS ADMISSIONS. UPON ARRIVAL TO ED PT. REPORTED AN INCREASE OF DEPRESSION AND ANXIETY, SI AND ALCOHOL USE. HE WAS NON MEDICATION COMPLIANT AND HE EXPRESSED SIGNIFICANT MEDICAL ISSUES AND PAIN, HE STATED I JUST WANT TO END IT ALL . PT. DENIED SI AT ADMISSION ASSESSMENT, HE STATED I KNOW IT WILL HAPPEN SOME DAY, I DON'T KNOW WHEN, I DON'T KNOW WHERE OR HOW BUT IT WILL HAPPEN (THE SI). PT. APPEARS LABILE, IRRITATED, WITH POOR INSIGHT AND JUDGMENT. PT. EXPRESSED ANGER TOWARD HIS PREVIOUS DR. FAUST MAKING THREATS OF HI. I WILL GET IT , THE OXYCODONE . PT. STATED IT'S ONE PILL THAT WORKS FOR ALL MY PROBLEMS . HE REPORTED OXYCODONE HELPS HIM WITH HIS CHRONIC BACK PAIN, WITH IS SLEEP AND HIS DEPRESSION. PT. STATED I WILL TAKE 4 MEDICATIONS, THAT'S IT . PT. REFUSED HIS SCHEDULED POC AND SCHEDULED MEDICATIONS IN ED. HE REPORTED HE WILL NOT EAT UNTIL HE GETS HIS MED . PT. WAS COOPERATIVE DURING THE NURSING ASSESSMENT. HE SIGNED ALL CONSENTS EXCEPT THE ONE FOR HIS SISTER. HE COOPERATED WITH THE SAFETY TOOL AND SIGNED IT. PT. IS ON 15 MIN. SAFETY CHECKS, MEDICATION ORDERS RECEIVED AND ACKNOWLEDGED. . HE REPORTED BACK PAIN 8/10, HIS BP WAS ELEVATED. IT APPEARS THAT PT. IS NOT REPORTING TRUTHFULLY,
[2020-05-18] MEDS: Zolpidem Tartrate 5 MG TABLET 10 MG PO (22:01)
[2020-05-18] MEDS: QUEtiapine Fumarate 200 MG TABLET PO (22:01)
[2020-05-18] MEDS: Diclofenac Sodium Delayed Rel 50 MG TABLET.DR PO (22:01)
[2020-05-19 05:15] VITALS: BP 149/79; PULSE 87; RESP 18; TEMP 36.1; O2SAT 97
[2020-05-19 05:22] LABS: Glucose, Whole Blood 178 mg/dL (60-115)
[2020-05-19] MEDS: Nicotine 21 MG PATCH.TD24 TRANSDERMA (09:03)
[2020-05-19] MEDS: Docusate Sodium 100 MG CAPSULE 200 MG PO ×2 (09:07→22:34)
[2020-05-19] MEDS: Diclofenac Sodium Delayed Rel 50 MG TABLET.DR PO ×2 (16:23→22:33)
--- NOTE | 2020-05-19 16:25 | P.HPPS_ITS ---
HPI Chief Complaint: Bipolar Disorder Sources of Information: patient interviewed, chart reviewed and crisis/core team assessment reviewed HPI Past Psychiatric History: 55 yo male, hx of bipolar disorder and alcohol use disorder presents with his sister to ER. He reported an increase in depression, anxiety, alcohol intake and SI. He is non-compliant with all medications and reports back pain. Hx of C admissions for bipolar disorder, hx of addiction admissions with residential care history. Recent admission for ?delirium from medications/alcohol. Pt discussed that he is having too many SE from meds and will limit dosing. Acknowledges he does have bipolar disorder and we do need to address this. Currently he has stopped, hydroxyzine, cymbalta, depakote. He is using valium, ambien. Discussed options. Will trial Lamictal, Vraylar-pt in agreement. He has been using Seroquel when in hospital. He has also stopped Metformin and currently will not return to another agent. Will continue to discu ss with pt and review options. Will ask hospitalist to review DM Rx options and review back pain. Pt agrees to labs. Medical Evaluation Reviewed: Yes Refusing labs, POC, Meds, food. Reporting pain in his back. [facility] Medical History (Updated 05/19/20 @ 18:59 by Maribel Burden, DARLINE) Alcohol use disorder Bipolar 2 disorder, major depressive episode Bipolar disorder Depression Diabetes mellitus, type 2 Suicidal ideation Family History: Family history of suicide and substance abuse Social History: the patient was born and raised in [facility] he has a brother and a sister his parents are . He is not does not have any children. In the past he lived in [place] and in [place]. He moved back to to [facility] from [place] has been living with his sister. He is on security disability. Substance History: alcohol- reports twice per week. Trauma History: Yes Diagnostics Vital Signs (24Hr): Vital Signs - 24 hr 05/18/20 18:00 05/19/20 05:15 Temperature 97.5 F 96.9 F Pulse Rate 64 87 Respiratory Rate 18 18 Blood Pressure 155/94 H 149/79 H Pulse Oximetry 97 97 Body Mass Index 38.0 Labs Results: 05/13/20 17:26 05/13/20 17:26 Labs: Laboratory Results - last 48 hr 05/18/20 05/18/20 05/19/20 07:41 17:58 05:18 POC Glucose 179 H 178 H Troponin I High Sens < 3.5 Meds/Allergies Meds Home Medications Acetaminophen (Acetaminophen 325 Mg Tablet) 650 mg PO Q6H PRN PRN Reason: Headache/Pain Mild Scale (1-3) Last Admin: 05/18/20 18:17 Dose: 650 mg Documented by: Al Hydroxide/Mg Hydroxide (Magnesium Hydrox/Alum Hydrox 30 Ml Oral.Susp) 30 ml PO Q6H PRN PRN Reason: Heartburn/Nausea Cariprazine (Cariprazine Hcl 3 Mg Capsule) 3 mg PO DAILY [facility] Cyclobenzaprine HCl (Cyclobenzaprine Hcl 10 Mg Tablet) 10 mg PO BID PRN PRN Reason: Spasms Last Admin: 05/16/20 21:21 Dose: 10 mg Documented by: Diclofenac Sodium (Diclofenac Sodium Delayed Rel 50 Mg Tablet.) 50 mg PO TID [facility] Last Admin: 05/19/20 16:23 Dose: 50 mg Documented by: Docusate Sodium (Docusate Sodium 100 Mg Capsule) 200 mg PO BID [facility] Last Admin: 05/19/20 09:07 Dose: 200 mg Documented by: Duloxetine HCl (Duloxetine Hcl 60 Mg Capsule.) 60 mg PO BEDTIME [facility] Last Admin: 05/18/20 22:02 Dose: Not Given Documented by: Hydroxyzine HCl (Hydroxyzine Hcl 25 Mg Tablet) 50 mg PO BEDTIME [facility] Last Admin: 05/18/20 22:02 Dose: Not Given Documented by: Hydroxyzine HCl (Hydroxyzine Hcl 25 Mg Tablet) 25 mg PO BEDTIME PRN PRN Reason: Anxiety Lamotrigine (Lamotrigine 25 Mg Tablet) 25 mg PO DAILY [facility] Magnesium Hydroxide (Milk Of Magnesia 30 Ml Oral.Susp) 30 ml PO DAILY PRN PRN Reason: Constipation Metformin HCl (Metformin Hcl 500 Mg Tablet) 500 mg PO BIDWM [facility] Last Admin: 05/19/20 16:25 Dose: Not Given Documented by: Nicotine (Nicotine 21 Mg Patch.Td24) 21 mg TRANSDERMA DAILY [facility] Last Admin: 05/19/20 09:03 Dose: 21 mg Documented by: Quetiapine Fumarate (Quetiapine Fumarate 200 Mg Tablet) 200 mg PO BEDTIME [facility] Last Admin: 05/18/20 22:01 Dose: 200 mg Documented by: Trazodone HCl (Trazodone Hcl 50 Mg Tablet) 50 mg PO BEDTIME PRN PRN Reason: Insomnia Allergies Allergies Allergy/AdvReac Type Severity Reaction Status Date / Time No Known Allergies Allergy Verified 03/10/20 19:00 Mental Status Exam Mental Status Exam Patient Appearance: Appropriate Patient Orientation: Person, Place, Time and Situation Level of Consciousness: Alert Patient Behavior: Appropriate Mood Description: Depressed and Anxious Affect Description: Flat Patient Cognition Impaired: No Ability to Follow Directions: Fair Speech Pattern: Spontaneous Speech Memory Description: Episodic Impaired Hallucinations: None Delusions: Not Present Thought Process: Distracted and Rumination Thought Content: positive for [place] and positive for Circumstantial Depressive Symptoms: Increased Anxiety and Increased Irritability Judgement: Fair Assessment & Plan Assessment & Plan (1) Bipolar 2 disorder, major depressive episode: Status: Acute Code(s): F31.81 - Bipolar II disorder Assessment and Plan: Pt is firm in saying he will limit medications due to inefficacy and SE. Discussed options. -Lamictal 25 mg daily -Vraylar 3 mg daily (2) Alcohol use disorder: Status: Acute Patient educated on: medication risk/benefits, substance abuse and therapeutic strategies Informed Consent: further education needed Reason for continued inpatient stay Substantial Risk for: harm to self, rapid decompensation and med/psych decompensation
[2020-05-19 19:52] LABS: Cholesterol 169 mg/dL; Glucose Fasting 155 mg/dL (60-99); HDL Cholesterol 35 mg/dL; LDL Cholesterol Calculated 103 mg/dl; Triglycerides 157 mg/dL
[2020-05-19 19:59] LABS: Valproate < 2.0 mcg/mL (50.0-100.0)
[2020-05-19 21:30] VITALS: BP 146/82; PULSE 76; TEMP 36.8
[2020-05-19] MEDS: Cyclobenzaprine HCl 10 MG TABLET PO (21:42)
[2020-05-19] MEDS: hydrOXYzine HCL 25 MG TABLET 50 MG PO (22:33)
[2020-05-19] MEDS: DULoxetine HCl 60 MG CAPSULE.DR PO (22:34)
[2020-05-19] MEDS: QUEtiapine Fumarate 200 MG TABLET PO (22:34)
[2020-05-20] MEDS: diazePAM 10 MG TABLET PO (01:10)
[2020-05-20 06:15] VITALS: BP 118/56; PULSE 61; RESP 18; TEMP 36.2; O2SAT 94
[2020-05-20 06:37] LABS: Glucose, Whole Blood 232 mg/dL (60-115)
[2020-05-20 07:00] VITALS: BMI 38.0
[2020-05-20 08:21] LABS: Basophils Percent Auto 0.3 % (0-2); Eosinophils Absolute Auto 0.1 X10*3/uL (0.0-0.4); Eosinophils Percent Auto 1.7 % (0-4); Hemoglobin 15.7 g/dl (14.0-18.0); Imm Gran Abs Auto 0.01 X10*3/uL (0.00-0.03); Imm Gran Pct Auto 0.2 % (0.0-0.4); Mean Corpuscular Hemoglobin 30.4 pg (27.0-33.0)
[2020-05-20 08:23] LABS: Lymphocytes Percent Auto 52.5 % (20-40); Mean Corpuscular HGB Conc 34.9 g/dl (31.0-36.0); Monocytes Absolute Auto 0.6 X10*3/uL (0.1-1.2); Monocytes Percent Auto 9.8 % (2-11); Neutrophils Absolute Auto 2.1 X10*3/uL (2.0-8.3); Neutrophils Percent Auto 35.5 % (45-73); Platelet Count 127 X10*3/uL (160-400); Red Blood Count 5.17 X10*6/uL (4.60-5.80); Red Cell Distribution Width 12.9 % (11.0-16.0); White Blood Count 5.8 X10*3/uL (4.8-10.8)
[2020-05-20] MEDS: Nicotine 21 MG PATCH.TD24 TRANSDERMA (08:43)
[2020-05-20 08:46] LABS: Creatinine Clr Calc Pharmacy 115.7; Estimated Glomerular Filt Rate > 60
[2020-05-20 08:51] LABS: Estimated Average Glucose 166 mg/dL; Hemoglobin A1c % 7.4 %
[2020-05-20 08:55] LABS: Alanine Aminotransferase 40 U/L (0-40); Albumin Level 3.8 g/dL (3.5-5.0); Alkaline Phosphatase 52 U/L (39-117); Anion Gap 15 (12-20); Aspartate Amino Transferase 22 U/L (5-37); Bilirubin Total 0.5 mg/dL (0.0-1.0); Blood Urea Nitrogen 11 mg/dL (9-16); Calcium 8.5 mg/dL (8.4-10.2); Carbon Dioxide 24 mmol/L (22-29); Chloride 103 mmol/L (96-108); Cholesterol 170 mg/dL; Creatinine Clr Calc Pharmacy 119.4; Estimated Glomerular Filt Rate > 60; Glucose Random 293 mg/dL (60-115); HDL Cholesterol 35 mg/dL; LDL Cholesterol Calculated 95 mg/dl; Potassium 3.8 mmol/L (3.3-5.1); Sodium 138 mmol/L (135-145); Total Protein 6.6 g/dL (6.5-8.0); Triglycerides 204 mg/dL
[2020-05-20 09:15] LABS: Thyroid Stimulating Hormone 1.15 uIU/mL (0.32-4.0)
[2020-05-20 18:00] VITALS: BP 147/75; PULSE 65; TEMP 36.6
--- NOTE | 2020-05-20 18:39 | HO.PSYCHPN ---
Subjective Subjective Date of Service: 05/20/20 Reason For Visit: Bipolar Disorder Subjective Notes: Conditional Voluntary Interim History: Refused Lamictal/Vraylar. Declines insulin SS as he is refusing metformin Continues with Seroquel at hs. Discussed SI for the past 30 years-states if I can live my last 30 years without that I will be satisfied . Discussed wanting minimal medications, pain mgt (will refer for OP)as current back pain has effect on mobility, ADL's. Medication Compliance: No Side effects from medications: No Attending Groups: No Review of Systems Musculoskeletal: Reports back pain Reports behavioral changes Psychiatric: Reports behavioral changes and Reports mood swings Mental Status Exam Mental Status Exam Patient Appearance: Appropriate Patient Orientation: Person, Place, Time and Situation Level of Consciousness: Alert Patient Behavior: Talkative Mood Description: Labile Affect Description: Labile Patient Cognition Impaired: No Ability to Follow Directions: Fair Speech Pattern: Spontaneous Speech Memory Description: Intact Hallucinations: None Delusions: Not Present Thought Process: Rumination, Goal Oriented and Linear Thought Content: positive for [place] Depressive Symptoms: Muscle Pain and Back Pain Judgement: Fair Diagnostics Vital Signs (24Hr): Vital Signs - 24 hr 05/19/20 21:30 05/20/20 06:15 05/20/20 18:00 Temperature 98.2 F 97.2 F 97.9 F Pulse Rate 76 61 65 Respiratory Rate 18 Blood Pressure 146/82 H 118/56 L 147/75 H Pulse Oximetry 94 Body Mass Index 38.0 Labs Results: 05/20/20 08:00 05/20/20 08:00 Labs: Laboratory Results - last 48 hr 05/18/20 05/19/20 05/19/20 17:58 05:18 19:22 WBC RBC Hgb Hct MCV MCH MCHC RDW Plt Count MPV Immature Gran % (Auto) Neut % (Auto) Lymph % (Auto) [place] % (Auto) Eos % (Auto) Baso % (Auto) Lymph # (Auto) [place] # (Auto) Eos # (Auto) Baso # (Auto) Abs Immat Gran (auto) Absolute Neuts (auto) Absolute Nucleated RBC Nucleated RBC % (auto) Sodium Potassium Chloride Carbon Dioxide Anion Gap BUN Creatinine Estim Creat Clear Calc Estimated GFR POC Glucose 178 H Random Glucose Fasting Glucose 155 H Estimat Average Glucose Hemoglobin A1c % Calcium Total Bilirubin AST ALT Alkaline Phosphatase Troponin I High Sens < 3.5 Total Protein Albumin Triglycerides 157 Cholesterol 169 LDL Cholesterol, Calc 103 HDL Cholesterol 35 D TSH Valproic Acid < 2.0 L 05/20/20 05/20/20 05/20/20 06:32 08:00 08:00 WBC 5.8 RBC 5.17 Hgb 15.7 Hct 45.0 MCV 87.0 MCH 30.4 MCHC 34.9 RDW 12.9 Plt Count 127 L D MPV 11.0 Immature Gran % (Auto) 0.2 Neut % (Auto) 35.5 L Lymph % (Auto) 52.5 H [place] % (Auto) 9.8 Eos % (Auto) 1.7 Baso % (Auto) 0.3 Lymph # (Auto) 3.0 [place] # (Auto) 0.6 Eos # (Auto) 0.1 Baso # (Auto) 0.0 Abs Immat Gran (auto) 0.01 Absolute Neuts (auto) 2.1 Absolute Nucleated RBC 0.000 Nucleated RBC % (auto) 0.0 Sodium 138 Potassium 3.8 Chloride 103 Carbon Dioxide 24 Anion Gap 15 BUN 11 Creatinine 0.94 Estim Creat Clear Calc 119.4 Estimated GFR > 60 POC Glucose 232 H Random Glucose 293 H Fasting Glucose Estimat Average Glucose Hemoglobin A1c % Calcium 8.5 Total Bilirubin 0.5 AST 22 ALT 40 Alkaline Phosphatase 52 D Troponin I High Sens Total Protein 6.6 Albumin 3.8 Triglycerides 204 Cholesterol 170 LDL Cholesterol, Calc 95 HDL Cholesterol 35 TSH 1.15 Valproic Acid 05/20/20 05/20/20 08:00 08:00 WBC RBC Hgb Hct MCV MCH MCHC RDW Plt Count MPV Immature Gran % (Auto) Neut % (Auto) Lymph % (Auto) [place] % (Auto) Eos % (Auto) Baso % (Auto) Lymph # (Auto) [place] # (Auto) Eos # (Auto) Baso # (Auto) Abs Immat Gran (auto) Absolute Neuts (auto) Absolute Nucleated RBC Nucleated RBC % (auto) Sodium Potassium Chloride Carbon Dioxide Anion Gap BUN Creatinine 0.97 Estim Creat Clear Calc 115.7 Estimated GFR > 60 POC Glucose Random Glucose Fasting Glucose Estimat Average Glucose 166 Hemoglobin A1c % 7.4 Calcium Total Bilirubin AST ALT Alkaline Phosphatase Troponin I High Sens Total Protein Albumin Triglycerides Cholesterol LDL Cholesterol, Calc HDL Cholesterol TSH Valproic Acid Medications Medications Current Medications Generic Name Dose Route Start Last Admin Trade Name Freq PRN Reason Stop Dose Admin Acetaminophen 650 mg 05/18/20 16:24 05/18/20 18:17 Acetaminophen 325 Mg Tablet PO 650 mg Q6H PRN Administration Headache/Pain Mild Scale (1-3) Al Hydroxide/Mg Hydroxide 30 ml 05/18/20 16:24 Magnesium Hydrox/Alum Hydrox 30 Ml Oral.Susp PO Q6H PRN Heartburn/Nausea Cariprazine 3 mg 05/20/20 09:00 05/20/20 08:56 Cariprazine Hcl 3 Mg Capsule PO Not Given DAILY ABDULKADIR Cyclobenzaprine HCl 10 mg 05/14/20 01:56 05/19/20 21:42 Cyclobenzaprine Hcl 10 Mg Tablet PO 10 mg BID PRN Administration Spasms Diazepam 10 mg 05/20/20 00:01 05/20/20 01:10 Diazepam 10 Mg Tablet PO 10 mg DAILY PRN Administration Anxiety Diclofenac Sodium 50 mg 05/14/20 02:00 05/20/20 14:22 Diclofenac Sodium Delayed Rel 50 Mg Tablet. PO Not Given TID ABDULKADIR Docusate Sodium 200 mg 05/14/20 02:00 05/20/20 08:56 Docusate Sodium 100 Mg Capsule PO Not Given BID ABDULKADIR Duloxetine HCl 60 mg 05/14/20 02:00 05/19/20 22:34 Duloxetine Hcl 60 Mg Capsule. PO 60 mg BEDTIME ABDULKADIR Administration Hydroxyzine HCl 50 mg 05/14/20 02:00 05/19/20 22:33 Hydroxyzine Hcl 25 Mg Tablet PO 50 mg BEDTIME [facility]ULKADIR Administration Hydroxyzine HCl 25 mg 05/18/20 16:24 Hydroxyzine Hcl 25 Mg Tablet PO BEDTIME PRN Anxiety Lamotrigine 25 mg 05/20/20 09:00 05/20/20 08:57 Lamotrigine 25 Mg Tablet PO Not Given DAILY ABDULKADIR Magnesium Hydroxide 30 ml 05/18/20 16:24 Milk Of Magnesia 30 Ml Oral.Susp PO DAILY PRN Constipation Metformin HCl 500 mg 05/13/20 21:00 05/20/20 16:29 Metformin Hcl 500 Mg Tablet PO Not Given BIDWM ABDULKADIR Nicotine 21 mg 05/19/20 09:00 05/20/20 08:43 Nicotine 21 Mg Patch.Td24 TRANSDERMA 21 mg DAILY [facility]ULKAD[facility] Administration Quetiapine Fumarate 200 mg 05/14/20 02:00 05/19/20 22:34 Quetiapine Fumarate 200 Mg Tablet PO 200 mg BEDTIME ABDULKADIR Administration Trazodone HCl 50 mg 05/18/20 16:24 Trazodone Hcl 50 Mg Tablet PO BEDTIME PRN Insomnia Allergies Allergies Allergy/AdvReac Type Severity Reaction Status Date / Time No Known Allergies Allergy Verified 03/10/20 19:00 Assessment & Plan Assessment & Plan (1) Diabetes mellitus, type 2: Status: Acute Code(s): E11.9 - Type 2 diabetes mellitus without complications (2) Bipolar 2 disorder, major depressive episode: Status: Acute Code(s): F31.81 - Bipolar II disorder Assessment and Plan: Agrees to Vraylar and Lamictal trials. Greater than 50% of the session was spent on counseling and/or coordination of care Reason for contiued inpatient stay Substantial Risk for: harm to self, inability to function, rapid decompensation and med/psych decompensation
[2020-05-20] MEDS: DULoxetine HCl 60 MG CAPSULE.DR PO (21:33)
[2020-05-20] MEDS: Docusate Sodium 100 MG CAPSULE 200 MG PO (21:34)
[2020-05-20] MEDS: hydrOXYzine HCL 25 MG TABLET 50 MG PO (21:34)
[2020-05-20] MEDS: Cyclobenzaprine HCl 10 MG TABLET PO (21:34)
[2020-05-20] MEDS: QUEtiapine Fumarate 200 MG TABLET PO (21:35)
[2020-05-20] MEDS: Diclofenac Sodium Delayed Rel 50 MG TABLET.DR PO (21:35)
[2020-05-21 06:20] VITALS: BP 112/56; PULSE 57; RESP 18; TEMP 36.3; O2SAT 96
[2020-05-21 06:33] LABS: Glucose, Whole Blood 300 mg/dL (60-115)
[2020-05-21] MEDS: metFORMIN HCl 500 MG TABLET PO ×2 (09:06→17:03)
[2020-05-21] MEDS: Nicotine 21 MG PATCH.TD24 TRANSDERMA (09:06)
[2020-05-21] MEDS: Diclofenac Sodium Delayed Rel 50 MG TABLET.DR PO ×2 (14:07→20:26)
[2020-05-21 16:45] VITALS: BP 135/76; PULSE 57; RESP 18; TEMP 36.5
--- NOTE | 2020-05-21 18:25 | HO.PSYCHPN ---
Subjective Subjective Date of Service: 05/21/20 Reason For Visit: Bipolar Disorder Subjective Notes: Conditional Voluntary Interim History: Continues to refuse Lamictal, Vraylar but states he will accept these. Appears hypomanic, giddy at times. States he will take medications for bipolar disorder, but only 4-5 meds total. Appt scheduled for pain mgt on 06/07/20 11am Medication Compliance: Intermittent Side effects from medications: No Attending Groups: No Review of Systems Musculoskeletal: Reports back pain Reports behavioral changes Psychiatric: Reports behavioral changes and Reports mood swings Endocrine: Reports other Comments: DM- non compliant with regime-did accept Metformin today. Mental Status Exam Mental Status Exam Patient Appearance: Disheveled Patient Orientation: Person, Place, Time and Situation Level of Consciousness: Alert Patient Behavior: Talkative and Cooperative Mood Description: Cheerful and Labile Affect Description: Labile Patient Cognition Impaired: No Ability to Follow Directions: Good Speech Pattern: Clear Memory Description: Episodic Impaired Hallucinations: None Delusions: Not Present Thought Process: Distracted Thought Content: positive for Circum[place] Judgement: Fair Diagnostics Vital Signs (24Hr): Vital Signs - 24 hr 05/21/20 06:20 05/21/20 16:45 Temperature 97.3 F 97.7 F Pulse Rate 57 57 Respiratory Rate 18 18 Blood Pressure 112/56 L 135/76 Pulse Oximetry 96 Body Mass Index 38.0 Labs Results: 05/20/20 08:00 05/20/20 08:00 Labs: Laboratory Results - last 48 hr 05/19/20 05/20/20 05/20/20 19:22 06:32 08:00 WBC 5.8 RBC 5.17 Hgb 15.7 Hct 45.0 MCV 87.0 MCH 30.4 MCHC 34.9 RDW 12.9 Plt Count 127 L D MPV 11.0 Immature Gran % (Auto) 0.2 Neut % (Auto) 35.5 L Lymph % (Auto) 52.5 H [place] % (Auto) 9.8 Eos % (Auto) 1.7 Baso % (Auto) 0.3 Lymph # (Auto) 3.0 [place] # (Auto) 0.6 Eos # (Auto) 0.1 Baso # (Auto) 0.0 Abs Immat Gran (auto) 0.01 Absolute Neuts (auto) 2.1 Absolute Nucleated RBC 0.000 Nucleated RBC % (auto) 0.0 Sodium Potassium Chloride Carbon Dioxide Anion Gap BUN Creatinine Estim Creat Clear Calc Estimated GFR POC Glucose 232 H Random Glucose Fasting Glucose 155 H Estimat Average Glucose Hemoglobin A1c % Calcium Total Bilirubin AST ALT Alkaline Phosphatase Total Protein Albumin Triglycerides 157 Cholesterol 169 LDL Cholesterol, Calc 103 HDL Cholesterol 35 D TSH Valproic Acid < 2.0 L 05/20/20 05/20/20 05/20/20 08:00 08:00 08:00 WBC RBC Hgb Hct MCV MCH MCHC RDW Plt Count MPV Immature Gran % (Auto) Neut % (Auto) Lymph % (Auto) [place] % (Auto) Eos % (Auto) Baso % (Auto) Lymph # (Auto) [place] # (Auto) Eos # (Auto) Baso # (Auto) Abs Immat Gran (auto) Absolute Neuts (auto) Absolute Nucleated RBC Nucleated RBC % (auto) Sodium 138 Potassium 3.8 Chloride 103 Carbon Dioxide 24 Anion Gap 15 BUN 11 Creatinine 0.94 0.97 Estim Creat Clear Calc 119.4 115.7 Estimated GFR > 60 > 60 POC Glucose Random Glucose 293 H Fasting Glucose Estimat Average Glucose 166 Hemoglobin A1c % 7.4 Calcium 8.5 Total Bilirubin 0.5 AST 22 ALT 40 Alkaline Phosphatase 52 D Total Protein 6.6 Albumin 3.8 Triglycerides 204 Cholesterol 170 LDL Cholesterol, Calc 95 HDL Cholesterol 35 TSH 1.15 Valproic Acid 05/21/20 06:27 WBC RBC Hgb Hct MCV MCH MCHC RDW Plt Count MPV Immature Gran % (Auto) Neut % (Auto) Lymph % (Auto) [place] % (Auto) Eos % (Auto) Baso % (Auto) Lymph # (Auto) [place] # (Auto) Eos # (Auto) Baso # (Auto) Abs Immat Gran (auto) Absolute Neuts (auto) Absolute Nucleated RBC Nucleated RBC % (auto) Sodium Potassium Chloride Carbon Dioxide Anion Gap BUN Creatinine Estim Creat Clear Calc Estimated GFR POC Glucose 300 H Random Glucose Fasting Glucose Estimat Average Glucose Hemoglobin A1c % Calcium Total Bilirubin AST ALT Alkaline Phosphatase Total Protein Albumin Triglycerides Cholesterol LDL Cholesterol, Calc HDL Cholesterol TSH Valproic Acid Medications Medications Current Medications Generic Name Dose Route Start Last Admin Trade Name Freq PRN Reason Stop Dose Admin Acetaminophen 650 mg 05/18/20 16:24 05/18/20 18:17 Acetaminophen 325 Mg Tablet PO 650 mg Q6H PRN Administration Headache/Pain Mild Scale (1-3) Al Hydroxide/Mg Hydroxide 30 ml 05/18/20 16:24 Magnesium Hydrox/Alum Hydrox 30 Ml Oral.Susp PO Q6H PRN Heartburn/Nausea Cariprazine 3 mg 05/20/20 09:00 05/21/20 09:07 Cariprazine Hcl 3 Mg Capsule PO Not Given DAILY [facility]ULKAD[facility] Cyclobenzaprine HCl 10 mg 05/14/20 01:56 05/20/20 21:34 Cyclobenzaprine Hcl 10 Mg Tablet PO 10 mg BID PRN Administration Spasms Diazepam 10 mg 05/20/20 00:01 05/20/20 01:10 Diazepam 10 Mg Tablet PO 10 mg DAILY PRN Administration Anxiety Diclofenac Sodium 50 mg 05/14/20 02:00 05/21/20 14:07 Diclofenac Sodium Delayed Rel 50 Mg Tablet. PO 50 mg TID ABDULKADIR Administration Docusate Sodium 200 mg 05/14/20 02:00 05/21/20 09:07 Docusate Sodium 100 Mg Capsule PO Not Given BID ABDULKADIR Duloxetine HCl 60 mg 05/14/20 02:00 05/20/20 21:33 Duloxetine Hcl 60 Mg Capsule. PO 60 mg BEDTIME ABDULKADIR Administration Hydroxyzine HCl 50 mg 05/14/20 02:00 05/20/20 21:34 Hydroxyzine Hcl 25 Mg Tablet PO 50 mg BEDTIME ABDULKADIR Administration Hydroxyzine HCl 25 mg 05/18/20 16:24 Hydroxyzine Hcl 25 Mg Tablet PO BEDTIME PRN Anxiety Lamotrigine 25 mg 05/20/20 09:00 05/21/20 09:07 Lamotrigine 25 Mg Tablet PO Not Given DAILY ABDULKADIR Magnesium Hydroxide 30 ml 05/18/20 16:24 Milk Of Magnesia 30 Ml Oral.Susp PO DAILY PRN Constipation Metformin HCl 500 mg 05/13/20 21:00 05/21/20 17:03 Metformin Hcl 500 Mg Tablet PO 500 mg BIDWM ABDULKADIR Administration Nicotine 21 mg 05/19/20 09:00 05/21/20 09:06 Nicotine 21 Mg Patch.Td24 TRANSDERMA 21 mg DAILY ABDULKADIR Administration Quetiapine Fumarate 200 mg 05/14/20 02:00 05/20/20 21:35 Quetiapine Fumarate 200 Mg Tablet PO 200 mg BEDTIME ABDULKADIR Administration Trazodone HCl 50 mg 05/18/20 16:24 Trazodone Hcl 50 Mg Tablet PO BEDTIME PRN Insomnia Allergies Allergies Allergy/AdvReac Type Severity Reaction Status Date / Time No Known Allergies Allergy Verified 03/10/20 19:00 Assessment & Plan Assessment & Plan (1) Alcohol use disorder: Status: Acute (2) Headache with remote history of traumatic head injury: Status: Acute Code(s): R51.9 - Headache, unspecified; Z87.828 - Personal history of other (healed) physical injury and trauma (3) Diabetes mellitus, type 2: Status: Acute Code(s): E11.9 - Type 2 diabetes mellitus without complications Assessment and Plan: -Refuses SS insulin regime (4) Bipolar 2 disorder, major depressive episode: Status: Acute Code(s): F31.81 - Bipolar II disorder Assessment and Plan: Continue to encourage trial of Vraylar/Lamictal Greater than 50% of the session was spent on counseling and/or coordination of care Reason for contiued inpatient stay Substantial Risk for: harm to self and med/psych decompensation
[2020-05-21] MEDS: DULoxetine HCl 60 MG CAPSULE.DR PO (20:25)
[2020-05-21] MEDS: QUEtiapine Fumarate 200 MG TABLET PO (20:25)
[2020-05-21] MEDS: hydrOXYzine HCL 25 MG TABLET 50 MG PO (20:26)
[2020-05-21] MEDS: Docusate Sodium 100 MG CAPSULE 200 MG PO (20:26)
[2020-05-21] MEDS: diazePAM 10 MG TABLET PO (20:27)
[2020-05-21 22:12] LABS: Glucose, Whole Blood 147 mg/dL (60-115)
[2020-05-22 05:43] LABS: Glucose, Whole Blood 246 mg/dL (60-115)
[2020-05-22 06:00] VITALS: BP 132/65; PULSE 69; TEMP 36.2; O2SAT 100
--- NOTE | 2020-05-22 07:48 | P.PNPSI_ITS ---
Subjective Subjective Date of Service: 05/22/20 Reason For Visit: Bipolar Disorder Interim History: Pleasant , somewhat hyperverbal and circumstantial? hypomanic. No complaints. 05/21:Continues to refuse Lamictal, Vraylar but states he will accept these. Appears hypomanic, giddy at times. States he will take medications for bipolar disorder, but only 4-5 meds total. Appt scheduled for pain mgt on 06/07/20 11am Review of Systems Review of Systems All other systems are reviewed and are negative Constitutional: Reports as per HPI and Reports no additional constitutional complaints Eyes: Reports as per HPI and Reports no additional eye complaints Reports system reviewed and no additional complaints, except as documented Cardiovascular: Reports as per HPI and Reports no additional cardiovascular complaints Respiratory: Reports as per HPI and Reports no additional respiratory complaints Gastrointestinal: Reports as per HPI and Reports no additional gastrointestinal complaints Genitourinary: Reports no additional female genitourinary complaints Musculoskeletal: Reports no additional musculoskeletal complaints Skin/Breast: Reports system reviewed and no additional complaints, except as docu Psychiatric: Reports no additional psychiatric complaints Endocrine: Reports no additional endocrine complaints Hematologic/Lymphatic: Reports no additional hematologic/lymphatic complaints Allergic/Immunologic: Reports no additional allergic/immunologic complaints Reports system reviewed and no additional complaints, except as documented and Reports Abnormal speech present Musculoskeletal: Reports back pain Reports behavioral changes Psychiatric: Reports behavioral changes and Reports mood swings Endocrine: Reports other Mental Status Exam Mental Status Exam Patient Appearance: Disheveled Patient Orientation: Person, Place, Time and Situation Level of Consciousness: Alert Patient Behavior: Talkative and Cooperative Mood Description: Cheerful and Labile Affect Description: Labile Patient Cognition Impaired: No Ability to Follow Directions: Good Speech Pattern: Clear Memory Description: Episodic Impaired Diagnostics Vital Signs (24Hr): Vital Signs - 24 hr 05/21/20 16:45 05/22/20 06:00 Temperature 97.7 F 97.2 F Pulse Rate 57 69 Respiratory Rate 18 Blood Pressure 135/76 132/65 Pulse Oximetry 100 Body Mass Index 38.0 Labs Results: 05/20/20 08:00 05/20/20 08:00 Labs: Laboratory Results - last 48 hr 05/20/20 05/20/20 05/20/20 08:00 08:00 08:00 WBC 5.8 RBC 5.17 Hgb 15.7 Hct 45.0 MCV 87.0 MCH 30.4 MCHC 34.9 RDW 12.9 Plt Count 127 L D MPV 11.0 Immature Gran % (Auto) 0.2 Neut % (Auto) 35.5 L Lymph % (Auto) 52.5 H Wharton % (Auto) 9.8 Eos % (Auto) 1.7 Baso % (Auto) 0.3 Lymph # (Auto) 3.0 [place]arton # (Auto) 0.6 Eos # (Auto) 0.1 Baso # (Auto) 0.0 Abs Immat Gran (auto) 0.01 Absolute Neuts (auto) 2.1 Absolute Nucleated RBC 0.000 Nucleated RBC % (auto) 0.0 Sodium 138 Potassium 3.8 Chloride 103 Carbon Dioxide 24 Anion Gap 15 BUN 11 Creatinine 0.94 Estim Creat Clear Calc 119.4 Estimated GFR > 60 POC Glucose Random Glucose 293 H Estimat Average Glucose 166 Hemoglobin A1c % 7.4 Calcium 8.5 Total Bilirubin 0.5 AST 22 ALT 40 Alkaline Phosphatase 52 D Total Protein 6.6 Albumin 3.8 Triglycerides 204 Cholesterol 170 LDL Cholesterol, Calc 95 HDL Cholesterol 35 TSH 1.15 05/20/20 05/21/20 05/21/20 08:00 06:27 22:08 WBC RBC Hgb Hct MCV MCH MCHC RDW Plt Count MPV Immature Gran % (Auto) Neut % (Auto) Lymph % (Auto) Wharton % (Auto) Eos % (Auto) Baso % (Auto) Lymph # (Auto) [place]arton # (Auto) Eos # (Auto) Baso # (Auto) Abs Immat Gran (auto) Absolute Neuts (auto) Absolute Nucleated RBC Nucleated RBC % (auto) Sodium Potassium Chloride Carbon Dioxide Anion Gap BUN Creatinine 0.97 Estim Creat Clear Calc 115.7 Estimated GFR > 60 POC Glucose 300 H 147 H Random Glucose Estimat Average Glucose Hemoglobin A1c % Calcium Total Bilirubin AST ALT Alkaline Phosphatase Total Protein Albumin Triglycerides Cholesterol LDL Cholesterol, Calc HDL Cholesterol TSH 05/22/20 05:39 WBC RBC Hgb Hct MCV MCH MCHC RDW Plt Count MPV Immature Gran % (Auto) Neut % (Auto) Lymph % (Auto) Wharton % (Auto) Eos % (Auto) Baso % (Auto) Lymph # (Auto) Wharton # (Auto) Eos # (Auto) Baso # (Auto) Abs Immat Gran (auto) Absolute Neuts (auto) Absolute Nucleated RBC Nucleated RBC % (auto) Sodium Potassium Chloride Carbon Dioxide Anion Gap BUN Creatinine Estim Creat Clear Calc Estimated GFR POC Glucose 246 H Random Glucose Estimat Average Glucose Hemoglobin A1c % Calcium Total Bilirubin AST ALT Alkaline Phosphatase Total Protein Albumin Triglycerides Cholesterol LDL Cholesterol, Calc HDL Cholesterol TSH Medications Medications Current Medications Generic Name Dose Route Start Last Admin Trade Name Freq PRN Reason Stop Dose Admin Acetaminophen 650 mg 05/18/20 16:24 05/18/20 18:17 Acetaminophen 325 Mg Tablet PO 650 mg Q6H PRN Administration Headache/Pain Mild Scale (1-3) Al Hydroxide/Mg Hydroxide 30 ml 05/18/20 16:24 Magnesium Hydrox/Alum Hydrox 30 Ml Oral.Susp PO Q6H PRN Heartburn/Nausea Cariprazine 3 mg 05/20/20 09:00 05/21/20 09:07 Cariprazine Hcl 3 Mg Capsule PO Not Given DAILY ABDULKADIR Cyclobenzaprine HCl 10 mg 05/14/20 01:56 05/20/20 21:34 Cyclobenzaprine Hcl 10 Mg Tablet PO 10 mg BID PRN Administration Spasms Diazepam 10 mg 05/20/20 00:01 05/21/20 20:27 Diazepam 10 Mg Tablet PO 10 mg DAILY PRN Administration Anxiety Diclofenac Sodium 50 mg 05/14/20 02:00 05/21/20 20:26 Diclofenac Sodium Delayed Rel 50 Mg Tablet. PO 50 mg TID ABDULKADIR Administration Docusate Sodium 200 mg 05/14/20 02:00 05/21/20 20:26 Docusate Sodium 100 Mg Capsule PO 200 mg BID ABDULKADIR Administration Duloxetine HCl 60 mg 05/14/20 02:00 05/21/20 20:25 Duloxetine Hcl 60 Mg Capsule. PO 60 mg BEDTIME ABDULKADIR Administration Hydroxyzine HCl 50 mg 05/14/20 02:00 05/21/20 20:26 Hydroxyzine Hcl 25 Mg Tablet PO 50 mg BEDTIME ABDULKADIR Administration Hydroxyzine HCl 25 mg 05/18/20 16:24 Hydroxyzine Hcl 25 Mg Tablet PO BEDTIME PRN Anxiety Lamotrigine 25 mg 05/20/20 09:00 05/21/20 09:07 Lamotrigine 25 Mg Tablet PO Not Given DAILY ABDULKADIR Magnesium Hydroxide 30 ml 05/18/20 16:24 Milk Of Magnesia 30 Ml Oral.Susp PO DAILY PRN Constipation Metformin HCl 500 mg 05/13/20 21:00 05/21/20 17:03 Metformin Hcl 500 Mg Tablet PO 500 mg BIDWM ABDULKADIR Administration Nicotine 21 mg 05/19/20 09:00 05/21/20 09:06 Nicotine 21 Mg Patch.Td24 TRANSDERMA 21 mg DAILY ABDULKADIR Administration Psyllium Hydrophilic Mucilloid 3.4 gm 05/21/20 18:28 05/21/20 20:25 Psyllium Seed 3.4 Gm Powd.Pack PO 3.4 gm DAILY PRN Administration Constipation Quetiapine Fumarate 200 mg 05/14/20 02:00 05/21/20 20:25 Quetiapine Fumarate 200 Mg Tablet PO 200 mg BEDTIME ABDULKADIR Administration Trazodone HCl 50 mg 05/18/20 16:24 Trazodone Hcl 50 Mg Tablet PO BEDTIME PRN Insomnia Allergies Allergies Allergy/AdvReac Type Severity Reaction Status Date / Time No Known Allergies Allergy Verified 03/10/20 19:00 Assessment & Plan Assessment & Plan (1) Alcohol use disorder: Status: Acute (2) Headache with remote history of traumatic head injury: Status: Acute Code(s): R51.9 - Headache, unspecified; Z87.828 - Personal history of other (healed) physical injury and trauma (3) Diabetes mellitus, type 2: Status: Acute Code(s): E11.9 - Type 2 diabetes mellitus without complications Assessment and Plan: -Refuses SS insulin regime (4) Bipolar 2 disorder, major depressive episode: Status: Acute Code(s): F31.81 - Bipolar II disorder Assessment and Plan: Continue to encourage trial of Vraylar/Lamictal Greater than 50% of the session was spent on counseling and/or coordination of care Reason for contiued inpatient stay Substantial Risk for: inability to function
[2020-05-22] MEDS: Docusate Sodium 100 MG CAPSULE 200 MG PO ×2 (09:02→21:17)
[2020-05-22] MEDS: metFORMIN HCl 500 MG TABLET PO ×2 (09:02→16:43)
[2020-05-22] MEDS: Diclofenac Sodium Delayed Rel 50 MG TABLET.DR PO ×3 (09:02→21:17)
[2020-05-22] MEDS: lamoTRIgine 25 MG TABLET PO (09:03)
[2020-05-22] MEDS: Nicotine 21 MG PATCH.TD24 TRANSDERMA (09:03)
[2020-05-22] MEDS: Cariprazine HCl 3 MG CAPSULE PO (09:03)
[2020-05-22] MEDS: Cyclobenzaprine HCl 10 MG TABLET PO ×2 (16:43→21:28)
[2020-05-22 17:16] VITALS: BP 148/84; PULSE 61; RESP 18; TEMP 36.6
[2020-05-22 19:57] VITALS: BP 134/73; PULSE 80
[2020-05-22] MEDS: DULoxetine HCl 60 MG CAPSULE.DR PO (21:16)
[2020-05-22] MEDS: diazePAM 10 MG TABLET PO (21:16)
[2020-05-22] MEDS: hydrOXYzine HCL 25 MG TABLET 50 MG PO (21:17)
[2020-05-22] MEDS: QUEtiapine Fumarate 200 MG TABLET PO (21:17)
[2020-05-22 22:10] LABS: Glucose, Whole Blood 200 mg/dL (60-115)
[2020-05-23 05:53] LABS: Glucose, Whole Blood 224 mg/dL (60-115)
[2020-05-23 06:15] VITALS: BP 132/87; PULSE 74; RESP 18; TEMP 36.3; O2SAT 97
[2020-05-23] MEDS: Diclofenac Sodium Delayed Rel 50 MG TABLET.DR PO ×3 (08:13→21:44)
[2020-05-23] MEDS: metFORMIN HCl 500 MG TABLET PO ×2 (08:13→17:24)
[2020-05-23] MEDS: Nicotine 21 MG PATCH.TD24 TRANSDERMA (08:13)
[2020-05-23] MEDS: lamoTRIgine 25 MG TABLET PO (08:13)
[2020-05-23] MEDS: Docusate Sodium 100 MG CAPSULE 200 MG PO ×2 (08:13→21:44)
[2020-05-23] MEDS: Cariprazine HCl 3 MG CAPSULE PO (08:13)
--- NOTE | 2020-05-23 10:59 | HO.PSYCHPN ---
Subjective Subjective Date of Service: 05/23/20 Reason For Visit: Bipolar Disorder Interim History: 05/23: Patient remains somewhat hyperverbal and has over optimistic view of the near future. Today he was focused on increased appetite which he attributes to Seroquel. Will defer to treatment team to re-evaluate. Patient is social with peers and somewhat euphoric. 05/22: Her her Pleasant , somewhat hyperverbal and circumstantial? hypomanic. No complaints. 05/21:Continues to refuse Lamictal, Vraylar but states he will accept these. Appears hypomanic, giddy at times. States he will take medications for bipolar disorder, but only 4-5 meds total. Appt scheduled for pain mgt on 06/07/20 11am Review of Systems Review of Systems All other systems are reviewed and are negative Constitutional: Reports as per HPI and Reports no additional constitutional complaints Eyes: Reports as per HPI and Reports no additional eye complaints Reports system reviewed and no additional complaints, except as documented Cardiovascular: Reports as per HPI and Reports no additional cardiovascular complaints Respiratory: Reports as per HPI and Reports no additional respiratory complaints Gastrointestinal: Reports as per HPI and Reports no additional gastrointestinal complaints Genitourinary: Reports no additional female genitourinary complaints Musculoskeletal: Reports no additional musculoskeletal complaints Skin/Breast: Reports system reviewed and no additional complaints, except as docu Psychiatric: Reports no additional psychiatric complaints Endocrine: Reports no additional endocrine complaints Hematologic/Lymphatic: Reports no additional hematologic/lymphatic complaints Allergic/Immunologic: Reports no additional allergic/immunologic complaints Reports system reviewed and no additional complaints, except as documented and Reports Abnormal speech present Musculoskeletal: Reports back pain Reports behavioral changes Psychiatric: Reports behavioral changes and Reports mood swings Endocrine: Reports other Mental Status Exam Mental Status Exam Patient Appearance: Disheveled Patient Orientation: Person, Place, Time and Situation Level of Consciousness: Alert Patient Behavior: Talkative and Cooperative Mood Description: Cheerful and Labile Affect Description: Labile Patient Cognition Impaired: No Ability to Follow Directions: Good Speech Pattern: Clear Memory Description: Episodic Impaired Diagnostics Vital Signs (24Hr): Vital Signs - 24 hr 05/22/20 17:16 05/22/20 19:57 05/23/20 06:15 Temperature 97.9 F 97.3 F Pulse Rate 61 80 74 Respiratory Rate 18 18 Blood Pressure 148/84 H 134/73 132/87 Pulse Oximetry 97 Body Mass Index 38.0 Labs Results: 05/20/20 08:00 05/20/20 08:00 Labs: Laboratory Results - last 48 hr 05/21/20 05/22/20 05/22/20 22:08 05:39 22:06 POC Glucose 147 H 246 H 200 H 05/23/20 05:48 POC Glucose 224 H Medications Medications Current Medications Generic Name Dose Route Start Last Admin Trade Name Freq PRN Reason Stop Dose Admin Acetaminophen 650 mg 05/18/20 16:24 05/18/20 18:17 Acetaminophen 325 Mg Tablet PO 650 mg Q6H PRN Administration Headache/Pain Mild Scale (1-3) Al Hydroxide/Mg Hydroxide 30 ml 05/18/20 16:24 Magnesium Hydrox/Alum Hydrox 30 Ml Oral.Susp PO Q6H PRN Heartburn/Nausea Cariprazine 3 mg 05/20/20 09:00 05/23/20 08:13 Cariprazine Hcl 3 Mg Capsule PO 3 mg DAILY ABDULKADIR Administration Cyclobenzaprine HCl 10 mg 05/14/20 01:56 05/22/20 21:28 Cyclobenzaprine Hcl 10 Mg Tablet PO 10 mg BID PRN Administration Spasms Diazepam 10 mg 05/20/20 00:01 05/22/20 21:16 Diazepam 10 Mg Tablet PO 10 mg DAILY PRN Administration Anxiety Diclofenac Sodium 50 mg 05/14/20 02:00 05/23/20 08:13 Diclofenac Sodium Delayed Rel 50 Mg Tablet. PO 50 mg TID ABDULKADIR Administration Docusate Sodium 200 mg 05/14/20 02:00 05/23/20 08:13 Docusate Sodium 100 Mg Capsule PO 200 mg BID ABDULKADIR Administration Duloxetine HCl 60 mg 05/14/20 02:00 05/22/20 21:16 Duloxetine Hcl 60 Mg Capsule. PO 60 mg BEDTIME ABDULKADIR Administration Hydroxyzine HCl 50 mg 05/14/20 02:00 05/22/20 21:17 Hydroxyzine Hcl 25 Mg Tablet PO 50 mg BEDTIME ABDULKADIR Administration Hydroxyzine HCl 25 mg 05/18/20 16:24 Hydroxyzine Hcl 25 Mg Tablet PO BEDTIME PRN Anxiety Lamotrigine 25 mg 05/20/20 09:00 05/23/20 08:13 Lamotrigine 25 Mg Tablet PO 25 mg DAILY ABDULKADIR Administration Magnesium Hydroxide 30 ml 05/18/20 16:24 Milk Of Magnesia 30 Ml Oral.Susp PO DAILY PRN Constipation Metformin HCl 500 mg 05/13/20 21:00 05/23/20 08:13 Metformin Hcl 500 Mg Tablet PO 500 mg BIDWM ABDULKADIR Administration Nicotine 21 mg 05/19/20 09:00 05/23/20 08:13 Nicotine 21 Mg Patch.Td24 TRANSDERMA 21 mg DAILY ABDULKADIR Administration Psyllium Hydrophilic Mucilloid 3.4 gm 05/21/20 18:28 05/21/20 20:25 Psyllium Seed 3.4 Gm Powd.Pack PO 3.4 gm DAILY PRN Administration Constipation Quetiapine Fumarate 200 mg 05/14/20 02:00 05/22/20 21:17 Quetiapine Fumarate 200 Mg Tablet PO 200 mg BEDTIME ABDULKADIR Administration Trazodone HCl 50 mg 05/18/20 16:24 Trazodone Hcl 50 Mg Tablet PO BEDTIME PRN Insomnia Allergies Allergies Allergy/AdvReac Type Severity Reaction Status Date / Time No Known Allergies Allergy Verified 03/10/20 19:00 Assessment & Plan Assessment & Plan (1) Alcohol use disorder: Status: Acute (2) Headache with remote history of traumatic head injury: Status: Acute Code(s): R51.9 - Headache, unspecified; Z87.828 - Personal history of other (healed) physical injury and trauma (3) Diabetes mellitus, type 2: Status: Acute Code(s): E11.9 - Type 2 diabetes mellitus without complications Assessment and Plan: -Refuses SS insulin regime (4) Bipolar 2 disorder, major depressive episode: Status: Acute Code(s): F31.81 - Bipolar II disorder Assessment and Plan: Continue to encourage trial of Vraylar/Lamictal Greater than 50% of the session was spent on counseling and/or coordination of care Reason for contiued inpatient stay Substantial Risk for: rapid decompensation
[2020-05-23 18:00] VITALS: BP 125/75; PULSE 80; RESP 18; TEMP 36.7
[2020-05-23] MEDS: Cyclobenzaprine HCl 10 MG TABLET PO ×2 (20:13→21:45)
[2020-05-23] MEDS: DULoxetine HCl 60 MG CAPSULE.DR PO (21:44)
[2020-05-23] MEDS: diazePAM 10 MG TABLET PO (21:44)
[2020-05-23] MEDS: QUEtiapine Fumarate 200 MG TABLET PO (21:44)
[2020-05-23] MEDS: hydrOXYzine HCL 25 MG TABLET 50 MG PO (21:44)
[2020-05-23 22:36] LABS: Glucose, Whole Blood 258 mg/dL (60-115)
[2020-05-24 05:30] VITALS: BP 150/69; PULSE 81; RESP 18; TEMP 36.3; O2SAT 97
[2020-05-24 05:35] LABS: Glucose, Whole Blood 266 mg/dL (60-115)
[2020-05-24] MEDS: Docusate Sodium 100 MG CAPSULE 200 MG PO ×2 (08:54→21:57)
[2020-05-24] MEDS: lamoTRIgine 25 MG TABLET PO (08:54)
[2020-05-24] MEDS: Diclofenac Sodium Delayed Rel 50 MG TABLET.DR PO ×3 (08:54→21:57)
[2020-05-24] MEDS: Nicotine 21 MG PATCH.TD24 TRANSDERMA (08:55)
[2020-05-24] MEDS: Cariprazine HCl 3 MG CAPSULE PO (08:55)
[2020-05-24] MEDS: metFORMIN HCl 500 MG TABLET PO (08:55)
[2020-05-24] MEDS: Cyclobenzaprine HCl 10 MG TABLET PO ×2 (10:56→20:44)
[2020-05-24] MEDS: diazePAM 10 MG TABLET PO (14:28)
--- NOTE | 2020-05-24 15:02 | P.PNPSI_ITS ---
Subjective Subjective Date of Service: 05/24/20 Reason For Visit: Bipolar Disorder Subjective Notes: Conditional Voluntary Interim History: I know, I need to figure out what to do. Team reports hypomania over the weekend-pt concurs-accepting medications, discussion of sx and concerns. Tolerating Vraylar, Lamictal. Willing to titrate. -Mood- I just don't know what normal is or feels like-my normal is sad, my high is normal. Do I take more pills, stronger pills- I will do what you want. You all need to help me figure this out-the past two times here I was a mess-I am ready now-do what you need to do. -Sleep-I can fall asleep, I cannot stay asleep. I took meds at 11pm last night, was sleeping before 12, up at 3am as I was starving-Trazodone has never worked. Seroquel is OK but the appetite is very high. -Pain- I am looking forward to the pain consult on 06/07. It is hard to clean myself after I use the bathroom and to put my socks on-the pain is that bad. Dr. Hernandez wanted to do surgery when I was 23. I fear I face fusion, steroids, pills and no improvement. 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 The pain is worse. (Currently using a variety of agents-tylenol,flexoril,valium, duloxetine, diclofenic, Salonpas patch added-pt continues to request pain med-call to [facility]-they will send MRI results of LS over-will ask for consultation) -Sobriety-I have not been drinking-I have been preparing to move to [place] to take the welding job I don't know if I can do. In [place], the residential program helped me, but finding people I just could not bear. I need a prog josé antonio that gives me some alone time and privacy but not too much stress and pressure. I might or might not go-I don't want to find people who have . Discussed pt hoping to work for 10 more years-unsure if he will be able to weld- discussed [facility] referral, residential referral-pt to consider-today pain and mood are his priorities- the two things I fear the most going out on me are my head and my back They both have done that and I am scared. Review of Systems Musculoskeletal: Reports back pain Reports behavioral changes Psychiatric: Reports abnormal sleep pattern, Reports anxiety, Reports behavioral changes, Reports change in appetite, Reports depression, Reports hopelessness, Reports anhedonia and Reports mood swings Mental Status Exam Mental Status Exam Patient Appearance: Appropriate Patient Orientation: Person, Place, Time and Situation Level of Consciousness: Awake and Alert Patient Behavior: Appropriate, Talkative, Anxious, Fearful, Fatigued and Good Eye Contact Mood Description: Anxious, Nervous and Apprehensive Affect Description: Anxious Patient Cognition Impaired: No Ability to Follow Directions: Good Speech Pattern: Spontaneous Speech Memory Description: Intact Hallucinations: None Delusions: Not Present Thought Process: Rumination Thought Content: positive for [place] and positive for Circumstantial Depressive Symptoms: Increased Anxiety, Insomnia, Diff. Making Decisions, Muscle Tension, Difficulty Sleeping, Changes in Appetite, Muscle Pain, Loss of Int. in Activity, Hopelessness, Isolating-Friends/Family, Unhappiness, Increased Fatigue, Thoughts of /Suicide (today passive), Low Self Esteem, Loss of Energy and Difficulty Concentrating Abnormal Motor Activity Signs and Symptoms: Restlessness Judgement: Fair Diagnostics Vital Signs (24Hr): Vital Signs - 24 hr 05/23/20 18:00 05/24/20 05:30 Temperature 98.1 F 97.4 F Pulse Rate 80 81 Respiratory Rate 18 18 Blood Pressure 125/75 150/69 H Pulse Oximetry 97 Body Mass Index 38.0 Labs Results: 05/20/20 08:00 05/20/20 08:00 Labs: Laboratory Results - last 48 hr 05/22/20 05/23/20 05/23/20 22:06 05:48 21:50 POC Glucose 200 H 224 H 258 H 05/24/20 05:30 POC Glucose 266 H Medications Medications Current Medications Generic Name Dose Route Start Last Admin Trade Name Freq PRN Reason Stop Dose Admin Acetaminophen 650 mg 05/18/20 16:24 05/18/20 18:17 Acetaminophen 325 Mg Tablet PO 650 mg Q6H PRN Administration Headache/Pain Mild Scale (1-3) Al Hydroxide/Mg Hydroxide 30 ml 05/18/20 16:24 Magnesium Hydrox/Alum Hydrox 30 Ml Oral.Susp PO Q6H PRN Heartburn/Nausea Cyclobenzaprine HCl 10 mg 05/14/20 01:56 05/24/20 10:56 Cyclobenzaprine Hcl 10 Mg Tablet PO 10 mg BID PRN Administration Spasms Diazepam 10 mg 05/20/20 00:01 05/24/20 14:28 Diazepam 10 Mg Tablet PO 10 mg DAILY PRN Administration Anxiety Diclofenac Sodium 50 mg 05/14/20 02:00 05/24/20 14:28 Diclofenac Sodium Delayed Rel 50 Mg Tablet. PO 50 mg TID ABDULKADIR Administration Docusate Sodium 200 mg 05/14/20 02:00 05/24/20 08:54 Docusate Sodium 100 Mg Capsule PO 200 mg BID ABDULKADIR Administration Duloxetine HCl 60 mg 05/14/20 02:00 05/23/20 21:44 Duloxetine Hcl 60 Mg Capsule. PO 60 mg BEDTIME ABDULKADIR Administration Hydroxyzine HCl 50 mg 05/14/20 02:00 05/23/20 21:44 Hydroxyzine Hcl 25 Mg Tablet PO 50 mg BEDTIME ABDULKADIR Administration Hydroxyzine HCl 25 mg 05/18/20 16:24 Hydroxyzine Hcl 25 Mg Tablet PO BEDTIME PRN Anxiety Lamotrigine 25 mg 05/20/20 09:00 05/24/20 08:54 Lamotrigine 25 Mg Tablet PO 25 mg DAILY ABDULKADIR Administration Magnesium Hydroxide 30 ml 05/18/20 16:24 Milk Of Magnesia 30 Ml Oral.Susp PO DAILY PRN Constipation Metformin HCl 500 mg 05/13/20 21:00 05/24/20 08:55 Metformin Hcl 500 Mg Tablet PO 500 mg BIDWM ABDULKADIR Administration Nicotine 21 mg 05/19/20 09:00 05/24/20 08:55 Nicotine 21 Mg Patch.Td24 TRANSDERMA 21 mg DAILY ABDULKADIR Administration Psyllium Hydrophilic Mucilloid 3.4 gm 05/21/20 18:28 05/21/20 20:25 Psyllium Seed 3.4 Gm Powd.Pack PO 3.4 gm DAILY PRN Administration Constipation Quetiapine Fumarate 200 mg 05/14/20 02:00 05/23/20 21:44 Quetiapine Fumarate 200 Mg Tablet PO 200 mg BEDTIME ABDULKADIR Administration Trazodone HCl 50 mg 05/18/20 16:24 Trazodone Hcl 50 Mg Tablet PO BEDTIME PRN Insomnia Allergies Allergies Allergy/AdvReac Type Severity Reaction Status Date / Time No Known Allergies Allergy Verified 12/16/20 19:00 Assessment & Plan Assessment & Plan (1) Bipolar 2 disorder, major depressive episode: Status: Acute Code(s): F31.81 - Bipolar II disorder Assessment and Plan: -Increase Vraylar to 6 mg daily -With titration/tolerance of increase will attempt to decrease Quetiapine this week as it is stimulating pt's appetite (2) Alcohol use disorder: Status: Acute Assessment and Plan: -Discussion with pt today re returning to residential care, as he has done well there by history (3) Diabetes mellitus, type 2: Status: Acute Code(s): E11.9 - Type 2 diabetes mellitus without complications (4) Back pain: Status: Acute Code(s): M54.9 - Dorsalgia, unspecified Assessment and Plan: MRI results received from [facility] 02/22/[facility]. Results: Multilevel discogenic degenerative changes with multilevel disc herniations as described between L1-L2 and L5-S1 with lower lumbar facet arthrosis superimposed on developmental spinal canal stenosis. Severe spinal canal stenosis at L1-L2 and moderate to severe spinal canal stenosis at L2-L3 with moderate spinal canal stenosis at L3-L4 with crowding of the intradural nerve roots at multiple levels and compromise of the subarticular zones. Right S1 nerve root impingement of L5-S2. Impingement on the exiting left L4 nerve root at L4-L5 and impingement on the exiting right L3 nerve root L3-L4. A 3.2 cm probable right renal cortical cyst. Will ask for hospitalist consult for pain mgt. Greater than 50% of the session was spent on counseling and/or coordination of care Reason for contiued inpatient stay Substantial Risk for: harm to self, inability to function, rapid decompensation and med/psych decompensation
[2020-05-24 17:26] VITALS: BP 143/75; PULSE 73; RESP 18; TEMP 36.7
[2020-05-24] MEDS: Acetaminophen 325 MG TABLET 650 MG PO (20:44)
[2020-05-24] MEDS: DULoxetine HCl 60 MG CAPSULE.DR PO (21:57)
[2020-05-24] MEDS: QUEtiapine Fumarate 200 MG TABLET PO (21:58)
[2020-05-24] MEDS: hydrOXYzine HCL 25 MG TABLET 50 MG PO (21:58)
[2020-05-24 22:18] LABS: Glucose, Whole Blood 253 mg/dL (60-115)
--- NOTE | 2020-05-24 23:22 | MHC.HEMONC ---
bp of 143/75 was not reassessed due to pt. sleeping. pt. focused on sleep.
[2020-05-25] MEDS: Acetaminophen 325 MG TABLET 650 MG PO ×2 (02:54→14:23)
[2020-05-25] MEDS: hydrOXYzine HCL 25 MG TABLET PO (02:55)
[2020-05-25] MEDS: traZODone HCL 50 MG TABLET PO (02:55)
[2020-05-25 04:48] LABS: Glucose, Whole Blood 293 mg/dL (60-115)
[2020-05-25 04:50] VITALS: BP 133/78; PULSE 84; RESP 18; TEMP 36.4; O2SAT 96
[2020-05-25] MEDS: Lidocaine 4 % Patch ADH..PATCH 1 PATCH TRANSDERMA (04:53)
[2020-05-25] MEDS: Cariprazine HCl 3 MG CAPSULE 6 MG PO (08:37)
[2020-05-25] MEDS: Cyclobenzaprine HCl 10 MG TABLET PO (08:37)
[2020-05-25] MEDS: Diclofenac Sodium Delayed Rel 50 MG TABLET.DR PO ×3 (08:38→22:11)
[2020-05-25] MEDS: Nicotine 21 MG PATCH.TD24 TRANSDERMA (08:38)
[2020-05-25] MEDS: Docusate Sodium 100 MG CAPSULE 200 MG PO ×2 (08:38→22:11)
[2020-05-25] MEDS: lamoTRIgine 25 MG TABLET PO (08:38)
[2020-05-25] MEDS: metFORMIN HCl 500 MG TABLET PO ×2 (09:03→17:01)
[2020-05-25 09:36] LABS: Anion Gap 12 (12-20); Blood Urea Nitrogen 15 mg/dL (9-16); Calcium 8.9 mg/dL (8.4-10.2); Carbon Dioxide 27 mmol/L (22-29); Chloride 101 mmol/L (96-108); Creatinine Clr Calc Pharmacy 107.9; Estimated Glomerular Filt Rate > 60; Glucose Random 321 mg/dL (60-115); Potassium 4.3 mmol/L (3.3-5.1); Sodium 136 mmol/L (135-145)
--- NOTE | 2020-05-25 13:32 | P.CONIM_ITS ---
History of Present Illness Data of Consult Service Date: 05/25/20 Requesting physician: Maribel Burden Primary Care Provider: None Physician HPI Reason for consult: Back pain 55-year-old man with history depression, diabetes, chronic back pain admitted to psychiatric care. He had an exacerbation pain recently and is having increased pain. Medical consultation was placed for recommendations for pain control. Review of Systems Review of Systems: Denies any recent fever chills or decrease in appetite respiratory denies any shortness of breath coverage production cardiovascular is adjustment of any PND or edema gastrointestinal denies any dysphagia abdominal pain nausea vomiting or diarrhea genitourinary denies any dysuria frequency or hematuria musculoskeletal denies any joint pain or swelling neuropsych denies any weakness or seizures all other systems reviewed are negative [facility] Medical History (Updated 05/25/20 @ 18:23 by Aury Begum NP) Alcohol use disorder Back pain Bipolar disorder Depression Diabetes mellitus, type 2 Suicidal ideation Social History Household Members: Family Housing: House Alcohol intake: unknown Smoking Status: Former smoker Tobacco Type: Cigarette and Smokeless Tobacco Years Smoked: 25 Second Hand Smoke Exposure: No Substance Use Type: Marijuana and Prescription Drugs service: No Current occupational status: unemployed Sexual orientation: Straight/Heterosexual Meds Allergies Allergy/AdvReac Type Severity Reaction Status Date / Time No Known Allergies Allergy Verified 03/10/20 19:00 Active Medications: Current Medications Generic Name Dose Route Start Last Admin Trade Name Freq PRN Reason Stop Dose Admin Acetaminophen 650 mg 05/18/20 16:24 05/25/20 02:54 Acetaminophen 325 Mg Tablet PO 650 mg Q6H PRN Administration Headache/Pain Mild Scale (1-3) Al Hydroxide/Mg Hydroxide 30 ml 05/18/20 16:24 Magnesium Hydrox/Alum Hydrox 30 Ml Oral.Susp PO Q6H PRN Heartburn/Nausea Cariprazine 6 mg 05/25/20 09:00 05/25/20 08:37 Cariprazine Hcl 3 Mg Capsule PO 6 mg DAILY ABDULKADIR Administration Cyclobenzaprine HCl 10 mg 05/14/20 01:56 05/25/20 08:37 Cyclobenzaprine Hcl 10 Mg Tablet PO 10 mg BID PRN Administration Spasms Diazepam 10 mg 05/20/20 00:01 05/24/20 14:28 Diazepam 10 Mg Tablet PO 10 mg DAILY PRN Administration Anxiety Diclofenac Sodium 50 mg 05/14/20 02:00 05/25/20 08:38 Diclofenac Sodium Delayed Rel 50 Mg Tablet. PO 50 mg TID ABDULKADIR Administration Docusate Sodium 200 mg 05/14/20 02:00 05/25/20 08:38 Docusate Sodium 100 Mg Capsule PO 200 mg BID ABDULKADIR Administration Duloxetine HCl 60 mg 05/14/20 02:00 05/24/20 21:57 Duloxetine Hcl 60 Mg Capsule. PO 60 mg BEDTIME ABDULKADIR Administration Hydroxyzine HCl 50 mg 05/14/20 02:00 05/24/20 21:58 Hydroxyzine Hcl 25 Mg Tablet PO 50 mg BEDTIME ABDULKADIR Administration Hydroxyzine HCl 25 mg 05/18/20 16:24 05/25/20 02:55 Hydroxyzine Hcl 25 Mg Tablet PO 25 mg BEDTIME PRN Administration Anxiety Lamotrigine 25 mg 05/20/20 09:00 05/25/20 08:38 Lamotrigine 25 Mg Tablet PO 25 mg DAILY ABDULKADIR Administration Lidocaine 1 patch 05/24/20 15:37 05/25/20 04:53 Lidocaine 4 % Patch Adh..Patch TRANSDERMA 1 patch DAILY PRN Administration back pain Protocol Magnesium Hydroxide 30 ml 05/18/20 16:24 Milk Of Magnesia 30 Ml Oral.Susp PO DAILY PRN Constipation Metformin HCl 500 mg 05/13/20 21:00 05/25/20 09:03 Metformin Hcl 500 Mg Tablet PO 500 mg BIDWM ABDULKADIR Administration Nicotine 21 mg 05/19/20 09:00 05/25/20 08:38 Nicotine 21 Mg Patch.Td24 TRANSDERMA 21 mg DAILY ABDULKADIR Administration Psyllium Hydrophilic Mucilloid 3.4 gm 05/21/20 18:28 05/21/20 20:25 Psyllium Seed 3.4 Gm Powd.Pack PO 3.4 gm DAILY PRN Administration Constipation Quetiapine Fumarate 200 mg 05/14/20 02:00 05/24/20 21:58 Quetiapine Fumarate 200 Mg Tablet PO 200 mg BEDTIME ABDULKADIR Administration Trazodone HCl 50 mg 05/18/20 16:24 05/25/20 02:55 Trazodone Hcl 50 Mg Tablet PO 50 mg BEDTIME PRN Administration Insomnia Home Medications Medication Instructions Recorded Confirmed Last Taken Type diclofenac potassium 1 tab PO TID 03/10/20 05/13/20 Unknown History cyclobenzaprine 10 mg PO BID PRN 03/11/20 05/13/20 Unknown History diazepam [Valium] 10 mg PO DAILY PRN 04/18/20 05/13/20 Unknown History zolpidem 10 mg PO BEDTIME 04/19/20 05/13/20 Unknown History duloxetine 1 cap PO BEDTIME 05/13/20 05/13/20 Unknown History hydroxyzine HCl 2 tab PO BEDTIME 05/13/20 05/13/20 Unknown History quetiapine 1 tab PO BEDTIME 05/13/20 05/13/20 Unknown History Physical Exam Vital Signs and Narrative: Vital Signs: Last Vital Signs Temp 97.6 F 05/25/20 04:50 Pulse 84 05/25/20 04:50 Resp 18 05/25/20 04:50 BP 133/78 05/25/20 04:50 Pulse Ox 96 05/25/20 04:50 Body Mass Index 38.0 Appearing in no acute distress head is normocephalic atraumatic eyes pupils are PERRLA sclera is anicteric mouth throat mucous membranes are intact and moist neck is supple no lymphadenopathy, no JVD noted lung sounds are clear to auscultation heart regular rate rhythm, clear S1, S2 positive bowel sounds, abdomen is soft, nontender neuro patient is alert x3, no focal deficits Results Labs CBC and Chem 7: 05/20/20 08:00 05/25/20 08:51 Labs: Laboratory Results - last 24 hr 05/24/20 05/25/20 05/25/20 22:08 04:45 08:51 Anion Gap 12 Estim Creat Clear Calc 107.9 Estimated GFR > 60 POC Glucose 253 H 293 H Random Glucose 321 H Calcium 8.9 Assessment and Plan (1) Back pain: Status: Acute 55 year old man with diabetes, depression and alcohol abuse disorder with severe back pain admitted to for behavioral health. Back pain. Chronic but recent exacerbation. Currently on Flexeril, Valium and lidocaine patches. Adding low dose Vicodin may help. Also following up with the pain clinic as an outpatient. Depression. Management as per psychiatric team. Diabetes. Will add sliding scale, recommend ADA diet. Attending: Dr. Soliman
--- NOTE | 2020-05-25 17:11 | P.PNPSI_ITS ---
Subjective Subjective Date of Service: 05/25/20 Reason For Visit: Bipolar Disorder Subjective Notes: Conditional Voluntary Interim History: Pt c/o back pain. Asking for pain medication. Reports he re- injured last evening while putting pudding in the refrigerator. Hospitalist to consult regarding options, pain mgt appt 06/07/20. 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 States he will again taper medications with his out patient team as he wants to be on only 4 meds per day. Vraylar day 2 of increase tolerated. Pt reports compliance. Review of Systems Musculoskeletal: Reports back pain Psychiatric: Reports mood swings and Reports other (hypomania) Mental Status Exam Mental Status Exam Patient Appearance: Appropriate Patient Orientation: Person, Place, Time and Situation Level of Consciousness: Awake and Alert Patient Behavior: Appropriate, Talkative and Anxious Mood Description: Anxious and Labile Affect Description: Labile Patient Cognition Impaired: No Ability to Follow Directions: Good Speech Pattern: Spontaneous Speech Memory Description: Intact Hallucinations: None Delusions: Not Present Thought Process: Intact Thought Content: positive for Intact Depressive Symptoms: Increased Anxiety, Difficulty Sleeping and Back Pain Judgement: Fair Diagnostics Vital Signs (24Hr): Vital Signs - 24 hr 05/24/20 17:26 05/25/20 04:50 Temperature 98.0 F 97.6 F Pulse Rate 73 84 Respiratory Rate 18 18 Blood Pressure 143/75 H 133/78 Pulse Oximetry 96 Body Mass Index 38.0 Labs Results: 05/20/20 08:00 05/25/20 08:51 Labs: Laboratory Results - last 48 hr 05/23/20 05/24/20 05/24/20 21:50 05:30 22:08 Sodium Potassium Chloride Carbon Dioxide Anion Gap BUN Creatinine Estim Creat Clear Calc Estimated GFR POC Glucose 258 H 266 H 253 H Random Glucose Calcium 05/25/20 05/25/20 04:45 08:51 Sodium 136 Potassium 4.3 Chloride 101 Carbon Dioxide 27 Anion Gap 12 BUN 15 Creatinine 1.04 Estim Creat Clear Calc 107.9 Estimated GFR > 60 POC Glucose 293 H Random Glucose 321 H Calcium 8.9 Medications Medications Current Medications Generic Name Dose Route Start Last Admin Trade Name Freq PRN Reason Stop Dose Admin Acetaminophen 650 mg 05/18/20 16:24 05/25/20 14:23 Acetaminophen 325 Mg Tablet PO 650 mg Q6H PRN Administration Headache/Pain Mild Scale (1-3) Al Hydroxide/Mg Hydroxide 30 ml 05/18/20 16:24 Magnesium Hydrox/Alum Hydrox 30 Ml Oral.Susp PO Q6H PRN Heartburn/Nausea Cariprazine 6 mg 05/25/20 09:00 05/25/20 08:37 Cariprazine Hcl 3 Mg Capsule PO 6 mg DAILY ABDULKADIR Administration Cyclobenzaprine HCl 10 mg 05/14/20 01:56 05/25/20 08:37 Cyclobenzaprine Hcl 10 Mg Tablet PO 10 mg BID PRN Administration Spasms Diazepam 10 mg 05/20/20 00:01 05/24/20 14:28 Diazepam 10 Mg Tablet PO 10 mg DAILY PRN Administration Anxiety Diclofenac Sodium 50 mg 05/14/20 02:00 05/25/20 14:23 Diclofenac Sodium Delayed Rel 50 Mg Tablet. PO 50 mg TID ABDULKADIR Administration Docusate Sodium 200 mg 05/14/20 02:00 05/25/20 08:38 Docusate Sodium 100 Mg Capsule PO 200 mg BID ABDULKADIR Administration Duloxetine HCl 60 mg 05/14/20 02:00 05/24/20 21:57 Duloxetine Hcl 60 Mg Capsule. PO 60 mg BEDTIME ABDULKADIR Administration Hydroxyzine HCl 50 mg 05/14/20 02:00 05/24/20 21:58 Hydroxyzine Hcl 25 Mg Tablet PO 50 mg BEDTIME ABDULKADIR Administration Hydroxyzine HCl 25 mg 05/18/20 16:24 05/25/20 02:55 Hydroxyzine Hcl 25 Mg Tablet PO 25 mg BEDTIME PRN Administration Anxiety Lamotrigine 25 mg 05/20/20 09:00 05/25/20 08:38 Lamotrigine 25 Mg Tablet PO 25 mg DAILY ABDULKADIR Administration Lidocaine 1 patch 05/24/20 15:37 05/25/20 04:53 Lidocaine 4 % Patch Adh..Patch TRANSDERMA 1 patch DAILY PRN Administration back pain Protocol Magnesium Hydroxide 30 ml 05/18/20 16:24 Milk Of Magnesia 30 Ml Oral.Susp PO DAILY PRN Constipation Metformin HCl 500 mg 05/13/20 21:00 05/25/20 17:01 Metformin Hcl 500 Mg Tablet PO 500 mg BIDWM ABDULKADIR Administration Nicotine 21 mg 05/19/20 09:00 05/25/20 08:38 Nicotine 21 Mg Patch.Td24 TRANSDERMA 21 mg DAILY ABDULKADIR Administration Psyllium Hydrophilic Mucilloid 3.4 gm 05/21/20 18:28 05/21/20 20:25 Psyllium Seed 3.4 Gm Powd.Pack PO 3.4 gm DAILY PRN Administration Constipation Quetiapine Fumarate 200 mg 05/14/20 02:00 05/24/20 21:58 Quetiapine Fumarate 200 Mg Tablet PO 200 mg BEDTIME ABDULKADIR Administration Trazodone HCl 50 mg 05/18/20 16:24 05/25/20 02:55 Trazodone Hcl 50 Mg Tablet PO 50 mg BEDTIME PRN Administration Insomnia Allergies Allergies Allergy/AdvReac Type Severity Reaction Status Date / Time No Known Allergies Allergy Verified 03/10/20 19:00 Assessment & Plan Assessment & Plan (1) Alcohol use disorder: Status: Acute Assessment and Plan: -Declines residential treatment (2) Back pain: Status: Acute Code(s): M54.9 - Dorsalgia, unspecified Assessment and Plan: Pain mgt appt 06/07/20 (3) Diabetes mellitus, type 2: Status: Acute Code(s): E11.9 - Type 2 diabetes mellitus without complications (4) Bipolar 2 disorder, major depressive episode: Status: Acute Code(s): F31.81 - Bipolar II disorder Assessment and Plan: Continue Vraylar trial. Greater than 50% of the session was spent on counseling and/or coordination of care Reason for contiued inpatient stay Substantial Risk for: harm to self, inability to function and med/psych d ecompensation
[2020-05-25 18:00] VITALS: BP 135/75; PULSE 71; TEMP 36.8
[2020-05-25 21:04] LABS: Glucose, Whole Blood 270 mg/dL (60-115)
[2020-05-25 22:07] LABS: Glucose, Whole Blood 286 mg/dL (60-115)
[2020-05-25] MEDS: QUEtiapine Fumarate 200 MG TABLET PO (22:11)
[2020-05-25] MEDS: DULoxetine HCl 60 MG CAPSULE.DR PO (22:11)
[2020-05-25] MEDS: hydrOXYzine HCL 25 MG TABLET 50 MG PO (22:11)
[2020-05-25] MEDS: HYDROcodone Bit/Acetam 5/325 TABLET 1 TAB PO (22:12)
[2020-05-26] MEDS: hydrOXYzine HCL 25 MG TABLET PO (01:40)
[2020-05-26] MEDS: Cyclobenzaprine HCl 10 MG TABLET PO (01:40)
[2020-05-26] MEDS: traZODone HCL 50 MG TABLET PO (01:40)
[2020-05-26 06:20] VITALS: BP 119/63; PULSE 72; RESP 16; TEMP 36.4; O2SAT 96
[2020-05-26 06:30] LABS: Glucose, Whole Blood 320 mg/dL (60-115)
[2020-05-26] MEDS: Docusate Sodium 100 MG CAPSULE 200 MG PO (08:34)
[2020-05-26] MEDS: Diclofenac Sodium Delayed Rel 50 MG TABLET.DR PO ×3 (08:34→21:27)
[2020-05-26] MEDS: lamoTRIgine 25 MG TABLET PO (08:35)
[2020-05-26] MEDS: metFORMIN HCl 500 MG TABLET PO ×2 (08:35→17:03)
[2020-05-26] MEDS: Cariprazine HCl 3 MG CAPSULE 6 MG PO (08:35)
[2020-05-26] MEDS: Insulin Lispro 100 UNIT/ML 3 ML VIAL SUBCUT ×4 (08:37→21:21)
[2020-05-26] MEDS: Nicotine 21 MG PATCH.TD24 TRANSDERMA (08:38)
[2020-05-26] MEDS: HYDROcodone Bit/Acetam 5/325 TABLET 1 TAB PO ×2 (11:08→18:12)
[2020-05-26 12:14] LABS: Glucose, Whole Blood 326 mg/dL (60-115)
--- NOTE | 2020-05-26 16:31 | HO.PSYCHPN ---
Subjective Subjective Date of Service: 05/26/20 Reason For Visit: Bipolar Disorder Subjective Notes: Conditional Voluntary Interim History: Pt pleased with pain consult and Vicodin prn. Angry with fha underwriter for SS Insulin repeating I told you no when I first was admitted. Explained hospitalist saw this as an issue as well with Metformin not covering variable blood sugars. Discussed tolerating Vraylar-will discontinue Seroquel tonight in trial. Lamictal to increase to 50 mg on 05/27/20. CBCD, CMP ordered. Planning discharge for 05/28. Discussed going to [place] and if he needs surgery having it in [place] after working for the spring/summer/. Goal oriented-working on license renewal on discharge. Medication Compliance: Yes Side effects from medications: No Attending Groups: Yes Review of Systems Musculoskeletal: Reports back pain Comments: DM labile blood sugar levels, increase in appetite. Mental Status Exam Mental Status Exam Patient Appearance: Appropriate Patient Orientation: Person, Place, Time and Situation Level of Consciousness: Awake and Alert Patient Behavior: Appropriate and Talkative Mood Description: Calm and Apprehensive (about moving forward, tasks ahead of him) Affect Description: Constricted Patient Cognition Impaired: No Ability to Follow Directions: Good Speech Pattern: Spontaneous Speech Memory Description: Intact Hallucinations: None Delusions: Not Present Thought Process: Goal Oriented Thought Content: positive for Suicidal Ideation (denies SI plan or intent) Depressive Symptoms: Back Pain Judgement: Good Diagnostics Vital Signs (24Hr): Vital Signs - 24 hr 05/25/20 18:00 05/26/20 06:20 Temperature 98.3 F 97.5 F Pulse Rate 71 72 Respiratory Rate 16 Blood Pressure 135/75 119/63 Pulse Oximetry 96 Body Mass Index 38.0 Labs Results: 05/20/20 08:00 05/25/20 08:51 Labs: Laboratory Results - last 48 hr 05/24/20 05/25/20 05/25/20 22:08 04:45 08:51 Sodium 136 Potassium 4.3 Chloride 101 Carbon Dioxide 27 Anion Gap 12 BUN 15 Creatinine 1.04 Estim Creat Clear Calc 107.9 Estimated GFR > 60 POC Glucose 253 H 293 H Random Glucose 321 H Calcium 8.9 05/25/20 05/25/20 05/26/20 20:59 22:02 06:25 Sodium Potassium Chloride Carbon Dioxide Anion Gap BUN Creatinine Estim Creat Clear Calc Estimated GFR POC Glucose 270 H 286 H 320 H Random Glucose Calcium 05/26/20 12:05 Sodium Potassium Chloride Carbon Dioxide Anion Gap BUN Creatinine Estim Creat Clear Calc Estimated GFR POC Glucose 326 H Random Glucose Calcium Medications Medications Current Medications Generic Name Dose Route Start Last Admin Trade Name Freq PRN Reason Stop Dose Admin Acetaminophen 650 mg 05/18/20 16:24 05/25/20 14:23 Acetaminophen 325 Mg Tablet PO 650 mg Q6H PRN Administration Headache/Pain Mild Scale (1-3) Hydrocodone Bitart/Acetaminophen 1 tab 05/25/20 18:41 05/26/20 11:08 Hydrocodone Bit/Acetam 5/325 Tablet PO 1 tab Q6H PRN Administration Pain, Severe (Pain Scale 7-10) Al Hydroxide/Mg Hydroxide 30 ml 05/18/20 16:24 Magnesium Hydrox/Alum Hydrox 30 Ml Oral.Susp PO Q6H PRN Heartburn/Nausea Cariprazine 6 mg 05/25/20 09:00 05/26/20 08:35 Cariprazine Hcl 3 Mg Capsule PO 6 mg DAILY ABDULKADIR Administration Cyclobenzaprine HCl 10 mg 05/14/20 01:56 05/26/20 01:40 Cyclobenzaprine Hcl 10 Mg Tablet PO 10 mg BID PRN Administration Spasms Diazepam 10 mg 05/20/20 00:01 05/24/20 14:28 Diazepam 10 Mg Tablet PO 10 mg DAILY PRN Administration Anxiety Diclofenac Sodium 50 mg 05/14/20 02:00 05/26/20 14:54 Diclofenac Sodium Delayed Rel 50 Mg Tablet. PO 50 mg TID ABDULKADIR Administration Docusate Sodium 200 mg 05/14/20 02:00 05/26/20 08:34 Docusate Sodium 100 Mg Capsule PO 200 mg BID ABDULKADIR Administration Duloxetine HCl 60 mg 05/14/20 02:00 05/25/20 22:11 Duloxetine Hcl 60 Mg Capsule. PO 60 mg BEDTIME ABDULKADIR Administration Hydroxyzine HCl 50 mg 05/14/20 02:00 05/25/20 22:11 Hydroxyzine Hcl 25 Mg Tablet PO 50 mg BEDTIME ABDULKADIR Administration Hydroxyzine HCl 25 mg 05/18/20 16:24 05/26/20 01:40 Hydroxyzine Hcl 25 Mg Tablet PO 25 mg BEDTIME PRN Administration Anxiety Insulin Human Lispro 0 unit 05/25/20 21:00 05/26/20 12:16 Insulin Lispro 100 Unit/Ml 3 Ml Vial SUBCUT 8 unit QIDACHS ABDULKADIR Administration Protocol Lamotrigine 50 mg 05/27/20 09:00 Lamotrigine 25 Mg Tablet PO DAILY ABDULKADIR Lidocaine 1 patch 05/24/20 15:37 05/25/20 04:53 Lidocaine 4 % Patch Adh..Patch TRANSDERMA 1 patch DAILY PRN Administration back pain Protocol Magnesium Hydroxide 30 ml 05/18/20 16:24 Milk Of Magnesia 30 Ml Oral.Susp PO DAILY PRN Constipation Metformin HCl 500 mg 05/13/20 21:00 05/26/20 08:35 Metformin Hcl 500 Mg Tablet PO 500 mg BIDWM ABDULKADIR Administration Nicotine 21 mg 05/19/20 09:00 05/26/20 08:38 Nicotine 21 Mg Patch.Td24 TRANSDERMA 21 mg DAILY ABDULKADIR Administration Psyllium Hydrophilic Mucilloid 3.4 gm 05/21/20 18:28 05/21/20 20:25 Psyllium Seed 3.4 Gm Powd.Pack PO 3.4 gm DAILY PRN Administration Constipation Trazodone HCl 50 mg 05/18/20 16:24 05/26/20 01:40 Trazodone Hcl 50 Mg Tablet PO 50 mg BEDTIME PRN Administration Insomnia Allergies Allergies Allergy/AdvReac Type Severity Reaction Status Date / Time No Known Allergies Allergy Verified 03/10/20 19:00 Assessment & Plan Assessment & Plan (1) Bipolar 2 disorder, major depressive episode: Status: Acute Code(s): F31.81 - Bipolar II disorder Assessment and Plan: -Discontinue Seroquel -Increase Lamictal to 50 mg 05/27/20. -CBCD, CMP 05/27/20. Greater than 50% of the session was spent on counseling and/or coordination of care Reason for contiued inpatient stay Substantial Risk for: harm to self and rapid decompensation
[2020-05-26 17:00] LABS: Glucose, Whole Blood 275 mg/dL (60-115)
[2020-05-26 17:26] VITALS: BP 123/59; PULSE 72; RESP 18; TEMP 36.9
[2020-05-26 21:21] LABS: Glucose, Whole Blood 231 mg/dL (60-115)
[2020-05-26] MEDS: hydrOXYzine HCL 25 MG TABLET 50 MG PO (21:26)
[2020-05-26] MEDS: diazePAM 10 MG TABLET PO (21:26)
[2020-05-26] MEDS: DULoxetine HCl 60 MG CAPSULE.DR PO (21:27)
--- NOTE | 2020-05-27 | ECG_ITS ---
Test Reason : HYPERKALEMIA Blood Pressure : / mmHG Vent. Rate : 066 BPM Atrial Rate : 066 BPM P-R Int : 162 ms QRS Dur : 090 ms QT Int : 386 ms P-R-T Axes : 038 -48 059 degrees QTc Int : 404 ms Normal sinus rhythm Left axis deviation Abnormal ECG When compared with ECG of 18-MAY-2020 16:33, No significant change was found Referred By: Maribel Burden Electronically Signed By:MICA BARROS
[2020-05-27 05:26] LABS: Glucose, Whole Blood 277 mg/dL (60-115)
[2020-05-27 06:00] VITALS: BP 122/72; PULSE 76; TEMP 36.3
[2020-05-27] MEDS: metFORMIN HCl 500 MG TABLET PO ×2 (08:09→16:54)
[2020-05-27] MEDS: lamoTRIgine 25 MG TABLET 50 MG PO (08:10)
[2020-05-27] MEDS: Cariprazine HCl 3 MG CAPSULE 6 MG PO (08:10)
[2020-05-27] MEDS: Diclofenac Sodium Delayed Rel 50 MG TABLET.DR PO ×3 (08:10→22:08)
[2020-05-27] MEDS: Insulin Lispro 100 UNIT/ML 3 ML VIAL SUBCUT ×4 (08:11→21:23)
[2020-05-27 08:18] LABS: MANUAL DIFF FLAG NO
[2020-05-27] MEDS: Nicotine 21 MG PATCH.TD24 TRANSDERMA (08:18)
[2020-05-27 08:23] LABS: Basophils Percent Auto 0.6 % (0-2); Eosinophils Absolute Auto 0.1 X10*3/uL (0.0-0.4); Eosinophils Percent Auto 1.6 % (0-4); Hematocrit 43.7 % (42-52); Imm Gran Abs Auto 0.01 X10*3/uL (0.00-0.03); Imm Gran Pct Auto 0.2 % (0.0-0.4); Lymphocytes Percent Auto 38.7 % (20-40); Mean Corpuscular HGB Conc 34.3 g/dl (31.0-36.0); Mean Corpuscular Hemoglobin 29.9 pg (27.0-33.0); Mean Corpuscular Volume 87.1 fL (80-98); Mean Platelet Volume 10.6 fL (9.4-12.4); Monocytes Absolute Auto 0.5 X10*3/uL (0.1-1.2); Monocytes Percent Auto 8.9 % (2-11); Neutrophils Absolute Auto 2.5 X10*3/uL (2.0-8.3); Platelet Count 147 X10*3/uL (160-400); Red Blood Count 5.02 X10*6/uL (4.60-5.80); Red Cell Distribution Width 12.8 % (11.0-16.0)
[2020-05-27 09:04] LABS: Alanine Aminotransferase 28 U/L (0-40); Alkaline Phosphatase 85 U/L (39-117); Anion Gap 14 (12-20); Aspartate Amino Transferase 15 U/L (5-37); Bilirubin Total 0.4 mg/dL (0.0-1.0); Blood Urea Nitrogen 21 mg/dL (9-16); Calcium 9.2 mg/dL (8.4-10.2); Carbon Dioxide 29 mmol/L (22-29); Chloride 98 mmol/L (96-108); Creatinine Clr Calc Pharmacy 103.9; Estimated Glomerular Filt Rate > 60; Glucose Random 351 mg/dL (60-115); Potassium 5.4 mmol/L (3.3-5.1); Sodium 136 mmol/L (135-145); Total Protein 6.8 g/dL (6.5-8.0)
[2020-05-27 11:30] VITALS: BMI 38.8
[2020-05-27] MEDS: Cyclobenzaprine HCl 10 MG TABLET PO ×2 (12:12→22:08)
[2020-05-27] MEDS: HYDROcodone Bit/Acetam 5/325 TABLET 1 TAB PO ×2 (12:13→19:33)
[2020-05-27 12:19] LABS: Glucose, Whole Blood 277 mg/dL (60-115)
--- NOTE | 2020-05-27 13:09 | HO.PSYCHPN ---
Subjective Subjective Date of Service: 05/27/20 Reason For Visit: Bipolar Disorder Subjective Notes: Conditional Voluntary Interim History: Pt preparing for discharge on 05/28. Reports poor sleep last night. Asks for different agent to assist with sleep-hx of inefficacy with Mirtazapine, Trazodone, Gabapentin and recent weight gain with Seroquel. Discussed topiramate trial to assist with mood and appetite which he has interest in. 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 Medication Compliance: Yes Side effects from medications: Yes (Weight gain, insomnia) Attending Groups: Yes Review of Systems Comments: K+ today 5.4, moderate hyperkalemia. EKG is unchanged from 06/15/20 and pt is asymptomatic. Discussed with pt mgt of DM with SS Insulin, Metformin and longer acting agents as being important to stability. Pt reports he will accept SS Insulin to go home and will meet with PCP to discuss long acting options. He will continue Metformin as well Psychiatric: Reports change in appetite (increase with weight gain during this admission.) Mental Status Exam Mental Status Exam Patient Appearance: Appropriate Patient Orientation: Person, Place, Time and Situation Level of Consciousness: Awake and Alert Patient Behavior: Appropriate and Talkative Mood Description: Calm, Appropriate and Anxious (anxious about MRI results and what treatment for spinal issues he will need to endure.) Affect Description: Appropriate Patient Cognition Impaired: No Ability to Follow Directions: Good Speech Pattern: Spontaneous Speech Memory Description: Intact Hallucinations: None Delusions: Not Present Thought Process: Intact Thought Content: positive for Intact Depressive Symptoms: Increased Anxiety (regarding back injury and what will be needed to correct this.), Difficulty Sleeping, Changes in Appetite, Significant Weight Gain and Back Pain Judgement: Good Diagnostics Vital Signs (24Hr): Vital Signs - 24 hr 05/26/20 17:26 05/27/20 06:00 Temperature 98.4 F 97.4 F Pulse Rate 72 76 Respiratory Rate 18 Blood Pressure 123/59 L 122/72 Body Mass Index 38.8 Labs Results: 05/27/20 08:04 05/27/20 08:04 Labs: Laboratory Results - last 48 hr 05/25/20 05/25/20 05/26/20 20:59 22:02 06:25 WBC RBC Hgb Hct MCV MCH MCHC RDW Plt Count MPV Immature Gran % (Auto) Neut % (Auto) Lymph % (Auto) [place] % (Auto) Eos % (Auto) Baso % (Auto) Lymph # (Auto) [place] # (Auto) Eos # (Auto) Baso # (Auto) Abs Immat Gran (auto) Absolute Neuts (auto) Absolute Nucleated RBC Nucleated RBC % (auto) Sodium Potassium Chloride Carbon Dioxide Anion Gap BUN Creatinine Estim Creat Clear Calc Estimated GFR POC Glucose 270 H 286 H 320 H Random Glucose Calcium Total Bilirubin AST ALT Alkaline Phosphatase Total Protein Albumin 05/26/20 05/26/20 05/26/20 12:05 16:57 21:17 WBC RBC Hgb Hct MCV MCH MCHC RDW Plt Count MPV Immature Gran % (Auto) Neut % (Auto) Lymph % (Auto) [place] % (Auto) Eos % (Auto) Baso % (Auto) Lymph # (Auto) [place] # (Auto) Eos # (Auto) Baso # (Auto) Abs Immat Gran (auto) Absolute Neuts (auto) Absolute Nucleated RBC Nucleated RBC % (auto) Sodium Potassium Chloride Carbon Dioxide Anion Gap BUN Creatinine Estim Creat Clear Calc Estimated GFR POC Glucose 326 H 275 H 231 H Random Glucose Calcium Total Bilirubin AST ALT Alkaline Phosphatase Total Protein Albumin 05/27/20 05/27/20 05/27/20 05:21 08:04 08:04 WBC 5.0 RBC 5.02 Hgb 15.0 Hct 43.7 MCV 87.1 MCH 29.9 MCHC 34.3 RDW 12.8 Plt Count 147 L MPV 10.6 Immature Gran % (Auto) 0.2 Neut % (Auto) 50.0 Lymph % (Auto) 38.7 [place] % (Auto) 8.9 Eos % (Auto) 1.6 Baso % (Auto) 0.6 Lymph # (Auto) 2.0 [place] # (Auto) 0.5 Eos # (Auto) 0.1 Baso # (Auto) 0.0 Abs Immat Gran (auto) 0.01 Absolute Neuts (auto) 2.5 Absolute Nucleated RBC 0.000 Nucleated RBC % (auto) 0.0 Sodium 136 Potassium 5.4 H D Chloride 98 Carbon Dioxide 29 Anion Gap 14 BUN 21 H Creatinine 1.08 Estim Creat Clear Calc 103.9 Estimated GFR > 60 POC Glucose 277 H Random Glucose 351 H* Calcium 9.2 Total Bilirubin 0.4 AST 15 ALT 28 Alkaline Phosphatase 85 D Total Protein 6.8 Albumin 4.0 05/27/20 12:09 WBC RBC Hgb Hct MCV MCH MCHC RDW Plt Count MPV Immature Gran % (Auto) Neut % (Auto) Lymph % (Auto) [place] % (Auto) Eos % (Auto) Baso % (Auto) Lymph # (Auto) [place] # (Auto) Eos # (Auto) Baso # (Auto) Abs Immat Gran (auto) Absolute Neuts (auto) Absolute Nucleated RBC Nucleated RBC % (auto) Sodium Potassium Chloride Carbon Dioxide Anion Gap BUN Creatinine Estim Creat Clear Calc Estimated GFR POC Glucose 277 H Random Glucose Calcium Total Bilirubin AST ALT Alkaline Phosphatase Total Protein Albumin Medications Medications Current Medications Generic Name Dose Route Start Last Admin Trade Name Freq PRN Reason Stop Dose Admin Acetaminophen 650 mg 05/18/20 16:24 05/25/20 14:23 Acetaminophen 325 Mg Tablet PO 650 mg Q6H PRN Administration Headache/Pain Mild Scale (1-3) Hydrocodone Bitart/Acetaminophen 1 tab 05/25/20 18:41 05/27/20 12:13 Hydrocodone Bit/Acetam 5/325 Tablet PO 1 tab Q6H PRN Administration Pain, Severe (Pain Scale 7-10) Al Hydroxide/Mg Hydroxide 30 ml 05/18/20 16:24 Magnesium Hydrox/Alum Hydrox 30 Ml Oral.Susp PO Q6H PRN Heartburn/Nausea Cariprazine 6 mg 05/25/20 09:00 05/27/20 08:10 Cariprazine Hcl 3 Mg Capsule PO 6 mg DAILY ABDULKADIR Administration Cyclobenzaprine HCl 10 mg 05/14/20 01:56 05/27/20 12:12 Cyclobenzaprine Hcl 10 Mg Tablet PO 10 mg BID PRN Administration Spasms Diazepam 10 mg 05/20/20 00:01 05/26/20 21:26 Diazepam 10 Mg Tablet PO 10 mg DAILY PRN Administration Anxiety Diclofenac Sodium 50 mg 05/14/20 02:00 05/27/20 08:10 Diclofenac Sodium Delayed Rel 50 Mg Tablet. PO 50 mg TID ABDULKADIR Administration Docusate Sodium 200 mg 05/14/20 02:00 05/27/20 08:17 Docusate Sodium 100 Mg Capsule PO Not Given BID [facility] Duloxetine HCl 60 mg 05/14/20 02:00 05/26/20 21:27 Duloxetine Hcl 60 Mg Capsule.Dr PO 60 mg BEDTIME ABDULKADIR Administration Hydroxyzine HCl 50 mg 05/14/20 02:00 05/26/20 21:26 Hydroxyzine Hcl 25 Mg Tablet PO 50 mg BEDTIME ABDULKADIR Administration Hydroxyzine HCl 25 mg 05/18/20 16:24 05/26/20 01:40 Hydroxyzine Hcl 25 Mg Tablet PO 25 mg BEDTIME PRN Administration Anxiety Insulin Human Lispro 0 unit 05/25/20 21:00 05/27/20 12:12 Insulin Lispro 100 Unit/Ml 3 Ml Vial SUBCUT 6 unit QIDACHS [facility] Administration Protocol Lamotrigine 50 mg 05/27/20 09:00 05/27/20 08:10 Lamotrigine 25 Mg Tablet PO 50 mg DAILY ABDULKADIR Administration Lidocaine 1 patch 05/24/20 15:37 05/25/20 04:53 Lidocaine 4 % Patch Adh..Patch TRANSDERMA 1 patch DAILY PRN Administration back pain Protocol Magnesium Hydroxide 30 ml 05/18/20 16:24 Milk Of Magnesia 30 Ml Oral.Susp PO DAILY PRN Constipation Metformin HCl 500 mg 05/13/20 21:00 05/27/20 08:09 Metformin Hcl 500 Mg Tablet PO 500 mg BIDWM ABDULKADIR Administration Nicotine 21 mg 05/19/20 09:00 05/27/20 08:18 Nicotine 21 Mg Patch.Td24 TRANSDERMA 21 mg DAILY ABDULKADIR Administration Psyllium Hydrophilic Mucilloid 3.4 gm 05/21/20 18:28 05/26/20 21:34 Psyllium Seed 3.4 Gm Powd.Pack PO 3.4 gm DAILY PRN Administration Constipation Trazodone HCl 50 mg 05/18/20 16:24 05/26/20 01:40 Trazodone Hcl 50 Mg Tablet PO 50 mg BEDTIME PRN Administration Insomnia Allergies Allergies Allergy/AdvReac Type Severity Reaction Status Date / Time No Known Allergies Allergy Verified 03/10/20 19:00 Assessment & Plan Assessment & Plan (1) Back pain: Status: Acute Code(s): M54.9 - Dorsalgia, unspecified Assessment and Plan: Pain mgt appt 06/07/20. Continue Cymbalta, Flexoril, Diclofenac, Hydrocodone, Lidocaine Patch (2) Alcohol use disorder: Status: Acute Assessment and Plan: Education regarding abstinence and resources for support, self-help resources. By history, pt has lived in therapeutic community. He declines referrals at this time, reports infrequent alcohol use and was educated regarding risks of relapse. (3) Diabetes mellitus, type 2: Status: Acute Code(s): E11.9 - Type 2 diabetes mellitus without complications Assessment and Plan: Continue Metformin. Pt, since seeing the hospitalist has begun to accept SS Insulin. We discussed this today and he is willing to continue upon discharge and will follow up with PCP Topamax 25 mg daily for appetite mgt. trial (4) Bipolar 2 disorder, major depressive episode: Status: Acute Code(s): F31.81 - Bipolar II disorder Assessment and Plan: -Tolerating Vraylar -Insomnia- Chlorpromazine 50 mg hs trial Greater than 50% of the session was spent on counseling and/or coordination of care Patient educated on: medication risk/benefits and therapeutic strategies Informed Consent: understands and further education needed Reason for contiued inpatient stay Substantial Risk for: stable for discharge
[2020-05-27] MEDS: Topiramate 25 MG TABLET PO (14:36)
[2020-05-27 16:48] LABS: Glucose, Whole Blood 293 mg/dL (60-115)
[2020-05-27 16:57] VITALS: BP 149/85; PULSE 75; RESP 18; TEMP 36.5; O2SAT 97
[2020-05-27 19:37] VITALS: BP 143/77; PULSE 83
[2020-05-27 21:20] LABS: Glucose, Whole Blood 331 mg/dL (60-115)
[2020-05-27] MEDS: DULoxetine HCl 60 MG CAPSULE.DR PO (22:08)
[2020-05-27] MEDS: Docusate Sodium 100 MG CAPSULE 200 MG PO (22:08)
[2020-05-27] MEDS: diazePAM 10 MG TABLET PO (22:12)
[2020-05-28] MEDS: chlorproMAZINE HCl 25 MG TABLET 50 MG PO (01:51)
[2020-05-28] MEDS: HYDROcodone Bit/Acetam 5/325 TABLET 1 TAB PO ×2 (01:52→13:19)
[2020-05-28 05:27] LABS: Glucose, Whole Blood 356 mg/dL (60-115)
[2020-05-28] MEDS: Insulin Lispro 100 UNIT/ML 3 ML VIAL SUBCUT ×3 (05:34→12:31)
--- NOTE | 2020-05-28 05:41 | PC.NURSE ---
Addendum entered by Jm Reyes RN 05/28/20 06:56: 0620: BS reassessed to be 426. Hospitalist contacted and additional 5 units of humalog administered per order at 0650. Hospitalist Christi to order medical consult and oncoming shift notified to recheck bs in two hours from time of humalog administration. Pt reports a hx of increase in blood sugar when taking medication for mental health but unsure of which medication. Observed to snack on food in bed throughout the night. Original Note: 0530: BG assessed 356. Hospitalist Christi notified and scheduled humalog sliding scale administered ahead of schedule as ordered.
[2020-05-28 06:26] LABS: Glucose, Whole Blood 426 mg/dL (60-115)
[2020-05-28 06:46] VITALS: BP 119/65; PULSE 78; RESP 16; TEMP 36.4; O2SAT 96
[2020-05-28 08:18] LABS: Glucose, Whole Blood 324 mg/dL (60-115)
[2020-05-28] MEDS: Topiramate 25 MG TABLET PO (09:15)
[2020-05-28] MEDS: lamoTRIgine 25 MG TABLET 50 MG PO (09:15)
[2020-05-28] MEDS: Diclofenac Sodium Delayed Rel 50 MG TABLET.DR PO ×2 (09:15→13:19)
[2020-05-28] MEDS: Cariprazine HCl 3 MG CAPSULE 6 MG PO (09:15)
[2020-05-28] MEDS: Docusate Sodium 100 MG CAPSULE 200 MG PO (09:15)
[2020-05-28] MEDS: metFORMIN HCl 500 MG TABLET PO (09:15)
[2020-05-28] MEDS: Nicotine 21 MG PATCH.TD24 TRANSDERMA (09:16)
[2020-05-28 12:30] LABS: Glucose, Whole Blood 401 mg/dL (60-115)
--- NOTE | 2020-05-28 12:32 | PC.NURSE ---
[address] [place] contacted. No additional orders. Pt received 10 units sliding scale. Diabetic education done with pt regarding dietary choices.
--- NOTE | 2020-05-28 14:00 | P.DS_ITS ---
DS: Providers Provider Date of Service: 05/28/20 Date of admission: 05/18/20 16:24 Date of discharge: 05/28/20 Primary care physician: Tim Erazo MD Admitting clinician: Maribel Burden Attending physician on admission: Jeb Rai Consults: 05/24/20 16:24 Consult to Hospitalist Routine Consulting Provider: Hospitalist Reason For Exam: back pain rx-MRI results summarized in note Attending physician on discharge: Jeb Rai Discharging clinician: Maribel Burden DS: Diagnosis Discharge Diagnosis (1) Back pain: Status: Acute Problem details: MRI with PCP indicates significant injury. Pt in need of pain mgt. (2) Alcohol use disorder: Status: Acute Problem details: Intermittent use pt reports (3) Diabetes mellitus, type 2: Status: Acute Problem details: Pt has stopped Metformin, declines insulin and believes that sx are the result of medication SE (4) Bipolar 2 disorder, major depressive episode: Status: Acute Problem details: Reports an increase in depression, anxiety, SI and alcohol intake Stopped meds FREELANCE DATA ENTRY-hydroxyzine, cymbalta, depakote, metformin Continues with Valium, Yvetteien Affirms that he does have Bipolar Disorder DS: Medications Discharge Medications Home Medications: Previous Rx's Medication Instructions Recorded cariprazine [Vraylar] 6 mg PO DAILY #30 cap 05/28/20 cyclobenzaprine 10 mg PO BID PRN #20 tab 05/28/20 diazepam [Valium] 10 mg PO DAILY PRN #5 tab 05/28/20 diclofenac potassium 1 tab PO TID #30 tab 05/28/20 docusate sodium 200 mg PO BID #120 cap 05/28/20 duloxetine 1 cap PO BEDTIME #30 cap 05/28/20 glipizide 5 mg PO DAILY #15 tab 05/28/20 hydrocodone-acetaminophen 1 tab PO Q6H PRN #10 tab 05/28/20 lamotrigine 50 mg PO DAILY #60 tab 05/28/20 lidocaine [Lidocaine Pain Relief] 1 patch TRANSDERMAL DAILY PRN #10 05/28/20 ea metformin 500 mg PO TID #30 tab 05/28/20 naloxone [Narcan] 4 mg INTRANASAL Q2M PRN #2 ea 05/28/20 psyllium husk (aspartame) 3.4 g PO DAILY PRN #1 ea 05/28/20 [Metamucil Fiber Singles] topiramate 25 mg PO DAILY #30 tab 05/28/20 zolpidem 10 mg PO BEDTIME #5 tab 05/28/20 Discharge Plan Discharge Anticipated Discharge Date/Time: 05/28/20 14:00 Patient Disposition: Home, Self-Care Referrals: Bee Lopes (therapist) [Other] - 05/31/20 9:45 am (Telehealth appointment) Kevin Bai (psychiatrist) [Other] - 06/02/20 8:00 am (Telehealth appointment) [facility]- Dr. Berry [Other] - 06/07/20 11:00 am Tim Erazo MD [Physician] - 06/08/20 2:30 pm (VIA TELEPHONE) Discharge Medications: New Vraylar 3 mg Capsule 6 mg PO DAILY Qty: 30 RF: 0 hydrocodone-acetaminophen 5-325 mg Tablet 1 tab PO Q6H PRN (Reason: Pain, Severe (Pain Scale 7-10)) Qty: 10 RF: 0 topiramate 25 mg Tablet 25 mg PO DAILY Qty: 30 RF: 0 lamotrigine 25 mg Tablet 50 mg PO DAILY Qty: 60 RF: 0 docusate sodium 100 mg Capsule 200 mg PO BID Qty: 120 RF: 0 Metamucil Fiber Singles 3.4 gram Powder In Packet 3.4 g PO DAILY PRN (Reason: Constipation) Qty: 1 RF: 0 lidocaine [Lidocaine Pain Relief] 4 % Adhesive Patch,Medicated 1 patch transdermal DAILY PRN (Reason: back pain) Qty: 10 RF: 0 metformin 500 mg tablet 500 mg PO TID Qty: 30 RF: 0 glipizide 5 mg tablet 5 mg PO DAILY Qty: 15 RF: 0 Narcan 4 mg/actuation spray,non-aerosol 4 mg intranasal Q2M PRN (Reason: opioid overdose) Qty: 2 RF: 0 Vraylar 3 mg capsule 3 mg PO DAILY Qty: 30 RF: 0 Continued cyclobenzaprine 10 mg Tablet 10 mg PO BID PRN (Reason: Spasms) Qty: 20 RF: 0 diclofenac potassium 50 mg tablet 1 tab PO TID Qty: 30 RF: 0 diazepam [Valium] 10 mg tablet 10 mg PO DAILY PRN (Reason: Anxiety) Qty: 5 RF: 0 zolpidem 10 mg tablet 10 mg PO BEDTIME Qty: 5 RF: 0 duloxetine 60 mg capsule,delayed release(DR/EC) 1 cap PO BEDTIME Qty: 30 RF: 0 Discontinued quetiapine 200 mg tablet 1 tab PO BEDTIME RF: 0 hydroxyzine HCl 25 mg tablet 2 tab PO BEDTIME RF: 0 metformin 500 mg Tablet 500 mg PO BIDWM Qty: 60 RF: 0 divalproex 500 mg tablet extended release 24 hr 1,000 mg PO DAILY@1700 Qty: 60 RF: 0 docusate sodium 100 mg Capsule 200 mg PO BID Qty: 120 RF: 0 Discharge Orders: Discharge Order (Routine); Ordered 05/28/20 Ordered By: Maribel Burden Diet: diabetic diet Activity on Discharge: As tolerated Stand Alone Forms: Patient Portal Discharge page, Community Support Care Plan Goals: Mood Stability Sobriety Management of Medical Issues Health Concerns: Bipolar Disorder Sobriety Diabetes Back Injury Plan of Treatment: Doug, we have reviewed your medicine regime and you are going home with handouts regarding side effects. Vraylar and Lamictal are your mood stabizers. Valium is your muscle relaxant and used for anxiety mgt. Cymbalta is for bone pain and anxiety/depression mgt. Topiramate is to assist you with appetite mgt. Colace and Metamucil are to assist you in preventing constipation. Hydrocodone, Flexoril, Diclofenac and Lidocaine patch are for pain mgt. You have seen our hospitalist team for pain mgt and will meet the pain clinic team on 06/07/20. Regarding your diabetes, you have stated you prefer not to use insulin. As a result of high blood sugars we have consulted our hospitalist team and recommend an increase in Metformin and addition of Glipizide. Monitor your blood sugar before meals and at bedtime, and contact your primary care team or return to the ER is there are problems with your blood sugar. Please follow a diabetic eating plan. You have been given refills to use until you meet with all of your providers. With these medications... DO NOT CONSUME ALCOHOL. Your narcotic will be divided into four refills. I will contact you before I refill to check in with you regarding symptoms and to see if you have any concerns. Discharge Date/Time: 05/28/20 13:45 Mental Status Exam Mental Status Exam Patient Appearance: Appropriate Patient Orientation: Person, Place, Time and Situation Level of Consciousness: Awake and Alert Patient Behavior: Appropriate, Talkative and Cooperative Mood Description: Calm Affect Description: Calm Patient Cognition Impaired: No Ability to Follow Directions: Good Speech Pattern: Spontaneous Speech Memory Description: Intact Hallucinations: None Delusions: Not Present Thought Process: Intact Thought Content: positive for Intact Depressive Symptoms: Thoughts of /Suicide (denies SI plan or intent) Judgement: Good Data Data Completed and Pending Completed studies during hospitalization [Text1]: 05/21/20 05/22/20 05/22/20 22:08 05:39 22:06 WBC RBC Hgb Hct MCV MCH MCHC RDW Plt Count MPV Immature Gran % (Auto) Neut % (Auto) Lymph % (Auto) [place] % (Auto) Eos % (Auto) Baso % (Auto) Lymph # (Auto) [place] # (Auto) Eos # (Auto) Baso # (Auto) Abs Immat Gran (auto) Absolute Neuts (auto) Absolute Nucleated RBC Nucleated RBC % (auto) Sodium Potassium Chloride Carbon Dioxide Anion Gap BUN Creatinine Estim Creat Clear Calc Estimated GFR POC Glucose 147 H 246 H 200 H Random Glucose Calcium Total Bilirubin AST ALT Alkaline Phosphatase Total Protein Albumin 05/23/20 05/23/20 05/24/20 05:48 21:50 05:30 WBC RBC Hgb Hct MCV MCH MCHC RDW Plt Count MPV Immature Gran % (Auto) Neut % (Auto) Lymph % (Auto) [place] % (Auto) Eos % (Auto) Baso % (Auto) Lymph # (Auto) [place] # (Auto) Eos # (Auto) Baso # (Auto) Abs Immat Gran (auto) Absolute Neuts (auto) Absolute Nucleated RBC Nucleated RBC % (auto) Sodium Potassium Chloride Carbon Dioxide Anion Gap BUN Creatinine Estim Creat Clear Calc Estimated GFR POC Glucose 224 H 258 H 266 H Random Glucose Calcium Total Bilirubin AST ALT Alkaline Phosphatase Total Protein Albumin 05/24/20 05/25/20 05/25/20 22:08 04:45 08:51 WBC RBC Hgb Hct MCV MCH MCHC RDW Plt Count MPV Immature Gran % (Auto) Neut % (Auto) Lymph % (Auto) [place] % (Auto) Eos % (Auto) Baso % (Auto) Lymph # (Auto) [place] # (Auto) Eos # (Auto) Baso # (Auto) Abs Immat Gran (auto) Absolute Neuts (auto) Absolute Nucleated RBC Nucleated RBC % (auto) Sodium 136 Potassium 4.3 Chloride 101 Carbon Dioxide 27 Anion Gap 12 BUN 15 Creatinine 1.04 Estim Creat Clear Calc 107.9 Estimated GFR > 60 POC Glucose 253 H 293 H Random Glucose 321 H Calcium 8.9 Total Bilirubin AST ALT Alkaline Phosphatase Total Protein Albumin 05/25/20 05/25/20 05/26/20 20:59 22:02 06:25 WBC RBC Hgb Hct MCV MCH MCHC RDW Plt Count MPV Immature Gran % (Auto) Neut % (Auto) Lymph % (Auto) [place] % (Auto) Eos % (Auto) Baso % (Auto) Lymph # (Auto) [place] # (Auto) Eos # (Auto) Baso # (Auto) Abs Immat Gran (auto) Absolute Neuts (auto) Absolute Nucleated RBC Nucleated RBC % (auto) Sodium Potassium Chloride Carbon Dioxide Anion Gap BUN Creatinine Estim Creat Clear Calc Estimated GFR POC Glucose 270 H 286 H 320 H Random Glucose Calcium Total Bilirubin AST ALT Alkaline Phosphatase Total Protein Albumin 05/26/20 05/26/20 05/26/20 12:05 16:57 21:17 WBC RBC Hgb Hct MCV MCH MCHC RDW Plt Count MPV Immature Gran % (Auto) Neut % (Auto) Lymph % (Auto) [place] % (Auto) Eos % (Auto) Baso % (Auto) Lymph # (Auto) [place] # (Auto) Eos # (Auto) Baso # (Auto) Abs Immat Gran (auto) Absolute Neuts (auto) Absolute Nucleated RBC Nucleated RBC % (auto) Sodium Potassium Chloride Carbon Dioxide Anion Gap BUN Creatinine Estim Creat Clear Calc Estimated GFR POC Glucose 326 H 275 H 231 H Random Glucose Calcium Total Bilirubin AST ALT Alkaline Phosphatase Total Protein Albumin 05/27/20 05/27/20 05/27/20 05:21 08:04 08:04 WBC 5.0 RBC 5.02 Hgb 15.0 Hct 43.7 MCV 87.1 MCH 29.9 MCHC 34.3 RDW 12.8 Plt Count 147 L MPV 10.6 Immature Gran % (Auto) 0.2 Neut % (Auto) 50.0 Lymph % (Auto) 38.7 [place] % (Auto) 8.9 Eos % (Auto) 1.6 Baso % (Auto) 0.6 Lymph # (Auto) 2.0 [place] # (Auto) 0.5 Eos # (Auto) 0.1 Baso # (Auto) 0.0 Abs Immat Gran (auto) 0.01 Absolute Neuts (auto) 2.5 Absolute Nucleated RBC 0.000 Nucleated RBC % (auto) 0.0 Sodium 136 Potassium 5.4 H D Chloride 98 Carbon Dioxide 29 Anion Gap 14 BUN 21 H Creatinine 1.08 Estim Creat Clear Calc 103.9 Estimated GFR > 60 POC Glucose 277 H Random Glucose 351 H* Calcium 9.2 Total Bilirubin 0.4 AST 15 ALT 28 Alkaline Phosphatase 85 D Total Protein 6.8 Albumin 4.0 05/27/20 05/27/20 05/27/20 12:09 16:45 21:16 WBC RBC Hgb Hct MCV MCH MCHC RDW Plt Count MPV Immature Gran % (Auto) Neut % (Auto) Lymph % (Auto) [place] % (Auto) Eos % (Auto) Baso % (Auto) Lymph # (Auto) [place] # (Auto) Eos # (Auto) Baso # (Auto) Abs Immat Gran (auto) Absolute Neuts (auto) Absolute Nucleated RBC Nucleated RBC % (auto) Sodium Potassium Chloride Carbon Dioxide Anion Gap BUN Creatinine Estim Creat Clear Calc Estimated GFR POC Glucose 277 H 293 H 331 H Random Glucose Calcium Total Bilirubin AST ALT Alkaline Phosphatase Total Protein Albumin 05/28/20 05/28/20 05/28/20 05:22 06:21 08:14 WBC RBC Hgb Hct MCV MCH MCHC RDW Plt Count MPV Immature Gran % (Auto) Neut % (Auto) Lymph % (Auto) [place] % (Auto) Eos % (Auto) Baso % (Auto) Lymph # (Auto) [place] # (Auto) Eos # (Auto) Baso # (Auto) Abs Immat Gran (auto) Absolute Neuts (auto) Absolute Nucleated RBC Nucleated RBC % (auto) Sodium Potassium Chloride Carbon Dioxide Anion Gap BUN Creatinine Estim Creat Clear Calc Estimated GFR POC Glucose 356 H* 426 H* 324 H Random Glucose Calcium Total Bilirubin AST ALT Alkaline Phosphatase Total Protein Albumin 05/28/20 12:25 WBC RBC Hgb Hct MCV MCH MCHC RDW Plt Count MPV Immature Gran % (Auto) Neut % (Auto) Lymph % (Auto) [place] % (Auto) Eos % (Auto) Baso % (Auto) Lymph # (Auto) [place] # (Auto) Eos # (Auto) Baso # (Auto) Abs Immat Gran (auto) Absolute Neuts (auto) Absolute Nucleated RBC Nucleated RBC % (auto) Sodium Potassium Chloride Carbon Dioxide Anion Gap BUN Creatinine Estim Creat Clear Calc Estimated GFR POC Glucose 401 H* Random Glucose Calcium Total Bilirubin AST ALT Alkaline Phosphatase Total Protein Albumin DS: Summary Hospital Course Hospital Course: Pt was admitted on a conditional voluntary. He worked with the team on symptoms, medications, and referrals. Vraylar, Lamictal and Topiramate were initated without adverse effects. Cymbalta was re-instated once pt received education on pain mgt benefits. Valium and Ambien were continued. Pt was evaluated by hospitalist team and pain medications were prescribed after MRI was reviewed. Pt was scheduled for [facility] for [place]07[place]. Diabetic education was provided and pt became more compliant with diabetic care as his admission progressed. Seroquel was discontinued as pt's appetite was increased. Topiramate was added to assist in appetite modulation. 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 Discussion was completed regarding the need for ongoing mgt of Bipolar Disorder, sobriety and managment of medical issues. Pt agreed and will follow up with his providers. Suicidal ideation resolved during admission. Pt's insurance authorized ongoing use of Vraylar. Time spent discussing smoking cessation with patient: 3 to 10 minutes Status at Discharge Cognitive/behavioral status at discharge: alert, oriented, euthymic, non psychotic, denies SI, HI plan or intent. Functional status at discharge: independent ambulation Overall status at discharge: patient is back to baseline Time Spent with Patient Time attestation: Total time spent providing and/or coordinating discharge services: 40 Time spent: Greater than 30 minutes
--- NOTE | 2020-05-31 16:05 | PM.EVENT ---
Event Note Date of Service: 05/31/20 Event Note: Call to pt to check in and discuss ongoing pain mgt plan as pain mgt appt is 06/07/20. Pt reports he is grocery shopping with his sister. Reports he is well. Pain is well managed. He is feeling 50% relief he reports He picked up meds today from pharmacy so he will not need refills at this time. Denies SI, HI. Pt has our number as needed. Will check in again on 06/02/20.
== END 2020-05-28 13:45 | disposition home or self-care (01) | DRG 753 ==
LOC: HO.ED 16:35 → HO.PM5 05-18 16:53
PROVIDERS: Physician Assistant; Psychiatry & Neurology Psychiatry; Admitting Provider Psychiatry & Neurology Psychiatry; Emergency Provider Emergency Medicine; Visit Provider Clinical Nurse Specialist Psychiatric/Mental Health, Adult
DX: F31.81 Bipolar II disorder (principal); R45.851 Suicidal ideations; E11.9 Type 2 diabetes mellitus without complications; F10.10 Alcohol abuse, uncomplicated; M51.27 Other intervertebral disc displacement, lumbosacral region; Z20.822 Contact with and (suspected) exposure to COVID-19; Z79.84 Long term (current) use of oral hypoglycemic drugs; Z79.899 Other long term (current) drug therapy
CPT/HCPCS: 36415; 80048; 80053; 80061; 80143; 80164; 80179; 80307; 80320; 81001; 82565; 82947; 83036; 84443; 84484; 85025; 87635; 93005; 99285; C9803

== ENCOUNTER → 2020-06-07 10:48 | Outpatient (BNVA) | payer OTHER, SELFPAY | PROVIDERS: Visit Provider Nurse Practitioner Family ==

== ENCOUNTER → 2020-07-06 13:59 | Outpatient (BNVA) | payer OTHER, SELFPAY | PROVIDERS: Visit Provider Nurse Practitioner Family ==

== ENCOUNTER 2020-07-19 21:40 | Inpatient (IN) | payer MEDICARE, OTHER, SELFPAY ==
--- NOTE | 2020-07-19 | ECG_ITS ---
Test Reason : OD Blood Pressure : / mmHG Vent. Rate : 063 BPM Atrial Rate : 063 BPM P-R Int : 166 ms QRS Dur : 094 ms QT Int : 446 ms P-R-T Axes : 043 -39 038 degrees QTc Int : 456 ms Normal sinus rhythm Left axis deviation Low voltage QRS Nonspecific ST abnormality Abnormal ECG When compared with ECG of 27-MAY-2020 10:37, No significant change was found Referred By: Hua Mauricio Electronically Signed By:MICHEL AVILA MD
--- NOTE | ~2020-07-19 | XR_ITS ---
EXAMINATION: XR CHEST CLINICAL INFORMATION: NG tube placement COMPARISON: None TECHNIQUE: Frontal view of the chest was obtained. FINDINGS: Cardiac leads overlie the chest. Enteric tube noted. This at least extends to the level of the mid thorax. The more distal extent is not visualized. The lungs are well expanded. There is no focal consolidation, edema, or effusion. No pneumothorax. The cardiomediastinal silhouette is within normal limits. No acute osseous abnormality. XR/XR chest 1V IMPRESSION: Enteric tube visualized to the level of the mid thorax. Consider advancement and repeat imaging.
--- NOTE | ~2020-07-19 | XR_ITS ---
EXAMINATION: XR CHEST CLINICAL INFORMATION: NG tube adjustment COMPARISON: Radiograph from earlier today TECHNIQUE: Frontal view of the chest was obtained. FINDINGS: The enteric tube is seen extending to at least the level of the gastroesophageal junction. Cardiac leads overlie the chest. The lungs are well expanded. No consolidation, edema, or effusion. No pneumothorax. The cardiomediastinal silhouette is within normal limits. XR/XR chest 1V IMPRESSION: The enteric tube now extends at least to the level of the gastroesophageal junction. Abdominal radiograph may be more useful for determining the endpoint of the tube.
[2020-07-19 22:06] VITALS: BP 93/63; PULSE 63; RESP 17; O2SAT 99; BMI 37.0
[2020-07-19] MEDS: Naloxone HCl Nasal 4 MG SPRAY NOSTRILALT (22:13)
--- NOTE | 2020-07-19 22:13 | ED.OVERDOSE ---
HPI - Overdose General Chief Complaint: Overdose Stated Complaint: OD UNRESPONSIVE Time Seen by Provider: 07/19/20 22:10 Source: EMS Mode of arrival: EMS Limitations: altered mental status History of Present Illness HPI Narrative: Patient with history of bipolar disorder depression erratically judgment and behavior and suicidal attempts with multiple incidents of overdoses was admitted here on 04/20/2020 for overdose. Patient called suicide hotline at 1900 for suicidal feeling and when crisis team came to his home at 21:00 found him face down on the floor with an empty bottle of Valium next to him , Valium 10 mg which was filled on 06/29 # 60 tab also patient has a history of substance abuse and alcohol abuse slightly responded to Narcan on arrival in ED no signs of trauma or head injury patient was moving all 4 extremities to painful stimuli patient was GCS 7 at scene on arrival in the ED was 9 with opening his eye to pain with incomprehensible speech and moving his extremities to painful stimuli. Related Data Previous Rx's Medication Instructions Recorded cariprazine [Vraylar] 6 mg PO DAILY #30 cap 05/28/20 cyclobenzaprine 10 mg PO BID PRN #20 tab 05/28/20 diazepam [Valium] 10 mg PO DAILY PRN #5 tab 05/28/20 diclofenac potassium 1 tab PO TID #30 tab 05/28/20 docusate sodium 200 mg PO BID #120 cap 05/28/20 duloxetine 1 cap PO BEDTIME #30 cap 05/28/20 glipizide 5 mg PO DAILY #15 tab 05/28/20 hydrocodone-acetaminophen 1 tab PO Q6H PRN #10 tab 05/28/20 lamotrigine 50 mg PO DAILY #60 tab 05/28/20 lidocaine [Lidocaine Pain Relief] 1 patch TRANSDERMAL DAILY PRN #10 05/28/20 ea metformin 500 mg PO TID #30 tab 05/28/20 naloxone [Narcan] 4 mg INTRANASAL Q2M PRN #2 ea 05/28/20 psyllium husk (aspartame) 3.4 g PO DAILY PRN #1 ea 05/28/20 [Metamucil Fiber Singles] topiramate 25 mg PO DAILY #30 tab 05/28/20 zolpidem 10 mg PO BEDTIME #5 tab 05/28/20 cariprazine [Vraylar] 3 mg PO DAILY #30 cap 06/11/20 Allergies Allergy/AdvReac Type Severity Reaction Status Date / Time No Known Allergies Allergy Verified 07/06/20 14:00 Review of Systems Review of Systems: Yes Unobtainable due to mental status [facility] Past Medical History Medical History Alcohol use disorder Back pain Bipolar disorder Depression Diabetes mellitus, type 2 Suicidal ideation Social History Social History Household Members: Family Housing: House Alcohol intake: unknown Smoking Status: Former smoker Tobacco Type: Cigarette and Smokeless Tobacco Years Smoked: 25 Second Hand Smoke Exposure: No Substance Use Type: Marijuana and Prescription Drugs Advance Directives: No service: No Current occupational status: unemployed Sexual orientation: Straight/Heterosexual Physical Exam Vital Signs: Vital Signs: Last Vital Signs Temp 97.7 F 07/20/20 01:18 Pulse 68 07/20/20 01:18 Resp 18 07/20/20 01:18 BP 106/64 07/20/20 01:18 Pulse Ox 84 L 07/20/20 01:18 Body Mass Index 37.0 Const: General: well developed, intoxicated appearing and patient obtunded Orientation/consciousness: patient obtunded HENMT: Other: Gag reflex present+ Head: Yes normocephalic and Yes atraumatic Face and sinus: Yes normal facial exam Mouth: Normal oral and palatal mucosa present Eyes: Conjunctivae: conjunctivae normal Sclerae: sclerae normal Pupils: Equal, round and reactive pupils present Neck: Neck: Yes normal visual inspection, Yes no lymphadenopathy, Yes no meningeal signs, Yes trachea midline and Yes supple Chest: Chest palpation & inspection: normal palpation of entire chest wall Resp: Effort & Inspection: normal respiratory effort Auscultation: clear to auscultation bilaterally, no crackles, no rales and no rhonchi Cardio: Jugular venous distension: no JVD Palpation: normal PMI Rate: regular rate Rhythm: regular rhythm Heart sounds: S1 normal heart sound present and S2 normal heart sound present Peripheral pulses: Peripheral pulses 2+ throughout GI: Inspection: Yes normal to inspection Palpation (GI): Soft to palpation and nontender Auscultation: normal bowel sounds : General: Yes no CVA tenderness Back/Spine/Pelvis: Back: no CVA tenderness Thoracic/Lumbar Spine: thoracic and lumbar spine normal to inspection Skin: General skin exam: no rashes or lesions noted Neuro: Other: Moving all 4 extremities to painful stimuli , moaning with garbled speech General: no meningeal signs and patient obtunded Cranial nerves: Yes Equal, round and reactive pupils present Extrem: General: Yes normal to inspection and Yes no pedal edema Course Reevaluation(s) Reevaluation #1: Patient placed on physician obs daily to get sober and then to be seen by crisis for inpatient psych admission Time: 01:26 MDM - Overdose MDM Narrative Medical decision making narrative: Patient with substance overdose likely Valium and EtOH. Alcohol level was 182 and urine drug screen was positive for benzo and marijuana. Patient with good gag reflux, maintaining his vitals case discussed with poison control advised observation and crisis evaluation once he awake NG tube was placed about 600 cc of gastric content was aspirated without any pills in aspirate blood pressure now 110/55 pulse rate 74 respirations 17 saturating 95% at room air Medical Records Attestation: I reviewed the patient's medical records. Lab Data Attestation: I reviewed the patient's lab results. Result diagrams: 07/19/20 21:55 07/19/20 21:55 Labs: Lab Results 07/19/20 07/19/20 07/19/20 Range/Units 21:44 21:55 21:55 WBC 6.0 (4.8-10.8) X10*3/uL RBC 5.35 (4.60-5.80) X10*6/uL Hgb 16.1 (14.0-18.0) g/dl Hct 46.6 (42-52) % MCV 87.1 (80-98) fL MCH 30.1 (27.0-33.0) pg MCHC 34.5 (31.0-36.0) g/dl RDW 13.2 (11.0-16.0) % Plt Count 181 (160-400) X10*3/uL MPV 10.1 (9.4-12.4) fL Immature Gran % (Auto) 0.2 (0.0-0.4) % Neut % (Auto) 32.6 L (45-73) % Lymph % (Auto) 58.7 H (20-40) % Gentry % (Auto) 7.0 (2-11) % Eos % (Auto) 1.2 (0-4) % Baso % (Auto) 0.3 (0-2) % Lymph # (Auto) 3.5 (1.2-4.9) X10*3/uL Gentry # (Auto) 0.4 (0.1-1.2) X10*3/uL Eos # (Auto) 0.1 (0.0-0.4) X10*3/uL Baso # (Auto) 0.0 (0.0-0.2) X10*3/uL Abs Immat Gran (auto) 0.01 (0.00-0.03) X10*3/uL Absolute Neuts (auto) 2.0 (2.0-8.3) X10*3/uL Absolute Nucleated RBC 0.000 (0.0-0.012) X10*3/uL Nucleated RBC % (auto) 0.0 (0.0-0.2) /100WBC PT (10.8-13.0) SEC INR (0.9-1.1) VBG pH (7.32-7.43) VBG pCO2 mmHg VBG pO2 mmHg VBG HCO3 (22-26) mmol/L VBG O2 Saturation % VBG Base Excess mmol/L Sodium 142 (135-145) mmol/L Potassium 4.2 D (3.3-5.1) mmol/L Chloride 106 (96-108) mmol/L Carbon Dioxide 21 L (22-29) mmol/L Anion Gap 19 (12-20) BUN 9 D (9-16) mg/dL Creatinine 1.15 (0.5-1.4) mg/dL Estim Creat Clear Calc 96.4 Estimated GFR > 60 POC Glucose 127 H (60-115) mg/dL Random Glucose 133 H D (60-115) mg/dL Calcium 9.1 (8.4-10.2) mg/dL Total Bilirubin 0.3 (0.0-1.0) mg/dL AST 37 D (5-37) U/L ALT 45 H (0-40) U/L Alkaline Phosphatase 57 D (39-117) U/L Total Protein 7.0 (6.5-8.0) g/dL Albumin 4.1 (3.5-5.0) g/dL Urine Color Urine Appearance Urine pH (5.0-8.0) Ur Specific Dequincy (1.005-1.025) Urine Protein (NEG-TRACE) MG/DL Urine Glucose (UA) (NEG) MG/DL Urine Ketones (NEG) MG/DL Urine Blood (NEG) Urine Nitrite (NEG) Ur Leukocyte Esterase (NEG) Salicylates < 5.0 L (15-30) mg/dL Urine Opiates Screen (Not Detect) Acetaminophen < 1 (<30) mcg/mL Ur Barbiturates Screen (Not Detect) Ur Phencyclidine Scrn (Not Detect) Ur Amphetamines Screen (Not Detect) U Benzodiazepines Scrn (Not Detect) Urine Cocaine Screen (Not Detect) U Marijuana (THC) Screen (Not Detect) Ethyl Alcohol mg/dL COVID-19 ([facility]) (Negative) COVID-19 Clin Com 07/19/20 07/19/20 07/19/20 Range/Units 21:55 21:55 22:28 WBC (4.8-10.8) X10*3/uL RBC (4.60-5.80) X10*6/uL Hgb (14.0-18.0) g/dl Hct (42-52) % MCV (80-98) fL MCH (27.0-33.0) pg MCHC (31.0-36.0) g/dl RDW (11.0-16.0) % Plt Count (160-400) X10*3/uL MPV (9.4-12.4) fL Immature Gran % (Auto) (0.0-0.4) % Neut % (Auto) (45-73) % Lymph % (Auto) (20-40) % Gentry % (Auto) (2-11) % Eos % (Auto) (0-4) % Baso % (Auto) (0-2) % Lymph # (Auto) (1.2-4.9) X10*3/uL Gentry # (Auto) (0.1-1.2) X10*3/uL Eos # (Auto) (0.0-0.4) X10*3/uL Baso # (Auto) (0.0-0.2) X10*3/uL Abs Immat Gran (auto) (0.00-0.03) X10*3/uL Absolute Neuts (auto) (2.0-8.3) X10*3/uL Absolute Nucleated RBC (0.0-0.012) X10*3/uL Nucleated RBC % (auto) (0.0-0.2) /100WBC PT 12.3 (10.8-13.0) SEC INR 1.0 (0.9-1.1) VBG pH (7.32-7.43) VBG pCO2 mmHg VBG pO2 mmHg VBG HCO3 (22-26) mmol/L VBG O2 Saturation % VBG Base Excess mmol/L Sodium (135-145) mmol/L Potassium (3.3-5.1) mmol/L Chloride (96-108) mmol/L Carbon Dioxide (22-29) mmol/L Anion Gap (12-20) BUN (9-16) mg/dL Creatinine (0.5-1.4) mg/dL Estim Creat Clear Calc Estimated GFR POC Glucose (60-115) mg/dL Random Glucose (60-115) mg/dL Calcium (8.4-10.2) mg/dL Total Bilirubin (0.0-1.0) mg/dL AST (5-37) U/L ALT (0-40) U/L Alkaline Phosphatase (39-117) U/L Total Protein (6.5-8.0) g/dL Albumin (3.5-5.0) g/dL Urine Color Urine Appearance Urine pH (5.0-8.0) Ur Specific Dequincy (1.005-1.025) Urine Protein (NEG-TRACE) MG/DL Urine Glucose (UA) (NEG) MG/DL Urine Ketones (NEG) MG/DL Urine Blood (NEG) Urine Nitrite (NEG) Ur Leukocyte Esterase (NEG) Salicylates (15-30) mg/dL Urine Opiates Screen Not Detected (Not Detect) Acetaminophen (<30) mcg/mL Ur Barbiturates Screen Not Detected (Not Detect) Ur Phencyclidine Scrn Not Detected (Not Detect) Ur Amphetamines Screen Not Detected (Not Detect) U Benzodiazepines Scrn POSITIVE H (Not Detect) Urine Cocaine Screen Not Detected (Not Detect) U Marijuana (THC) Screen POSITIVE H (Not Detect) Ethyl Alcohol 182 mg/dL COVID-19 ([facility]) (Negative) COVID-19 Clin Com 07/19/20 07/20/20 07/20/20 Range/Units 22:28 00:32 01:15 WBC (4.8-10.8) X10*3/uL RBC (4.60-5.80) X10*6/uL Hgb (14.0-18.0) g/dl Hct (42-52) % MCV (80-98) fL MCH (27.0-33.0) pg MCHC (31.0-36.0) g/dl RDW (11.0-16.0) % Plt Count (160-400) X10*3/uL MPV (9.4-12.4) fL Immature Gran % (Auto) (0.0-0.4) % Neut % (Auto) (45-73) % Lymph % (Auto) (20-40) % Gentry % (Auto) (2-11) % Eos % (Auto) (0-4) % Baso % (Auto) (0-2) % Lymph # (Auto) (1.2-4.9) X10*3/uL Gentry # (Auto) (0.1-1.2) X10*3/uL Eos # (Auto) (0.0-0.4) X10*3/uL Baso # (Auto) (0.0-0.2) X10*3/uL Abs Immat Gran (auto) (0.00-0.03) X10*3/uL Absolute Neuts (auto) (2.0-8.3) X10*3/uL Absolute Nucleated RBC (0.0-0.012) X10*3/uL Nucleated RBC % (auto) (0.0-0.2) /100WBC PT (10.8-13.0) SEC INR (0.9-1.1) VBG pH 7.33 (7.32-7.43) VBG pCO2 36 mmHg VBG pO2 198 mmHg VBG HCO3 19 L (22-26) mmol/L VBG O2 Saturation 99.0 % VBG Base Excess -5.5 mmol/L Sodium (135-145) mmol/L Potassium (3.3-5.1) mmol/L Chloride (96-108) mmol/L Carbon Dioxide (22-29) mmol/L Anion Gap (12-20) BUN (9-16) mg/dL Creatinine (0.5-1.4) mg/dL Estim Creat Clear Calc Estimated GFR POC Glucose (60-115) mg/dL Random Glucose (60-115) mg/dL Calcium (8.4-10.2) mg/dL Total Bilirubin (0.0-1.0) mg/dL AST (5-37) U/L ALT (0-40) U/L Alkaline Phosphatase (39-117) U/L Total Protein (6.5-8.0) g/dL Albumin (3.5-5.0) g/dL Urine Color YELLOW Urine Appearance CLEAR Urine pH 6.5 (5.0-8.0) Ur Specific Dequincy <= 1.005 (1.005-1.025) Urine Protein NEG (NEG-TRACE) MG/DL Urine Glucose (UA) NEG (NEG) MG/DL Urine Ketones NEG (NEG) MG/DL Urine Blood NEG (NEG) Urine Nitrite NEG (NEG) Ur Leukocyte Esterase NEG (NEG) Salicylates (15-30) mg/dL Urine Opiates Screen (Not Detect) Acetaminophen (<30) mcg/mL Ur Barbiturates Screen (Not Detect) Ur Phencyclidine Scrn (Not Detect) Ur Amphetamines Screen (Not Detect) U Benzodiazepines Scrn (Not Detect) Urine Cocaine Screen (Not Detect) U Marijuana (THC) Screen (Not Detect) Ethyl Alcohol mg/dL COVID-19 ([facility]) Negative (Negative) COVID-19 Clin Com See Note ECG Data Attestation: I personally reviewed and interpreted this ECG as follows: Interpretation: Normal sinus rhythm with heart rate 63 beats per minute left axis deviation low-voltage QRS nonspecific ST T wave changes impression no acute ischemia Discharge Plan Discharge Clinical Impression: Bipolar 2 disorder, major depressive episode Drug overdose Qualifiers: Encounter type: initial encounter Injury intent: intentional self-harm Qualified Code(s): T50.902A - Poisoning by unspecified drugs, medicaments and biological substances, intentional self-harm, initial encounter Prescriptions: No Action Vraylar 3 mg Capsule 6 mg PO DAILY Qty: 30 RF: 0 hydrocodone-acetaminophen 5-325 mg Tablet 1 tab PO Q6H PRN (Reason: Pain, Severe (Pain Scale 7-10)) Qty: 10 RF: 0 topiramate 25 mg Tablet 25 mg PO DAILY Qty: 30 RF: 0 lamotrigine 25 mg Tablet 50 mg PO DAILY Qty: 60 RF: 0 docusate sodium 100 mg Capsule 200 mg PO BID Qty: 120 RF: 0 Metamucil Fiber Singles 3.4 gram Powder In Packet 3.4 g PO DAILY PRN (Reason: Constipation) Qty: 1 RF: 0 lidocaine [Lidocaine Pain Relief] 4 % Adhesive Patch,Medicated 1 patch transdermal DAILY PRN (Reason: back pain) Qty: 10 RF: 0 metformin 500 mg tablet 500 mg PO TID Qty: 30 RF: 0 glipizide 5 mg tablet 5 mg PO DAILY Qty: 15 RF: 0 cyclobenzaprine 10 mg Tablet 10 mg PO BID PRN (Reason: Spasms) Qty: 20 RF: 0 diclofenac potassium 50 mg tablet 1 tab PO TID Qty: 30 RF: 0 diazepam [Valium] 10 mg tablet 10 mg PO DAILY PRN (Reason: Anxiety) Qty: 5 RF: 0 zolpidem 10 mg tablet 10 mg PO BEDTIME Qty: 5 RF: 0 duloxetine 60 mg capsule,delayed release(DR/EC) 1 cap PO BEDTIME Qty: 30 RF: 0 Narcan 4 mg/actuation spray,non-aerosol 4 mg intranasal Q2M PRN (Reason: opioid overdose) Qty: 2 RF: 0 Vraylar 3 mg capsule 3 mg PO DAILY Qty: 30 RF: 0
[2020-07-19 22:15] LABS: Glucose, Whole Blood 127 mg/dL (60-115)
[2020-07-19] MEDS: 0.9 % Sodium Chloride 1,000 ML 999 ML IVCONT (22:15)
[2020-07-19 22:26] VITALS: BP 93/64; PULSE 61; RESP 10; O2SAT 92
[2020-07-19 22:34] LABS: Glucose Urine UA NEG (NEG); Leukocyte Esterase Urine NEG (NEG); Nitrite Urine NEG (NEG); PH 6.5 (5.0-8.0); Specific Gravity - Urine <= 1.005 (1.005-1.025); Urine Blood NEG (NEG); Urine Ketones NEG (NEG); Urine Protein NEG (NEG-TRACE)
[2020-07-19 22:37] LABS: MANUAL DIFF FLAG NO
[2020-07-19 22:37] LABS: Appearance Urine CLEAR; Color Urine YELLOW
[2020-07-19 22:38] LABS: Basophils Percent Auto 0.3 % (0-2); Eosinophils Absolute Auto 0.1 X10*3/uL (0.0-0.4); Eosinophils Percent Auto 1.2 % (0-4); Hematocrit 46.6 % (42-52); Hemoglobin 16.1 g/dl (14.0-18.0); Imm Gran Abs Auto 0.01 X10*3/uL (0.00-0.03); Imm Gran Pct Auto 0.2 % (0.0-0.4); Lymphocytes Absolute Auto 3.5 X10*3/uL (1.2-4.9); Lymphocytes Percent Auto 58.7 % (20-40); Mean Corpuscular HGB Conc 34.5 g/dl (31.0-36.0); Mean Corpuscular Hemoglobin 30.1 pg (27.0-33.0); Mean Corpuscular Volume 87.1 fL (80-98); Mean Platelet Volume 10.1 fL (9.4-12.4); Monocytes Absolute Auto 0.4 X10*3/uL (0.1-1.2); Neutrophils Percent Auto 32.6 % (45-73); Platelet Count 181 X10*3/uL (160-400); Red Blood Count 5.35 X10*6/uL (4.60-5.80); Red Cell Distribution Width 13.2 % (11.0-16.0)
[2020-07-19 22:40] LABS: Prothrombin Time 12.3 SEC (10.8-13.0)
[2020-07-19 22:46] LABS: Ethanol 182 mg/dL
[2020-07-19 22:49] LABS: Acetaminophen LAB < 1 mcg/mL (<30); Alanine Aminotransferase 45 U/L (0-40); Albumin Level 4.1 g/dL (3.5-5.0); Alkaline Phosphatase 57 U/L (39-117); Anion Gap 19 (12-20); Aspartate Amino Transferase 37 U/L (5-37); Bilirubin Total 0.3 mg/dL (0.0-1.0); Blood Urea Nitrogen 9 mg/dL (9-16); Calcium 9.1 mg/dL (8.4-10.2); Carbon Dioxide 21 mmol/L (22-29); Chloride 106 mmol/L (96-108); Creatinine Clr Calc Pharmacy 96.4; Estimated Glomerular Filt Rate > 60; Glucose Random 133 mg/dL (60-115); Potassium 4.2 mmol/L (3.3-5.1); Salicylate < 5.0 mg/dL (15-30); Sodium 142 mmol/L (135-145)
[2020-07-19 22:59] LABS: Amphetamine Screen Urine Not Detected (Not Detect); Barbiturates, Urine Not Detected (Not Detect); Benzodiazepines Screen Urine POSITIVE (Not Detect); Cannabinoid Screen Urine POSITIVE (Not Detect); Cocaine Screen Urine Not Detected (Not Detect); Opiate Screen Urine Not Detected (Not Detect); Phencyclidine Screen Urine Not Detected (Not Detect)
[2020-07-19 23:16] VITALS: BP 87/52; PULSE 69; RESP 16; O2SAT 98
[2020-07-19 23:56] VITALS: BP 138/72; PULSE 70; RESP 16; TEMP 36.6; O2SAT 99
[2020-07-20] VITALS (14 sets, daily range): BP systolic 98–119; BP diastolic 55–80; PULSE 60–87; RESP 13–20; TEMP 36.5; O2SAT 84–100
[2020-07-20] MEDS: ondansetron HCL 4 MG/2 ML VIAL IVPUSH (00:16)
[2020-07-20] MEDS: 0.9 % Sodium Chloride 1,000 ML 999 ML IV ×2 (00:17→05:51)
--- NOTE | 2020-07-20 00:28 | PC.NURSE ---
Addendum entered by Brianna Altamirano 07/20/20 00:49: Patient awoke and started what sounded as if he was going to vomit but would not stop- medicated with zofran and the gagging continued, Dr Mauricio is at bedside. Original Note: NG tube was pplaced to the right nare by Dr Mauricio. Large amounts of gastric contents, food, yellow/brown in color
--- NOTE | 2020-07-20 00:53 | PC.NURSE ---
XRAY is at bedside
[2020-07-20 00:54] LABS: COVID-19 Test Negative (Negative); IDNOW Serial# 9DD0AD1C
[2020-07-20 01:24] LABS: VBG Base Excess -5.5 mmol/L; VBG HCO3 19 mmol/L (22-26); VBG pCO2 36 mmHg; VBG pH 7.33 (7.32-7.43); VBG pO2 198 mmHg; Venous Blood Gas Refer to POC result
[2020-07-20 01:41] LABS: Lactic Acid 3.2 mmol/L (0.5-2.0)
--- NOTE | 2020-07-20 02:07 | PC.NURSE ---
NG tube was advanced by TERRY Tamayo at bedside for a repeat xray
--- NOTE | 2020-07-20 02:57 | PC.NURSE ---
patient is more responsive, following some commands- but the patient is constantly trying to itch his nose due to the NGtube
[2020-07-20 03:17] LABS: Reflex Lactate? Lactic Acid Added
--- NOTE | 2020-07-20 03:17 | PC.NURSE ---
[facility] called and requesting for the RN to call them once the patient is medically cleared.
[2020-07-20 04:10] LABS: ~Lactic Acid-LAB USE ONLY 3.3 mmol/L (0.5-2.0)
[2020-07-20 05:32] LABS: Reflex Lactate? 2 Y
--- NOTE | 2020-07-20 05:45 | PC.NURSE ---
patient is more alert- still difficult to understand fully, patient is easily arousable.
--- NOTE | 2020-07-20 09:43 | PC.NURSE ---
SPOKE WITH POISON CONTROL. NO FURTHER RECOMMENDATIONS PROVIDED.
--- NOTE | 2020-07-20 10:45 | PC.NURSE ---
pt awake searching for glasses, none found in bed. will look for belongings list. pt aware of plan of care and denied having any questions at this time. vss.
--- NOTE | 2020-07-20 11:34 | PC.NURSE ---
ng tube removed per md order. pt speech still garbled but air way is patent.
--- NOTE | 2020-07-20 14:58 | PC.NURSE ---
contact made with glenny from care team that pt is mc
--- NOTE | 2020-07-20 17:31 | MHC.CARE ---
CARE team completed crisis evaluation. Disposition for inpatient psych admission. Sect 12 completed and signed by attending physician and placed in pt's chart.
[2020-07-21 06:09] VITALS: BP 117/61; PULSE 57; RESP 16; TEMP 36.5; O2SAT 95
[2020-07-21 06:15] LABS: Glucose, Whole Blood 105 mg/dL (60-115)
--- NOTE | 2020-07-21 06:50 | PC.NURSE ---
Report received. PT currently sleeping, respirations even and unlabored, in no apparent distress. Pt is inpatient bedsearch.
[2020-07-21 09:22] VITALS: BP 106/43; PULSE 59; RESP 15; TEMP 36.6; O2SAT 94
--- NOTE | 2020-07-21 14:26 | PC.NURSE ---
Nurse to nurse completed with Bruno from
[2020-07-21 20:45] VITALS: BMI 38.0
--- NOTE | 2020-07-21 22:18 | PC.NURSE ---
Pt is a 55 year old male admitted to the unit after referral from the CARE Team at [facility]. Arrived on unit at 1700 and placed on 5 minute safety checks per unit policy. Legal status: 3 day notice which will be up on Wednesday 07/26. Pt was admitted after intentional overdose on prescribed valium. Pt called crisis reporting suicidal thoughts, crisis send EMS to the patient's house, however by the time they arrived pt was unconscious. He reports that he becomes stubborn at times, and decides that he does not want to be on any medications any longer. Reports that he was medication compliant prior to admit, however now does not wish to take any medications. Pt denies current SI or self-harming thoughts, stating that he feels safe on the unit. Denies current hallucinations. Medications were verified with the patient as well as [facility]. Nurse to nurse completed prior to admission. Dr. Calle notified of admission and orders obtained. Pt placed on 15 minute safety checks, contracts for unit safety. Note: Pt is due for 2nd covid-19 vaccine july 24.
[2020-07-21 22:37] VITALS: BP 119/60; PULSE 70; TEMP 36.7; O2SAT 94
[2020-07-22 04:55] LABS: Glucose, Whole Blood 219 mg/dL (60-115)
[2020-07-22 08:47] LABS: Estimated Average Glucose 166 mg/dL; Hemoglobin A1c % 7.4 %
[2020-07-22] MEDS: metFORMIN HCl 500 MG TABLET PO (08:48)
[2020-07-22] MEDS: lamoTRIgine 25 MG TABLET PO (08:48)
[2020-07-22] MEDS: glipiZIDE 5 MG TABLET PO (08:48)
[2020-07-22] MEDS: DULoxetine HCl 60 MG CAPSULE.DR PO (08:48)
[2020-07-22] MEDS: Nicotine 21 MG PATCH.TD24 TRANSDERMA (08:49)
[2020-07-22 09:06] LABS: Thyroid Stimulating Hormone 1.77 uIU/mL (0.32-4.0)
[2020-07-22 10:05] LABS: Folate 6.8 ng/mL (> or = 4.0); Vitamin B12 201 pg/mL (200-900)
--- NOTE | 2020-07-22 17:07 | P.HPPS_ITS ---
HPI Chief Complaint: SI Sources of Information: patient interviewed, chart reviewed and crisis/core team assessment reviewed HPI Subjective Notes: Conditional Voluntary Narrative: Mr. Hall is a 55 year-old male with hx of Bipolar type 2 Disorder and alcohol use. According to crisis report, Mr. Hall initially called his OP psychiatric provider, Kevin Bai and reported suicidal ideation with plan to OD. His OP provider contacted crisis and by time they went to his sister's house where he resides, he was found unresponsive. In the ED, his utox was positive fo r benzodiazepines and cannabis. His BAL was 186. On the unit, Mr. hall presents with brighter affect. He reports he has been feeling numbed and overwhelmed due to not having a job, not stable re lationship with significant other, feeling worthless, hopeless. However, he reports that after OD, he is glad he survived and wants to make changes in his life. 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 However, pt has significant chronic back pain issues which have prevented him from working in past 10 years along with chronic alcohol use. Pt not able to recognize that his plan may not be viable and he may be potentially setting himself to failure. He is unable to identified other barriers that have prevented him from having a more stable life and relationships including his chronic alcohol use. He denies VH/AH. He reports chronic sleep disturbances. He was prescribed ambien. However, he has never had sleep study. Pt minimizes his lack of coping skills to deal with difficult situation and also minimizes events leading to this admission. Pt reports he does not remember calling his OP provider. He also reports he had only one beer which is not consistent with a BAL of 186. Past Psychiatric History: Inpatient: M5 12/2019; M5 02/2020; M5 03/2020; 04/2020 OP: Kevin Cristobal Medication trials: valium, cymbalta, cariprazine, lamictal, ambien, risperidone, depakote Suicide attempt: OD on valium, alcohol prior to this admission 06/2020 Medical Evaluation Reviewed: Yes [facility] Medical History Alcohol use disorder Back pain Bipolar disorder Depression Diabetes mellitus, type 2 Suicidal ideation Family History: Family history of suicide and substance abuse Social History: the patient was born and raised in [facility] he has a brother and a sister his parents are . He is not does not have any children. In the past he lived in [place] and in [place]. He moved back to to [facility] from [place] has been living with his sister. He is on security disability. Trauma History: Yes Diagnostics Vital Signs (24Hr): Vital Signs - 24 hr 07/21/20 22:37 Temperature 98.0 F Pulse Rate 70 Blood Pressure 119/60 Pulse Oximetry 94 Body Mass Index 38.0 Labs Results: 07/19/20 21:55 07/19/20 21:55 Labs: Laboratory Results - last 48 hr 07/21/20 07/22/20 07/22/20 06:08 04:51 08:11 POC Glucose 105 219 H Estimat Average Glucose 166 Hemoglobin A1c % 7.4 Vitamin B12 Folate TSH 07/22/20 07/22/20 08:11 08:11 POC Glucose Estimat Average Glucose Hemoglobin A1c % Vitamin B12 201 Folate 6.8 TSH 1.77 Imaging Radiology Impressions: ITS Impressions Chest X-Ray 07/20/20 00:54 IMPRESSION: Enteric tube visualized to the level of the mid thorax. Consider advancement and repeat imaging. Chest X-Ray 07/20/20 01:50 IMPRESSION: The enteric tube now extends at least to the level of the gastroesophageal junction. Abdominal radiograph may be more useful for determining the endpoint of the tube. Meds/Allergies Meds Home Medications Acetaminophen (Acetaminophen 325 Mg Tablet) 650 mg PO Q6H PRN PRN Reason: Headache/Pain Mild Scale (1-3) Clonazepam (Clonazepam 0.5 Mg Tablet) 0.5 mg PO BID [facility] Stop: 07/26/20 21:01 Last Admin: 07/24/20 08:41 Dose: 0.5 mg Documented by: Cyclobenzaprine HCl (Cyclobenzaprine Hcl 10 Mg Tablet) 10 mg PO BID PRN PRN Reason: Spasms Docusate Sodium (Docusate Sodium 100 Mg Capsule) 100 mg PO BID PRN PRN Reason: Constipation Duloxetine HCl (Duloxetine Hcl 60 Mg Capsule.) 60 mg PO DAILY [facility] Last Admin: 07/24/20 08:41 Dose: 60 mg Documented by: Folic Acid (Folic Acid 1 Mg Tablet) 1 mg PO DAILY [facility] Last Admin: 05/01/21 08:41 Dose: 1 mg Documented by: Glipizide (Glipizide 5 Mg Tablet) 5 mg PO DAILY [facility] Last Admin: 07/24/20 08:41 Dose: 5 mg Documented by: Hydroxyzine HCl (Hydroxyzine Hcl 25 Mg Tablet) 25 mg PO Q6H PRN PRN Reason: Anxiety Magnesium Hydroxide (Milk Of Magnesia 30 Ml Oral.Susp) 30 ml PO DAILY PRN PRN Reason: Constipation Metformin HCl (Metformin Hcl 500 Mg Tablet) 500 mg PO BID [facility] Last Admin: 07/24/20 08:41 Dose: 500 mg Documented by: Nicotine (Nicotine 21 Mg Patch.Td24) 21 mg TRANSDERMA DAILY [facility] Last Admin: 07/24/20 08:41 Dose: 21 mg Documented by: Risperidone (Risperidone 0.5 Mg Tablet) 0.5 mg PO BID [facility] Last Admin: 07/24/20 08:41 Dose: 0.5 mg Documented by: Thiamine HCl (Thiamine Hcl 100 Mg Tablet) 100 mg PO DAILY [facility] Last Admin: 07/24/20 08:41 Dose: 100 mg Documented by: Trazodone HCl (Trazodone Hcl 50 Mg Tablet) 50 mg PO BEDTIME PRN PRN Reason: Insomnia Allergies Allergies Allergy/AdvReac Type Severity Reaction Status Date / Time No Known Allergies Allergy Verified 07/06/20 14:00 Mental Status Exam Mental Status Exam Narrative: Appearance: MO male, casually groomed, fair hygiene, in NAD Behavior: calm, cooperative Psychomotor: no agitation or retardation noted Speech: clear, normal rate/rhythm/volume, spontaneous TP: tangential TC: no signs of psychosis, future oriented in that he wants to return home and see sister Mood: better Affect:brighter, non labile SI:none HI:none AH/VH:none Delusions:none Insight/judgment:poor x 2. Memory/cog: alert, oriented x 3. Pending MOCA given chronic alcohol use. Assessment & Plan Assessment & Plan (1) Bipolar 2 disorder, major depressive episode: Status: Acute Code(s): F31.81 - Bipolar II disorder Assessment and Plan: Mr. Hall on multiple psychotropic medications. He is not sure about what he is taking nor if it has been helpful. Suspect poor complaince with medications. we discussed simplifying regimen, avoiding benzos as he continues to work on alcohol use disorder. Plan discussed with his OP provider, Kevin Bai who reports he will not continue benzodiazepines. We discussed risks, benefits and alternative treatment options. He agreed to continue cymbalta. D/C topamax apparently for weight loss, d/c lamictal as pt not taking consistently. Consider atypical- risperidone (2) Alcohol use disorder: Status: Acute Assessment and Plan: thiamine and folic acid. [facility] protocol- no withdrawal s/s Reason for continued inpatient stay Substantial Risk for: harm to self
[2020-07-22 17:27] VITALS: BP 127/71; PULSE 94; RESP 16; TEMP 36.7; O2SAT 98
[2020-07-23 05:18] LABS: Glucose, Whole Blood 193 mg/dL (60-115)
[2020-07-23 05:24] VITALS: BP 146/82; PULSE 64; RESP 18; TEMP 36.3; O2SAT 95
[2020-07-23] MEDS: metFORMIN HCl 500 MG TABLET PO ×2 (09:13→20:49)
[2020-07-23] MEDS: DULoxetine HCl 60 MG CAPSULE.DR PO (09:13)
[2020-07-23] MEDS: glipiZIDE 5 MG TABLET PO (09:13)
[2020-07-23] MEDS: Nicotine 21 MG PATCH.TD24 TRANSDERMA (09:14)
--- NOTE | 2020-07-23 09:50 | HO.PSYCHPN ---
Subjective Subjective Date of Service: 07/24/20 Reason For Visit: SI Subjective Notes: 3 Day Interim History: Pt reports feeling better in that he is less depressed. He denies SI/HI. He reports suicide attempt relief the pressure and numbness I was feeling He reports he wants to move to another state and without much consideration to barriers states he is sure this plan will work and turn his life around. He has been taking medications as prescribed. He has been visible in the unit. Social with peers, seen smiling and socializing. Medication Compliance: Yes Side effects from medications: No Review of Systems Review of Systems Yes all other systems are reviewed and are negative Cardiovascular: Denies chest pain and Denies dyspnea Respiratory: Denies dyspnea Musculoskeletal: Reports back pain Mental Status Exam Mental Status Exam Narrative: Appearance: MO male, casually groomed, fair hygiene, in NAD Behavior: calm, cooperative Psychomotor: no agitation or retardation noted Speech: clear, normal rate/rhythm/volume, spontaneous TP: tangential TC: no signs of psychosis, future oriented in that he wants to return home and see sister Mood: better Affect:brighter, non labile SI:none HI:none AH/VH:none Delusions:none Insight/judgment:poor x 2. Memory/cog: alert, oriented x 3. Pending MOCA given chronic alcohol use. Diagnostics Vital Signs (24Hr): Vital Signs - 24 hr 07/23/20 19:00 07/24/20 06:25 Temperature 98.5 F 97.5 F Pulse Rate 64 69 Respiratory Rate 18 Blood Pressure 146/78 H 112/53 L Pulse Oximetry 95 Body Mass Index 38.0 Labs Results: 07/19/20 21:55 07/19/20 21:55 Labs: Laboratory Results - last 48 hr 07/22/20 07/23/20 07/24/20 08:11 05:14 06:31 POC Glucose 193 H 184 H Vitamin B12 201 Folate 6.8 Imaging Radiology Impressions: ITS Impressions Chest X-Ray 07/20/20 00:54 IMPRESSION: Enteric tube visualized to the level of the mid thorax. Consider advancement and repeat imaging. Chest X-Ray 07/20/20 01:50 IMPRESSION: The enteric tube now extends at least to the level of the gastroesophageal junction. Abdominal radiograph may be more useful for determining the endpoint of the tube. Medications Medications Current Medications Generic Name Dose Route Start Last Admin Trade Name Freq PRN Reason Stop Dose Admin Acetaminophen 650 mg 07/21/20 14:57 Acetaminophen 325 Mg Tablet PO Q6H PRN Headache/Pain Mild Scale (1-3) Clonazepam 0.5 mg 07/23/20 21:00 07/24/20 08:41 Clonazepam 0.5 Mg Tablet PO 07/26/20 21:01 0.5 mg BID ABDUKLADIR Administration Cyclobenzaprine HCl 10 mg 07/21/20 16:36 Cyclobenzaprine Hcl 10 Mg Tablet PO BID PRN Spasms Docusate Sodium 100 mg 07/21/20 20:32 Docusate Sodium 100 Mg Capsule PO BID PRN Constipation Duloxetine HCl 60 mg 07/22/20 09:00 07/24/20 08:41 Duloxetine Hcl 60 Mg Capsule.Dr PO 60 mg DAILY ABDULKADIR Administration Folic Acid 1 mg 07/24/20 09:00 07/24/20 08:41 Folic Acid 1 Mg Tablet PO 1 mg DAILY ABDULKADIR Administration Glipizide 5 mg 07/22/20 09:00 07/24/20 08:41 Glipizide 5 Mg Tablet PO 5 mg DAILY ABDULKADIR Administration Hydroxyzine HCl 25 mg 07/21/20 14:57 Hydroxyzine Hcl 25 Mg Tablet PO Q6H PRN Anxiety Magnesium Hydroxide 30 ml 07/21/20 14:57 Milk Of Magnesia 30 Ml Oral.Susp PO DAILY PRN Constipation Metformin HCl 500 mg 07/21/20 21:00 07/24/20 08:41 Metformin Hcl 500 Mg Tablet PO 500 mg BID ABDULKADIR Administration Nicotine 21 mg 07/22/20 09:00 07/24/20 08:41 Nicotine 21 Mg Patch.Td24 TRANSDERMA 21 mg DAILY ABDULKADIR Administration Risperidone 0.5 mg 07/23/20 21:00 07/24/20 08:41 Risperidone 0.5 Mg Tablet PO 0.5 mg BID ABDULKADIR Administration Thiamine HCl 100 mg 07/24/20 09:00 07/24/20 08:41 Thiamine Hcl 100 Mg Tablet PO 100 mg DAILY ABDULKADIR Administration Trazodone HCl 50 mg 07/21/20 14:57 Trazodone Hcl 50 Mg Tablet PO BEDTIME PRN Insomnia Allergies Allergies Allergy/AdvReac Type Severity Reaction Status Date / Time No Known Allergies Allergy Verified 07/06/20 14:00 Assessment & Plan Assessment & Plan (1) Bipolar 2 disorder, major depressive episode: Status: Acute Code(s): F31.81 - Bipolar II disorder Assessment and Plan: Mr. Hall on multiple psychotropic medications. He is not sure about what he is taking nor if it has been helpful. Suspect poor complaince with medications. we discussed simplifying regimen, avoiding benzos as he continues to work on alcohol use disorder. Plan discussed with his OP provider, Kevin Bai who reports he will not continue benzodiazepines. We discussed risks, benefits and alternative treatment options. He agreed to continue cymbalta. D/C topamax apparently for weight loss, d/c lamictal as pt not taking consistently. Consider atypical- risperidone (2) Alcohol use disorder: Status: Acute Assessment and Plan: thiamine and folic acid. [facility] protocol- no withdrawal s/s Greater than 50% of the session was spent on counseling and/or coordination of care Reason for contiued inpatient stay Substantial Risk for: harm to self
[2020-07-23 19:00] VITALS: BP 146/78; PULSE 64; TEMP 36.9
[2020-07-23] MEDS: clonazePAM 0.5 MG TABLET PO (20:49)
[2020-07-23] MEDS: risperiDONE 0.5 MG TABLET PO (20:49)
[2020-07-24 06:25] VITALS: BP 112/53; PULSE 69; RESP 18; TEMP 36.4; O2SAT 95
[2020-07-24 06:35] LABS: Glucose, Whole Blood 184 mg/dL (60-115)
[2020-07-24] MEDS: risperiDONE 0.5 MG TABLET PO ×2 (08:41→21:14)
[2020-07-24] MEDS: DULoxetine HCl 60 MG CAPSULE.DR PO (08:41)
[2020-07-24] MEDS: Nicotine 21 MG PATCH.TD24 TRANSDERMA (08:41)
[2020-07-24] MEDS: Folic Acid 1 MG TABLET PO (08:41)
[2020-07-24] MEDS: glipiZIDE 5 MG TABLET PO (08:41)
[2020-07-24] MEDS: metFORMIN HCl 500 MG TABLET PO ×2 (08:41→21:14)
[2020-07-24] MEDS: Thiamine HCL 100 MG TABLET PO (08:41)
[2020-07-24] MEDS: clonazePAM 0.5 MG TABLET PO ×2 (08:41→21:14)
--- NOTE | 2020-07-24 10:46 | HO.PSYCHPN ---
Subjective Subjective Date of Service: 07/24/20 Reason For Visit: SI Subjective Notes: 3 Day Interim History: Chart reviewed; case discussed with team. Vitals reviewed: WNL pt overly talkative. Denies SI and says when it comes it only ever comes impulsively, goes on like a light switch and is never planned. Pt rambling some but talking about trying to stay stable after discharge. He feels better and has placed a 3 day. He would like to be on less medications, but agrees to remain on current medication regimen for now. No other complaints Mental Status Exam Mental Status Exam Narrative: Appearance: in hospital gown, unkempt Behavior: calm, cooperative Psychomotor: no agitation or retardation noted Speech: clear, normal rate/rhythm/volume, spontaneous TP: circumstantial, sometimes tangential TC: no signs of psychosis, future oriented discussing discharge Mood: better Affect:brighter, non labile SI:none HI:none AH/VH:none Delusions:none Insight/judgment:poor x 2. Memory/cog: alert, oriented x 3. Pending MOCA given chronic alcohol use. Diagnostics Vital Signs (24Hr): Vital Signs - 24 hr 07/23/20 19:00 07/24/20 06:25 Temperature 98.5 F 97.5 F Pulse Rate 64 69 Respiratory Rate 18 Blood Pressure 146/78 H 112/53 L Pulse Oximetry 95 Body Mass Index 38.0 Labs Results: 07/19/20 21:55 07/19/20 21:55 Labs: Laboratory Results - last 48 hr 07/23/20 07/24/20 05:14 06:31 POC Glucose 193 H 184 H Imaging Radiology Impressions: ITS Impressions Chest X-Ray 07/20/20 00:54 IMPRESSION: Enteric tube visualized to the level of the mid thorax. Consider advancement and repeat imaging. Chest X-Ray 07/20/20 01:50 IMPRESSION: The enteric tube now extends at least to the level of the gastroesophageal junction. Abdominal radiograph may be more useful for determining the endpoint of the tube. Medications Medications Current Medications Generic Name Dose Route Start Last Admin Trade Name Freq PRN Reason Stop Dose Admin Acetaminophen 650 mg 07/21/20 14:57 Acetaminophen 325 Mg Tablet PO Q6H PRN Headache/Pain Mild Scale (1-3) Clonazepam 0.5 mg 07/23/20 21:00 07/24/20 08:41 Clonazepam 0.5 Mg Tablet PO 07/26/20 21:01 0.5 mg BID ABDULKADIR Administration Cyclobenzaprine HCl 10 mg 07/21/20 16:36 Cyclobenzaprine Hcl 10 Mg Tablet PO BID PRN Spasms Docusate Sodium 100 mg 07/21/20 20:32 Docusate Sodium 100 Mg Capsule PO BID PRN Constipation Duloxetine HCl 60 mg 07/22/20 09:00 07/24/20 08:41 Duloxetine Hcl 60 Mg Capsule.Dr PO 60 mg DAILY ABDULKADIR Administration Folic Acid 1 mg 07/24/20 09:00 07/24/20 08:41 Folic Acid 1 Mg Tablet PO 1 mg DAILY ABDULKADIR Administration Glipizide 5 mg 07/22/20 09:00 07/24/20 08:41 Glipizide 5 Mg Tablet PO 5 mg DAILY ABDULKADIR Administration Hydroxyzine HCl 25 mg 07/21/20 14:57 Hydroxyzine Hcl 25 Mg Tablet PO Q6H PRN Anxiety Magnesium Hydroxide 30 ml 07/21/20 14:57 Milk Of Magnesia 30 Ml Oral.Susp PO DAILY PRN Constipation Metformin HCl 500 mg 07/21/20 21:00 07/24/20 08:41 Metformin Hcl 500 Mg Tablet PO 500 mg BID ABDULKADIR Administration Nicotine 21 mg 07/22/20 09:00 07/24/20 08:41 Nicotine 21 Mg Patch.Td24 TRANSDERMA 21 mg DAILY ABDULKADIR Administration Risperidone 0.5 mg 07/23/20 21:00 07/24/20 08:41 Risperidone 0.5 Mg Tablet PO 0.5 mg BID ABDULKADIR Administration Thiamine HCl 100 mg 07/24/20 09:00 07/24/20 08:41 Thiamine Hcl 100 Mg Tablet PO 100 mg DAILY ABDULKADIR Administration Trazodone HCl 50 mg 07/21/20 14:57 Trazodone Hcl 50 Mg Tablet PO BEDTIME PRN Insomnia Allergies Allergies Allergy/AdvReac Type Severity Reaction Status Date / Time No Known Allergies Allergy Verified 07/06/20 14:00 Assessment & Plan Assessment & Plan (1) Bipolar 2 disorder, major depressive episode: Status: Acute Code(s): F31.81 - Bipolar II disorder Assessment and Plan: F/P pt presents as stable No changes to current treatment plan 3 day notice submitted below from prior note: Mr. Hall on multiple psychotropic medications. He is not sure about what he is taking nor if it has been helpful. Suspect poor complaince with medications. we discussed simplifying regimen, avoiding benzos as he continues to work on alcohol use disorder. Plan discussed with his OP provider, Kevin Bai who reports he will not continue benzodiazepines. We discussed risks, benefits and alternative treatment options. He agreed to continue cymbalta. D/C topamax apparently for weight loss, d/c lamictal as pt not taking consistently. Consider atypical- risperidone (2) Alcohol use disorder: Status: Acute Assessment and Plan: thiamine and folic acid. [facility] protocol- no withdrawal s/s Greater than 50% of the session was spent on counseling and/or coordination of care Reason for contiued inpatient stay Substantial Risk for: med/psych decompensation
[2020-07-24] MEDS: Cyclobenzaprine HCl 10 MG TABLET PO (16:17)
[2020-07-24 16:20] VITALS: BP 120/60; PULSE 75; TEMP 35.9
[2020-07-25 05:31] VITALS: BP 135/75; PULSE 80; RESP 18; TEMP 36.8; O2SAT 96
[2020-07-25] MEDS: DULoxetine HCl 60 MG CAPSULE.DR PO (08:09)
[2020-07-25] MEDS: glipiZIDE 5 MG TABLET PO (08:09)
[2020-07-25] MEDS: Folic Acid 1 MG TABLET PO (08:09)
[2020-07-25] MEDS: risperiDONE 0.5 MG TABLET PO (08:09)
[2020-07-25] MEDS: Nicotine 21 MG PATCH.TD24 TRANSDERMA (08:09)
[2020-07-25] MEDS: metFORMIN HCl 500 MG TABLET PO (08:09)
[2020-07-25] MEDS: Thiamine HCL 100 MG TABLET PO (08:09)
[2020-07-25] MEDS: clonazePAM 0.5 MG TABLET PO (08:09)
--- NOTE | 2020-07-25 09:04 | P.PNPSI_ITS ---
Subjective Subjective Date of Service: 07/25/20 Reason For Visit: SI Interim History: Chart reviewed; case discussed with team. Vitals reviewed: WNL Pt sleeping in bed; woke up briefly to talk with commercial lines underwriter. No complaints; wanted to continue resting Staff reports pt was a little confused today. He thought his breakfast tray was for lunch and struggled to accept nursing telling him otherwise. Mental Status Exam Mental Status Exam Narrative: Appearance: in hospital gown, unkempt Behavior: calm TP: goal oriented TC: wanting to sleep Memory/cog: alert, oriented x 3. Pending MOCA given chronic alcohol use. Diagnostics Vital Signs (24Hr): Vital Signs - 24 hr 07/24/20 16:20 07/25/20 05:31 Temperature 96.6 F L 98.3 F Pulse Rate 75 80 Respiratory Rate 18 Blood Pressure 120/60 135/75 Pulse Oximetry 96 Body Mass Index 38.0 Labs Results: 07/19/20 21:55 07/25/20 09:01 Labs: Laboratory Results - last 48 hr 07/24/20 06:31 POC Glucose 184 H Imaging Radiology Impressions: ITS Impressions Chest X-Ray 07/20/20 00:54 IMPRESSION: Enteric tube visualized to the level of the mid thorax. Consider advancement and repeat imaging. Chest X-Ray 07/20/20 01:50 IMPRESSION: The enteric tube now extends at least to the level of the gastroesophageal junction. Abdominal radiograph may be more useful for determining the endpoint of the tube. Medications Medications Current Medications Generic Name Dose Route Start Last Admin Trade Name Freq PRN Reason Stop Dose Admin Acetaminophen 650 mg 07/21/20 14:57 Acetaminophen 325 Mg Tablet PO Q6H PRN Headache/Pain Mild Scale (1-3) Clonazepam 0.5 mg 07/23/20 21:00 07/25/20 08:09 Clonazepam 0.5 Mg Tablet PO 07/26/20 21:01 0.5 mg BID ABDULKADIR Administration Cyclobenzaprine HCl 10 mg 07/21/20 16:36 07/24/20 16:17 Cyclobenzaprine Hcl 10 Mg Tablet PO 10 mg BID PRN Administration Spasms Docusate Sodium 100 mg 07/21/20 20:32 Docusate Sodium 100 Mg Capsule PO BID PRN Constipation Duloxetine HCl 60 mg 07/22/20 09:00 07/25/20 08:09 Duloxetine Hcl 60 Mg Capsule. PO 60 mg DAILY ABDULKADIR Administration Folic Acid 1 mg 07/24/20 09:00 07/25/20 08:09 Folic Acid 1 Mg Tablet PO 1 mg DAILY ABDULKADIR Administration Glipizide 5 mg 07/22/20 09:00 07/25/20 08:09 Glipizide 5 Mg Tablet PO 5 mg DAILY ABDULKADIR Administration Hydroxyzine HCl 25 mg 07/21/20 14:57 Hydroxyzine Hcl 25 Mg Tablet PO Q6H PRN Anxiety Magnesium Hydroxide 30 ml 07/21/20 14:57 Milk Of Magnesia 30 Ml Oral.Susp PO DAILY PRN Constipation Metformin HCl 500 mg 07/21/20 21:00 07/25/20 08:09 Metformin Hcl 500 Mg Tablet PO 500 mg BID ABDULKADIR Administration Nicotine 21 mg 07/22/20 09:00 07/25/20 08:09 Nicotine 21 Mg Patch.Td24 TRANSDERMA 21 mg DAILY ABDULKADIR Administration Risperidone 0.5 mg 07/23/20 21:00 07/25/20 08:09 Risperidone 0.5 Mg Tablet PO 0.5 mg BID ABDULKADIR Administration Thiamine HCl 100 mg 07/24/20 09:00 07/25/20 08:09 Thiamine Hcl 100 Mg Tablet PO 100 mg DAILY ABDULKADIR Administration Trazodone HCl 50 mg 07/21/20 14:57 Trazodone Hcl 50 Mg Tablet PO BEDTIME PRN Insomnia Allergies Allergies Allergy/AdvReac Type Severity Reaction Status Date / Time No Known Allergies Allergy Verified 07/06/20 14:00 Assessment & Plan Assessment & Plan (1) Bipolar 2 disorder, major depressive episode: Status: Acute Code(s): F31.81 - Bipolar II disorder Assessment and Plan: F/P Patient made comment to nursing suggesting some confusion (thought breakfast tray was lunch and struggled for a bit to accept otherwise) No changes to current treatment plan 3 day notice submitted below from prior note: Mr. Hall on multiple psychotropic medications. He is not sure about what he is taking nor if it has been helpful. Suspect poor complaince with medications. we discussed simplifying regimen, avoiding benzos as he continues to work on alcohol use disorder. Plan discussed with his OP provider, Kevin Bai who reports he will not continue benzodiazepines. We discussed risks, benefits and alternative treatment options. He agreed to continue cymbalta. D/C topamax apparently for weight loss, d/c lamictal as pt not taking consistently. Consider atypical- risperidone (2) Alcohol use disorder: Status: Acute Assessment and Plan: thiamine and folic acid. [facility] protocol- no withdrawal s/s Greater than 50% of the session was spent on counseling and/or coordination of care Reason for contiued inpatient stay Substantial Risk for: med/psych decompensation
[2020-07-25 09:30] LABS: Creatinine Clr Calc Pharmacy 112.2; Estimated Glomerular Filt Rate > 60
[2020-07-25 14:03] LABS: Glucose, Whole Blood 330 mg/dL (60-115)
--- NOTE | 2020-07-25 14:05 | PM.EVENT ---
Event Note Date of Service: 07/25/20 Event Note: Responded to code blue for 55/m obese, with diabetes, admitted to Psych for depression, suicide attemp by OD. Patient reportedly was last last seen normal 15 minutes earlier. He was cyanotic at that time, and asytole. ACLS protocol initiated but never achieved ROSC--See code Sheet for details. Efforts were terminated 1 40 pm, 18 minutes after initiating ACLS and after consulting with patient's sister, whom he lives with, over the phone..Sister was in favor of terminating code.
--- NOTE | 2020-07-25 14:32 | PC.NURSE ---
During 15 minute safety checks pt was found in bed laying on right side, color powell and dusky. Skin cool and diaphoretic. RN attempted to arouse pt, no response. [place] for radial and carotid pulse, could not feel pulse. No respirations noted. Staff called for assistance and Code Rashawn immediately called. CPR started. Response team arrived and Code Blue protocol initiated. collection correspondent and Aury Begum called sister, explained the situation, Annie Kapoor RN also spoke to sister. Sister stated to cease CPR as pt has already been through enough and requested to come see pt. Sister and brother allowed to see pt. Tuan Calle, Rivka Rincon, Deidra Lin, Jeb Rai, Juanis Mckeon notified. [facility] notified and accepted pt. Tuan Calle calling [place].
--- NOTE | 2020-07-25 14:32 | PC.NURSE ---
[facility] called at 1410. Case accepted. [facility] will call unit back later this shift for further instruction. Reference # [id number].
--- NOTE | 2020-07-25 16:02 | P.EN_ITS ---
Event Note Date of Service: 07/25/20 Event Note: Nursing verified that patient seen walking, talking, interacting a ppropriately and at his baseline up to around 11:00am. At some point pt after that, patient went to take a nap. 15 min checks done per unit protocol. At approximately 1:20pm, staff observed that patients skin color was off and sought to rouse him; pt was unresponsive and code was called. Pt was in asystole and CPR performed for about ~20min (see nursing note for exact details/times); sister (next of kin) called. Patient pronounced at 1:40pm by Dr. Micha Soliman. Agitator Operator was notified. telecommunications facility examiner called and case accepted ME: Dr. Shawn Gallegos Case # [id number] [place] office reports that organ donation team, [place] office will both collaborate with [facility] Admitting called and notified that case was accepted and case number Notification of order written [facility] [place] [facility]
[2020-07-25 16:03] LABS: Magnesium 1.3 mg/dL (1.6-2.6)
--- NOTE | 2020-07-25 16:51 | PM.PSYDC ---
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 Continues with Valium, Vincent Affirms that he does have Bipolar Disorder (2) Alcohol use disorder: Status: Acute Problem details: Intermittent use pt reports DS: Medications Discharge Medications Home Medications: Home Medications Medication Instructions Recorded Confirmed diazepam [Valium] 10 mg PO BID PRN 07/20/20 07/20/20 duloxetine 1 cap PO QAM 07/20/20 07/20/20 lamotrigine 25 mg PO BID 07/20/20 07/20/20 topiramate 25 mg PO BEDTIME 07/20/20 07/21/20 docusate sodium 100 mg PO BID PRN 07/21/20 07/21/20 metformin 500 mg PO BID 07/21/20 07/21/20 Previous Rx's Medication Instructions Recorded cyclobenzaprine 10 mg PO BID PRN #20 tab 05/28/20 zolpidem 10 mg PO BEDTIME #5 tab 05/28/20 Discharge Plan Discharge Date/Time: 07/25/20 16:49 Patient Disposition: Referrals: Bee Lopes (therapist) [Other] - 07/27/20 9:00 am (Telehealth appointment) Kevin Bai (psychiatrist) [Other] - 08/13/20 10:15 am (Telehealth appointment) Physician,Unknown [Primary Care Provider] - 1 Week Discharge Medications: Discontinued cyclobenzaprine 10 mg Tablet 10 mg PO BID PRN (Reason: Spasms) Qty: 20 RF: 0 zolpidem 10 mg tablet 10 mg PO BEDTIME Qty: 5 RF: 0 topiramate 25 mg tablet 25 mg PO BEDTIME RF: 0 lamotrigine 25 mg tablet 25 mg PO BID RF: 0 diazepam [Valium] 10 mg tablet 10 mg PO BID PRN (Reason: Anxiety) RF: 0 duloxetine 60 mg capsule,delayed release(DR/EC) 1 cap PO QAM RF: 0 docusate sodium 100 mg Capsule 100 mg PO BID PRN (Reason: Constipation) RF: 0 metformin 500 mg Tablet 500 mg PO BID RF: 0 Discharge Orders: Discharge Order (Routine); Ordered 07/25/20 Ordered By: Tuan Calle Care Plan Goals: Patient now Data Data Completed and Pending Completed studies during hospitalization [Text1]: 07/19/20 07/19/20 07/19/20 21:44 21:55 21:55 WBC 6.0 RBC 5.35 Hgb 16.1 Hct 46.6 MCV 87.1 MCH 30.1 MCHC 34.5 RDW 13.2 Plt Count 181 MPV 10.1 Immature Gran % (Auto) 0.2 Neut % (Auto) 32.6 L Lymph % (Auto) 58.7 H [place] % (Auto) 7.0 Eos % (Auto) 1.2 Baso % (Auto) 0.3 Lymph # (Auto) 3.5 [place] # (Auto) 0.4 Eos # (Auto) 0.1 Baso # (Auto) 0.0 Abs Immat Gran (auto) 0.01 Absolute Neuts (auto) 2.0 Absolute Nucleated RBC 0.000 Nucleated RBC % (auto) 0.0 PT INR VBG pH VBG pCO2 VBG pO2 VBG HCO3 VBG O2 Saturation VBG Base Excess Sodium 142 Potassium 4.2 D Chloride 106 Carbon Dioxide 21 L Anion Gap 19 BUN 9 D Creatinine 1.15 Estim Creat Clear Calc 96.4 Estimated GFR > 60 POC Glucose 127 H Random Glucose 133 H D Estimat Average Glucose Hemoglobin A1c % Lactic Acid Lactic Acid Fup @ 2Hr Lactic Acid Fup @ 4Hr Calcium 9.1 Magnesium Total Bilirubin 0.3 AST 37 D ALT 45 H Alkaline Phosphatase 57 D Total Creatine Kinase 102 Total Protein 7.0 Albumin 4.1 Vitamin B12 Folate TSH Urine Color Urine Appearance Urine pH Ur Specific [place] Urine Protein Urine Glucose (UA) Urine Ketones Urine Blood Urine Nitrite Ur Leukocyte Esterase Salicylates < 5.0 L Urine Opiates Screen Acetaminophen < 1 Ur Barbiturates Screen Ur Phencyclidine Scrn Ur Amphetamines Screen U Benzodiazepines Scrn Urine Cocaine Screen U Marijuana (THC) Screen Ethyl Alcohol COVID-19 ([facility]) COVID-19 Clin Com 07/19/20 07/19/20 07/19/20 21:55 21:55 22:28 WBC RBC Hgb Hct MCV MCH MCHC RDW Plt Count MPV Immature Gran % (Auto) Neut % (Auto) Lymph % (Auto) [place] % (Auto) Eos % (Auto) Baso % (Auto) Lymph # (Auto) [place] # (Auto) Eos # (Auto) Baso # (Auto) Abs Immat Gran (auto) Absolute Neuts (auto) Absolute Nucleated RBC Nucleated RBC % (auto) PT 12.3 INR 1.0 VBG pH VBG pCO2 VBG pO2 VBG HCO3 VBG O2 Saturation VBG Base Excess Sodium Potassium Chloride Carbon Dioxide Anion Gap BUN Creatinine Estim Creat Clear Calc Estimated GFR POC Glucose Random Glucose Estimat Average Glucose Hemoglobin A1c % Lactic Acid Lactic Acid Fup @ 2Hr Lactic Acid Fup @ 4Hr Calcium Magnesium Total Bilirubin AST ALT Alkaline Phosphatase Total Creatine Kinase Total Protein Albumin Vitamin B12 Folate TSH Urine Color Urine Appearance Urine pH Ur Specific [place] Urine Protein Urine Glucose (UA) Urine Ketones Urine Blood Urine Nitrite Ur Leukocyte Esterase Salicylates Urine Opiates Screen Not Detected Acetaminophen Ur Barbiturates Screen Not Detected Ur Phencyclidine Scrn Not Detected Ur Amphetamines Screen Not Detected U Benzodiazepines Scrn POSITIVE H Urine Cocaine Screen Not Detected U Marijuana (THC) Screen POSITIVE H Ethyl Alcohol 182 COVID-19 ([facility]) COVID-19 Clin Com 07/19/20 07/20/20 07/20/20 22:28 00:32 01:14 WBC RBC Hgb Hct MCV MCH MCHC RDW Plt Count MPV Immature Gran % (Auto) Neut % (Auto) Lymph % (Auto) [place] % (Auto) Eos % (Auto) Baso % (Auto) Lymph # (Auto) [place] # (Auto) Eos # (Auto) Baso # (Auto) Abs Immat Gran (auto) Absolute Neuts (auto) Absolute Nucleated RBC Nucleated RBC % (auto) PT INR VBG pH VBG pCO2 VBG pO2 VBG HCO3 VBG O2 Saturation VBG Base Excess Sodium Potassium Chloride Carbon Dioxide Anion Gap BUN Creatinine Estim Creat Clear Calc Estimated GFR POC Glucose Random Glucose Estimat Average Glucose Hemoglobin A1c % Lactic Acid 3.2 H* Lactic Acid Fup @ 2Hr Lactic Acid Fup @ 4Hr Calcium Magnesium Total Bilirubin AST ALT Alkaline Phosphatase Total Creatine Kinase Total Protein Albumin Vitamin B12 Folate TSH Urine Color YELLOW Urine Appearance CLEAR Urine pH 6.5 Ur Specific [place] <= 1.005 Urine Protein NEG Urine Glucose (UA) NEG Urine Ketones NEG Urine Blood NEG Urine Nitrite NEG Ur Leukocyte Esterase NEG Salicylates Urine Opiates Screen Acetaminophen Ur Barbiturates Screen Ur Phencyclidine Scrn Ur Amphetamines Screen U Benzodiazepines Scrn Urine Cocaine Screen U Marijuana (THC) Screen Ethyl Alcohol COVID-19 ([facility]) Negative COVID-19 Clin Com See Note 07/20/20 07/20/20 07/20/20 01:15 03:29 05:47 WBC RBC Hgb Hct MCV MCH MCHC RDW Plt Count MPV Immature Gran % (Auto) Neut % (Auto) Lymph % (Auto) [place] % (Auto) Eos % (Auto) Baso % (Auto) Lymph # (Auto) [place] # (Auto) Eos # (Auto) Baso # (Auto) Abs Immat Gran (auto) Absolute Neuts (auto) Absolute Nucleated RBC Nucleated RBC % (auto) PT INR VBG pH 7.33 VBG pCO2 36 VBG pO2 198 VBG HCO3 19 L VBG O2 Saturation 99.0 VBG Base Excess -5.5 Sodium Potassium Chloride Carbon Dioxide Anion Gap BUN Creatinine Estim Creat Clear Calc Estimated GFR POC Glucose Random Glucose Estimat Average Glucose Hemoglobin A1c % Lactic Acid Lactic Acid Fup @ 2Hr 3.3 H* Lactic Acid Fup @ 4Hr 3.0 H* Calcium Magnesium Total Bilirubin AST ALT Alkaline Phosphatase Total Creatine Kinase Total Protein Albumin Vitamin B12 Folate TSH Urine Color Urine Appearance Urine pH Ur Specific [place] Urine Protein Urine Glucose (UA) Urine Ketones Urine Blood Urine Nitrite Ur Leukocyte Esterase Salicylates Urine Opiates Screen Acetaminophen Ur Barbiturates Screen Ur Phencyclidine Scrn Ur Amphetamines Screen U Benzodiazepines Scrn Urine Cocaine Screen U Marijuana (THC) Screen Ethyl Alcohol COVID-19 ([facility]) COVID-19 Clin Com 07/21/20 07/22/20 07/22/20 06:08 04:51 08:11 WBC RBC Hgb Hct MCV MCH MCHC RDW Plt Count MPV Immature Gran % (Auto) Neut % (Auto) Lymph % (Auto) [place] % (Auto) Eos % (Auto) Baso % (Auto) Lymph # (Auto) [place] # (Auto) Eos # (Auto) Baso # (Auto) Abs Immat Gran (auto) Absolute Neuts (auto) Absolute Nucleated RBC Nucleated RBC % (auto) PT INR VBG pH VBG pCO2 VBG pO2 VBG HCO3 VBG O2 Saturation VBG Base Excess Sodium Potassium Chloride Carbon Dioxide Anion Gap BUN Creatinine Estim Creat Clear Calc Estimated GFR POC Glucose 105 219 H Random Glucose Estimat Average Glucose 166 Hemoglobin A1c % 7.4 Lactic Acid Lactic Acid Fup @ 2Hr Lactic Acid Fup @ 4Hr Calcium Magnesium Total Bilirubin AST ALT Alkaline Phosphatase Total Creatine Kinase Total Protein Albumin Vitamin B12 Folate TSH Urine Color Urine Appearance Urine pH Ur Specific [place] Urine Protein Urine Glucose (UA) Urine Ketones Urine Blood Urine Nitrite Ur Leukocyte Esterase Salicylates Urine Opiates Screen Acetaminophen Ur Barbiturates Screen Ur Phencyclidine Scrn Ur Amphetamines Screen U Benzodiazepines Scrn Urine Cocaine Screen U Marijuana (THC) Screen Ethyl Alcohol COVID-19 ([facility]) [employer] 07/22/20 07/22/20 07/23/20 08:11 08:11 05:14 WBC RBC Hgb Hct MCV MCH MCHC RDW Plt Count MPV Immature Gran % (Auto) Neut % (Auto) Lymph % (Auto) [place] % (Auto) Eos % (Auto) Baso % (Auto) Lymph # (Auto) [place] # (Auto) Eos # (Auto) Baso # (Auto) Abs Immat Gran (auto) Absolute Neuts (auto) Absolute Nucleated RBC Nucleated RBC % (auto) PT INR VBG pH VBG pCO2 VBG pO2 VBG HCO3 VBG O2 Saturation VBG Base Excess Sodium Potassium Chloride Carbon Dioxide Anion Gap BUN Creatinine Estim Creat Clear Calc Estimated GFR POC Glucose 193 H Random Glucose Estimat Average Glucose Hemoglobin A1c % Lactic Acid Lactic Acid Fup @ 2Hr Lactic Acid Fup @ 4Hr Calcium Magnesium Total Bilirubin AST ALT Alkaline Phosphatase Total Creatine Kinase Total Protein Albumin Vitamin B12 201 Folate 6.8 TSH 1.77 Urine Color Urine Appearance Urine pH Ur Specific [place] Urine Protein Urine Glucose (UA) Urine Ketones Urine Blood Urine Nitrite Ur Leukocyte Esterase Salicylates Urine Opiates Screen Acetaminophen Ur Barbiturates Screen Ur Phencyclidine Scrn Ur Amphetamines Screen U Benzodiazepines Scrn Urine Cocaine Screen U Marijuana (THC) Screen Ethyl Alcohol COVID-19 ([facility]) [employer] 07/24/20 07/25/20 07/25/20 06:31 09:01 13:27 WBC RBC Hgb Hct MCV MCH MCHC RDW Plt Count MPV Immature Gran % (Auto) Neut % (Auto) Lymph % (Auto) [place] % (Auto) Eos % (Auto) Baso % (Auto) Lymph # (Auto) [place] # (Auto) Eos # (Auto) Baso # (Auto) Abs Immat Gran (auto) Absolute Neuts (auto) Absolute Nucleated RBC Nucleated RBC % (auto) PT INR VBG pH VBG pCO2 VBG pO2 VBG HCO3 VBG O2 Saturation VBG Base Excess Sodium Potassium Chloride Carbon Dioxide Anion Gap BUN Creatinine 1.00 Estim Creat Clear Calc 112.2 Estimated GFR > 60 POC Glucose 184 H 330 H Random Glucose Estimat Average Glucose Hemoglobin A1c % Lactic Acid Lactic Acid Fup @ 2Hr Lactic Acid Fup @ 4Hr Calcium Magnesium 1.3 L* Total Bilirubin AST ALT Alkaline Phosphatase Total Creatine Kinase Total Protein Albumin Vitamin B12 Folate TSH Urine Color Urine Appearance Urine pH Ur Specific [place] Urine Protein Urine Glucose (UA) Urine Ketones Urine Blood Urine Nitrite Ur Leukocyte Esterase Salicylates Urine Opiates Screen Acetaminophen Ur Barbiturates Screen Ur Phencyclidine Scrn Ur Amphetamines Screen U Benzodiazepines Scrn Urine Cocaine Screen U Marijuana (THC) Screen Ethyl Alcohol COVID-19 ([facility]) COVID-19 Clin Com Imaging Diagnostic Imaging Impressions Chest X-Ray 07/20/20 00:54 IMPRESSION: Enteric tube visualized to the level of the mid thorax. Consider advancement and repeat imaging. Chest X-Ray 07/20/20 01:50 IMPRESSION: The enteric tube now extends at least to the level of the gastroesophageal junction. Abdominal radiograph may be more useful for determining the endpoint of the tube. DS: Summary Time Spent with Patient Time attestation: Total time spent providing and/or coordinating discharge services:
--- NOTE | 2020-09-06 12:02 | P.DS_ITS ---
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 Continues with Valium, Ambien Affirms that he does have Bipolar Disorder (2) Alcohol use disorder: Status: Resolved Problem details: Intermittent use pt reports Discharge Plan Discharge Date/Time: 07/25/20 16:49 Anticipated Discharge Date/Time: 07/25/20 16:55 Patient Disposition: Referrals: Bee Lopes (therapist) [Other] - 07/27/20 9:00 am (Telehealth appointment) Kevin Bai (psychiatrist) [Other] - 08/13/20 10:15 am (Telehealth appointment) Physician,Unknown [Primary Care Provider] - 1 Week Discharge Medications: Discontinued cyclobenzaprine 10 mg Tablet 10 mg PO BID PRN (Reason: Spasms) Qty: 20 RF: 0 zolpidem 10 mg tablet 10 mg PO BEDTIME Qty: 5 RF: 0 topiramate 25 mg tablet 25 mg PO BEDTIME RF: 0 lamotrigine 25 mg tablet 25 mg PO BID RF: 0 diazepam [Valium] 10 mg tablet 10 mg PO BID PRN (Reason: Anxiety) RF: 0 duloxetine 60 mg capsule,delayed release(DR/EC) 1 cap PO QAM RF: 0 docusate sodium 100 mg Capsule 100 mg PO BID PRN (Reason: Constipation) RF: 0 metformin 500 mg Tablet 500 mg PO BID RF: 0 Discharge Orders: Discharge Order (Routine); Ordered 07/25/20 Ordered By: Tuan Calle Activity on Discharge: . Care Plan Goals: Patient now Discharge Date/Time: 07/25/20 13:45 Data Imaging Diagnostic Imaging Impressions Chest X-Ray 07/20/20 00:54 IMPRESSION: Enteric tube visualized to the level of the mid thorax. Consider advancement and repeat imaging. Chest X-Ray 07/20/20 01:50 IMPRESSION: The enteric tube now extends at least to the level of the gastroesophageal junction. Abdominal radiograph may be more useful for determining the endpoint of the tube. DS: Summary Hospital Course Hospital Course: Mr. Hall is a 55 year-old male with hx of Bipolar type 2 Disorder and alcohol use. According to crisis report, Mr. Hall initially called his OP psychiatric provider, Kevin Bai and reported suicidal ideation with plan to OD. His OP provider contacted crisis and by time they went to his sister's house where he resides, he was found unresponsive. In the ED, his utox was positive for benzodiazepines and cannabis. His BAL was 186. On the unit, Mr. hall presents with brighter affect. He reports he has been feeling numbed and overwhelmed due to not having a job, not stable relationship with significant other, feeling worthless, hopeless. However, he reports that after OD, he is glad he survived and wants to make changes in his life. 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 However, pt has significant chronic back pain issues which have prevented him from working in past 10 years along with chronic alcohol use. Pt not able to recognize that his plan may not be viable and he may be potentially setting himself to failure. He is unable to identified other barriers that have prevented him from having a more stable life and relationships including his chronic alcohol use. He denies VH/AH. He reports chronic sleep disturbances. He was prescribed ambien. However, he has never had sleep study. Pt minimizes his lack of coping skills to deal with difficult situation and also minimizes events leading to this admission. Pt reports he does not remember calling his OP provider. He also reports he had only one beer which is not consistent with a BAL of 186. Past Psychiatric History: Inpatient: M5 12/2019; M5 02/2020; M5 03/2020; 04/2020 HOSPITAL COURSE Mr. Hall was admitted on a CV and placed on 15 minutes checks for safety. On admission, Mr. Hall endorsed depressed mood, feeling hopeless about his future, lonely. However, he adamantly denied suicidal ideation. He reported fe eling glad to be alive and wanting to work towards his recovery. He did minimize his substance use and decline further referrals for more intensive substance use treatment stating he could work on it with his OP psychiatric providers. Collateral information was gathered from his OP psychiatric provider Kevin Bai who reported that due to alcohol use, pt was inconsistent with medications. We discussed simplifying medication regimen also due to concerns of patient taking some of this medications while also using alcohol. Kevin Bai was in agreement to taper him off diazepam and stop this medication. After discussing risks, benefits and alternative treatment options, Mr. Hall agreed with plan to simplify medication regimen including discontinuing valium, ambien, topamax and lamictal. Pt admitted that he was not consistent taking these medications in the community and did not think they added any therapeutic value. He did agree to continue cymbalta for depression and neuropathic pain. Mr. Hall's affect gradually brighten. He continued to denied suicidal or homicidal ideation. He denied VH/AH and did not appear to respond to internal stimuli. He was increasingly more visible in the unit, seen smiling and socializing with peers and staff. We had planned for discharged on Sunday to his sister's. However, pt was found unresponsive on 07/25/2020- please referred to Dr.Eric Calle's note. Status at Discharge Cognitive/behavioral status at discharge: . Time Spent with Patient Time attestation: Total time spent providing and/or coordinating discharge services:
== END 2020-07-25 13:45 | disposition expired | DRG 753 ==
LOC: HO.ED 07-21 14:09 → HO.PM5 07-21 16:34
PROVIDERS: Internal Medicine; Student in an Organized Health Care Education/Training Program; Admitting Provider Psychiatry & Neurology Psychiatry; Emergency Provider Internal Medicine; Visit Provider Social Worker
DX: F31.81 Bipolar II disorder (principal); R45.851 Suicidal ideations; E11.9 Type 2 diabetes mellitus without complications; T42.4X2A Poisoning by benzodiazepines, intentional self-harm, initial encounter; T51.0X2A Toxic effect of ethanol, intentional self-harm, initial encounter; I46.9 Cardiac arrest, cause unspecified; F10.10 Alcohol abuse, uncomplicated; E66.9 Obesity, unspecified; Z68.38 Body mass index [BMI] 38.0-38.9, adult; Y92.9 Unspecified place or not applicable; F17.210 Nicotine dependence, cigarettes, uncomplicated; Z71.6 Tobacco abuse counseling; Z20.822 Contact with and (suspected) exposure to COVID-19; Z79.84 Long term (current) use of oral hypoglycemic drugs; Z79.899 Other long term (current) drug therapy
CPT/HCPCS: 36415; 71045; 80053; 80143; 80179; 80307; 80320; 81003; 82550; 82565; 82607; 82746; 82947; 83036; 83605; 83735; 84443; 85025; 85610; 87635; 93005; 94799; 96361; 96374; 99285; J0171; J2405